=== PATIENT | female | born 1955 | race Caucasian/White ===

== ENCOUNTER 2019-07-14 15:01 | Outpatient (CLI) | payer BC, SELFPAY ==
--- NOTE | ~2019-07-14 | DEXA_ITS ---
Bone Density Report Name: Bhavana Escamilla Age: 63 Sex: Female Ethnicity: White Date of : 1955 Indication: postmenopausal; Referring Provider: KRYSTA TUBBS Study: Bone densitometry was performed. Exam Date: July 14, 2019 Accession number: [id number] Bone Density: Region BMD T-score Z-score Classification AP Spine (L1-L4) 1.034 -0.1 1.5 Normal Femoral Neck (Left) 0.729 -1.1 0.3 Osteopenia Total Hip (Left) 0.815 -1.0 0.1 Normal Total Hip Bilateral Avg 0.815 -1.1 0.1 Osteopenia Femoral Neck (Right) 0.746 -0.9 0.5 Normal Total Hip (Right) 0.813 -1.1 0.0 Osteopenia World Health Organization criteria for BMD impression classify patients as: Normal (T-score at or above -1.0), Osteopenia (T-score between -1.0 and -2.5), or Osteoporosis (T-score at or below -2.5). Clinical Information Provided by Patient: Has 3 or more alcoholic drinks per day Patient maximum height was 67 Menopause Age: 51 Drinks caffeinated beverages Onset of menses at age 14 Number of children 2 Impression: The patient has low bone mass, based on the Right Total Hip T-score. The patient has risk factors, including: excessive alcohol use. Discussion: BONE DENSITY IS LOW AT ONE OR MORE SKELETAL SITES. This patient's lowest T-score is low at one or more skeletal sites. It meets the World Health Organization's (WHO) criteria for ?low bone mass? (T-score between -1.0 and -2.5). The patient's 10-year risk of fracture as calculated by FRAX is less than the threshold where pharmacological therapy is recommended by the National Osteoporosis Foundation (NOF). However, all treatment decisions require clinical judgment and consideration of individual patient factors, including patient preferences, comorbidities, previous drug use, risk factors not captured in the FRAX model (e.g., frailty, falls, vitamin D deficiency, increased bone turnover, interval significant decline in bone density) and possible under or overestimation of fracture risk by FRAX. The patient should follow a healthful lifestyle (good nutrition with adequate calcium and vitamin D, and appropriate weight-bearing exercise). Follow-Up: Consider repeating this study in 2 to 3 years to reassess this patient's status, or sooner if there is some new clinical indication. Reported by: KATHY on 07/14/2019 3:43:00 PM. Reviewed, dictated and finalized at location A. [facility]
--- NOTE | ~2019-07-14 | MM_ITS ---
EXAMINATION: MM screening ron BI w marlyn HISTORY: Screening mammogram TECHNIQUE: Craniocaudal and mediolateral oblique 3-D tomosynthesis images were obtained and synthetic 2-D images were generated. CAD analysis was submitted and interpreted. COMPARISON: No prior mammogram is available for comparison at this institution. BREAST PARENCHYMAL COMPOSITION: There are scattered areas of fibroglandular density. FINDINGS: There is no evidence of suspicious mass, calcification, or architectural distortion to sugg est malignancy in either breast. There has been no suspicious interval change. IMPRESSION: 1. No mammographic evidence of malignancy. 2. Recommend routine screening mammography in one year. BI-RADS Category 1: Negative Reviewed, dictated and finalized at location A.
== END 2019-07-14 15:02 | disposition home or self-care (01) ==
LOC: ANHIMG 15:04
PROVIDERS: PCP Family Medicine; Visit Provider Obstetrics & Gynecology
DX: Z78.0 Asymptomatic menopausal state (principal); Z12.31 Encounter for screening mammogram for malignant neoplasm of breast; M85.89 Other specified disorders of bone density and structure, multiple sites
CPT/HCPCS: 77063; 77067; 77080

== ENCOUNTER → 2019-12-10 14:44 | Outpatient (CLI) | payer BC, SELFPAY ==
--- NOTE | ~2019-12-10 | XR_ITS ---
XR chest 2V DATE: 12/10/2019 15:04 INDICATION: Dyspnea. Shortness of breath on exertion. TECHNIQUE: PA and lateral views COMPARISON: None FINDINGS: There is bilateral hyperinflation consistent with COPD. Borderline heart size. Aortic and g reat vessel calcification. No hilar or mediastinal enlargement. No pulmonary infiltrate or consolidation, pleural effusion or pulmonary vascular congestion or pneumo thorax. Osteopenia. IMPRESSION: Bilateral hyperinflation, consistent with COPD Borderline heart size Aortic atherosclerosis Reviewed, dictated and finalized at location A.
== END ==
PROVIDERS: PCP Family Medicine; Visit Provider Family Medicine
DX: R06.00 Dyspnea, unspecified (principal); Z87.891 Personal history of nicotine dependence; R91.8 Other nonspecific abnormal finding of lung field; I70.0 Atherosclerosis of aorta
CPT/HCPCS: 71046

== ENCOUNTER 2020-03-07 13:35 | Outpatient (CLI) | payer BC, SELFPAY ==
--- NOTE | ~2020-03-07 | CT_ITS ---
EXAMINATION:CT lung screening DATE: 03/07/2020 14:24 INDICATION: Personal history of tobacco dependence. Smoker who quit 2 years ago with 30 pack year his tory. TECHNIQUE: Computed tomography (CT) of the chest was performed without intravenous contrast. Automate d exposure control and iterative reconstruction technique were employed. The dose-length product (DLP ) was 115.97 mGy-cm. COMPARISON: Chest 2 views 12/10/2019 FINDINGS: There is moderate emphysema. A calcified right lung nodule is consistent with old granuloma tous disease. There is mild atelectasis in right middle lobe. No pleural effusion. The heart size is normal. There are coronary artery calcifications. No pericardial effusion. There are three 2 mm stone s in left kidney. There is mild thoracic spondylosis. IMPRESSION: 1. Lung-RADS category 1: Negative. Continue annual screening with noncontrast low-dose chest CT in 12 months. Reviewed, dictated and finalized at location A. 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 Lung-RADS category 1: Negative. Continue annual screening with noncontrast l ow-dose chest CT in 12 months.
== END 2020-03-07 13:36 | disposition home or self-care (01) ==
LOC: ANHIMG 13:40
PROVIDERS: PCP Family Medicine; Visit Provider Internal Medicine Pulmonary Disease
DX: Z12.2 Encounter for screening for malignant neoplasm of respiratory organs (principal); Z87.891 Personal history of nicotine dependence
CPT/HCPCS: 71271

== ENCOUNTER 2020-03-14 12:31 | Outpatient (CLI) | payer BC, SELFPAY ==
--- NOTE | 2020-03-15 13:23 | WPDSIXMINUTE ---
Six Minute Walk This is a 6 minutes walk for exertional dyspnea. Findings: The patient's resting room air oxygen saturation measured by pulse oximetry was 93% and her heart rate was 68 bpm. Patient ambulated for 366 meters and oxygen saturation remained 87 to 93%. Heart rate at the end of the study was 95 bpm. There are no prior studies for comparison.
--- NOTE | 2020-03-15 13:24 | WPDPFTINT ---
PFT Interpretation This is a pulmonary function test with pre and post-bronchodilator spirometry, plethysmography and diffusing capacity. The test was performed and results interpreted in accordance with the 2019 and 2005 ATS/ERS Task Force guidelines respectively using the Yayo/Polyelena reference equations. Findings: Spirometry: There is decreased maximal expiratory airflow at all lung volumes with a concave expiratory flow tracing. The contour the inspiratory flow tracing is normal. The pre bronchodilator FVC is 2.66 L, 80% predicted. The pre bronchodilator FEV1 is 1.28 L, 52% predicted. The FEV1: FVC ratio was 48%. The post bronchodilator FVC is 2.99 L, representing a 12% increase. The post bronchodilator FEV1 is 1.46 L, representing a 14% increase. Plethysmography: The total lung capacity is 7.60 L, 139% predicted. The functional residual capacity is 4.01 L, 134% predicted. The residual volume is 3.75 L, 177% predicted. Diffusion capacity: The absolute diffusion capacity is 13.2, 59% predicted. The diffusing capacity corrected for alveolar volume is 2.88, 76% predicted. Impression: Impression: There is a moderate obstructive abnormality with significant improvement after inhaling a single dose of albuterol. The increase in residual volume is consistent with air trapping from an obstructive abnormality. Hyperinflation is present is demonstrated by the increase in functional residual capacity and total lung capacity and is consistent with an obstructive abnormality. The absolute diffusing capacity is moderately decreased and remains mildly decreased when corrected for alveolar volume. There are no prior studies for comparison
== END 2020-03-14 12:32 | disposition home or self-care (01) ==
LOC: ANHPFT 12:32
PROVIDERS: PCP Family Medicine; Visit Provider Internal Medicine Pulmonary Disease
DX: J44.9 Chronic obstructive pulmonary disease, unspecified (principal); R94.2 Abnormal results of pulmonary function studies
CPT/HCPCS: 94060; 94726; 94729

== ENCOUNTER 2020-04-11 12:14 | Outpatient (CLI) | payer BC, SELFPAY ==
[2020-04-11] VITALS (7 sets, daily range): PULSE 79–104; O2SAT 93–97
--- NOTE | 2020-04-11 13:30 | PCRTNOTE ---
Home Oxygen Evaluation RC: Home Oxygen (O2) Evaluation Start: 04/11/20 13:25 Freq: Status: Active Protocol: RPE Activity Type Activity Date Activity User E-Sign Co-Sign Detail Recorded Client Recorded Date Recorded By Document 04/11/20 13:00 [facility] [email or web address] 04/11/20 13:29 [facility] Document 04/11/20 13:02 [facility] [email or web address] 04/11/20 13:29 [facility] Document 04/11/20 13:04 [facility] [email or web address] 04/11/20 13:29 [facility] Document 04/11/20 13:06 [facility] [email or web address] 04/11/20 13:29 [facility] Document 04/11/20 13:08 [facility] [email or web address] 04/11/20 13:29 [facility] Document 04/11/20 13:10 [facility] [email or web address] 04/11/20 13:29 [facility] Document 04/11/20 13:12 [facility] [email or web address] 04/11/20 13:29 [facility] 04/11/20 04/11/20 04/11/20 13:00 13:02 13:04 Home O2 Evaluation Test Phase Resting Exercise Exercise Oxygen Delivery Room Air Room Air Room Air Pulse Oximetry (90-100 %) 97 94 95 Pulse Rate (60-100 beats/min) 79 90 95 Activity Tolerance Excellent Excellent Excellent Ambulation Distance (feet) 0 10 50 Treatment Charges O2 Evaluation - Outpatient 04/11/20 04/11/20 04/11/20 13:06 13:08 13:10 Home O2 Evaluation Test Phase Exercise Exercise Exercise Oxygen Delivery Room Air Room Air Room Air Pulse Oximetry (90-100 %) 93 94 94 Pulse Rate (60-100 beats/min) 104 H 103 H 98 Activity Tolerance Excellent Excellent Excellent Ambulation Distance (feet) 100 150 200 Treatment Charges 04/11/20 13:12 Home O2 Evaluation Test Phase Resting Oxygen Delivery Room Air Pulse Oximetry (90-100 %) 93 Pulse Rate (60-100 beats/min) 94 Activity Tolerance Excellent Ambulation Distance (feet) Treatment Charges
== END 2020-04-11 12:15 | disposition home or self-care (01) ==
LOC: ANHPFT 12:15
PROVIDERS: PCP Family Medicine; Visit Provider Internal Medicine Pulmonary Disease
DX: R06.02 Shortness of breath (principal)
CPT/HCPCS: 94618

== ENCOUNTER 2021-01-12 13:46 | Outpatient (CLI) | payer BC, SELFPAY ==
[2021-01-12 20:28] LABS: Hemoglobin A1C 5.5 % (<5.7)
== END 2021-01-12 13:47 | disposition home or self-care (01) ==
LOC: ANHBWCLAB 13:48
PROVIDERS: PCP Family Medicine; Visit Provider Family Medicine
DX: R73.03 Prediabetes (principal)
CPT/HCPCS: 36415; 83036

== ENCOUNTER 2021-07-20 08:32 | Outpatient (CLI) | payer MEDICARE, SELFPAY ==
[2021-07-20 18:36] LABS: Basophils Absolute Auto 0.1 K/mm3 (0.0-0.1); Eosinophils Absolute Auto 0.1 K/mm3 (0-0.3); Eosinophils Percent Auto 2.4 % (0-4.4); Hematocrit 42.4 % (37.0-47.0); Immature Granulocyte Absolute 0.01 K/mm3 (0.00-0.031); Immature Granulocyte Percent A 0.2 % (0-0.5); Lymphocytes Absolute Auto 2.32 K/mm3 (0.9-3.2); Lymphocytes Percent Auto 40.3 % (18.3-44.2); Mean Corpuscular HGB Conc 30.7 g/dl (32-36); Mean Corpuscular Hemoglobin 30.8 pg (26-34); Mean Corpuscular Volume 100.5 fl (80-100); Mean Platelet Volume 9.9 fl (7.4-10.4); Monocytes Absolute Auto 0.6 K/mm3 (0.1-0.6); Monocytes Percent Auto 10.1 % (2.6-8.5); Neutrophils Absolute Auto 2.7 K/mm3 (1.3-6.7); Platelet Count Result 285 k/mm3 (150-375); Red Blood Count 4.22 M/mm3 (4.2-5.4); Red Cell Distribution Width 14.3 % (11.5-14.5); White Blood Count 5.8 K/mm3 (4.5-10.0)
[2021-07-20 18:44] LABS: Alanine Aminotransferase 22 U/L (6-35); Albumin Level 4.3 g/dL (3.5-5.1); Alkaline Phosphatase 82 U/L (38-126); Anion Gap 4 mmol/L (8-16); Aspartate Amino Transferase 21 U/L (14-36); Bilirubin,Total 0.1 mg/dL (0.2-1.3); Blood Urea Nitrogen 16 mg/dL (7-17); Calcium 9.7 mg/dL (8.4-10.2); Carbon Dioxide 28 mmol/L (22-30); Chloride 107 mmol/L (98-107); Cholesterol 188 mg/dL (0-200); Estimated Glomerular Filt Rate 56; Glucose 102 mg/dL (65-110); HDL Direct 96 mg/dL; Potassium 4.5 mmol/L (3.4-5.0); Sodium 139 mmol/L (137-145); Triglycerides 97 mg/dL (<150)
[2021-07-20 18:53] LABS: Hemoglobin A1C 5.8 % (<5.7)
[2021-07-20 18:54] LABS: LDL Cholesterol Direct 67 mg/dL
[2021-07-20 19:01] LABS: Vitamin D 25 Hydroxy 48.3 ng/mL
== END 2021-07-20 08:33 | disposition home or self-care (01) ==
PROVIDERS: PCP Family Medicine; Visit Provider Family Medicine
DX: E53.8 Deficiency of other specified B group vitamins (principal); I70.90 Unspecified atherosclerosis; R79.89 Other specified abnormal findings of blood chemistry; I25.10 Atherosclerotic heart disease of native coronary artery without angina pectoris; R73.03 Prediabetes; E55.9 Vitamin D deficiency, unspecified; I10 Essential (primary) hypertension
CPT/HCPCS: 36415; 80053; 80061; 82306; 82607; 83036; 85025

== ENCOUNTER 2021-08-16 14:01 | Outpatient (CLI) | payer MEDICARE, SELFPAY ==
--- NOTE | ~2021-08-16 | MM_ITS ---
EXAMINATION: MM screening ron BI w marlyn HISTORY: Screening TECHNIQUE: Craniocaudal and mediolateral oblique 3-D tomosynthesis images were obtained and synthetic 2-D images were generated. CAD analysis was submitted and interpreted. COMPARISON: 07/14/2019 BREAST PARENCHYMAL COMPOSITION: There are scattered areas of fibroglandular density. FINDINGS: There is no evidence of suspicious mass, calcification, or architectural distortion to sugg est malignancy in either breast. There has been no suspicious interval change. IMPRESSION: 1. No mammographic evidence of malignancy. 2. Recommend routine screening mammography in one year. BI-RADS Category 1: Negative Reviewed, dictated and finalized at location A.
== END 2021-08-16 14:02 | disposition home or self-care (01) ==
LOC: ANHIMG 14:03
PROVIDERS: PCP Family Medicine; Visit Provider Obstetrics & Gynecology
DX: Z12.31 Encounter for screening mammogram for malignant neoplasm of breast (principal)
CPT/HCPCS: 77063; 77067

== ENCOUNTER 2021-08-24 09:23 | Outpatient (CLI) | payer MEDICARE, SELFPAY ==
--- NOTE | ~2021-08-24 | XR_ITS ---
EXAMINATION: XR foot LT min 3V, XR ankle LT min 3V DATE: 08/24/2021 09:47 INDICATION: Left heel and ankle pain TECHNIQUE: 1. Anteroposterior, mortise, additional oblique and lateral view of the left ankle were obtained. 2. Dorsoplantar, two oblique and lateral views of the left foot were obtained. COMPARISON: None. FINDINGS: Alignment of the left foot and ankle is normal. No fracture. Flattening of the articular surface at t he head of the second metatarsal which could represent sequela of chronic osteonecrosis (Freiberg's i nfraction). 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 Moderate-si zed Achilles and plantar calcaneal spurs. Soft tissues are unremarkable. No left ankle joint effusion . IMPRESSION: 1. Degenerative skeletal changes including mild polyarticular osteoarthritis in the mid and forefoot as well as Achilles and plantar calcaneal spurs. No acute osseous abnormality. 2. Flattening of the articular surface at the head of the second metatarsal suggestive of sequela of chronic osteonecrosis (Freiberg's infraction). Reviewed, dictated and finalized at location B. IMPRESSION: 1. Degenerative skeletal changes including mild polyarticular osteoarthritis in the mid and forefoot as well as Achilles and plantar calcaneal spurs. No acute osseous abnormality. 2. Flattening of the articular surface at the head of the second metatarsal sug gestive of sequela of chronic osteonecrosis (Freiberg's infraction).
== END 2021-08-24 09:24 | disposition home or self-care (01) ==
PROVIDERS: PCP Family Medicine; Visit Provider Family Medicine
DX: M25.572 Pain in left ankle and joints of left foot (principal); M19.072 Primary osteoarthritis, left ankle and foot; M77.32 Calcaneal spur, left foot
CPT/HCPCS: 73610; 73630

== ENCOUNTER 2022-01-22 11:35 | Outpatient (CLI) | payer MEDICARE, SELFPAY ==
[2022-01-22 19:05] LABS: Alanine Aminotransferase 22 U/L (6-35); Albumin Level 4.2 g/dL (3.5-5.1); Alkaline Phosphatase 90 U/L (38-126); Anion Gap 7 mmol/L (8-16); Aspartate Amino Transferase 45 U/L (14-36); Bilirubin,Total 0.3 mg/dL (0.2-1.3); Blood Urea Nitrogen 13 mg/dL (7-17); Calcium 9.3 mg/dL (8.4-10.2); Carbon Dioxide 29 mmol/L (22-30); Chloride 104 mmol/L (98-107); Estimated Glomerular Filt Rate > 60; Glucose 97 mg/dL (65-110); Sodium 140 mmol/L (137-145)
[2022-01-23 16:16] LABS: Basophils Absolute Auto 0.1 K/mm3 (0.0-0.1); Basophils Percent Auto 0.6 % (0.2-1.2); Eosinophils Absolute Auto 0.1 K/mm3 (0-0.3); Eosinophils Percent Auto 0.9 % (0-4.4); Hematocrit 41.9 % (37.0-47.0); Hemoglobin 13.2 g/dL (12.0-15.0); Immature Granulocyte Absolute 0.01 K/mm3 (0.00-0.031); Immature Granulocyte Percent A 0.1 % (0-0.5); Lymphocytes Absolute Auto 2.39 K/mm3 (0.9-3.2); Lymphocytes Percent Auto 30.7 % (18.3-44.2); Mean Corpuscular HGB Conc 31.5 g/dl (32-36); Mean Corpuscular Hemoglobin 31.9 pg (26-34); Mean Corpuscular Volume 101.2 fl (80-100); Mean Platelet Volume 10.3 fl (7.4-10.4); Monocytes Absolute Auto 0.8 K/mm3 (0.1-0.6); Monocytes Percent Auto 10.2 % (2.6-8.5); Neutrophils Absolute Auto 4.5 K/mm3 (1.3-6.7); Neutrophils Percent Auto 57.5 % (45.5-73.1); Platelet Count Result 268 k/mm3 (150-375); Red Blood Count 4.14 M/mm3 (4.2-5.4); Red Cell Distribution Width 13.5 % (11.5-14.5); White Blood Count 7.8 K/mm3 (4.5-10.0)
[2022-01-23 17:18] LABS: Hemoglobin A1C 5.9 % (<5.7)
== END 2022-01-22 11:36 | disposition home or self-care (01) ==
PROVIDERS: PCP Family Medicine; Visit Provider Family Medicine
DX: E53.8 Deficiency of other specified B group vitamins (principal); E87.6 Hypokalemia; D64.9 Anemia, unspecified; Z79.899 Other long term (current) drug therapy; I25.10 Atherosclerotic heart disease of native coronary artery without angina pectoris
CPT/HCPCS: 36415; 80053; 82607; 83036; 85025

== ENCOUNTER 2022-03-21 11:08 | Outpatient (CLI) | payer MEDICARE, SELFPAY ==
[2022-03-21 20:47] LABS: Alanine Aminotransferase 28 U/L (6-35); Albumin Level 4.4 g/dL (3.5-5.1); Alkaline Phosphatase 72 U/L (38-126); Aspartate Amino Transferase 43 U/L (14-36); Bilirubin,Total 0.4 mg/dL (0.2-1.3)
[2022-03-21 21:00] LABS: Hepatitis B Surface Antigen Negative (Negative)
[2022-03-21 21:06] LABS: HAV RESULT Negative (Negative); Hepatitis B Core IgM Result Negative (Negative)
[2022-03-21 21:18] LABS: Hepatitis C Virus Antibody Negative (Negative)
== END 2022-03-21 11:09 | disposition home or self-care (01) ==
PROVIDERS: PCP Family Medicine; Visit Provider Family Medicine
DX: R74.01 Elevation of levels of liver transaminase levels (principal)
CPT/HCPCS: 36415; 80074; 80076

== ENCOUNTER → 2022-04-20 12:39 | Outpatient (CLI) | payer MEDICARE, SELFPAY ==
--- NOTE | ~2022-04-20 | CT_ITS ---
EXAMINATION: CT lung screening DATE: 04/20/2022 12:59 INDICATION: smoking TECHNIQUE: Computed tomography (CT) of the chest was performed without intravenous contrast. Addition al 3D reconstructions utilizing coronal maximum intensity projection (MIP) were performed. Automated exposure control and iterative reconstruction technique were employed. The dose-length product was 89 .44 mGy-cm. COMPARISON: 03/07/2020 FINDINGS: Moderate emphysema. Calcified right lung nodule consistent with old granulomatous disease. No interva l change in 4 mm and 5 mm noncalcified nodules the superior segment of the right lower lobe. Mild dis coid atelectasis/scarring at the basilar left lower lobe. New 3 mm groundglass nodule in the superior segment of the left lower lobe. No pneumonia, pulmonary edema or pleural effusion. Heart size normal . Atherosclerotic coronary artery calcific lesion. Mitral annular and aortic valve calcifications. Th oracic aorta is normal in caliber. No pathologically enlarged thoracic lymphadenopathy. 1 cm cyst in segment IVb of the liver. Mild thoracic spondylosis. IMPRESSION: 1. Lung-RADS category 2: Benign appearance or behavior. Continue annual screening with noncontrast lo w-dose chest CT in 12 months. Reviewed, dictated and finalized at location A. 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 Lung-RADS category 2: Benign appearance or behavior. Continue annual screeni ng with noncontrast low-dose chest CT in 12 months.
== END ==
PROVIDERS: PCP Family Medicine; Visit Provider Family Medicine
DX: Z12.2 Encounter for screening for malignant neoplasm of respiratory organs (principal); Z87.891 Personal history of nicotine dependence
CPT/HCPCS: 71271

== ENCOUNTER 2022-08-08 14:09 | Outpatient (CLI) | payer MEDICARE, SELFPAY ==
[2022-08-08 19:27] LABS: Alanine Aminotransferase 25 U/L (6-35); Albumin Level 4.7 g/dL (3.5-5.1); Alkaline Phosphatase 85 U/L (38-126); Anion Gap 6 mmol/L (8-16); Aspartate Amino Transferase 49 U/L (14-36); Bilirubin,Total 0.6 mg/dL (0.2-1.3); Blood Urea Nitrogen 16 mg/dL (7-17); Calcium 10.1 mg/dL (8.4-10.2); Carbon Dioxide 32 mmol/L (22-30); Chloride 102 mmol/L (98-107); Cholesterol 199 mg/dL (0-200); Estimated Glomerular Filt Rate > 60; Glucose 94 mg/dL (65-110); HDL Direct 84 mg/dL; Potassium 4.7 mmol/L (3.4-5.0); Sodium 140 mmol/L (137-145); Triglycerides 85 mg/dL (<150)
[2022-08-08 19:38] LABS: LDL Cholesterol Direct 89 mg/dL
== END 2022-08-08 14:10 | disposition home or self-care (01) ==
LOC: ANHBWCLAB 14:10
PROVIDERS: PCP Nurse Practitioner Adult Health; Visit Provider Nurse Practitioner Adult Health
DX: I10 Essential (primary) hypertension (principal); R74.01 Elevation of levels of liver transaminase levels
CPT/HCPCS: 36415; 80048; 80061; 80076

== ENCOUNTER 2022-10-09 08:14 | Emergency (ER) | payer MEDICARE, SELFPAY ==
[2022-10-09 08:22] VITALS: BP 159/99; PULSE 117; RESP 20; TEMP 35.5; O2SAT 92
--- NOTE | 2022-10-09 08:39 | ED.URI ---
HPI - URI/Sore Throat General Chief Complaint: Upper Respiratory Infection Stated Complaint: respiratory issues History of Present Illness HPI Narrative: Pt is a 67 y/o female, PMHx of COPD, presents to with 4 day hx of increased coughing, wheezing and sneezing, onset after being outdoors more than usual, as well as, exposure to cigar smoke that seemed to exacerbate her wheezing. She is using her rescue inhaler without much relief. She contacted her PCP's office and states she was instructed to go to urgent care for a nebulizer machine . pt denies associated fevers or chills. She coughs but denies sputum production and she has not attempted OTC antihistamines or any other modifying factors. She denies CP, orthopnea, calf pain or swelling, palpitations or syncope. She has no known sick contacts or COV exposures. Related Data Home Medications Medication Instructions Recorded Confirmed ascorbic acid (vitamin C) 1,000 mg 1 gm PO DAILY 12/24/18 08/08/22 tablet aspirin 81 mg tablet,delayed 81 mg PO DAILY 12/24/18 08/08/22 release (Adult Low Dose Aspirin) cholecalciferol (vitamin D3) 125 5,000 unit PO DAILY 12/24/18 08/08/22 mcg (5,000 unit) tablet metoprolol tartrate 50 mg tablet 50 mg PO BID 12/24/18 08/08/22 rosuvastatin 40 mg tablet 40 mg PO DAILY 02/24/19 08/08/22 fluticasone propionate 50 1 spray intranasal DAILY 04/11/20 08/08/22 mcg/actuation nasal spray,suspension levocetirizine 5 mg tablet (24HR 5 mg PO DAILY 04/11/20 08/08/22 Allergy Relief) budesonide 160 mcg-glycopyr 9 2 inh inhalation BID 01/12/21 08/08/22 mcg-formot 4.8 mcg/actuation HFA inhaler (Breztri Aerosphere) lisinopril 40 mg tablet 20 mg PO BID 08/08/22 08/08/22 Allergies Allergy/AdvReac Type Severity Reaction Status Date / Time hydromorphone [From Dilaudid] Allergy Unknown Verified 08/08/22 13:41 Review of Systems Constitutional: Comments: no fevers or chills Cardiovascular: Comments: no CP or orthopnea Respiratory: Comments: refer to [facility] Past Medical History Medical History History of vaginal delivery x 2 Hypertension Other [facility]current[facility] drug therapy Surgical History Surgical History History of total hysterectomy History of tubal ligation Family History Family History Mother Family history of hypercholesterolemia Hypertension Family history of congestive heart failure Father Acute myocardial infarction Social History Social History Smoking packs per day: 1 Smoking cigarettes per day: 20.0 Years smoked: 45 Smoking pack-years: 45.00 Smoking status: Former smoker Second hand tobacco smoke exposure: Yes Alcohol intake: current Drinks per week: 10 Substance use: never Lack of Transportation: No Lack of Food: Never True Current Housing: I Have Housing Concerned About Future Housing: No Difficulty Paying Gas/Electric Bills: No Difficulty Paying for Meds: No Currently Unemployed: No Education: High School Diploma/GED Difficulty w/ Childcare or Family Care: No Exam Narrative: Pt is pleasant, non toxic appearing, in NAD Const: General: healthy appearing, no acute distress and alert Nutritional Appearance: well nourished Orientation/consciousness: patient oriented x3 Limitations: no limitations HENMT: Head: normal to inspection Ears: external ears normal Face/Nose/Sinus: Normal external nose present Face and sinus: normal facial exam Mouth: Yes Normal oral and palatal mucosa present Eyes: Conjunctivae: conjunctival abnormality (right eye conjunctival injection without discharge) EOM: EOMs intact bilaterally Other: no lid erythema or edema Neck: Neck: normal visual inspection, no lymphadenopa
== END 2022-10-09 08:54 | disposition home or self-care (01) ==
PROVIDERS: Emergency Provider Nurse Practitioner Family; PCP Family Medicine
DX: J44.1 Chronic obstructive pulmonary disease with (acute) exacerbation (principal); Z87.891 Personal history of nicotine dependence; I10 Essential (primary) hypertension
CPT/HCPCS: 99213; G0463

== ENCOUNTER 2022-11-01 15:19 | Outpatient (CLI) | payer MEDICARE, SELFPAY ==
--- NOTE | ~2022-11-01 | MM_ITS ---
EXAMINATION: MM screening ron BI w marlyn HISTORY: Screening TECHNIQUE: Craniocaudal and mediolateral oblique 3-D tomosynthesis images were obtained and synthetic 2-D images were generated. CAD analysis was submitted and interpreted. COMPARISON: Comparison to multiple prior studies sequentially, with oldest reviewed study dated 03/2019. BREAST PARENCHYMAL COMPOSITION: Breast composed of scattered areas of fibroglandular density FINDINGS: There is no evidence of suspicious mass, calcification, or architectural distortion to sugg est malignancy in either breast. There has been no suspicious interval change. IMPRESSION: 1. No mammographic evidence of malignancy. 2. Recommend routine screening mammography in one year. BI-RADS Category 1: Negative Reviewed, dictated and finalized at location A.
== END 2022-11-01 15:20 | disposition home or self-care (01) ==
PROVIDERS: PCP Family Medicine; Visit Provider Family Medicine
DX: Z12.31 Encounter for screening mammogram for malignant neoplasm of breast (principal)
CPT/HCPCS: 77063; 77067

== ENCOUNTER 2023-03-05 15:02 | Outpatient (CLI) | payer MEDICARE, SELFPAY ==
[2023-03-05 19:26] LABS: Hematocrit 37.7 % (37.0-47.0); Mean Corpuscular HGB Conc 29.2 g/dl (32-36); Mean Corpuscular Hemoglobin 25.3 pg (26-34); Mean Corpuscular Volume 86.7 fl (80-100); Mean Platelet Volume 10.1 fl (7.4-10.4); Platelet Count Result 421 k/mm3 (150-375); Red Blood Count 4.35 M/mm3 (4.2-5.4); Red Cell Distribution Width 19.4 % (11.5-14.5); White Blood Count 7.6 K/mm3 (4.5-10.0)
[2023-03-05 20:15] LABS: Anion Gap 9 mmol/L (8-16); Blood Urea Nitrogen 23 mg/dL (7-17); Calcium 9.6 mg/dL (8.4-10.2); Carbon Dioxide 29 mmol/L (22-30); Chloride 99 mmol/L (98-107); Estimated Glomerular Filt Rate 55; Glucose 100 mg/dL (65-110); Magnesium 2.3 mg/dL (1.6-2.3); Potassium 4.1 mmol/L (3.4-5.0); Sodium 137 mmol/L (137-145)
== END 2023-03-05 15:03 | disposition home or self-care (01) ==
LOC: ANHBWCLAB 15:04
PROVIDERS: PCP Nurse Practitioner Adult Health; Visit Provider Nurse Practitioner Adult Health
DX: D64.9 Anemia, unspecified (principal); G25.81 Restless legs syndrome
CPT/HCPCS: 36415; 80048; 83735; 85027

== ENCOUNTER 2023-05-13 12:21 | Outpatient (CLI) | payer MEDICARE, SELFPAY ==
[2023-05-13 18:30] LABS: Anion Gap 7 mmol/L (4-12); Blood Urea Nitrogen 17 mg/dL (7-17); Calcium 9.5 mg/dL (8.4-10.2); Carbon Dioxide 24 mmol/L (22-30); Chloride 103 mmol/L (98-107); Estimated Glomerular Filt Rate > 60; Glucose 87 mg/dL (65-110); Magnesium 2.3 mg/dL (1.6-2.3); Potassium 4.1 mmol/L (3.4-5.0); Sodium 134 mmol/L (137-145)
[2023-05-13 18:36] LABS: Hematocrit 38.5 % (37.0-47.0); Hemoglobin 11.4 g/dL (12.0-15.0); Mean Corpuscular HGB Conc 29.6 g/dl (32-36); Mean Corpuscular Hemoglobin 26.3 pg (26-34); Mean Corpuscular Volume 88.9 fl (80-100); Mean Platelet Volume 9.8 fl (7.4-10.4); Platelet Count Result 296 k/mm3 (150-375); Red Blood Count 4.33 M/mm3 (4.2-5.4); Red Cell Distribution Width 21.8 % (11.5-14.5); White Blood Count 7.8 K/mm3 (4.5-10.0)
== END 2023-05-13 12:22 | disposition home or self-care (01) ==
PROVIDERS: PCP Nurse Practitioner Adult Health; Visit Provider Nurse Practitioner Adult Health
DX: R25.1 Tremor, unspecified (principal)
CPT/HCPCS: 36415; 80048; 82607; 82746; 83735; 84443; 85027

== ENCOUNTER 2023-05-16 15:00 | Outpatient (RCR) | payer MEDICARE, SELFPAY | END 2023-05-22 15:42 | disposition home or self-care (01) | LOC: ANHCPREHAB 15:00 | PROVIDERS: PCP Nurse Practitioner Adult Health; Visit Provider Thoracic Surgery (Cardiothoracic Vascular Surgery) | DX: Z95.1 Presence of aortocoronary bypass graft (principal) | CPT/HCPCS: 93798 ==

== ENCOUNTER 2023-08-07 08:48 | Outpatient (RCR) | payer MEDICARE, SELFPAY ==
[2023-08-07 09:00] VITALS: BMI 25.5
== END 2023-10-16 15:15 | disposition home or self-care (01) ==
LOC: ANHWOC 08:48
PROVIDERS: PCP Nurse Practitioner Adult Health; Visit Provider Nurse Practitioner Adult Health
DX: S81.802D Unspecified open wound, left lower leg, subsequent encounter (principal)
CPT/HCPCS: 99214; G0463

== ENCOUNTER 2023-10-29 13:13 | Outpatient (CLI) | payer MEDICARE, SELFPAY ==
[2023-10-29 18:47] LABS: Basophils Absolute Auto 0.1 K/mm3 (0.0-0.1); Basophils Percent Auto 0.6 % (0.2-1.2); Eosinophils Absolute Auto 0.1 K/mm3 (0-0.3); Eosinophils Percent Auto 1.4 % (0-4.4); Hematocrit 44.3 % (37.0-47.0); Hemoglobin 13.7 g/dL (12.0-15.0); Immature Granulocyte Absolute 0.02 K/mm3 (0.00-0.031); Immature Granulocyte Percent A 0.3 % (0-0.5); Lymphocytes Absolute Auto 1.85 K/mm3 (0.9-3.2); Lymphocytes Percent Auto 23.4 % (18.3-44.2); Mean Corpuscular HGB Conc 30.9 g/dl (32-36); Mean Corpuscular Hemoglobin 28.5 pg (26-34); Mean Corpuscular Volume 92.3 fl (80-100); Mean Platelet Volume 10.7 fl (7.4-10.4); Monocytes Absolute Auto 0.7 K/mm3 (0.1-0.6); Monocytes Percent Auto 9.2 % (2.6-8.5); Neutrophils Absolute Auto 5.2 K/mm3 (1.3-6.7); Neutrophils Percent Auto 65.1 % (45.5-73.1); Platelet Count Result 235 k/mm3 (150-375); Red Cell Distribution Width 16.5 % (11.5-14.5); White Blood Count 7.9 K/mm3 (4.5-10.0)
[2023-10-29 18:49] LABS: Alanine Aminotransferase 32 U/L (6-35); Albumin Level 4.6 g/dL (3.5-5.1); Alkaline Phosphatase 84 U/L (38-126); Anion Gap 11 mmol/L (4-12); Aspartate Amino Transferase 53 U/L (14-36); Bilirubin,Total 0.5 mg/dL (0.2-1.3); Blood Urea Nitrogen 21 mg/dL (7-17); Calcium 9.6 mg/dL (8.4-10.2); Carbon Dioxide 25 mmol/L (22-30); Chloride 99 mmol/L (98-107); Cholesterol 165 mg/dL (0-200); Estimated Glomerular Filt Rate > 60; Glucose 95 mg/dL (65-110); HDL Direct 90 mg/dL; Potassium 4.4 mmol/L (3.4-5.0); Sodium 135 mmol/L (137-145); Triglycerides 84 mg/dL (<150)
[2023-10-29 19:00] LABS: LDL Cholesterol Direct 62 mg/dL
[2023-10-29 19:15] LABS: Vitamin D 25 Hydroxy 44.9 ng/mL
[2023-10-29 19:28] LABS: Hemoglobin A1C 6.1 % (<5.7)
[2023-10-29 19:41] LABS: Vitamin B12 > 1000.0 pg/mL (239-931)
== END 2023-10-29 13:14 | disposition home or self-care (01) ==
PROVIDERS: PCP Nurse Practitioner Adult Health; Visit Provider Nurse Practitioner Adult Health
DX: R79.89 Other specified abnormal findings of blood chemistry (principal); E53.8 Deficiency of other specified B group vitamins; E78.5 Hyperlipidemia, unspecified; Z79.899 Other long term (current) drug therapy
CPT/HCPCS: 36415; 80053; 80061; 82306; 82607; 83036; 84443; 85025

== ENCOUNTER 2023-12-19 10:12 | Outpatient (CLI) | payer MEDICARE, SELFPAY ==
[2023-12-19 19:05] LABS: Alanine Aminotransferase 18 U/L (6-35); Albumin Level 3.6 g/dL (3.5-5.1); Alkaline Phosphatase 99 U/L (38-126); Anion Gap 11 mmol/L (4-12); Aspartate Amino Transferase 43 U/L (14-36); Bilirubin,Total 0.2 mg/dL (0.2-1.3); Blood Urea Nitrogen 21 mg/dL (7-17); Calcium 9.3 mg/dL (8.4-10.2); Carbon Dioxide 23 mmol/L (22-30); Chloride 107 mmol/L (98-107); Estimated Glomerular Filt Rate 45; Glucose 104 mg/dL (65-110); Potassium 2.9 mmol/L (3.4-5.0); Sodium 141 mmol/L (137-145)
== END 2023-12-19 10:13 | disposition home or self-care (01) ==
PROVIDERS: PCP Nurse Practitioner Adult Health; Visit Provider Nurse Practitioner Adult Health
DX: N28.9 Disorder of kidney and ureter, unspecified (principal); R74.8 Abnormal levels of other serum enzymes
CPT/HCPCS: 36415; 80053

== ENCOUNTER 2023-12-23 10:51 | Outpatient (CLI) | payer MEDICARE, SELFPAY ==
[2023-12-23 19:18] LABS: Potassium 3.9 mmol/L (3.4-5.0)
== END 2023-12-23 10:52 | disposition home or self-care (01) ==
PROVIDERS: PCP Nurse Practitioner Adult Health; Visit Provider Nurse Practitioner Adult Health
DX: E87.6 Hypokalemia (principal)
CPT/HCPCS: 36415; 84132

== ENCOUNTER 2024-01-06 13:07 | Outpatient (CLI) | payer MEDICARE, SELFPAY ==
[2024-01-06 18:55] LABS: Potassium 4.5 mmol/L (3.4-5.0)
== END 2024-01-06 13:08 | disposition home or self-care (01) ==
PROVIDERS: PCP Nurse Practitioner Adult Health; Visit Provider Nurse Practitioner Adult Health
DX: E87.6 Hypokalemia (principal)
CPT/HCPCS: 36415; 84132

== ENCOUNTER 2024-03-26 15:15 | Outpatient (CLI) | payer MEDICARE, SELFPAY ==
--- NOTE | ~2024-03-26 | MM_ITS ---
EXAMINATION: MM screening ron BI w marlyn HISTORY: Screening TECHNIQUE: Craniocaudal and mediolateral oblique 3-D tomosynthesis images were obtained and synthetic 2-D images were generated. CAD analysis was submitted and interpreted. COMPARISON: Comparison to multiple prior studies sequentially, with oldest reviewed study dated 03/2019. BREAST PARENCHYMAL COMPOSITION: Not dense: There are scattered areas of fibroglandular density. FINDINGS: There is no evidence of suspicious mass, calcification, or architectural distortion to sugg est malignancy in either breast. There has been no suspicious interval change. IMPRESSION: 1. No mammographic evidence of malignancy. 2. Recommend routine screening mammography in one year. BI-RADS Category 1: Negative Reviewed, dictated and finalized at location B. RITY TESTER
--- OUTSIDE RECORDS SUMMARY | 2024-03-26 15:17 | XMS_ITS | Clinical Summary ---
Author Organization [facility] Building [address] Address [address] [place] [address] Care Team Providers Care Policy And Planning Manager Name Role Phone Ed Robles MD Primary Care Provider [phone] Corona Crabtree MD Unavailable [phone] Demond Estevez MD Unavailable [phone] Allergies Active Allergy Reactions Criticality Noted Date Comments Hydromorphone Mental status changes,Delusions Medium 07/02/2018 makes me crazy Tolerated oxycodone 12/30/22 Medications ascorbic acid (VITAMIN C) 100 mg tablet Take 1 tablet (100 mg total) by mouth daily Active aspirin 81 mg tablet Take 1 tablet (81 mg total) by mouth daily Active citalopram (CeleXA) 10 mg tablet Take 2 tablets (20 mg total) by mouth daily Take 1 tablet daily Active Breztri Aerosphere 160-9-4.8 mcg/actuation HFA aerosol inhaler 2 Active montelukast (SINGULAIR) 10 mg tablet Take 1 tablet (10 mg total) by mouth daily 2 Active albuterol HFA (PROVENTIL HFA,VENTOLIN HFA,PROAIR HFA) 90 mcg/actuation inhaler Inhale 2 puffs every 4 (four) hours as needed for wheezing Active fluticasone propionate (FLONASE) 50 mcg/actuation nasal spray Administer 2 sprays into affected nostril(s) daily Active magnesium gluconate (MAGONATE) 27.5 mg magne- sium (500 mg) tablet Take 1 tablet (500 mg total) by mouth daily Active zinc gluconate 50 mg tablet Take 1 tablet (50 mg total) by mouth daily Active ezetimibe (ZETIA) 10 mg tablet Take 1 tablet (10 mg total) by mouth daily Active cholecalciferol (VITAMIN D-3) 2000 unit tablet Take 1 tablet (2,000 Units total) by mouth daily Active rOPINIRole (REQUIP) 5 mg tablet Take 1 mg by mouth nightly Active metoprolol tartrate (LOPRESSOR) 25 mg immediate release tablet Take 2 tablets (50 mg total) by mouth 2 (two) times a day 120 tablet 11 4 12/06/19 Active rosuvastatin (CRESTOR) 10 mg tablet Take 1 tablet (10 mg total) by mouth daily 30 tablet 11 4 12/06/19 25 Active cetirizine (ZyrTEC) 10 mg tablet Take 0.5 tablets (5 mg total) by mouth daily 4 Active apixaban (ELIQUIS) 5 mg tablet Take 0.5 tablets (2.5 mg total) by mouth 2 (two) times a day 60 tablet 11 4 Active Active Problems Problem Noted Date Diagnosed Date Pneumonia of both lower lobe s due to Streptococcus pneumoniae ([facility]) 11/29/2023 Acute kidney injury 11/29/2023 Pneumonia of both lungs due to infectious organism, unspecified part of lung 11/28/2023 Coronary artery disease of n ative heart with stable angina pectoris 12/27/2022 Allergic rhinitis 12/25/2022 Anxiety 12/25/2022 Asthma-COPD overlap syndrome 12/25/2022 Atherosclerotic DENISA (renal artery stenosis), rony ateral 12/25/2022 KP on CPAP 12/25/2022 PSVT (paroxysmal supraventricular tachycardia) 1 02/24/2022 Shortness of breath 12/23/2022 NSTEMI (non-ST elevated myocardial infarction) ( [facility]) 12/22/2022 Mixed hyperlipidemia 03/30/2018 Overview (12/25/2022): 08/30 Cholesterol 163 HDL 71 LDL 68 triglyceride 154, AST 17 ALT 16 glucose 90 07/30 Cholesterol 133 HDL 50 LDL 64 triglyceride 100, AST 19 ALT 16 glucose 109 06/29 Cholesterol 142 HDL 32 LDL 81 triglyceride 144, AST 28 (on rosuvastatin 40 mg daily) 04/01 Cholesterol 214 HDL 52 LDL 134 triglyceride 149, normal CMP except glucose 129 (on pravastatin 40 mg daily) 08/30 Cholesterol 163 HDL 71 LDL 68 triglyceride 154, AST 17 ALT 16 glucose 90 07/30 Cholesterol 133 HDL 50 LDL 64 triglyceride 100, AST 19 ALT 16 glucose 109 06/29 Cholesterol 142 HDL 32 LDL 81 triglyceride 144, AST 28 (on rosuvastatin 40 mg daily) 04/01 Cholesterol 214 HDL 52 LDL 134 triglyceride 149, normal CMP except glucose 129 (on pravastatin 40 mg daily) Resolved Problems Problem Noted Date Diagnosed Date Resolved Date S/P carotid endarterectomy 08/23/2020 1 02/24/2022 Assessment & Plan (08/23/2020 11:52 AM CDT): No recurrent right ICA stenosis and minimal asymptomatic left ICA stenosis. Repeat carotid Doppler in one year. PAD (peripheral artery disease) 04/17/2018 12/25/2022 Assessment & Plan (08/23/2020 11:50 AM CDT): Normal lower extremity arterial perfusion with stable left SFA stenosis. Repeat lower extremity arterial Doppler in one year. Stenosis of right carotid artery 04/17/2018 08/23/2020 Encounters Date Type Department Care Team Description 03/22/2024 6:58 PM MULTIGRAPH OPERATOR - 03/22/2024 9:21 PM [facility] Emergency [facility] Emergency Department [address] [place] [address] Beto Valdez MD Pain, dental (Primary Dx); Dehydration Discharge Disposition: Discharge to home or self care 02/06/2024 1:51 PM MULTIGRAPH OPERATOR - 02/06/2024 5:04 PM [facility] Emergency Department [address] [place] [address] Pleuritic chest pain (Primary Dx) Discharge Disposition: Discharge to home or self care from Last 3 Months Immunizations Name Administration Dates Next Due Influenza, Quadrivalent, Hig h Dose, Preservative Free, Intrr 11/08/2022,12/10/2021 Influenza, Quadrivalent, Rec ombinant, Egg Free, Preservative Free, Intramuscular 11/18/2019 Influenza, Quadrivalent, Spl it, Preservative Free, Intramuscular 11/09/2020,10/21/2018,11/27/2017 Influenza, Trivalent, High D ose, Split, Preservative Free, Intramuscular 12/06/2023 Pfizer SARS-CoV-2 Monovalent Vaccination (12+ Yrs) PURPLE 05/05/2020,04/14/2020 Pneumococcal Conjugate Pcv20 08/24/2021,05/29/19 22 Pneumococcal Polysaccharide PPV23 07/18/2020 RSV Vaccine, Pref, Recombina nt, Subunit, Adjuvanted, PF, IM (Arexvy) 11/15/2022 Tdap 03/07/2012 ZOSTER Recombinant 03/27/2019,10/21/2018 Surgical History Surgery Date Site/Laterality Comments HYSTERECTOMY FEMORAL BYPASS CAROTID ARTERY ANGIOPLASTY Right Medical History Medical History Date Comments COPD (chronic obstructive pulmonary disease) (HC C) Hyperlipidemia Hypertension Vitamin D deficiency PAD (peripheral artery disease) (HCC) Carotid stenosis, bilateral Aortoiliac stenosis (HCC) Sleep apnea Social History Tobacco Use Types Packs/Day Years Used Date Smoking Tobacco: Former Cigarettes 1 35 Q uit: 04/2018 Smokeless Tobacco: Never Tobacco Cessation:Counseling Given: No Alcohol Use Standard Drinks/Week Comments Yes 0 (1 standard drink = 0.6 oz pur e alcohol) [facility] [employer] Answer Date Recorded In the past 12 months has [employer], gas, oil, or water [employer] threatened to shut off services in your home? No 11/29/2023 Social Connection and Isolat ion Panel [NHANES] Answer Date Recorded In a typical week, how many times do you talk on the phone with family, friends, or neighbors? More than three times a week 11/29/2023 How often do you get togethe r with friends or relatives? Once a week 11/29/2023 How often do you attend chur ch or mosque services? Never 11/29/2023 Do you belong to any clubs o r organizations such as spiritism groups, unions, fraternal or athletic groups, or school groups? No 11/29/2023 How often do you attend meet ings of the clubs or organizations you belong to? Never 11/29/2023 Are you , , di vorced, , never , or living with a partner? 11/29/2023 AUDIT-C Answer Date Recorded Q1: How often do you have a drink containing alc ohol? 2-3 times a week 11/28/2023 Q2: How many drinks containi ng alcohol do you have on a typical day when you are drinking? 1 or 2 11/28/2023 Q3: How often do you have si x or more drinks on one occasion? Never 11/28/2023 Overall Financial Resource Strain (CARDIA) Answe r Date Recorded How hard is it for you to pa y for the very basics like food, housing, medical care, and heating? Not very hard 11/29/2023 PHQ-2 Answer Date Recorded PHQ-2 Total Score (If total score is 3 or more points, staff should administer the PHQ-9) 0 12/24/2022 Hunger Vital Sign Answer Date Recorded Within the past 12 months, y ou worried that your food would run out before you got the money to buy more. Never true 11/29/19 24 Within the past 12 months, t he food you bought just didn't last and you didn't have money to get more. Never true 11/29/2023 PRAPARE - Transportation Answer Date Re corded In the past 12 months, has l ack of transportation kept you from medical appointments or from getting medications? No 11/11 In the past 12 months, has l ack of transportation kept you from meetings, work, or from getting things needed for daily living? No 11/29/2023 Housing Stability Vital Sign Answer Fran e Recorded In the last 12 months, was t here a time when you were not able to pay the mortgage or rent on time? No 12/25/2022 In the last 12 months, how many places have you lived? 1 12/25/2022 In the last 12 months, was t here a time when you did not have a steady place to sleep or slept in a prison (including now)? No 12/25/2022 Housing Stability Vital Sign Answer Fran e Recorded In the last 12 months, was t here a time when you were not able to pay the mortgage or rent on time? No 11/29/2023 In the past 12 months, how m any times have you moved where you were living? 0 11/29/2023 At any time in the past 12 [address] [place], were you homeless or living in a prison (including now)? No 11/29/2023 Personal Safety Answer Date Recorded Have you ever been in or are you currently in a harmful physical or emotional relationship or is someone making you feel afraid or unsafe? Denies 03/22/2024 Comments No Sex and Gender Information Value Date Recorded Sex Assigned at Not on file Legal Sex Female 2:14 PM CDT Gender Identity Not on file Sexual Orientation Not on file Obstetrics History Last Filed Vital Signs Vital Sign Reading Time Taken Comments Blood Pressure 116/65 03/22/2024 4:16 PM MULTIGRAPH OPERATOR Pulse 100 03/22/2024 4:16 PM MULTIGRAPH OPERATOR Temperature 35.9 C (96.6 F) 03/22/2024 4:15 PM MULTIGRAPH OPERATOR Respiratory Rate 18 03/22/2024 4:16 PM MULTIGRAPH OPERATOR Oxygen Saturation 98% 03/22/2024 4:16 PM MULTIGRAPH OPERATOR Inhaled Oxygen Concentration - - Weight 71.2 kg (157 lb) 03/22/2024 4:17 PM MULTIGRAPH OPERATOR Height 170.2 cm (5' 7 ) 02/06/2024 10:10 AM MULTIGRAPH OPERATOR Body Mass Index 24.59 02/06/2024 10:10 AM MULTIGRAPH OPERATOR Plan of Treatment Health Maintenance Due Date Last Done Comments Breast Cancer Screening-Mammogram 1956 Colon Cancer Screening-Colonoscopy 1955 Hepatitis C Screening 1955 Osteoporosis Screening-Bone Density Scan 1956 Hepatitis B Screening 1974 Well Visit 65+ 2021 DTaP/Tdap/Td Vaccine (2 - Td or Tdap) 03/07/2022 03/07/2012 Covid-19 Vaccine (5 - 2023-2 5 season) 2023 08/24/2021, 11/18/2020, 05/05/2020, Additional history exists Depression Screening 12/23/2023 12/22/2022, 12/23/19 23 Lung Cancer Screening 11/22/2024 11/22/2023 Fall Risk Assessment 12/05/2024 12/06/2023 Zoster Vaccine Completed 03/27/2019, 10/21/2018 Pneumococcal vaccine 65+ Completed 022, 05/28/2021, 07/18/2020 Influenza Vaccine Completed 12/06/2023, , 12/10/2021, Additional history exists Medical Devices Implanted Type Area Crester Device Identifier Shelf Expiration Date Model / Serial / Lot [employer] Valve Mitral Tissue Stented Epic Plus 31mm [id number] - [id number] - [id number] Implanted:Qty : 1 on 12/28/2022 by Corona Crabtree MD at [facility] Prosthetic Valve N/A: Heart [employer] 06/14/2026 [id number] / [id number] / Procedures Procedure Name Priority Date/Time Associated Diagnosis Comments STREPTOCOCCUS GROUP A PCR STAT 03/22/2024 7:22 PM MULTIGRAPH OPERATOR EGFR STAT 03/22/2024 5:28 PM MULTIGRAPH OPERATOR DIFFERENTIAL AUTO STAT 03/22/2024 5:2 8 PM MULTIGRAPH OPERATOR COMPREHENSIVE METABOLIC PANEL STAT 03/22/2024 5:28 PM MULTIGRAPH OPERATOR CBC WITH AUTO DIFFERENTIAL STAT 03/22/2024 5:[address] CHEST PE W CONTRAST ED 02/06/2024 3:52 PM MULTIGRAPH OPERATOR PRO B-TYPE NATRIURETIC PEPTIDE Add-On 02/06/2024 2:30 PM MULTIGRAPH OPERATOR TROPONIN T HIGH-SENSITIVITY 4-HR Timed 02/06/2024 2:30 PM MULTIGRAPH OPERATOR EGFR STAT 02/06/2024 10:42 AM MULTIGRAPH OPERATOR DIFFERENTIAL AUTO STAT 02/06/2024 10: 42 AM MULTIGRAPH OPERATOR TROPONIN T HIGH-SENSITIVITY SERIES (BASELINE, 2HR, 4HR, 6HR) STAT 02/06/2024 10:42 AM MULTIGRAPH OPERATOR COMPREHENSIVE METABOLIC PANEL STAT 02/06/2024 10:42 AM MULTIGRAPH OPERATOR CBC WITH AUTO DIFFERENTIAL STAT 02/06/2024 10:42 AM MULTIGRAPH OPERATOR XR CHEST 1 VIEW ED 02/06/2024 10:26 AM MULTIGRAPH OPERATOR ECG 12-LEAD STAT 02/06/2024 10:[address] LUNG CANCER SCREENING Schedule Routine, Read Routine (OP Routine) 11/22/2023 11:58 AM CDT Personal history of nicotine dependence from Last 3 Months or Most Recently Relevant to Health Maintenance Results * Streptococcus Group A PCR Throat (03/22/2024 7:22 PM MULTIGRAPH OPERATOR) Strep A DNA Not Detected Not Detected Comment: This test is performed using the [employer] Xpert Group A Streptococcal Assay. This is a qualitative, real-time PCR assay that detects Group A Strep using throat specimens from patients suspected of having streptococcal pharyngitis. This assay does not detect other beta-hemolytic streptococci including Group C or Group G. Group C and G have been associated with pharyngitis and, occasionally, acute nephritis but do not cause rheumatic fever. If suspected, order Throat Culture, Routine. This assay has been cleared by the US Food and Drug Administration, and its performance characteristics have been verified by the performing laboratory. Throat 03/22/2024 7:22 PM MULTIGRAPH OPERATOR 03/22/2024 7:29 PM MULTIGRAPH OPERATOR Beto Valdez MD LAB MICROBIOLOGY - GENERAL ORD ERABLES Final Result [facility] [place] [facility] [place] [address] * (ABNORMAL) eGFR (03/22/2024 5:28 PM MULTIGRAPH OPERATOR) eGFR 52(L) >=60 mL/min/1. 73 m2 Comment: Interpretive Data Reference Interval Normal >/= 90 mL/min/1.73m2 Mildly decreased* 60 - 89 mL/min/1.73m2 Mildly to moderately decreased 45 - 59 mL/min/1.73m2 Moderately to severely decreased 30 - 44 mL/min/1.73m2 Severely decreased 15 - 29 mL/min/1.73m2 Kidney Failure < 15 mL/min/1.73m2 *Relative to young adult level Estimated glomerular filtration rate is determined by the 2020 CKD-EPI equation recommended by the National Kidney Foundation (A Unifying Approach to GFR Estimation: Recommendations of the NKF-ASK Task Force on Reassessing the Inclusion of Race in Diagnosing Kidney Disease, JASN 202). The CKD-EPI equation should not be used for patients with unstable renal function and has not been validated in children and those over 70. Current interpretive data was last reviewed 2020. Blood 03/22/2024 5:28 PM MULTIGRAPH OPERATOR 03/22/2024 5:31 PM MULTIGRAPH OPERATOR us Beto Valdez MD LAB BLOOD ORDERABLES Final Res ult [facility] ([place]) 1 [facility] [place] [address] * (ABNORMAL) Differential, auto (03/22/2024 5:28 PM MULTIGRAPH OPERATOR) Neutrophil abs 5.7 1.5 - 6.5 K/cumm Imm gran abs 0.0 0.0 - 0.1 K/cumm [facility] ([place]) Lymphocyte abs 2.2 0.8 - 3.3 K/cumm [facility] ([place]) Monocyte abs 1.3(H) 0.2 - 0.8 K/cumm [facility] ([place]) Eosinophil abs 0.2 0.0 - 0.5 K/cumm [facility] ([place]) Basophil abs 0.1 0.0 - 0.1 K/cumm [facility] ([place]) Neutrophil pct 60.2 % [facility] ([place]) Comment: Interpretive Data Percent cell count reference ranges are not reported, since discordance with absolute values may lead to misinterpretation of CBC data. Current Interpretive Data was last revised on 2017. Imm gran pct 0.3 % [facility] ([place]) Comment: Interpretive Data Percent cell count reference ranges are not reported, since discordance with absolute values may lead to misinterpretation of CBC data. Current Interpretive Data was last revised on 2017. Lymphocyte pct 23.8 % [facility] ([place]) Comment: Interpretive Data Percent cell count reference ranges are not reported, since discordance with absolute values may lead to misinterpretation of CBC data. Current Interpretive Data was last revised on 2017. Monocyte pct 13.3 % [facility] ([place]) Comment: Interpretive Data Percent cell count reference ranges are not reported, since discordance with absolute values may lead to misinterpretation of CBC data. Current Interpretive Data was last revised on 2017. Eosinophil pct 1.9 % [facility] ([place]) Comment: Interpretive Data Percent cell count reference ranges are not reported, since discordance with absolute values may lead to misinterpretation of CBC data. Current Interpretive Data was last revised on 2017. Basophil pct 0.5 % [facility] ([place]) Comment: Interpretive Data Percent cell count reference ranges are not reported, since discordance with absolute values may lead to misinterpretation of CBC data. Current Interpretive Data was last revised on 2017. Blood 03/22/2024 5:28 PM MULTIGRAPH OPERATOR 03/22/2024 5:31 PM MULTIGRAPH OPERATOR us Beto Valdez MD LAB BLOOD ORDERABLES Final Res ult [facility] ([place]) 1 [facility] [place] [address] * (ABNORMAL) CBC with auto differential (03/22/2024 5:28 PM MULTIGRAPH OPERATOR) WBC 9.4 3.8 - 9.9 K/cumm Hgb 12.9 11.9 - 15.5 g/dL [facility] ([place]) Hct 40.2 35.6 - 45.5 % [facility] ([place]) Plt 362 150 - 400 K/cumm [facility] ([place]) MPV 8.9(L) 9.1 - 12.3 fL [facility] ([place]) RBC 4.41 3.90 - 5.20 M/cumm [facility] ([place] MCV 91.2 81.3 - 96.[address] [facility] MCH 29.3 27.1 - 33.3 pg [facility] ([place]) MCHC 32.1(L) 32.3 - 35.7 g/dL [facility] RDW CV 14.3 11.1 - 14.9 % [facility] ([place]) RDW SD 48.2(H) 35.7 - 48.1 fL [facility] ([place]) NRBC abs 0.00 0.00 - 0.01 K/cumm [facility] ([place]) Blood 03/22/2024 5:28 PM MULTIGRAPH OPERATOR 03/22/2024 5:31 PM MULTIGRAPH OPERATOR us Beto Valdez MD LAB BLOOD ORDERABLES Final Res ult [facility] ([place] 1 [facility] [place] [address] * (ABNORMAL) Comprehensive metabolic panel (03/22/2024 5:28 PM MULTIGRAPH OPERATOR) Sodium 134(L) 135 - 145 mmol/L Potassium, pl 5.5(H) 3.3 - 4.9 mmol/L [facility] Chloride 99 97 - 110 mmol/L [facility] ([place]) CO2 21(L) 22 - 32 mmol/L [facility] Anion gap 13 2 - 15 mmol/L [facility] BUN 36(H) 6 - 25 mg/dL [facility] Creatinine 1.16(H) 0.60 - 1.10 mg/dL [facility] ([place]) Glucose 99 70 - 199 mg/dL [facility] ([place]) Comment: Interpretive Data Fasting glucose >/= 126 mg/dl is diagnostic for diabetes. Fasting is defined as no caloric intake for at least 8 hours. Fasting glucose between 100 mg/dl to 125 mg/dl is diagnostic of prediabetes. In a patient with classic symptoms of hyperglycemia or hyperglycemic crisis, a random glucose >/= 200 mg/dl is diagnostic for diabetes. In the absence of unequivocal hyperglycemia, results should be confirmed by repeat testing. The classification and Diagnosis of Diabetes Diabetes Care 2021; 46: S19-S40. Current interpretive data was last revised 2022. Calcium 10.4(H) 8.5 - 10.3 mg/dL [facility] ([place]) Bilirubin, total <0.2 0.1 - 1.2 mg/dL [facility] ([place]) Protein, pl 7.9 6.5 - 8.5 g/dL [facility] ([place]) Albumin 4.3 3.5 - 5.0 g/dL [facility] ([place]) Alk phos 109 40 - 130 Units/L [facility] ([place]) ALT 40 7 - 45 Units/L [facility] ([place]) AST 39 10 - 45 Units/L [facility] ([place]) Blood 03/22/2024 5:28 PM MULTIGRAPH OPERATOR 03/22/2024 5:31 PM MULTIGRAPH OPERATOR Beto Valdez MD LAB BLOOD ORDERABLES Final Res ult [facility] ([place]) 1 [facility] [place] [address] * CT Chest PE (CTA) W Contrast (02/06/2024 3:52 PM MULTIGRAPH OPERATOR) Anatomical Region Laterality Modality Body N/A Computed Tomogra phy 02/06/2024 4:11 PM MULTIGRAPH OPERATOR Narrative 02/06/2024 4:23 PM MULTIGRAPH OPERATOR EXAM DESCRIPTION: CT CHEST PE (CTA) W CONTRAST REASON FOR STUDY: PE suspected, low pretest prob Back pain, for the last month when she takes a deep breath it hurts between her shoulder blades and on her sides that radiates to her lower chest. TECHNIQUE: CT angiogram of the chest performed with intravenous contrast using helical scanning technique with dynamic intravenous contrast injection. Reconstructed coronal and sagittal MPR images reviewed. All images stored on PACS. 3D MIP images rendered on scanning unit and reviewed at time of interpretation. Automated exposure control was used as a dose optimization technique for this examination. CONTRAST TYPE/DOSE: 100mL of IOVERSOL 350 MG IODINE/ML INTRAVENOUS SYRINGE injected COMPARISON: 11/28/2023 , 11/22/2023 FINDINGS: VASCULATURE: No CT evidence of pulmonary embolism. The main pulmonary trunk measures 30 mm in diameter at the upper limits of normal. No aortic aneurysm or aortic dissection. Postsurgical changes of coronary artery bypass grafting. Coronary artery atherosclerotic calcifications are present. LUNGS: There has been interval resolution of prior airspace consolidations in both lungs with scattered regions of pulmonary parenchymal scarring in both lungs most pronounced in the left upper lobe. There is underlying moderate bilateral pulmonary emphysema. Mild bilateral bronchial wall thickening which could reflect chronic bronchitis in the setting of COPD. There is an unchanged noncalcified right lower lobe pulmonary nodule measuring 4 mm at slice position 51. interval development of noncalcified solid posterior left lower lobe pulmonary nodule measuring 6 mm at slice position 47. PLEURA: Trace bilateral pleural effusions. No pneumothorax. MEDIASTINUM/KEVIN: No identified masses or lymphadenopathy. Prominent mediastinal lymph nodes are present which are not enlarged by size criteria. No supraclavicular lymphadenopathy. The esophagus is within normal limits. HEART: Heart size is normal with no pericardial effusion. AXILLA: No adenopathy. CHEST WALL: No masses. No subcutaneous air. HARDWARE/LINES/TUBES: None. UPPER ABDOMEN: Small hiatal hernia. Nonobstructive clustered left renal calculi measure up to 6 mm. MUSCULOSKELETAL: No acute fractures or aggressive osseous lesions. Median sternotomy wires are aligned and the cranial half of the sternotomy is nonunited, unchanged. There is an unchanged mild compression fracture of inferior endplate T12 vertebral body. IMPRESSION: 1. No CT evidence of pulmonary embolism. 2. Interval resolution of prior airspace consolidations in both lungs with scattered regions of pulmonary parenchymal scarring in both lungs most pronounced in the left upper lobe. 3. Interval development of noncalcified solid left lower lobe pulmonary nodule measuring 6 mm. Unchanged 4 mm noncalcified solid right lower lobe pulmonary nodule. Attention on subsequent follow-up imaging is recommended. THIS IS AN ELECTRONICALLY VERIFIED FINAL REPORT 02/06/2024 4:23 PM - Electronically signed by Jerry Morrell M.D. AT: AT Report ID: [id number] Reading Location: [id number] Procedure Note Jerry Morrell MD - 02/06/2024 EXAM DESCRIPTION: CT CHEST PE (CTA) W CONTRAST REASON FOR STUDY: PE suspected, low pretest prob Back pain, for the last month when she takes a deep breath it hurtsbetween her shoulder blades and on her sides that radiates to her lower chest. TECHNIQUE: CT angiogram of the chest performed with intravenous contrastusing helical scanning technique with dynamic intravenous contrast injection. Reconstructed coronal and sagittal MPR images reviewed. All images storedon PACS. 3D MIP images rendered on scanning unit and reviewed at time of interpretation. Automated exposure control was used as a doseoptimization technique for this examination. CONTRAST TYPE/DOSE: 100mL of IOVERSOL 350 MG IODINE/ML INTRAVENOUSSYRINGE injected COMPARISON: 11/28/2023 , 11/22/2023 FINDINGS: VASCULATURE: No CT evidence of pulmonary embolism. The main pulmonarytrunk measures 30 mm in diameter at the upper limits of normal. No aorticaneurysm or aortic dissection. Postsurgical changes of coronary artery bypass grafting. Coronary artery atherosclerotic calcifications are present. LUNGS: There has been interval resolution of prior airspaceconsolidations in both lungs with scattered regions of pulmonary parenchymal scarring inboth lungs most pronounced in the left upper lobe. There is underlyingmoderate bilateral pulmonary emphysema. Mild bilateral bronchial wall thickeningwhich could reflect chronic bronchitis in the setting of COPD. There is an unchanged noncalcified right lower lobe pulmonary nodule measuring 4 mm at slice position 51. interval development of noncalcified solid posteriorleft lower lobe pulmonary nodule measuring 6 mm at slice position 47. PLEURA: Trace bilateral pleural effusions. No pneumothorax. MEDIASTINUM/KEVIN: No identified masses or lymphadenopathy. Prominent mediastinal lymph nodes are present which are not enlarged by sizecriteria. No supraclavicular lymphadenopathy. The esophagus is within normallimits. HEART: Heart size is normal with no pericardial effusion. AXILLA: No adenopathy. CHEST WALL: No masses. No subcutaneous air. HARDWARE/LINES/TUBES: None. UPPER ABDOMEN: Small hiatal hernia. Nonobstructive clustered left renal calculi measure up to 6 mm. MUSCULOSKELETAL: No acute fractures or aggressive osseous lesions.Median sternotomy wires are aligned and the cranial half of the sternotomy is nonunited, unchanged. There is an unchanged mild compression fracture of inferior endplate T12 vertebral body. IMPRESSION: 1. No CT evidence of pulmonary embolism. 2. Interval resolution of prior airspace consolidations in both lungs with scattered regions of pulmonary parenchymal scarring in both lungs most pronounced in the left upper lobe. 3. Interval development of noncalcified solid left lower lobe pulmonary nodule measuring 6 mm. Unchanged 4 mm noncalcified solid right lower lobe pulmonary nodule. Attention on subsequent follow-up imaging isrecommended. THIS IS AN ELECTRONICALLY VERIFIED FINAL REPORT 02/06/2024 4:23 PM - Electronically signed by Jerry Morrell M.D. AT: AT Report ID: [id number] Reading Location: [id number] us Laura SAPP IMG CT PROCEDURES Final R esult * (ABNORMAL) Troponin T high-sensitivity 4-hour (02/06/2024 2:30 PM MULTIGRAPH OPERATOR) Trop T hs 19(H) <=14 ng/L Comment: Interpretive Data For further hscTnT resources including the diagnostic algorithm and an aid in interpretation, copy and paste this link: https://nrl.testcatalog.org/show/hsTrop Current Interpretive Data last revised 2019. Trop T hs delta 1 ng/L [facility] ([place]) Trop T hs interp Insignificant [facility] ([place]) Blood 02/06/2024 2:30 PM MULTIGRAPH OPERATOR 02/06/2024 2:31 PM MULTIGRAPH OPERATOR us Prabhu Davis MD LAB BLOOD ORDERABLES Final R esult ANTONI KATERINA ([place]) 1 [facility] [place] [address] * (ABNORMAL) Pro B-type natriuretic peptide (02/06/2024 2:30 PM MULTIGRAPH OPERATOR) NT-proBNP 466(H) <=300 pg/mL Comment: Interpretive Comments: A. Dyspnea in Acute Care Setting All Ages: < 300 pg/ml, acute heart failure unlikely. < 50 yrs: 300 - 450 pg/ml, further investigation warranted. > 450 pg/ml, acute heart failure likely. 50 - 74 yrs: 300 - 900 pg/ml, further investigation warranted. > 900 pg/ml, acute heart failure likely . > or = 75 yrs: 450 - 1800 pg/ml, further investigation warranted. > 1800 pg/ml, acute heart failure likely. B. Non-acute Setting < 75 yrs < 125 pg/ml, rules out heart failure. > or = 125 pg/ml, further investigation warranted. > or = 75 yrs < 450 pg/ml, rules out heart failure. > or = 450 pg/ml, further investigation warranted. - Knowledge of each individual patient's NT-proBNP range may be more useful than using similar cut-points for every patient. Please note that marked elevations in NT-proBNP levels may be observed in state other than Left Ventricular Congestive Failure, including: acute coronary syndromes, right heart strain/failure (including pulmonary embolism and cor pulmonale), critical illness, renal failure, as well as advanced age. - References: 1. Mayank ZULETA et.al. Eur Heart J. 2006:27:330-337. 2. Vasiliy RW, José Manuel AM. J. AM Che Cardiol: Cardiovasc Imag. 2009;2: 216- 225. Interpretive Data Last Revised Date: 2017. Blood 02/06/2024 2:30 PM MULTIGRAPH OPERATOR 02/06/2024 2:31 PM MULTIGRAPH OPERATOR us Laura SAPP LAB BLOOD ORDERABLES Silvia l Result EMILYYDX HPZ ([place]) 0 [facility] [place] [address] * (ABNORMAL) Troponin T high-sensitivity series (baseline, 2hr, 4hr, 6hr) (02/06/2024 10:42 AM MULTIGRAPH OPERATOR) Trop T hs 18(H) <=14 ng/L Comment: Interpretive Data For further hscTnT resources including the diagnostic algorithm and an aid in interpretation, copy and paste this link: https://nrl.testcatalog.org/show/hsTrop Current Interpretive Data last revised 2019. Blood 02/06/2024 10:4 2 AM MULTIGRAPH OPERATOR 02/06/2024 10:45 AM MULTIGRAPH OPERATOR Prabhu Davis MD LAB BLOOD ORDERABLES Final R esult ANTONI BORGES ([place]) [address] [place] [address] [place] [address] * eGFR (02/06/2024 10:42 AM MULTIGRAPH OPERATOR) [facility] eGFR 81 >=60 mL/min/1. 73 m2 Comment: Interpretive Data Reference Interval Normal >/= 90 mL/min/1.73m2 Mildly decreased* 60 - 89 mL/min/1.73m2 Mildly to moderately decreased 45 - 59 mL/min/1.73m2 Moderately to severely decreased 30 - 44 mL/min/1.73m2 Severely decreased 15 - 29 mL/min/1.73m2 Kidney Failure < 15 mL/min/1.73m2 *Relative to young adult level Estimated glomerular filtration rate is determined by the 2020 CKD-EPI equation recommended by the National Kidney Foundation (A Unifying Approach to GFR Estimation: Recommendations of the NKF-ASK Task Force on Reassessing the Inclusion of Race in Diagnosing Kidney Disease, JASN 202). The CKD-EPI equation should not be used for patients with unstable renal function and has not been validated in children and those over 70. Current interpretive data was last reviewed 2020. Blood 02/06/2024 10:4 2 AM MULTIGRAPH OPERATOR 02/06/2024 10:45 AM MULTIGRAPH OPERATOR Prabhu Davis MD LAB BLOOD ORDERABLES Final R esult ANTONI BORGES [place]) 1 [facility] [place] [address] * Differential, auto (02/06/2024 10:42 AM MULTIGRAPH OPERATOR) Neutrophil abs 4.0 1.5 - 6.5 K/cumm Imm gran abs 0.0 0.0 - 0.1 K/cumm [facility] ([place]) Lymphocyte abs 1.8 0.8 - 3.3 K/cumm [facility] ([place]) Monocyte abs 0.6 0.2 - 0.8 K/cumm [facility] ([place]) Eosinophil abs 0.1 0.0 - 0.5 K/cumm [facility] ([place]) Basophil abs 0.1 0.0 - 0.1 K/cumm [facility] ([place]) Neutrophil pct 60.9 % [facility] ([place]) Comment: Interpretive Data Percent cell count reference ranges are not reported, since discordance with absolute values may lead to misinterpretation of CBC data. Current Interpretive Data was last revised on 2017. Imm gran pct 0.3 % [facility] ([place]) Comment: Interpretive Data Percent cell count reference ranges are not reported, since discordance with absolute values may lead to misinterpretation of CBC data. Current Interpretive Data was last revised on 2017. Lymphocyte pct 26.8 % [facility] ([place]) Comment: Interpretive Data Percent cell count reference ranges are not reported, since discordance with absolute values may lead to misinterpretation of CBC data. Current Interpretive Data was last revised on 2017. Monocyte pct 9.5 % [facility] ([place]) Comment: Interpretive Data Percent cell count reference ranges are not reported, since discordance with absolute values may lead to misinterpretation of CBC data. Current Interpretive Data was last revised on 2017. Eosinophil pct 1.7 % [facility] ([place]) Comment: Interpretive Data Percent cell count reference ranges are not reported, since discordance with absolute values may lead to misinterpretation of CBC data. Current Interpretive Data was last revised on 2017. Basophil pct 0.8 % [facility] ([place]) Comment: Interpretive Data Percent cell count reference ranges are not reported, since discordance with absolute values may lead to misinterpretation of CBC data. Current Interpretive Data was last revised on 2017. Blood 02/06/2024 10:4 2 AM MULTIGRAPH OPERATOR 02/06/2024 10:45 AM MULTIGRAPH OPERATOR Prabhu Davis MD LAB BLOOD ORDERABLES Final R esult ANTONI BORGES ([place]) 1 [facility] [employer] [place] [address] * (ABNORMAL) CBC with auto differential (02/06/2024 10:42 AM MULTIGRAPH OPERATOR) WBC 6.6 3.8 - 9.9 K/cumm Hgb 11.7(L) 11.9 - 15.5 g/dL [facility] ([place]) Hct 37.2 35.6 - 45.5 % [facility] ([place]) Plt 227 150 - 400 K/cumm [facility] ([place]) MPV 9.7 9.1 - 12.3 fL [facility] ([place]) RBC 3.93 3.90 - 5.20 M/cumm [facility] ([place]) MCV 94.7 81.3 - 96.4 fL [facility] ([place]) MCH 29.8 27.1 - 33.3 pg [facility] ([place]) MCHC 31.5(L) 32.3 - 35.7 g/dL [facility] ([place]) RDW CV 14.6 11.1 - 14.9 % [facility] ([place]) RDW SD 51.2(H) 35.7 - 48.1 fL [facility] ([place]) NRBC abs 0.00 0.00 - 0.01 K/cumm [facility] ([place]) Blood (Blood, Venous) 02/06/2024 10:42 AM MULTIGRAPH OPERATOR 02/06/2024 10:45 AM MULTIGRAPH OPERATOR Prabhu Davis MD LAB BLOOD ORDERABLES Final R esult ANTONI BORGES ([place]) 1 [facility] [employer] [place] [address] * Comprehensive metabolic panel (02/06/2024 10:42 AM MULTIGRAPH OPERATOR) Pathologist [facility] Sodium 141 135 - 145 mmol/L Potassium, pl 4.1 3.3 - 4.9 mmol/L [facility] ([place]) Chloride 108 97 - 110 mmol/L [facility] ([place]) CO2 22 22 - 32 mmol/L [facility] ([place]) Anion gap 11 2 - 15 mmol/L [facility] ([place]) BUN 25 6 - 25 mg/dL [facility] ([place]) Creatinine 0.80 0.60 - 1.10 mg/dL [facility] ([place]) Glucose 84 70 - 199 mg/dL [facility] ([place]) Comment: Interpretive Data Fasting glucose >/= 126 mg/dl is diagnostic for diabetes. Fasting is defined as no caloric intake for at least 8 hours. Fasting glucose between 100 mg/dl to 125 mg/dl is diagnostic of prediabetes. In a patient with classic symptoms of hyperglycemia or hyperglycemic crisis, a random glucose >/= 200 mg/dl is diagnostic for diabetes. In the absence of unequivocal hyperglycemia, results should be confirmed by repeat testing. The classification and Diagnosis of Diabetes Diabetes Care 2021; 46: S19-S40. Current interpretive data was last revised 2022. Calcium 9.2 8.5 - 10.3 mg/dL [facility] ([place]) Bilirubin, total 0.2 0.1 - 1.2 mg/dL [facility] ([place]) Protein, pl 6.9 6.5 - 8.5 g/dL [facility] ([place]) Albumin 4.1 3.5 - 5.0 g/dL [facility] ([place]) Alk phos 101 40 - 130 Units/L [facility] ([place]) ALT 13 7 - 45 Units/L [facility] ([place]) AST 18 10 - 45 Units/L [facility] ([place]) Blood 02/06/2024 10:4 2 AM MULTIGRAPH OPERATOR 02/06/2024 10:45 AM MULTIGRAPH OPERATOR us Prabhu Davis MD LAB BLOOD ORDERABLES Final R esult [facility] 1 [facility] [place] [address] * XR Chest 1 Vw Portable (if patient condition/safety warrant portable) (02/06/2024 10:26 AM MULTIGRAPH OPERATOR) Anatomical Region Laterality Modality Body, Chest N/A Computed Radiogr aphy 02/06/2024 10:3 7 AM MULTIGRAPH OPERATOR Narrative 02/06/2024 10:40 AM MULTIGRAPH OPERATOR EXAM DESCRIPTION: XR CHEST 1 VIEW REASON FOR STUDY: chest pain HTN since Saturday. Pt reports that for the last month when she takes a deep breath it hurts between her shoulder blades and on her sides that radiates to her lower chest. 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 COMPARISON: 11/28/2023. FINDINGS: LUNGS: Mild scattered atelectasis or scarring. No definite pneumonic consolidation. No pulmonary edema identified. No pleural effusion or pneumothorax is seen. HEART/MEDIASTINUM: Unchanged heart size and cardiomediastinal contours. Median sternotomy wires are unchanged in alignment with multiple mediastinal clips. There is aortic athero sclerotic calcification. LINES/TUBES: None. BONES: No acute displaced fracture or aggressive bone lesion is seen. Left acromioclavicular osteoarthritis is present. IMPRESSION: No acute cardiopulmonary findings. THIS IS AN ELECTRONICALLY VERIFIED FINAL REPORT 02/06/2024 10:40 AM - Electronically signed by Erasto Arambula M.D. MZ: ANNAMARIA Report ID: [id number] Reading Location: [id number] Procedure Note Erasto Arambula MD - 02/06/2024 EXAM DESCRIPTION: XR CHEST 1 VIEW REASON FOR STUDY: chest pain HTN since Saturday. Pt reports that for the last month when she takes a deep breath it hurts between her shoulder blades and on her sides that radiatesto her lower chest. 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 COMPARISON: 11/28/2023. FINDINGS: LUNGS: Mild scattered atelectasis or scarring. No definite pneumonic consolidation. No pulmonary edema identified. No pleural effusion or pneumothorax is seen. HEART/MEDIASTINUM: Unchanged heart size and cardiomediastinal contours. Median sternotomy wires are unchanged in alignment with multiplemediastinal clips. There is aortic athero sclerotic calcification. LINES/TUBES: None. BONES: No acute displaced fracture or aggressive bone lesion is seen.Left acromioclavicular osteoarthritis is present. IMPRESSION: No acute cardiopulmonary findings. THIS IS AN ELECTRONICALLY VERIFIED FINAL REPORT 02/06/2024 10:40 AM - Electronically signed by Erasto Arambula M.D. MZ: ANNAMARIA Report ID: [id number] Reading Location: [place] [id number] us Prabhu Davis MD IMG XR PROCEDURES Final Resu lt * ECG 12 lead (02/06/2024 10:09 AM MULTIGRAPH OPERATOR) 02/06/2024 10:0 9 AM MULTIGRAPH OPERATOR Narrative [facility] - 02/06/2024 11:12 AM MULTIGRAPH OPERATOR Vent Rate: 87 bpm RR Interval: 684 msec WV Interval: 144 msec QRS Duration: 105 msec QT Interval: 359 msec QTC Interval: 404 msec P-R-T [place]: 20 - 93 - 16 degrees IMPRESSION: SINUS RHYTHM BORDERLINE RIGHT AXIS DEVIATION [QRS AXIS > 90] NONSPECIFIC T-WAVE ABNORMALITY Compared to prior EKG, heart rate is now slower and PVCs no longer seen now Electronically Signed By: Dr Norberto Gastelum us Prabhu Davis MD ECG ORDERABLES Final Result [facility] * CT Lung Cancer Screening (11/22/2023 11:58 AM CDT) Anatomical Region Laterality Modality Chest N/A Computed Tomogra phy 11/22/2023 12:1 6 PM CDT Impressions 11/22/2023 12:16 PM CDT 1. LungRADS Category 1 (negative) . Recommend Low dose Screening CT of chest in 12 months. 2. There are moderate emphysematous changes in the lungs. 3. Status post median sternotomy. 3. Coronary artery disease and aortic atherosclerosis. 4. Pulmonary edema and bilateral pleural effusions seen previously have resolved. LungRADS Categories: 1 - Negative (no nodules, or only benign calcified or fat-containing nodules) 2 - Benign Appearance or Behavior (nodules with very low likelihood of becoming a clinically active cancer due to size or lack of growth) 3 - Probably Benign (probably benign findings-short term follow up suggested; includes nodules with a low likelihood of becoming a clinically active cancer) 4A,4B,4X - Suspicious (category 3 or 4 nodules with findings for which additional diagnostic testing and/or tissue sampling is recommended) S - Other (clinically significant or potentially clinically significant findings (non-lung cancer) C - Prior Lung Cancer (modifier for patients with a prior diagnosis of lung cancer who return to screening) Electronically signed by: Jones Platt M.D. Narrative 11/22/2023 12:16 PM CDT EXAMINATION: Lung cancer screening CT of the Chest without intravenous contrast HISTORY: Lung Cancer Screening TECHNIQUE: Low radiation dose chest protocol. No intravenous contrast. Reconstructed slice width 1.[address] Dose Index 1.81 mGy. Dose-length product 55 mGy-cm. COMPARISON: 12/22/2022 FINDINGS: Lung nodules or findings of lung cancer: None Smoking related lung disease: emphysema Other findings: There are postsurgical changes from a median sternotomy. There is coronary artery calcification. There are atherosclerotic changes in the thoracic aorta. Procedure Note Jones Platt MD - 11/22/2023 EXAMINATION: Lung cancer screening CT of the Chest without intravenous contrast HISTORY: Lung Cancer Screening TECHNIQUE: Low radiation dose chest protocol. No intravenous contrast. Reconstructed slice width 1.[address] Dose Index 1.81 mGy. Dose-length product 55 mGy-cm. COMPARISON: 12/22/2022 FINDINGS: Lung nodules or findings of lung cancer: None Smoking related lung disease: emphysema Other findings: There are postsurgical changes from a median sternotomy. There is coronary artery calcification. There are atherosclerotic changes in the thoracic aorta. IMPRESSION: 1. LungRADS Category 1 (negative) . Recommend Low dose Screening CT of chest in 12 months. 2. There are moderate emphysematous changes in the lungs. 3. Status post median sternotomy. 3. Coronary artery disease and aortic atherosclerosis. 4. Pulmonary edema and bilateral pleural effusions seen previously have resolved. LungRADS Categories: 1 - Negative (no nodules, or only benign calcified or fat-containing nodules) 2 - Benign Appearance or Behavior (nodules with very low likelihood of becoming a clinically active cancer due to size or lack of growth) 3 - Probably Benign (probably benign findings-short term follow up suggested; includes nodules with a low likelihood of becoming a clinically active cancer) 4A,4B,4X - Suspicious (category 3 or 4 nodules with findings for which additional diagnostic testing and/or tissue sampling is recommended) S - Other (clinically significant or potentially clinically significant findings (non-lung cancer) C - Prior Lung Cancer (modifier for patients with a prior diagnosis of lung cancer who return to screening) Electronically signed by: Jones Platt M.D. Galilea Kessler MD IMG CT PROCEDURES Final Result from Last 3 Months or Most Recently Relevant to Health Maintenance Insurance [facility] Address: [facility] [address] [place] [address] [facility]ICARE [facility] Address: [facility] [address] [place] [address] Advance Directives For more information, please contact: [phone] * Full Code (Latest Code Status on File) Date Activated Date Inactivated Comments 11/28/2023 1:01 PM 12/06/2023 8:45 PM * Full Code Date Activated Date Inactivated Comments 12/25/2022 1:37 PM 01/08/2023 9:41 PM * Full Code Date Activated Date Inactivated Comments 12/23/2022 2:56 AM 12/25/2022 7:36 AM Healthcare Agents on File Name Relationship Healthcare Agent Relationshi p Communication Stefani Ordonez Daughter Health Care Agent Care Teams Policy And Planning Manager Relationship Specialty Start Date End Date Ed Robles MD PCP - General Family Practice 08/22/21 [place] [address] [facility] [address] [address] Surgeon Cardiothoracic Surgery 01/08/23 Demond Estevez MD [address] [place] [address] [address] Consulting Physician Cardiology 01/08/23
--- OUTSIDE RECORDS SUMMARY | 2024-03-26 15:17 | XMS_ITS | Clinical Summary ---
Author Organization [facility] [place] Address [address] [place] [address] Phone Care Team Providers Care Deputy Sheriff/Investigator Name Role Phone Ed Robles MD Primary Care Provider [phone] Allergies Active Allergy Reactions Criticality Noted Date Comments Hydromorphone Other (see Comments) 01/09/2023 Medications acetaminophen (TYLENOL) 500 MG Tablet Take 1,000 mg by mouth every 6 hours as needed for Fever, Mild or more severe pain, Moderate or more severe pain or Severe pain. Active albuterol (PROVENTIL/VENT VAMSI) 1.25 MG/3ML Nebulizer Soln take 1.25 mg by inhalation every 4 hours as needed for Cough, Shortness of Breath or Wheezing. Active albuterol 108 (90 Base) MCG/ACT Aerosol Solution take 2 Puffs by inhalation every 4 hours as needed for Cough or Wheezing. Active apixaban (Eliquis) 5 MG Tablet Take 5 mg by mouth 2 times daily. Active Ascorbic Acid 100 MG Tablet Take 1 Tablet by mouth daily. Active Aspirin 81 MG Capsule Take 1 Tablet by mouth daily. Active Budeson-Glycopy rrol-Formoterol 160-9-4.8 MCG/ACT Aerosol take 1 Puff by inhalation daily. Active cetirizine (ZyrTEC) 10 MG Tablet Take 10 mg by mouth daily. Active Vitamin D, Cholecalciferol , 50 MCG (2000 UT) Capsule Take 1 Tablet by mouth daily. Active citalopram (CeleXA) 10 MG Tablet Take 20 mg by mouth daily. Active ezetimibe (ZETIA) 10 MG Tablet Take 10 mg by mouth daily. Active fluticasone (FLONASE) 50 MCG/ACT Suspension 2 Sprays by Nasal route daily. Active furosemide (LASIX) 40 MG Tablet Take 40 mg by mouth daily as needed for Other (Swelling, Shortness of breath). Active magnesium gluconate (MAGONATE) 500 (27 Mg) MG Tablet Take 500 mg by mouth daily. Active methocarbamol (ROBAXIN) 250 mg Tablet Take 500 mg by mouth 3 times daily. Active midodrine (PROAMATINE) 10 MG Tablet Take 5 mg by mouth 3 times daily. Active montelukast (SINGULAIR) 2.5 MG Chewable Tablet Take 10 mg by mouth daily. Active polyethylene glycol (MiraLax) 17 g Pack Take 17 g by mouth daily as needed for Constipation - 1st line. Active rosuvastatin (CRESTOR) 40 MG Tablet Take 40 mg by mouth daily. Active spironolactone (ALDACTONE) 25 MG Tablet Take 0.5 Tablets by mouth daily. Active traMADol (ULTRAM) 50 MG Tablet Take 0.5 Tablets by mouth every 6 hours as needed for Mild or more severe pain or Moderate or more severe pain. Active zinc gluconate 50 MG Tablet Take 50 mg by mouth daily. Active amiodarone (CORDARONE) 200 MG Tablet Take 2 Tablets by mouth daily. Active Social History Tobacco Use Types Packs/Day Years Used Date Smoking Tobacco: Never Assessed Comments Unknown Sex and Gender Information Value Date Recorded Sex Assigned at Not on file Legal Sex Female 12:33 PM CRM ARCHITECT Gender Identity Not on file Sexual Orientation Not on file Last Filed Vital Signs Vital Sign Reading Time Taken Comments Blood Pressure 124/76 02/01/2023 11:00 AM CRM ARCHITECT Pulse 90 02/01/2023 11:00 AM CRM ARCHITECT Temperature 36.6 C (97.9 F) 02/01/2023 11:00 AM CRM ARCHITECT Respiratory Rate 18 02/01/2023 11:00 AM CRM ARCHITECT Oxygen Saturation 98% 02/01/2023 11:00 AM CRM ARCHITECT Inhaled Oxygen Concentration - - Weight 70.3 kg (155 lb) 01/29/2023 11:37 AM CRM ARCHITECT Height 170.2 cm (5' 7 ) 01/10/2023 12:45 PM CRM ARCHITECT Body Mass Index 24.28 01/10/2023 12:45 PM CRM ARCHITECT Plan of Treatment Health Maintenance Due Date Last Done Comments DEXA Bone Density 1955 Hepatitis C Virus (HCV) Screening 1955 Colonoscopy 2001 Colorectal Cancer Screening 2001 Cologuard 2006 Immunochemical Fecal Occult Blood 2006 Mammogram 2006 Influenza Immunization (#1) 10/13/202310/13, 12/10/2021, 11/09/2020, Additional history exists SARS-COV-2 Immunization ( season) 2023 08/24/2021, 11/18/2020, 05/05/2020, Additional history exists DTaP/Tdap/Td Immunization Discontinued 03/07/2012 TdaP Immunization Completed 03/07/2012 Zoster Immunization Completed 03/27/2019, 9 Pneumococcal Immunization (50+ years) Completed 08/24/2021, 05/28/2021, 07/18/2020 Respiratory Syncytial Virus (RSV) Immunization (Adult) Completed 11/15/2022 Hepatitis B Immunization Aged Out No longer eligible based on patient's age to complete this topic Meningococcal Immunization (ACWY) Aged Out No longer eligible based on patient's age to complete this topic Rotavirus Immunization Aged Out No lo nger eligible based on patient's age to complete this topic Insurance MEDICARE C [facility] Advance Directives * Full Code (Latest Code Status on File) Date Activated Date Inactivated Comments 01/24/2023 6:35 AM Care Teams Deputy Sheriff/Investigator Relationship Specialty Start Date End Date Ed Robles MD [address] [place] [address] PCP - General Family Medicine 01/04/23
--- OUTSIDE RECORDS SUMMARY | 2024-03-26 15:17 | XMS_ITS | Patient Health Summary ---
Author Organization [facility] Address [address] [place] [address] Care Team Providers Care Asian Art Curator Name Role Phone Ed Robles MD Primary Care Provider [phone] Note from [facility],non-owned Affiliates and Associated Physician Practices is amultiple site organization consisting of ambulatory clinics and hospital sitesin [place], [place], [place] and [place]. This disclosure is being madepursuant to the Care Everywhere program and may not contain all information available regarding this patient. Last updated 17.[facility] Allergies * Hydromorphone(Psychiatric) -Medium Criticality Medications * Be aware that medications may not be up to date on this document. Alwaysverify current medications with the patient. * cetirizine (ZYRTEC ALLERGY) 10 MG gel capsule Take 1 (one) capsule by mouth once daily * aspirin (ASPIRIN) 81 MG tablet Take 1 (one) tablet by mouth once daily * vitamin C (ASCORBIC ACID) 1000 MG tablet Take 1 (one) tablet by mouth once daily * citalopram (CELEXA) 20 MG tablet Take 1 (one) tablet by mouth once daily * rosuvastatin (CRESTOR) 40 MG tablet(Started 07/21/2019) Take 1 tablet by mouth once daily 4 refills by 07/20/2020 * lisinopril (PRINIVIL; ZESTRIL) 10 MG tablet(Started 07/21/2019) Take 1 tablet by mouth once daily 4 refills by 07/20/2020 * Cholecalciferol (Vitamin D) 50 MCG (2000 UT) capsule Take 1 (one) capsule by mouth once daily * metoprolol tartrate (LOPRESSOR) 50 MG tablet(Started 12/07/2019) Take 1 tablet by mouth twice daily 11 refills by 12/06/2020 * albuterol (Accuneb) 1.25 MG/3ML nebulizer solution(Started 10/19/2022) USE 1 VIAL IN NEBULIZER EVERY 4 TO 6 HOURS NEEDED * albuterol HFA (Proventil; Ventolin; Proair) 108 (90 Base) MCG/ACT inhaler (Started 11/01/2022) INHALE 2 PUFFS BY MOUTH EVERY 4 HOURS NEEDED FOR SHORTNESS OF BREATH OR WHEEZING * Breztri Aerosphere 160-9-4.8 MCG/ACT AERO(Started 11/01/2022) INHALE 2 PUFFS TWICE DAILY RINSE MOUTH AND THROAT AFTER USE * ezetimibe (Zetia) 10 MG tablet(Started 10/30/2022) Take 1 (one) tablet by mouth every morning * montelukast (Singulair) 10 MG tablet(Started 08/27/2022) Take 1 (one) tablet by mouth at bedtime * fluticasone propionate (Flonase Allergy Relief) 50 MCG/ACT nasal spray [place] 2 (two) sprays into each nostril once daily * Milk Thistle 1000 MG CAPS Take 1,000 mg by mouth once daily * Zinc 50 MG tablet Take 1 (one) tablet by mouth once daily * vitamin E (Tocopheryl) 400 UNIT capsule Take 1 (one) capsule by mouth once daily * Awouoo-Dhgjiosddu-Wkgwgcmp 20-4-40 MG CHEW * Selenium 200 MCG Take 200 mcg by mouth once daily * Verona-3 300 MG CAPS Take 1 tablet by mouth once daily * magnesium 500 MG tablet Take 1 (one) tablet by mouth once daily Active Problems Problem Noted Date Diagnosed Date PVD (peripheral vascular disease) 01/14/2024 Stenosis of carotid artery 01/14/2024 DENISA (renal artery stenosis), bilateral 9 PAD (peripheral artery disease) 03/31/2018 Bilateral carotid artery stenosis 03/31/2018 Abnormal EKG 03/31/2018 Mixed hyperlipidemia 03/30/2018 Essential hypertension 03/28/2018 Social History Tobacco Use Types Packs/Day Years Used Date Smoking Tobacco: Former Cigarettes 1 40 0 04/11/1978 - 04/11/2018 Smokeless Tobacco: Never Tobacco Cessation:Counseling Given: No Alcohol Use Standard Drinks/Week Comments Yes 0 (1 standard drink = 0.6 oz pur e alcohol) 21 glasses of wine Sex and Gender Information Value Date Recorded Sex Assigned at Not on file Gender Identity Not on file Sexual Orientation Not on file Last Filed Vital Signs Vital Sign Reading Time Taken Comments Blood Pressure 124/78 10/26/2019 10:30 AM CDT Pulse 63 10/26/2019 10:00 AM CDT Temperature 36.6 C (97.9 F) 10/12/2017 3:55 PM CDT Respiratory Rate 16 10/26/2019 10:30 AM CDT Oxygen Saturation 96% 10/26/2019 10:00 AM CDT Inhaled Oxygen Concentration - - Weight 76.2 kg (168 lb) 01/14/2024 10:37 AM COIL REPAIR TECHNICIAN Height 170.2 cm (5' 7.01 ) 01/14/2024 10:[address] Body Mass Index 26.31 01/14/2024 10:37 AM COIL REPAIR TECHNICIAN Procedures * VAS LEFT ARTERIAL DUPLEX LE(Performed 01/14/2024) Performed for PAD (peripheral artery disease) ([facility]) * VAS ARTERIAL ANKLE ARM INDEX(Performed 01/14/2024) Performed for PAD (peripheral artery disease) ([facility]) * VAS LEFT ARTERIAL DUPLEX LE(Performed 05/21/2023) Performed for PVD (peripheral vascular disease) ([facility]) * VAS ARTERIAL ANKLE ARM INDEX(Performed 05/21/2023) Performed for PVD (peripheral vascular disease) ([facility]) * VAS ARTERIAL ANKLE ARM INDEX(Performed 11/13/2022) Performed for PVD (peripheral vascular disease) ([facility]) * LAB MISC TEST(Performed 09/01/2019) * EKG 12-LEAD(Performed 10/01/2018) Performed for Abnormal EKG * LAB MISC TEST(Performed 2018) * EKG 12-LEAD(Performed 05/16/2018) Performed for Abnormal EKG * MRI ANGIO CHEST WWO CONTRAST(Performed 05/13/2018) * NM MYOCARD PERF REST STRESS(Performed 04/04/2018) Performed for PAD (peripheral artery disease) ([facility]), Bilateral carotid artery stenosis, Essential hypertension, Mixed hyperlipidemia * LIPID PROFILE REFLEX LDL DIRECT(Performed 04/03/2018) Performed for PAD (peripheral artery disease) (HCC), Bilateral carotid artery stenosis, Mixed hyperlipidemia * CBC W AUTO DIFFERENTIAL(Performed 04/02/2018) Performed for PAD (peripheral artery disease) (HCC) * COMPREHENSIVE METABOLIC PANEL(Performed 04/02/2018) Performed for PAD (peripheral artery disease) (HCC), Bilateral carotid artery stenosis, Essential hypertension, Mixed hyperlipidemia * EKG 12-LEAD(Performed 03/31/2018) Performed for PAD (peripheral artery disease) (HCC), Bilateral carotid artery stenosis, Essential hypertension, Mixed hyperlipidemia * US ART DOPPL LOWER EXT BILAT(Performed 03/18/2018) * VAS CAROTID DUPLEX BILATERAL(Performed 03/18/2018) * STREP A SCREEN - POINT OF CARE (AMB) STL(Performed 10/12/2017) Performed for Strep pharyngitis Results * VAS ARTERIAL ANKLE ARM INDEX (01/14/2024 10:36 AM COIL REPAIR TECHNICIAN) Only the most recent of3 resultswithin the time period is included. Anatomical Region Laterality Modality Ankle / Foot, Upper Extremity Ul trasound 01/14/2024 10:0 6 AM COIL REPAIR TECHNICIAN Narrative Procedure Note Wesly Thomas MD - 01/14/2024 [facility] [address], [address] [place] [address] Lower Extremity Arterial Doppler Report Pat.Name: BHAVANA ESCAMILLA Pat.ID: [id number] .Date: 01/14/2024 Exam Time: 10:06:00 AM Study Type:GIOVANNI/PVR Age: 6 1955,68Y Sex: FEMALE Sonogrphr: Clara Merida RVT Pat. Stat.:Outpatient CPT - 4: 60945 Reason for Study: PVD History / Clinical: Hypertension, COPD, Hyperlipidemia Procedures: Ankle Arm Index Race: [facility] Visit ID: [id number] ++++++++++++++++++++++++++++++++++++ SUMMARY: ++++++++++++++++++++++++++++++++++++ GIOVANNI within normal limits bilaterally with well preserved waveforms at the ankles. ++++++++++++++++++++++++++++++++++++ FINDINGS: ++++++++++++++++++++++++++++++++++++ Procedure: The arterial vasculature of the lower extremities was evaluated by analysis of Doppler pressures and waveforms obtained in the legs at rest. Study Quality: This study is of adequate technical quality. GIOVANNI: Rt ankle brachial index is 1.1. Left ankle brachial index is 1.0 (normal greater than 0.90). Arterial doppler waveforms of the right SURVEY CREW CHIEF are biphasic. Arterial doppler waveforms of the right DPA are triphasic. Arterial doppler waveforms of the left SURVEY CREW CHIEF are triphasic. Arterial doppler waveforms of the left DPA are biphasic. Right digital brachial index is 0.87. Left digital brachial brachial index 0.88 (normal greater than 0.60). ++++++++++++++++++++++++++++++++++++ MEASUREMENTS: ++++++++++++++++++++++++++++++++++++ PRESSURES Right 1st Digit GreatToe P 156 mmHg Right GIOVANNI (DP) GIOVANNI (DP) 1 Right GIOVANNI (PT) GIOVANNI (PT) 1.1 Right Ankle DP AnkleDP P 185 mmHg Right Ankle PT AnklePT P 203 mmHg Right Brachial Brach P 180 mmHg Right DBI DBI 0.87 Left 1st Digit GreatToe P 159 mmHg Left GIOVANNI (DP) GIOVANNI (DP) 0.99 Left GIOVANNI (PT) GIOVANNI (PT) 1 Left Ankle DP AnkleDP P 179 mmHg Left Ankle PT AnklePT P 184 mmHg Left DBI DBI 0.88 Signed 01/14/2024 10:59 AM Wesly Thomas MD Wesly Thomas MD VASCULAR LAB ORDERAB LES * VAS LEFT ARTERIAL DUPLEX LE (01/14/2024 10:36 AM COIL REPAIR TECHNICIAN) Only the most recent of2 resultswithin the time period is included. Anatomical Region Laterality Modality Lower Extremity Ultrasound 01/14/2024 12:0 7 PM COIL REPAIR TECHNICIAN Narrative Procedure Note Wesly Thomas MD - 01/14/2024 [facility] [address], [address] [place] [address] Lower Extremity Arterial Ultrasound Report Pat.Name: BHAVANA ESCAMILLA Pat.ID: [id number] St.Date: 01/14/2024 Refer.MD: VAL GRIFFITHS Exam Time: 12:07:00 PM Study Type:LE Arterial Age: 6 1955,68Y Sex: FEMALE Sonogrphr: Clara Merida RVT Pat. Stat.:Outpatient CPT - 4: 18857 Reason for Study: PVD History / Clinical: Hypertension, COPD, Hyperlipidemia Procedures: Lower Extremity Arterial Duplex - Left Race: [facility] Visit ID: [id number] ++++++++++++++++++++++++++++++++++++ SUMMARY: ++++++++++++++++++++++++++++++++++++ Patent flow down left leg with mild elevation of velocity of the distal SFA. GIOVANNI are within normal limits bilaterally. ++++++++++++++++++++++++++++++++++++ FINDINGS: ++++++++++++++++++++++++++++++++++++ Procedure: B-mode imaging, color flow Doppler and spectral analysis were used to examine the arteries of the left lower extremity. Study Quality: This study is of adequate technical quality. Lt Leg: Arterial doppler waveforms of the left Iliac Artery, SPACE OPERATIONS OFFICER, and Proximal ICA are triphasic. Arterial doppler waveforms of the left Mid and Distal SFA are biphasic. Arterial doppler waveforms of the left Popliteal Art are biphasic. Calcified plaque visualized in the distal SFA and Highest Velocity was 224 cm/s. Left ankle brachial index is 1.0 (normal greater than 0.90). ++++++++++++++++++++++++++++++++++++ MEASUREMENTS: ++++++++++++++++++++++++++++++++++++ DOPPLER Left SPACE OPERATIONS OFFICER Prox SPACE OPERATIONS OFFICER Prox PSV 102 cm/s SPACE OPERATIONS OFFICER Left SPACE OPERATIONS OFFICER RI 0.85 Ext Iliac Left Ext Iliac 0.83 Left Ext Iliac 20 cm/s Left SPACE OPERATIONS OFFICER SPACE OPERATIONS OFFICER EDV 16 cm/s Left Iliac Dist Iliac Dist PSV 115 cm/s Left Pop Dist Pop Dist PSV 65 cm/s Left Popliteal Pop Prox PSV 130 cm/s Left Profunda Profunda PSV 76 cm/s Left SFA Dist SFA Dist PSV 224 cm/s Left SFA Dist 2 SFA Dist 2 PSV 224 cm/s Left SFA Mid SFA Mid PSV 72 cm/s Left SFA Prox SFA Prox PSV 74 cm/s SFA Prox EDV 11 cm/s SFA Dist SFA Dist PSV 104 cm/s Signed 01/14/2024 10:58 AM Wesly Thomas MD Wesly Thomas MD VASCULAR LAB ORDERAB LES * LAB MISC TEST (09/01/2019) Only the most recent of2 resultswithin the time period is included. Blood BLOOD SPECIMEN / Unknown Historical Provider LAB SEND OUT * EKG 12-LEAD (10/01/2018 10:43 AM CDT) Only the most recent of3 resultswithin the time period is included. Narrative JaxonAngle - 10/01/2018 10:43 AM CDT Pretty Robles 10/01/2018 10:44 AM See scan Procedure Note Pretty Robles - 10/01/2018 10:43 AM CDT See scan Jose Luis Narvaez MD ECG ORDERABLES * MRI ANGIO CHEST WWO CONTRAST (05/13/2018) Anatomical Region Laterality Modality Chest Magnetic Resonan ce Wesly Thomas MD MR ORDERABLES * NM MYOCARD PERF REST STRESS (04/04/2018 1:20 PM COIL REPAIR TECHNICIAN) Anatomical Region Laterality Modality Chest Other Narrative 04/04/2018 1:20 PM COIL REPAIR TECHNICIAN Jenn Medina, SPACE OPERATIONS OFFICER 04/04/2018 1:20 PM See scan Jose Luis Narvaez MD NM ORDERABLES * LIPID PROFILE REFLEX LDL DIRECT (04/03/2018) Blood BLOOD SPECIMEN / Unknown Jose Luis Narvaez MD LAB - CHEMISTRY BRUNA BARNEY Performing Organization Address [facility] Co de Phone Number [facility] INSURANCE BILL [address] [place] [address] * CBC WITH DIFFERENTIAL (04/02/2018) Blood BLOOD SPECIMEN / Unknown Jose Luis Narvaez MD LAB - HEMATOLOGY ORD ERABLES Performing Organization Address [facility] Co de Phone Number [facility] INSURANCE BILL [address] [place] [address] * COMPREHENSIVE METABOLIC PANEL (04/02/2018) Blood BLOOD SPECIMEN / Unknown Jose Luis Narvaez MD LAB - CHEMISTRY BRUNA BARNEY Performing Organization Address [facility] Co de Phone Number [facility] INSURANCE BILL [address] [place] [address] * VAS CAROTID DUPLEX BILATERAL (03/18/2018) Anatomical Region Laterality Modality Neck Other Phuc Garcia DO VASCULAR LAB ORDERAB LES * US ART DOPPL LOWER EXT BILAT (03/18/2018) Anatomical Region Laterality Modality Ankle / Foot, Lower Extremity Ot her Phuc Garcia DO VASCULAR LAB ORDERAB LES * (ABNORMAL) STREP A SCREEN (10/12/2017 4:11 PM CDT) Strep A Rapid POCT Positive(A) Negative Strep A Internal Control Present Lot # [id number] Expiration Date 04/03/2019 Throat ENTIRE THROAT (SURFACE REGION OF NECK) / Unknown 10/12/2017 4:11 PM CDT Ana Ramirez LOOM MECHANIC-FLIGHT ENGINEER PERFORMANCE QUALIFIED LAB - POIN T OF CARE ORDERABLES Care Teams Asian Art Curator Relationship Specialty Start Date End Date Ed Robles MD [address] [place] [address] PCP - General Family Medicine 11/13/22
--- OUTSIDE RECORDS SUMMARY | 2024-03-26 15:17 | XMS_ITS | Referral Summary ---
Author Organization [facility] Address [address] [place] [address] Care Team Providers Care Mathematician Research Name Role Phone Ed Robles MD Primary Care Provider [phone] Source Comments [facility],non-[facility] Affiliates and Associated Physician Practices is amultiple site organization consisting of ambulatory clinics and hospital sitesin [place], [place], [place] and [place]. This disclosure is being madepursuant to the Care Everywhere program and may not contain all information available regarding this patient. Last updated 17.[facility] Encounters Date Type Department Care Team Description 01/14/2024 Travel 01/14/2024 10:30 AM NURSE FIRST ASSIST Office Visit [facility] Medical [facility] - Surgery [address] [place] [address], [address] [place] [phone] Wsely Thomas MD PVD (peripheral vascular disease) (HCC) (Primary Dx); Stenosis of carotid artery, unspecified laterality 01/14/2024 10:00 AM NURSE FIRST ASSIST - 01/14/2024 11:59 PM NURSE FIRST ASSIST Hospital Encounter [facility] Vascular Services [address], [address] [place], [place] [id number] Ned Betancourt MD Discharge Disposition: Home or Self Care from Last 3 Months Allergies Active Allergy Reactions Criticality Noted Date Comments Hydromorphone Psychiatric Medium 07/02/2018 Medications * Be aware that medications may not be up to date on this document. Alwaysverify current medications with the patient. Medication Sig Dispensed Refills Start Date End Date Status cetirizine (ZYRTEC ALLERGY) 10 MG gel capsule Take 1 (one) capsule by mouth once daily Active aspirin (ASPIRIN) 81 MG tablet Take 1 (one) tablet by mouth once daily Active vitamin C (ASCORBIC ACID) 1000 MG tablet Take 1 (one) tablet by mouth once daily Active citalopram (CELEXA) 20 MG tablet Take 1 (one) tablet by mouth once daily Active rosuvastatin (CRESTOR) 40 MG tablet Take 1 tablet by mouth once daily 90 tablet 4 07/21/2019 Active lisinopril (PRINIVIL; ZESTRIL) 10 MG tablet Take 1 tablet by mouth once daily 90 tablet 4 07/21/2019 Active Additional Information Patient taking differently: 20 mgOral2 TIMES DAILY, Reported on 11/13/2022 Cholecalciferol (Vitamin D) 50 MCG (1999 UT) capsule Take 1 (one) capsule by mouth once daily Active metoprolol tartrate (LOPRESSOR) 50 MG tablet Take 1 tablet by mouth twice daily 60 tablet 11 12/07/2019 Active albuterol (Accuneb) 1.25 MG/3ML nebulizer solution USE 1 VIAL IN NEBULIZER EVERY 4 TO 6 HOURS NEEDED 10/19/2022 Active albuterol HFA (Proventil; Ventolin; Proair) 108 (90 Base) MCG/ACT inhaler INHALE 2 PUFFS BY MOUTH EVERY 4 HOURS NEEDED FOR SHORTNESS OF BREATH OR WHEEZING 11/01/2022 Active Breztri Aerosphere 160-9-4.8 MCG/ACT AERO INHALE 2 PUFFS TWICE DAILY RINSE MOUTH AND THROAT AFTER USE 11/01/2022 Active ezetimibe (Zetia) 10 MG tablet Take 1 (one) tablet by mouth every morning 10/30/2022 Active montelukast (Singulair) 10 MG tablet Take 1 (one) tablet by mouth at bedtime 08/27/2022 Active fluticasone propionate (Flonase Allergy Relief) 50 MCG/ACT nasal spray [place] 2 (two) sprays into each nostril once daily Active Milk Thistle 1000 MG CAPS Take 1,000 mg by mouth once daily Active Zinc 50 MG tablet Take 1 (one) tablet by mouth once daily Active vitamin E (Tocopheryl) 400 UNIT capsule Take 1 (one) capsule by mouth once daily Active Fnqpgg-Fkzsnaomot-B ilberry 20-4-40 MG CHEW Active Selenium 200 MCG Take 200 mcg by mouth once daily Active [place]-3 300 MG CAPS Take 1 tablet by mouth once daily Active magnesium 500 MG tablet Take 1 (one) tablet by mouth once daily Active Active Problems Problem Noted Date Diagnosed Date PVD (peripheral vascular disease) 01/14/2024 Stenosis of carotid artery 01/14/2024 DENISA (renal artery stenosis), bilateral 9 PAD (peripheral artery disease) 03/31/2018 Overview (04/21/2019): 04/01 GIOVANNI: right 0.35, left 0.45 05/30 abd CTA: severe abdominal aortic atherosclerosis, patent SMA, severe ZEINAB disease, severe bilateral renal artery stenosis, subtotal bilateral common iliac stenosis, moderate bilateral internal & external iliac stenosis, moderate- severe left common femoral stenosis, moderate bilateral superficial femoral stenosis, moderate bilateral popliteal stenosis, 3 vessel runoff 05/30 open aortic endarterectomy and aortobifemoral bypass & endarterectomy of bilateral profunda femori & superficial femoral arteries by Dr. Thomas ~03/02 GIOVANNI: good result per patient's memory Bilateral carotid artery stenosis 03/31/2018 Overview (10/26/2019): 04/01 carotid duplex: >70% right ICA, <50% left ICA 04/29 neck CTA: 70% proximal right RCA, 40% left ICA, poor opacification left vertebral, moderate bilateral subclavian stenosis 12/[address] Thomas ~03/02 caroitd duplex: ~50% left ICA, patent right ICA per patient's memory ~08/30 carotid duplex: stable per patient Abnormal EKG 03/31/2018 Overview (10/01/2018): 04/01 EKG: SR at 78, first-degree AV block, rightward axis, intervals [id number] 04/01 Lexiscan nuclear: No ischemia, EF 75% 05/30 periop type 2 ischemic event after aortic surgery 09/29 EKG: SR at 73, borderline RAD, intervals [id number]; little change c/w 05/30 Mixed hyperlipidemia 03/30/2018 Overview (10/26/2019): 08/30 Cholesterol 163 HDL 71 LDL 68 [...] glucose 129 (on pravastatin 40 mg daily) Essential hypertension 03/28/2018 Overview (06/02/2018): 05/30 Echo: EF 70%, normal diastolic function, mild LVH, no significant valve disease Social History Tobacco Use Types Packs/Day Years [...] 76.2 kg (168 lb) 01/14/2024 10:37 AM NURSE FIRST ASSIST Height 170.2 cm (5' 7.01 ) 01/14/2024 10:[address] Body Mass Index 26.31 01/14/2024 10:37 AM NURSE FIRST ASSIST Plan of Treatment Upcoming Encounters Date Type Department Care Team (Late st Contact Info) Description 08/18/2024 9:30 AM CDT Appointment [facility] Vascular Services [address] [place] [address], [address] [place] [address] 08/18/2024 10:00 AM CDT Appointment [facility] Vascular Services [address] [place] [address], [address] [place] [address] 08/18/2024 10:30 AM CDT Office Visit [facility] Group - Surgery [address] [place] [address], [address] [place] [address] [place] [id number] [place] [address] [address] [place] [address] Procedures Procedure Name Priority Date/Time Associated Diagnosis Comments VAS LEFT ARTERIAL DUPLEX LE Routine 01/14/2024 10:36 AM NURSE FIRST ASSIST PAD (peripheral artery disease) (HCC) VAS ARTERIAL ANKLE ARM INDEX Routine 01/14/2024 10:36 AM NURSE FIRST ASSIST PAD (peripheral artery disease) (HCC) COMPREHENSIVE METABOLIC PANEL Routine 04/02/2018 PAD (peripheral artery disease) (HCC) Bilateral carotid artery stenosis Essential hypertension Mixed hyperlipidemia from Last 3 Months or Most Recently Relevant to Health Maintenance Results * VAS ARTERIAL ANKLE ARM INDEX (01/14/2024 10:36 AM NURSE FIRST ASSIST) Anatomical Region Laterality Modality Ankle / Foot, Upper Extremity Ul trasound 01/14/2024 10:0 6 AM NURSE FIRST ASSIST Narrative Procedure Note Wesly Thomas MD - 01/14/2024 [facility] Vascular [address], [address] [facility] [phone] [place] [address] Lower Extremity Arterial Doppler Report Pat.Name: LISA ESCAMILLA Pat.ID: [id number] .Date: 01/14/2024 Exam Time: 10:06:00 AM Study Type:GIOVANNI/PVR Age: 6 1955,68Y Sex: FEMALE Sonogrphr: Clara Merida RVT Pat. Stat.:Outpatient CPT - 4: [id number] Reason for Study: PVD History / Clinical: Hypertension, COPD, Hyperlipidemia Procedures: Ankle Arm Index Race: [facility] Visit ID: [id number] ++++++++++++++++++++++++++++++++++++ SUMMARY: ++++++++++++++++++++++++++++++++++++ GIOVANNI within normal limits [...] 0.90). Arterial doppler waveforms of the right COMPUTER COMPOSITOR are biphasic. Arterial doppler waveforms of the right DPA are triphasic. Arterial doppler waveforms of the left COMPUTER COMPOSITOR are triphasic. Arterial doppler waveforms of the [...] LEFT ARTERIAL DUPLEX LE (01/14/2024 10:36 AM NURSE FIRST ASSIST) Anatomical Region Laterality Modality Lower Extremity Ultrasound 01/14/2024 12:0 7 PM NURSE FIRST ASSIST Narrative Procedure Note Wesly Thomas MD - 01/14/2024 [facility] Vascular [place] [address], [address] [place] [address] Lower Extremity Arterial Ultrasound Report Pat.Name: LISA ESCAMILLA Pat.ID: [id number] .Date: 01/14/2024 Refer.MD: VAL GRIFFITHS Exam Time: 12:07:00 PM Study Type:LE Arterial Age: 6 1955,68Y Sex: FEMALE Sonogrphr: Clara Merida RVT Pat. Stat.:Outpatient CPT - 4: [id number] Reason for Study: PVD History / Clinical: Hypertension, COPD, Hyperlipidemia Procedures: Lower Extremity Arterial Duplex - Left Race: [facility] Visit ID: [id number] ++++++++++++++++++++++++++++++++++++ SUMMARY: ++++++++++++++++++++++++++++++++++++ Patent flow down left [...] doppler waveforms of the left Iliac Artery, LEASE ATTENDANT, and Proximal ICA are triphasic. Arterial doppler waveforms of the left Mid and Distal SFA are biphasic. Arterial doppler waveforms of the left Popliteal Art are biphasic. Calcified plaque visualized in the distal SFA and Highest Velocity was 224 cm/s. Left ankle brachial index is 1.0 (normal greater than 0.90). ++++++++++++++++++++++++++++++++++++ MEASUREMENTS: ++++++++++++++++++++++++++++++++++++ DOPPLER Left LEASE ATTENDANT Prox LEASE ATTENDANT Prox PSV 102 cm/s LEASE ATTENDANT Left LEASE ATTENDANT RI 0.85 Ext Iliac Left Ext Iliac 0.83 Left Ext Iliac 20 cm/s Left LEASE ATTENDANT LEASE ATTENDANT EDV 16 cm/s Left Iliac Dist Iliac [...] Thomas MD VASCULAR LAB ORDERAB LES * COMPREHENSIVE METABOLIC PANEL (04/02/2018) Blood BLOOD SPECIMEN / Unknown Jose Luis Narvaez MD LAB - CHEMISTRY BRUNA BARNEY [facility] INSURANCE BILL [address] [place] [address] from Last 3 Months or Most Recently Relevant to Health Maintenance Care Teams Mathematician Research Relationship Specialty Start Date End Date Ed Robles MD [address] [place] [address] PCP - General Family Medicine 11/13/22
--- OUTSIDE RECORDS SUMMARY | 2024-03-26 15:17 | XMS_ITS | Clinical Summary ---
Author Organization [facility] [employer] Address [address] [place] [address] Care Team Providers Care Fruit Vendor Name Role Phone Ed Robles MD Primary Care Provider [phone] Source Comments [facility] [employer],non-[facility] Affiliates and Associated Physician Practices is amultiple site organization consisting of ambulatory clinics and hospital sitesin [place], [place], [place] and [place]. This disclosure is being madepursuant to the Care Everywhere program and may not contain all information available regarding this patient. Last updated 17.[facility] [employer] Allergies Active Allergy Reactions Criticality Noted Date [...] (Flonase Allergy Relief) 50 MCG/ACT nasal spray [place] 2 (two) sprays into each nostril once daily Active Milk Thistle 1000 MG CAPS Take 1,000 mg by mouth once daily Active Zinc 50 MG tablet Take 1 (one) tablet by mouth once daily Active vitamin E (Tocopheryl) 400 UNIT capsule Take 1 (one) capsule by mouth once daily Active Tsudli-Pvdjgdvozc-Y ilberry 20-4-40 MG CHEW Active Selenium 200 MCG Take 200 mcg by mouth once daily Active [place]-3 300 MG CAPS Take 1 tablet by [...] function, mild LVH, no significant valve disease Encounters Date Type Department Care Team Description 01/14/2024 10:30 AM LEATHER SPONGER Office Visit [facility] - Surgery [address], [address] [place] [phone] Wesly Thomas MD PVD (peripheral vascular disease) (HCC) (Primary Dx); Stenosis of carotid artery, unspecified laterality 01/14/2024 10:00 AM LEATHER SPONGER - 01/14/2024 11:59 PM LEATHER SPONGER Hospital Encounter [facility] Services [address], [address] [place] [address] Ned Betancourt MD Discharge Disposition: Home or Self Care 01/14/2024 Travel from Last 3 Months Family History Medical History Relation Name Comments Other - Cardiac Father Other - Cardiac Mother Asthma Neg Hx Autoimmune Disease Neg Hx Bipolar Disorder Neg Hx Cancer - Breast Neg Hx Cancer - Colon Neg Hx Cancer - Other Neg Hx Cancer - Ovarian Neg Hx Cancer - Pancreatic Neg Hx Cancer - Prostate Neg Hx Depression Neg Hx Eczema Neg Hx Hypertension Neg Hx Migraine Neg Hx Osteoporosis Neg Hx Seizures Neg Hx Sudd. <30 Neg Hx Thyroid Disease Neg Hx Ulcerative Colitis Neg Hx Relation Name Status Comments Brother 1 (Age 60) no heart d isease; lung cancer Brother 2 Alive no heart diseas e Daughter Alive no heart dz Father (Age 65) UT at age 65 Mother (Age 86) UT & CABG at 74; CHF Sister 1 (Age 70's) no heart disease Sister 2 Alive no heart diseas e Son Alive no heart dz Social History Tobacco Use Types Packs/Day Years [...] 76.2 kg (168 lb) 01/14/2024 10:37 AM LEATHER SPONGER Height 170.2 cm (5' 7.01 ) 01/14/2024 10:37 AM Jonna MOISE Body Mass Index 26.31 01/14/2024 10:37 AM LEATHER SPONGER Plan of Treatment Upcoming Encounters Date Type Department Care Team (Late st Contact Info) Description 08/18/2024 9:30 AM CDT Appointment [facility] Health Vascular Services [address] [place] [address], [address] [place] [address] 08/18/2024 10:00 AM CDT Appointment [facility] Health Vascular Services [address] [place] [address], [address] [place] [address] 08/18/2024 10:30 AM CDT Office Visit [facility] Health Medical Group - Surgery [address] [place] [address], [address] [place] [phone] [place] [address] [place] [address] Health Maintenance Due Date Last Done Comments BONE DENSITY TESTING 1955 COLOGUARD (AGES 45-75) - COLON CA SCREENING 1955 COLON MONITORING 1955 COLONOSCOPY - COLON CA SCREENING 1955 CT COLONOGRAPHY - COLON CA SCREENING 1955 Colorectal Cancer Screening 1955 FIT - COLON CA SCREENING 1955 FLEX SIG - COLON CA SCREENING 1955 MAMMOGRAM 1955 HEPATITIS C SCREENING 07/28/1974 DTAP/TDAP/TD VACCINES (1 - Tdap) 08/02/1975 PNEUMOCOCCAL VACCINE 50+ (1 of 1 - PCV) 2006 ZOSTER VACCINE (1 of 2) 2006 SCREENING FOR DIABETES 11/13/2022 04/02/2018 COVID-19 VACCINE (3 - 2023- season) 2023 05/05/2020, 04/14/2020 DEPRESSION SCREENING 02/12/2024 MEDICARE AWV CALENDAR YEAR 2024 LUNG CANCER SCREENING 11/21/2024 11/22/2023 Respiratory Syncytial Virus (RSV) Vaccine Pt: or over 60 yrs (1 - 1-dose 75+ series) 08/02/2031 INFLUENZA VACCINE Completed 12/06/2023, , 11/18/2019, Additional history exists HEPATITIS B VACCINE Aged Out No longe r eligible based on patient's age to complete this topic HIB VACCINE Aged Out No longer eligi ble based on patient's age to complete this topic HPV VACCINE Aged Out No longer eligi ble based on patient's age to complete this topic MENINGOCOCCAL (Group B) VACCINE Aged Out No longer eligible based on patient's age to complete this topic MENINGOCOCCAL VACCINE Aged Out No will aleena eligible based on patient's age to complete this topic Procedures Procedure Name Priority Date/Time Associated Diagnosis Comments VAS LEFT ARTERIAL DUPLEX LE Routine 01/14/2024 10:36 AM LEATHER SPONGER PAD (peripheral artery disease) (HCC) VAS ARTERIAL ANKLE ARM INDEX Routine 01/14/2024 10:36 AM LEATHER SPONGER PAD (peripheral artery disease) (HCC) COMPREHENSIVE METABOLIC PANEL Routine 04/02/2018 PAD (peripheral artery disease) (HCC) Bilateral carotid artery stenosis Essential hypertension Mixed hyperlipidemia from Last 3 Months or Most Recently Relevant to Health Maintenance Results * VAS ARTERIAL ANKLE ARM INDEX (01/14/2024 10:36 AM LEATHER SPONGER) Anatomical Region Laterality Modality Ankle / Foot, Upper Extremity Ul trasound 01/14/2024 10:0 6 AM LEATHER SPONGER Narrative Procedure Note Wesly Thomas MD - 01/14/[address] [facility] [place] [address], [address] [place] [address] Lower Extremity Arterial Doppler Report Pat.Name: ESCAMILLA BHAVANA Kai Pat.ID: [id number] St.Date: 01/14/2024 Exam Time: 10:06:00 AM Study Type:GIOVANNI/PVR Age: 6 1955,68Y Sex: FEMALE Sonogrphr: Clara Merida RVT Pat. Stat.:Outpatient CPT - 4: [id number] Reason for Study: PVD History / Clinical: Hypertension, COPD, Hyperlipidemia Procedures: Ankle Arm Index Race: [facility] Visit ID: [id number] ++++++++++++++++++++++++++++++++++++ SUMMARY: ++++++++++++++++++++++++++++++++++++ GIOVANNI within normal limits [...] 0.90). Arterial doppler waveforms of the right LEGAL PROJECT MANAGER are biphasic. Arterial doppler waveforms of the right DPA are triphasic. Arterial doppler waveforms of the left LEGAL PROJECT MANAGER are triphasic. Arterial doppler waveforms of the [...] LEFT ARTERIAL DUPLEX LE (01/14/2024 10:36 AM LEATHER SPONGER) Anatomical Region Laterality Modality Lower Extremity Ultrasound 01/14/2024 12:0 7 PM LEATHER SPONGER Narrative Procedure Note Wesly Thomas MD - 01/14/[address] [facility] [place] [facility] [address], [address] [place] [address] Lower Extremity Arterial Ultrasound Report Pat.Name: BHAVANA ESCAMILLA Pat.ID: [id number] .Date: 01/14/2024 Refer.MD: VAL GRIFFITHS Exam Time: 12:07:00 PM Study Type:LE Arterial Age: 6 1955,68Y Sex: FEMALE Sonogrphr: Claar Merida RVT Pat. Stat.:Outpatient CPT - 4: [id number] Reason for Study: PVD History / Clinical: Hypertension, COPD, Hyperlipidemia Procedures: Lower Extremity Arterial Duplex - Left Race: [facility] Visit ID: [id number] ++++++++++++++++++++++++++++++++++++ SUMMARY: ++++++++++++++++++++++++++++++++++++ Patent flow down left [...] doppler waveforms of the left Iliac Artery, CHEMICAL WEIGHER, and Proximal ICA are triphasic. Arterial doppler waveforms of the left Mid and Distal SFA are biphasic. Arterial doppler waveforms of the left Popliteal Art are biphasic. Calcified plaque visualized in the distal SFA and Highest Velocity was 224 cm/s. Left ankle brachial index is 1.0 (normal greater than 0.90). ++++++++++++++++++++++++++++++++++++ MEASUREMENTS: ++++++++++++++++++++++++++++++++++++ DOPPLER Left CHEMICAL WEIGHER Prox CHEMICAL WEIGHER Prox PSV 102 cm/s CHEMICAL WEIGHER Left CHEMICAL WEIGHER RI 0.85 Ext Iliac Left Ext Iliac 0.83 Left Ext Iliac 20 cm/s Left CHEMICAL WEIGHER CHEMICAL WEIGHER EDV 16 cm/s Left Iliac Dist Iliac [...] Jose Luis Narvaez MD LAB - CHEMISTRY TAISHAE ECTOR [facility] INSURANCE BILL [address] [place] [address] from Last 3 Months or Most Recently Relevant to Health Maintenance Care Teams Fruit Vendor Relationship Specialty Start Date End Date Ed Robles MD [address] [place] [phone] PCP - General Family Medicine 11/13/22
--- OUTSIDE RECORDS SUMMARY | 2024-03-26 15:17 | XMS_ITS | Referral Summary ---
Author Organization [facility] [address] Address [address] [place] [address] Care Team Providers Care Transmission System Operator Name Role Phone Ed oRbles MD Primary Care Provider [phone] Corona Crabtree MD Unavailable [phone] Demond Estevez MD Unavailable [phone] Encounters Date Type Department Care Team Description 03/22/2024 6:58 PM [facility] - 03/22/2024 9:21 PM [facility] Emergency [facility] Emergency Department [address] [place] [address] Beto Valdez MD Pain, dental (Primary Dx); Dehydration Discharge Disposition: Discharge to home or self care 02/06/2024 1:51 PM [facility] - 02/06/2024 5:04 PM [facility] Emergency [facility] Emergency Department [address] [place] [address] Pleuritic chest pain (Primary Dx) Discharge Disposition: Discharge to home or self care from Last 3 Months Allergies Active Allergy [...] a day 120 tablet 11 4 12/06/19 25 Active rosuvastatin (CRESTOR) 10 mg tablet Take [...] lower lobe s due to Streptococcus pneumoniae (CMS/HCC) 11/29/2023 Acute kidney injury 11/29/2023 Pneumonia of [...] 12/23/2022 NSTEMI (non-ST elevated myocardial infarction) ( [facility]/HCC) 12/22/2022 Mixed hyperlipidemia 03/30/2018 Overview (12/25/2022): 08/30 [...] Stenosis of right carotid artery 04/17/2018 08/23/2020 Immunizations Name Administration Dates Next Due Influenza, [...] (Arexvy) 11/15/2022 Tdap 03/07/2012 ZOSTER Recombinant 03/27/2019,10/21/2018 Social History Tobacco Use Types Packs/Day Years Used Date Smoking Tobacco: Former Cigarettes 1 35 Q uit: 04/2018 Smokeless Tobacco: Never Tobacco Cessation:Counseling Given: No Alcohol Use Standard Drinks/Week Comments Yes 0 (1 standard drink = 0.6 oz pur e alcohol) [facility] [employer] Answer Date Recorded In the past 12 months has [employer], gas, oil, or water [employer] threatened to shut off services in your [...] week 11/29/2023 How often do you attend [facility] or jewish services? Never 11/29/2023 Do you belong to any clubs o r organizations such as roman catholic groups, unions, fraternal or athletic groups, or [...] any time in the past 12 m [facility], were you homeless or living in a [...] Comments Blood Pressure 116/65 03/22/2024 4:16 PM [facility] Pulse 100 03/22/2024 4:16 PM [facility] Temperature 35.9 C (96.6 F) 03/22/2024 4:15 PM [facility] Respiratory Rate 18 03/22/2024 4:16 PM [facility] Oxygen Saturation 98% 03/22/2024 4:16 PM [facility] Inhaled Oxygen Concentration - - Weight 71.2 kg (157 lb) 03/22/2024 4:17 PM [facility] Height 170.2 cm (5' 7 ) 02/06/2024 10:10 AM [facility] Body Mass Index 24.59 02/06/2024 10:10 AM [facility] Plan of Treatment Not on file Medical Devices Implanted Type Area Custom Protection Officer Device Identifier Shelf Expiration Date Model / Serial / Lot [employer] Valve Mitral Tissue Stented Epic Plus 31mm [id number] - [id number] - [id number] Implanted:Qty : 1 on 12/28/2022 by Corona Crabtree MD at [facility] Prosthetic Valve N/A: Heart [employer] 06/14/2026 [id number] / [id number] / Procedures Procedure Name Priority Date/Time Associated Diagnosis Comments STREPTOCOCCUS GROUP A PCR STAT 03/22/2024 7:22 PM [facility] EGFR STAT 03/22/2024 5:28 PM [facility] DIFFERENTIAL AUTO STAT 03/22/2024 5:2 8 PM [facility] COMPREHENSIVE METABOLIC PANEL STAT 03/22/2024 5:28 PM [facility] CBC WITH AUTO DIFFERENTIAL STAT 03/22/2024 5:[address] CHEST PE W CONTRAST ED 02/06/2024 3:52 PM [facility] PRO B-TYPE NATRIURETIC PEPTIDE Add-On 02/06/2024 2:30 PM [facility] TROPONIN T HIGH-SENSITIVITY 4-HR Timed 02/06/2024 2:30 PM [facility] EGFR STAT 02/06/2024 10:42 AM [facility] DIFFERENTIAL AUTO STAT 02/06/2024 10: 42 AM [facility] TROPONIN T HIGH-SENSITIVITY SERIES (BASELINE, 2HR, 4HR, 6HR) STAT 02/06/2024 10:42 AM [facility] COMPREHENSIVE METABOLIC PANEL STAT 02/06/2024 10:42 AM [facility] CBC WITH AUTO DIFFERENTIAL STAT 02/06/2024 10:42 AM [facility] XR CHEST 1 VIEW ED 02/06/2024 10:26 AM [facility] ECG 12-LEAD STAT 02/06/2024 10:[address] LUNG CANCER SCREENING Schedule Routine, Read Routine (OP Routine) 11/22/2023 11:58 AM CDT Personal history of nicotine dependence from Last 3 Months or Most Recently Relevant to Health Maintenance Results * Streptococcus Group A PCR Throat (03/22/2024 7:22 PM [facility]) Strep A DNA Not Detected Not Detected Comment: This test is performed using the [employer] Xpert Group A Streptococcal Assay. This is [...] the performing laboratory. Throat 03/22/2024 7:22 PM [facility] 03/22/2024 7:29 PM [facility] Beto Valdez MD LAB MICROBIOLOGY - GENERAL ORD ERABLES Final Result [facility] ([place]) 1 [facility] Department [place] [address] * (ABNORMAL) eGFR (03/22/2024 5:28 PM [facility]) eGFR 52(L) >=60 mL/min/1. 73 m2 Comment: [...] of Race in Diagnosing Kidney Disease, JASN 2020). The CKD-EPI equation should not be used for patients with unstable renal function and has not been validated in children and those over 70. Current interpretive data was last reviewed 2020. Blood 03/22/2024 5:28 PM [facility] 03/22/2024 5:31 PM [facility] Beto Valdez MD LAB BLOOD ORDERABLES Final Res ult [facility] ([place]) 1 [facility] Department [place] [address] * (ABNORMAL) Differential, auto (03/22/2024 5:28 PM [facility]) Neutrophil abs 5.7 1.5 - 6.5 K/cumm [...] revised on 2017. Monocyte pct 13.3 % [facility] ([place]) Comment: Interpretive Data [...] revised on 2017. Basophil pct 0.5 % [facility] ([place]) Comment: Interpretive Data Percent cell count reference ranges are not reported, since discordance with absolute values may lead to misinterpretation of CBC data. Current Interpretive Data was last revised on 2017. Blood 03/22/2024 5:28 PM [facility] 03/22/2024 5:31 PM [facility] Beto Valdez MD LAB BLOOD ORDERABLES Final Res ult [facility] ([place]) 1 [facility] [place] [address] * (ABNORMAL) CBC with auto differential (03/22/2024 5:28 PM [facility]) WBC 9.4 3.8 - 9.9 K/cumm Hgb 12.9 11.9 - 15.5 g/dL [facility] ([place]) Hct 40.2 35.6 - 45.5 % [facility] ([place]) Plt 362 150 - 400 K/cumm [facility] ([place]) MPV 8.9(L) 9.1 - 12.3 fL [facility] ([place]) RBC 4.41 3.90 - 5.20 M/cumm [facility] ([place]) MCV 91.2 81.3 - 96.4 fL [facility] ([place]) MCH 29.3 27.1 - 33.3 pg [facility] ([place]) MCHC 32.1(L) 32.3 - 35.7 g/dL [facility] ([place]) RDW CV 14.3 11.1 - 14.9 % [facility] ([place]) RDW SD 48.2(H) 35.7 - 48.1 fL [facility] ([place]) NRBC abs 0.00 0.00 - 0.01 K/cumm [facility] ([place]) Blood 03/22/2024 5:28 PM [facility] 03/22/2024 5:31 PM [facility] Beto Valdez MD LAB BLOOD ORDERABLES Final Res ult [facility] ([place]) 1 [facility] [place] [address] * (ABNORMAL) Comprehensive metabolic panel (03/22/2024 5:28 PM [facility]) Pathologist [facility] Sodium 134(L) 135 - 145 mmol/L Potassium, pl 5.5(H) 3.3 - 4.9 mmol/L [facility] ([place]) Chloride 99 97 - 110 mmol/L [facility] ([place]) CO2 21(L) 22 - 32 mmol/L [facility] ([place]) Anion gap 13 2 - 15 mmol/L [facility] ([place]) BUN 36(H) 6 - 25 mg/dL [facility] ([place]) Creatinine 1.16(H) 0.60 - 1.10 [...] [facility] ([place]) Blood 03/22/2024 5:28 PM [facility] 03/22/2024 5:31 PM [facility] us Beto Valdez MD LAB BLOOD ORDERABLES Final Res ult [facility] ([place]) 1 [facility] Department [place] [address] * CT Chest PE (CTA) W Contrast (02/06/2024 3:52 PM [facility]) Anatomical Region Laterality Modality Body N/A Computed Tomogra phy 02/06/2024 4:11 PM [facility] Narrative 02/06/2024 4:23 PM [facility] EXAM DESCRIPTION: CT CHEST PE (CTA) W [...] Jerry Morrell M.D. AT: AT Report ID: [id number] Reading Location: [id number] Procedure Note Jerry Morrell MD - 02/06/2024 [...] Jerry Morrell M.D. AT: AT Report ID: [id number] Reading Location: [id number] us Laura SAPP IMG CT PROCEDURES Final R esult * (ABNORMAL) Troponin T high-sensitivity 4-hour (02/06/2024 2:30 PM [facility]) Trop T hs 19(H) <=14 ng/L Comment: Interpretive Data For further hscTnT resources including the diagnostic algorithm and an aid in interpretation, copy and paste this link: https://nrl.testcatalog.org/show/hsTrop Current Interpretive Data last revised 2019. Trop T hs delta 1 ng/L [facility] ([place]) Trop T hs interp Insignificant [facility] ([place]) Blood 02/06/2024 2:30 PM [facility] 02/06/2024 2:31 PM [facility] us Prabhu Davis MD LAB BLOOD ORDERABLES Final R esult [facility] ([place]) 1 [facility] Department [place] [address] * (ABNORMAL) Pro B-type natriuretic peptide (02/06/2024 2:30 PM [facility]) NT-proBNP 466(H) <=300 pg/mL Comment: Interpretive Comments: [...] Revised Date: 2017. Blood 02/06/2024 2:30 PM [facility] 02/06/2024 2:31 PM [facility] us Laura SAPP LAB BLOOD ORDERABLES Silvia l Result Performing Organization Address City/[facility]/ZIP Co de Phone Number [facility]TONI BORGES [place]) 1 [facility] [place] [address] * (ABNORMAL) Troponin T high-sensitivity series (baseline, 2hr, 4hr, 6hr) (02/06/2024 10:42 AM [facility]) Trop T hs 18(H) <=14 ng/L Comment: Interpretive Data For further hscTnT resources including the diagnostic algorithm and an aid in interpretation, copy and paste this link: https://nrl.testcatalog.org/show/hsTrop Current Interpretive Data last revised 2019. Blood 02/06/2024 10:4 2 AM [facility] 02/06/2024 10:45 AM [facility] us Prabhu Davis MD LAB BLOOD ORDERABLES Final R esult Performing Organization Address City/[facility]/ZIP Co de Phone Number [facility] ([place]) 1 [facility] [place] [address] * eGFR (02/06/2024 10:42 AM [facility]) eGFR 81 >=60 mL/min/1. 73 m2 Comment: [...] of Race in Diagnosing Kidney Disease, JASN 2020). The CKD-EPI equation should not be used for patients with unstable renal function and has not been validated in children and those over 70. Current interpretive data was last reviewed 2020. Blood 02/06/2024 10:4 2 AM [facility] 02/06/2024 10:45 AM [facility] Prabhu Davis MD LAB BLOOD ORDERABLES Final R esult [facility] ([place]) 1 [facility] Department [place] [address] * Differential, auto (02/06/2024 10:42 AM [facility]) Neutrophil abs 4.0 1.5 - 6.5 K/cumm [...] on 2017. Blood 02/06/2024 10:4 2 AM [facility] 02/06/2024 10:45 AM [facility] us Prabhu Davis MD LAB BLOOD ORDERABLES Final R esult [facility] ([place]) 1 [facility] Department [place] [address] * (ABNORMAL) CBC with auto differential (02/06/2024 10:42 AM [facility]) WBC 6.6 3.8 - 9.9 K/cumm Hgb [...] ([place]) Blood (Blood, Venous) 02/06/2024 10:42 AM [facility] 02/06/2024 10:45 AM [facility] us Prabhu Davis MD LAB BLOOD ORDERABLES Final R esult [facility] ([place]) 1 [facility] Department [place] [address] * Comprehensive metabolic panel (02/06/2024 10:42 AM [facility]) Sodium 141 135 - 145 mmol/L Potassium, pl 4.1 3.3 - 4.9 mmol/L [facility]) Chloride 108 97 - 110 mmol/L [facility] ([place]) CO2 22 22 - 32 mmol/L [facility]) Anion gap 11 2 - 15 mmol/L [facility] ([place]) BUN 25 6 - 25 mg/dL [facility]) Creatinine 0.80 0.60 - 1.10 [...] [facility] ([place]) Blood 02/06/2024 10:4 2 AM [facility] 02/06/2024 10:45 AM [facility] us Prabhu Davis MD LAB BLOOD ORDERABLES Final R esult [facility] ([place]) 1 [facility] Department [place] [address] * XR Chest 1 Vw Portable (if patient condition/safety warrant portable) (02/06/2024 10:26 AM [facility]) Anatomical Region Laterality Modality Body, Chest N/A Computed Radiogr aphy 02/06/2024 10:3 7 AM [facility] Narrative 02/06/2024 10:40 AM [facility] EXAM DESCRIPTION: XR CHEST 1 VIEW REASON [...] Erasto Arambula M.D. MZ: ANNAMARIA Report ID: [id number] Reading Location: [id number] Procedure Note Erasto Arambula MD - 02/06/2024 [...] Electronically signed by Erasto Arambula M.D. MZ: MZ Report ID: [id number] Reading Location: [id number] Prabhu Davis MD IMG XR PROCEDURES Final Resu lt * ECG 12 lead (02/06/2024 10:09 AM [facility]) 02/06/2024 10:0 9 AM [facility] Narrative [facility] - 02/06/2024 11:12 AM [facility] Vent Rate: 87 bpm RR Interval: 684 msec WA Interval: 144 msec QRS Duration: 105 msec QT Interval: 359 msec QTC Interval: 404 msec P-R-T [place]: 20 - 93 - 16 degrees IMPRESSION: SINUS RHYTHM BORDERLINE RIGHT AXIS DEVIATION [QRS AXIS > 90] NONSPECIFIC T-WAVE ABNORMALITY Compared to prior EKG, heart rate is now slower and PVCs no longer seen now Electronically Signed By: Dr Norberto Gastelum us Prabhu Davis MD ECG ORDERABLES Final Result [facility] * CT Lung Cancer Screening (11/22/2023 11:58 [...] Relevant to Health Maintenance Insurance MEDICARE SOLUTIONS MEDICARE SOLUTIONS Advance Directives For more information, please contact: [phone] * Full Code (Latest Code Status on [...] Ordonez Daughter Health Care Agent Care Teams Transmission System Operator Relationship Specialty Start Date End Date Ed Robles MD PCP - General Family Practice 08/22/21 [place] [address] [facility] [address] [address] Surgeon Cardiothoracic Surgery 01/08/23 Demond Estevez MD 2 [facility] [address] [place] [address] Consulting Physician Cardiology 01/08/23
--- OUTSIDE RECORDS SUMMARY | 2024-03-26 15:18 | XMS_ITS | Encounter Summary ---
Author Organization [facility] Address [address] [place] [address] Phone Care Team Providers Care Funeral Counselor Name Role Phone Ed Robles MD Primary Care Provider Encounter Details Date Type Department Care Team (Latest Contact Info) Description 01/17/2023 Lab Requisition [facility] Laboratory Services [address] [place] [phone] [place] [address] [facility] [address] SURG [address] ADULT-CARDIO, [place] [address] Atherosclerotic heart disease of [place] coronary artery without angina pectoris Social History Tobacco Use Types Packs/Day Years Used Date Smoking Tobacco: Never Assessed Comments Unknown Sex and Gender Information Value Date Recorded Sex Assigned at Not on file Legal Sex Female 12:33 PM SENIOR TELECOMMUNICATIONS CONSULTANT Gender Identity Not on file Sexual Orientation Not on file documented as of this encounter Plan of Treatment Not on file documented as of this encounter Procedures Procedure Name Priority Date/Time Associated Diagnosis Comments CBC WITH AUTO DIFFERENTIAL Routine 01/17/2023 10:00 AM SENIOR TELECOMMUNICATIONS CONSULTANT Atherosclerotic heart disease of [place] coronary artery without angina pectoris CMP (COMPREHENSIVE METABOLIC PANEL) Routine 01/17/2023 10:00 AM SENIOR TELECOMMUNICATIONS CONSULTANT Atherosclerotic heart disease of [place] coronary artery without angina pectoris COMPLETE BLOOD COUNT (CBC) WITH DIFF Routine 01/17/2023 10:00 AM SENIOR TELECOMMUNICATIONS CONSULTANT Atherosclerotic heart disease of [place] coronary artery without angina pectoris documented in this encounter Results * (ABNORMAL) CBC WITH AUTO DIFFERENTIAL (01/17/2023 10:00 AM [facility]) WBC 9.92 4.00 - 12.00 10(3)/mcL 01/17/2023 11:04 AM [facility] RBC 3.10(L) 3.80 - 5.30 10(6)/mcL 01/17/2023 11:04 AM [facility] HEMOGLOBIN (HGB) 9.2(L) 12.0 - 15.8 g/dL 01/17/2023 11:04 AM [facility] HEMATOCRIT (HCT) 28.7(L) 36.0 - 47.0 % 01/17/2023 11:04 AM [facility] MCV 92.6 82.0 - 96.0 fL 01/17/2023 11:04 AM [facility] MCH 29.7 26.0 - 34.0 pg 01/17/2023 11:04 AM [facility] MCHC 32.1 31.0 - 36.0 g/dL 01/17/2023 11:04 AM [facility] PLATELET COUNT 498(H) 140 - 440 10(3)/mcL 01/17/2023 11:04 AM [facility] RDW 15.9(H) 11.8 - 15.5 % 01/17/2023 11:04 AM [facility] MPV 8.5(L) 9.7 - 12.4 fL 01/17/2023 11:04 AM [facility] NEUTROPHILS 68.2 47.0 - 73.0 % 01/17/2023 11:04 AM [facility] LYMPHOCYTES 11.1(L) 18.0 - 42.0 % 01/17/2023 11:04 AM [facility] MONOCYTES 8.1 4.0 - 12.0 % 01/17/2023 11:04 AM [facility] EOSINOPHILS 12.1(H) 0.0 - 5.0 % 01/17/2023 11:04 AM [facility] BASOPHILS 0.5 0.0 - 1.0 % 01/17/2023 11:04 AM [facility] ABSOLUTE NEUTROPHILS 6.77 1.60 - 7.70 10(3)/[facility] 01/17/2023 11:04 AM [facility] ABSOLUTE LYMPHOCYTES 1.10(L) 1.30 - 3.20 10(3)/[facility] 01/17/2023 11:04 AM [facility] ABSOLUTE MONOCYTES 0.80 0.20 - 1.00 10(3)/[facility] 01/17/2023 11:04 AM [facility] ABSOLUTE EOSINOPHIL 1.20(H) 0.00 - 0.40 10(3)/[facility] 01/17/2023 11:04 AM [facility] ABSOLUTE BASOPHILS 0.05 0.00 - 0.10 10(3)/[facility] 01/17/2023 11:04 AM [facility] NRBC PER 100 WBC 0 01/18/20 11:04 AM [facility] Blood No Phlebotomy Charged / Unknown 01/17/2023 10:00 AM SENIOR TELECOMMUNICATIONS CONSULTANT 01/17/2023 10:59 AM [facility] us Corona Crabtree MD HEMATOLOGY ORDERABLES Final Result [facility] [place] [address] * (ABNORMAL) CMP (COMPREHENSIVE METABOLIC PANEL) (01/17/2023 10:00 AM SENIOR TELECOMMUNICATIONS CONSULTANT) SODIUM 139 136 - 145 mmol/L 01/17/2023 11:20 AM SENIOR TELECOMMUNICATIONS CONSULTANT [facility] POTASSIUM 4.3 3.5 - 5.1 mmol/L 01/17/2023 11:20 AM [facility] CHLORIDE 107 98 - 107 mmol/L 01/17/2023 11:20 AM [facility] CO2, VENOUS 22 22 - 30 mmol/L 01/17/2023 11:20 AM [facility] ANION GAP 14.3 <18.0 mmol/L 01/17/2023 11:20 AM [facility] GLUCOSE 117(H) 70 - 99 mg/dL 01/17/2023 11:20 AM [facility] BUN 10 10 - 20 mg/dL 01/17/2023 11:20 AM [facility] CREATININE, BLOOD 0.68 0.60 - 1.00 mg/dL 01/17/2023 11:20 AM [facility] BUN/CREATININE RATIO 15 12 - 20 ratio 01/17/2023 11:20 AM [facility] TOTAL PROTEIN 6.9 6.3 - 8.2 g/dL 01/17/2023 11:20 AM [facility] ALBUMIN 3.5 3.5 - 5.0 g/dL 01/17/2023 11:20 AM [facility] A/G RATIO 1.0 1.0 - 2.2 01/17/2023 11:20 AM [facility] CALCIUM 9.5 8.7 - 10.5 mg/dL 01/17/2023 11:20 AM [facility] T BILI 0.2 0.2 - 1.2 mg/dL 01/17/2023 11:20 AM [facility] SGOT (AST) 30 5 - 34 U/L 01/17/2023 11:20 AM [facility] SGPT (ALT) 32 0 - 55 U/L 01/17/2023 11:20 AM [facility] ALKALINE PHOSPHATASE 99 40 - 150 U/L 01/17/2023 11:20 AM [facility] GFR, ESTIMATED >60 >=60 01/17/2023 11:20 AM [facility] Comment: Creatinine Clearance is the preferred criteria for selecting drug dose adjustments in renally impaired patients. The GFR is provided as additional pertinent clinical information. GFR is reported in mL/min/1.73 sq m. Calculation based on the Chronic Kidney Disease Epidemiology Collaboration (CKD- EPI) equation refit without adjustment for race. GFR, EST. >60 >=60 023 11:20 AM SENIOR TELECOMMUNICATIONS CONSULTANT [facility] GFR, EST. NONAFRICAN >60 >=60 01/17/2023 11:20 AM SENIOR TELECOMMUNICATIONS CONSULTANT [facility] Blood No Phlebotomy Charged / Unknown 01/17/2023 10:00 AM SENIOR TELECOMMUNICATIONS CONSULTANT 01/17/2023 10:59 AM SENIOR TELECOMMUNICATIONS CONSULTANT us Corona Crabtree MD CHEMISTRY ORDERABLES Final R esult [facility] [place] [address] documented in this encounter Visit Diagnoses Diagnosis Atherosclerotic heart disease of [place] coronary artery without angina pectoris Coronary atherosclerosis of [place] coronary artery documented in this encounter Care Teams Funeral Counselor Relationship Specialty Start Date End Date Ed Robles MD [address] [place] [id number] PCP - General Family Medicine 01/04/23 documented as of this encounter
--- OUTSIDE RECORDS SUMMARY | 2024-03-26 15:18 | XMS_ITS | Patient Health Record ---
Author Organization [email or web address] Address [address] [facility] [address] [place] [address] Care Team Providers Care Fur Joiner Name Role Phone Phuc Garcia Primary Care Provider Unavaila ble Reason For Referral No Information Medications Medication SIG (Take, Route, Fr equency, Duration) Notes Start Date End Date Status Cholestyramine 4 GM 1 packet mixed with water or non-carbonated drink Orally Once a day for 30 day(s) 02/18/2020 Active Colestid 1 GM TAKE 2 TABLETS BY [facility] TWICE DAILY for 30 Active Colestid 1 GM 2 tablets Orally bid for 30 day(s) 11/05/2019 Active Problems Problem Type SNOMED Code ICD Code Onset Dates Problem Status W/U Status Risk Notes Problem [id number] Personal history of colonic polyps (Z86.010) Active confirmed Plan Of Treatment No Information Insurance Providers Payer Name Payer Address Payer Phone Subscriber Number Group Number Insured Name Patient Relationship to Insured Coverage Start Date Coverage End Date [employer] Access PPO E2 [address] [place] [address] [id number] Bhavana Escamilla Self - patient is the insured
--- OUTSIDE RECORDS SUMMARY | 2024-03-26 15:18 | XMS_ITS | Encounter Summary ---
Author Organization [facility] Address [address] [place] [address] Phone Care Team Providers Care Social Director Name Role Phone Ed Robles MD Primary Care Provider [phone] Encounter Details Date Type Department Care Team (Latest Contact Info) Description 01/17/2023 Lab Requisition [facility] Laboratory Services [address] [place] [address] [place] [address] [facility] [address] SURG CT ADULT-CARDIO, [place] [address] Atherosclerotic heart disease of [place] coronary artery without angina pectoris Social History Tobacco Use Types Packs/Day Years Used Date Smoking Tobacco: Never Assessed Comments Unknown Sex and Gender Information Value Date Recorded Sex Assigned at Not on file Legal Sex Female 12:33 PM OSTEOPATHY DOCTOR Gender Identity Not on file Sexual Orientation Not on file documented as of this encounter Plan of Treatment Scheduled Orders Name Type Priority Associated Diagnoses Orde r Schedule CMP (COMPREHENSIVE METABOLIC PANEL) Lab Routine Atherosclerotic heart disease of [place] coronary artery without angina pectoris Ordered: 01/17/2023 COMPLETE BLOOD COUNT (CBC) WITH DIFF Lab Routine Atherosclerotic heart disease of [place] coronary artery without angina pectoris Ordered: 01/17/2023 documented as of this encounter Visit Diagnoses Diagnosis Atherosclerotic heart disease of [place] coronary artery without angina pectoris Coronary atherosclerosis of [place] coronary artery documented in this encounter Care Teams Social Director Relationship Specialty Start Date End Date Ed Robles MD [address] [place] [address] PCP - General Family Medicine 01/04/23 documented as of this encounter
== END 2024-03-26 15:16 | disposition home or self-care (01) ==
LOC: ANHIMG 15:16
PROVIDERS: PCP Nurse Practitioner Adult Health; Visit Provider Nurse Practitioner Adult Health
DX: Z12.31 Encounter for screening mammogram for malignant neoplasm of breast (principal)
CPT/HCPCS: 77063; 77067

== ENCOUNTER 2024-04-09 13:48 | Outpatient (CLI) | payer MEDICARE, SELFPAY ==
[2024-04-09 20:34] LABS: Potassium 4.9 mmol/L (3.4-5.0)
[2024-04-09 20:45] LABS: LDL Cholesterol Direct 45 mg/dL
[2024-04-09 21:37] LABS: Alanine Aminotransferase 27 U/L (6-35); Albumin Level 4.1 g/dL (3.5-5.1); Alkaline Phosphatase 87 U/L (38-126); Anion Gap 8 mmol/L (4-12); Aspartate Amino Transferase 50 U/L (14-36); Bilirubin,Total 0.3 mg/dL (0.2-1.3); Blood Urea Nitrogen 21 mg/dL (7-17); Calcium 9.9 mg/dL (8.4-10.2); Carbon Dioxide 28 mmol/L (22-30); Chloride 102 mmol/L (98-107); Cholesterol 122 mg/dL (0-200); Estimated Glomerular Filt Rate > 60; Glucose 82 mg/dL (65-110); HDL Direct 47 mg/dL; Magnesium 2.2 mg/dL (1.6-2.3); Sodium 138 mmol/L (137-145); Triglycerides 109 mg/dL (<150); Vitamin B12 > 1000.0 pg/mL (239-931)
[2024-04-09 21:38] LABS: Vitamin D 25 Hydroxy 55.1 ng/mL
== END 2024-04-09 13:49 | disposition home or self-care (01) ==
PROVIDERS: PCP Nurse Practitioner Adult Health; Visit Provider Nurse Practitioner Adult Health
DX: E78.5 Hyperlipidemia, unspecified (principal); I10 Essential (primary) hypertension; E53.8 Deficiency of other specified B group vitamins; R79.89 Other specified abnormal findings of blood chemistry; Z79.899 Other long term (current) drug therapy
CPT/HCPCS: 36415; 80053; 80061; 82306; 82607; 83735

== ENCOUNTER 2024-05-19 14:08 | Outpatient (CLI) | payer MEDICARE, SELFPAY ==
--- NOTE | ~2024-05-19 | DEXA_ITS ---
Bone Density Report Name: LISA COLEMAN Age: 68 Sex: Female Ethnicity: White Date of : 1955 Indication: osteopenia; height loss; hysterectomy; Referring Provider: ROMINA TA Study: Bone densitometry was performed. Exam Date: May 19, 2024 Accession number: [id number] Bone Density: Region BMD T-score Z-score Classification AP Spine(L1-L4) 1.095 0.4 2.4 Normal Femoral Neck (Left) 0.658 -1.7 -0.1 Osteopenia Total Hip (Left) 0.810 -1.1 0.3 Osteopenia Femoral Neck (Right) 0.712 -1.2 0.4 Osteopenia Total Hip (Right) 0.783 -1.3 0.1 Osteopenia Total Hip Mean 0.797 -1.2 0.2 Osteopenia World Health Organization criteria for BMD impression classify patients as: Normal (T-score at or above -1.0), Osteopenia (T-score between -1.0 and -2.5), or Osteoporosis (T-score at or below -2.5). 10-year Fracture Risk(1): Major Osteoporotic Fracture 10% Hip Fracture 1.4% Reported Risk Factors: [place] (), Neck BMD=0.658, BMI=27.8 (1) FRAX(R) Version 3.08. Fracture probability calculated for an untreated patient. Fracture probability may be lower if the patient has received treatment. Previous Exams: Region Exam Age BMD T-score BMD Change BMD Change Date g/cm2 vs Baseline vs Previous AP Spine (L1-L4) 05/19/2024 68 1.095 0.4 0.060 (5.8%)* 0.060 (5.8%)* 07/14/2019 63 1.034 -0.1 Total Hip(Left) 05/19/2024 68 0.810 -1.1 -0.005 (-0.6%) -0.005 (-0.6%) 07/14/2019 63 0.815 -1.0 Total Hip(Right) 05/19/2024 68 0.783 -1.3 -0.030 (-3.6%) -0.030 (-3.6%) 07/14/2019 63 0.813 -1.1 *Denotes significance at 95% confidence level, LSC for AP Spine = 0.022 g/cm2, LSC for Total Hip = 0.027 g/cm2 Clinical Information Provided by Patient: Has used the following medications: Vitamin D Has the following medical conditions: Hysterectomy Patient maximum height was 67 Menopause Age: 51 No regular weight bearing exercise Drinks caffeinated beverages Onset of menses at age 14 Number of children 2 Impression: The patient has low bone mass, based on the Left Femoral Neck T-score. The patient has an estimated ten-year risk of hip fracture of 1.4% and an estimated ten-year risk of major fracture of 10%, based on the WHO FRAX algorithm. The BMD for the Total Hip(Right) decreased, changing by -3.6% since the last DXA exam. Discussion: BONE DENSITY IS LOW AT ONE OR MORE SKELETAL SITES. This patient's lowest T-score is low at one or more skeletal sites. It meets the World Health Organization's (WHO) criteria for ?low bone mass? (T-score between -1.0 and -2.5). The patient's 10-year risk of fracture as calculated by FRAX is less than the threshold where pharmacological therapy is recommended by the National Osteoporosis Foundation (NOF). However, all treatment decisions require clinical judgment and consideration of individual patient factors, including patient preferences, comorbidities, previous drug use, risk factors not captured in the FRAX model (e.g., frailty, falls, vitamin D deficiency, increased bone turnover, interval significant decline in bone density) and possible under or overestimation of fracture risk by FRAX. The patient should follow a healthful lifestyle (good nutrition with adequate calcium and vitamin D, and appropriate weight-bearing exercise). Follow-Up: Consider repeating this study in 2 years to reassess this patient's status, or sooner if there is some new clinical indication. Reported by: JOYCE on 05/19/2024 2:44:00 PM. Reviewed, dictated and finalized at location ARosemarie RAMEY
--- OUTSIDE RECORDS SUMMARY | 2024-05-19 15:47 | XMS_ITS | Clinical Summary ---
Author Organization [facility] Address [address] [facility] [place] [address] Care Team Providers Care Field Underwriter Name Role Phone Ed Robles MD Primary Care Provider [phone] Source Comments [facility],non-[facility] Affiliates and Associated Physician Practices is amultiple site organization consisting of ambulatory clinics and hospital sitesin [place], [place], [place] and [place]. This disclosure is being madepursuant to the Care Everywhere program and may not contain all information available regarding this patient. Last updated 17.[facility] Allergies Active Allergy Reactions Criticality Noted Date [...] (Flonase Allergy Relief) 50 MCG/ACT nasal spray [place] 2 (two) sprays into each nostril once daily Active Milk Thistle 1000 MG CAPS Take 1,000 mg by mouth once daily Active Zinc 50 MG tablet Take 1 (one) tablet by mouth once daily Active vitamin E (Tocopheryl) 400 UNIT capsule Take 1 (one) capsule by mouth once daily Active Kqwxkj-Meqqhxzsqg-R ilberry 20-4-40 MG CHEW Active Selenium 200 MCG Take 200 mcg by mouth once daily Active Moapa-3 300 MG CAPS Take 1 tablet by [...] function, mild LVH, no significant valve disease Family History Medical History Relation Name Comments [...] Alive no heart dz Father (Age 65) SD at age 65 Mother (Age 86) SD & CABG at 74; CHF Sister 1 [...] 76.2 kg (168 lb) 01/14/2024 10:37 AM GLOBAL MANAGER Height 170.2 cm (5' 7.01 ) 01/14/2024 10:[address] Body Mass Index 26.31 01/14/2024 10:37 AM GLOBAL MANAGER Plan of Treatment Upcoming Encounters Date Type Department Care Team (Late st Contact Info) Description 08/18/2024 9:30 AM CDT Appointment [facility] [address] [place] [address], [address] [place] [address] 08/18/2024 10:00 AM CDT Appointment [facility] V[facility] Services [address] [place] [address], [address] [place] [address] 08/18/2024 10:30 AM CDT Office Visit [facility] - Surgery [address] [facility], [address] [place] [address] [place] [address] [facility] [address] [place] [address] Health Maintenance Due Date Last [...] SCREENING FOR DIABETES 11/13/2022 04/02/2018 COVID-19 VACCINE ( season) 2023 05/05/2020, 04/14/2020 DEPRESSION SCREENING 02/12/2024 [...] complete this topic MENINGOCOCCAL (Group B) VACCINE SHARED DECISION-MAKING Aged Out No longer eligible based on patient's age to complete this topic MENINGOCOCCAL GROUPS A/C/Y/W VACCINE Aged Out No longer eligible based on patient's age to complete this topic Procedures Procedure Name Priority Date/Time Associated Diagnosis Comments COMPREHENSIVE METABOLIC PANEL Routine 04/02/2018 PAD (peripheral artery disease) Bilateral carotid artery stenosis Essential hypertension Mixed hyperlipidemia from Last 3 Months or Most Recently Relevant to Health Maintenance Results * COMPREHENSIVE METABOLIC PANEL (04/02/2018) Blood BLOOD SPECIMEN / Unknown Jose Luis Narvaez MD LAB - CHEMISTRY [facility] INSURANCE BILL [address] [place] [address] from Last 3 Months or Most Recently Relevant to Health Maintenance Care Teams Field Underwriter Relationship Specialty Start Date End Date Ed Robles MD [address] [place] [phone] PCP - General Family Medicine 11/13/22
--- OUTSIDE RECORDS SUMMARY | 2024-05-19 15:47 | XMS_ITS | Encounter Summary ---
Author Organization [facility] Address [address] [place] [address] Phone Care Team Providers Care Restaurant Hospitality Manager Name Role Phone Ed Robles MD Primary Care Provider [phone] Encounter Details Date Type Department Care Team (Latest Contact Info) Description 01/17/2023 Lab Requisition [facility] Laboratory Services [address] [place] [address] [place] [address] [facility] [address] ADULT-CARDIO, [place] [address] Atherosclerotic heart disease of ione coronary artery without angina pectoris Social History Tobacco Use Types Packs/Day Years Used Date Smoking Tobacco: Never Assessed Comments Unknown Sex and Gender Information Value Date Recorded Sex Assigned at Not on file Legal Sex Female 12:33 PM FAMILY SERVICE ASSISTANT Gender Identity Not on file Sexual Orientation Not on file documented as of this encounter Plan of Treatment Scheduled Orders Name Type Priority Associated Diagnoses Orde r Schedule CMP (COMPREHENSIVE METABOLIC PANEL) Lab Routine Atherosclerotic heart disease of ione coronary artery without angina pectoris Ordered: 01/17/2023 COMPLETE BLOOD COUNT (CBC) WITH DIFF Lab Routine Atherosclerotic heart disease of ione coronary artery without angina pectoris Ordered: 01/17/2023 documented as of this encounter Visit Diagnoses Diagnosis Atherosclerotic heart disease of ione coronary artery without angina pectoris Coronary atherosclerosis of ione coronary artery documented in this encounter Care Teams Restaurant Hospitality Manager Relationship Specialty Start Date End Date Ed Robles MD [address] [place] [address] PCP - General Family Medicine 01/04/23 documented as of this encounter
--- OUTSIDE RECORDS SUMMARY | 2024-05-19 15:47 | XMS_ITS | Encounter Summary ---
Author Organization [facility] Address [address] [place] [address] Phone Care Team Providers Care Squad Sergeant Name Role Phone Ed Robles MD Primary Care Provider Encounter Details Date Type Department Care Team (Latest Contact Info) Description 01/17/2023 Lab Requisition [facility] Laboratory Services [address] [place] [phone] [place] [address] [facility] [address] SUR[address] ADULT-CARDIO, [place] [address] Atherosclerotic heart disease of [place] coronary artery without angina pectoris Social History Tobacco Use Types Packs/Day Years Used Date Smoking Tobacco: Never Assessed Comments Unknown Sex and Gender Information Value Date Recorded Sex Assigned at Not on file Legal Sex Female 12:33 PM ARCHAEOLOGY PROFESSOR Gender Identity Not on file Sexual Orientation Not on file documented as of this encounter Plan of Treatment Not on file documented as of this encounter Procedures Procedure Name Priority Date/Time Associated Diagnosis Comments CBC WITH AUTO DIFFERENTIAL Routine 01/17/2023 10:00 AM ARCHAEOLOGY PROFESSOR Atherosclerotic heart disease of [place] coronary artery without angina pectoris CMP (COMPREHENSIVE METABOLIC PANEL) Routine 01/17/2023 10:00 AM ARCHAEOLOGY PROFESSOR Atherosclerotic heart disease of [place] coronary artery without angina pectoris COMPLETE BLOOD COUNT (CBC) WITH DIFF Routine 01/17/2023 10:00 AM ARCHAEOLOGY PROFESSOR Atherosclerotic heart disease of [place] coronary artery without angina pectoris documented in this encounter Results * (ABNORMAL) CBC WITH AUTO DIFFERENTIAL (01/17/2023 10:00 AM [facility]) WBC 9.92 4.00 - 12.00 10(3)/mcL 01/17/2023 11:04 AM [facility] RBC 3.10(L) 3.80 - 5.30 10(6)/mcL 01/17/2023 11:04 AM [facility] HEMOGLOBIN (HGB) 9.2(L) 12.0 - 15.8 g/dL 01/17/2023 11:04 AM [facility] HEMATOCRIT (HCT) 28.7(L) 36.0 - 47.0 % 01/17/2023 11:04 AM [facility] MCV 92.6 82.0 - 96.0 fL 01/17/2023 11:04 AM [facility] MCH 29.7 26.0 - 34.0 pg 01/17/2023 11:04 AM [facility] MCHC 32.1 31.0 - 36.0 g/dL 01/17/2023 11:04 AM [facility] PLATELET COUNT 498(H) 140 - 440 10(3)/mcL 01/17/2023 11:04 AM [facility] RDW 15.9(H) 11.8 - 15.5 % 01/17/2023 11:04 AM [facility] MPV 8.5(L) 9.7 - 12.4 fL 01/17/2023 11:04 AM [facility] NEUTROPHILS 68.2 47.0 - 73.0 % 01/17/2023 11:04 AM [facility] LYMPHOCYTES 11.1(L) 18.0 - 42.0 % 01/17/2023 11:04 AM [facility] MONOCYTES 8.1 4.0 - 12.0 % 01/17/2023 11:04 AM [facility] EOSINOPHILS 12.1(H) 0.0 - 5.0 % 01/17/2023 11:04 AM [facility] BASOPHILS 0.5 0.0 - 1.0 % 01/17/2023 11:04 AM [facility] ABSOLUTE NEUTROPHILS 6.77 1.60 - 7.70 10(3)/[facility] 01/17/2023 11:04 AM [facility] ABSOLUTE LYMPHOCYTES 1.10(L) 1.30 - 3.20 10(3)/[facility] 01/17/2023 11:04 AM [facility] ABSOLUTE MONOCYTES 0.80 0.20 - 1.00 10(3)/[facility] 01/17/2023 11:04 AM [facility] ABSOLUTE EOSINOPHIL 1.20(H) 0.00 - 0.40 10(3)/[facility] 01/17/2023 11:04 AM [facility] ABSOLUTE BASOPHILS 0.05 0.00 - 0.10 10(3)/[facility] 01/17/2023 11:04 AM [facility] NRBC PER 100 WBC 0 01/18/20 11:04 AM [facility] Blood No Phlebotomy Charged / Unknown 01/17/2023 10:00 AM ARCHAEOLOGY PROFESSOR 01/17/2023 10:59 AM [facility] us Corona Crabtree MD HEMATOLOGY ORDERABLES Final Result [facility] [address] [place] [address] * (ABNORMAL) CMP (COMPREHENSIVE METABOLIC PANEL) (01/17/2023 10:00 AM ARCHAEOLOGY PROFESSOR) SODIUM 139 136 - 145 mmol/L 01/17/2023 11:20 AM ARCHAEOLOGY PROFESSOR [facility] POTASSIUM 4.3 3.5 - 5.1 mmol/L 01/17/2023 11:20 AM [facility] CHLORIDE 107 98 - 107 mmol/L 01/17/2023 11:20 AM [facility] CO2, VENOUS 22 22 - 30 mmol/L 01/17/2023 11:20 AM [facility] ANION GAP 14.3 <18.0 mmol/L 01/17/2023 11:20 AM [facility] GLUCOSE 117(H) 70 - 99 mg/dL 01/17/2023 11:20 AM [facility] BUN 10 10 - 20 mg/dL 01/17/2023 11:20 AM [facility] CREATININE, BLOOD 0.68 0.60 - 1.00 mg/dL 01/17/2023 11:20 AM [facility] BUN/CREATININE RATIO 15 12 - 20 ratio 01/17/2023 11:20 AM [facility] TOTAL PROTEIN 6.9 6.3 - 8.2 g/dL 01/17/2023 11:20 AM [facility] ALBUMIN 3.5 3.5 - 5.0 g/dL 01/17/2023 11:20 AM [facility] A/G RATIO 1.0 1.0 - 2.2 01/17/2023 11:20 AM [facility] CALCIUM 9.5 8.7 - 10.5 mg/dL 01/17/2023 11:20 AM [facility] T BILI 0.2 0.2 - 1.2 mg/dL 01/17/2023 11:20 AM [facility] SGOT (AST) 30 5 - 34 U/L 01/17/2023 11:20 AM [facility] SGPT (ALT) 32 0 - 55 U/L 01/17/2023 11:20 AM [facility] ALKALINE PHOSPHATASE 99 40 - 150 U/L 01/17/2023 11:20 AM [facility] GFR, ESTIMATED >60 >=60 01/17/2023 11:20 AM [facility] Comment: Creatinine Clearance is the preferred criteria for selecting drug dose adjustments in renally impaired patients. The GFR is provided as additional pertinent clinical information. GFR is reported in mL/min/1.73 sq m. Calculation based on the Chronic Kidney Disease Epidemiology Collaboration (CKD- EPI) equation refit without adjustment for race. GFR, EST. >60 >=60 023 11:20 AM ARCHAEOLOGY PROFESSOR [facility] GFR, EST. NONAFRICAN >60 >=60 01/17/2023 11:20 AM ARCHAEOLOGY PROFESSOR [facility] Blood No Phlebotomy Charged / Unknown 01/17/2023 10:00 AM ARCHAEOLOGY PROFESSOR 01/17/2023 10:59 AM ARCHAEOLOGY PROFESSOR us Corona Crabtree MD CHEMISTRY ORDERABLES Final R esult [facility] [address] [place] [address] documented in this encounter Visit Diagnoses Diagnosis Atherosclerotic heart disease of [place] coronary artery without angina pectoris Coronary atherosclerosis of [place] coronary artery documented in this encounter Care Teams Squad Sergeant Relationship Specialty Start Date End Date Ed Robles MD [address] [place] [address] PCP - General Family Medicine 01/04/23 documented as of this encounter
--- OUTSIDE RECORDS SUMMARY | 2024-05-19 15:47 | XMS_ITS | Patient Health Record ---
Author Organization [employer] Address [address] [place] [address] Care Team Providers Care 3D Artist Name Role Phone Phuc Garcia Primary Care Provider Unavaila ble Reason For Referral No Information Medications Medication SIG (Take, Route, Fr equency, Duration) Notes Start Date End Date Status Cholestyramine 4 GM 1 packet mixed with water or non-carbonated drink Orally Once a day for 30 day(s) 02/18/2020 Active Colestid 1 GM TAKE 2 TABLETS BY [facility] TWICE DAILY for 30 Active Colestid 1 GM 2 tablets Orally bid for 30 day(s) 11/05/2019 Active Problems Problem Type SNOMED Code ICD Code Onset Dates Problem Status W/U Status Risk Notes Problem [id number] Personal history of colonic polyps (Z86.010) Active confirmed Plan Of Treatment No Information Insurance Providers Payer Name Payer Address Payer Phone Subscriber Number Group Number Insured Name Patient Relationship to Insured Coverage Start Date Coverage End Date Blue Access PPO E2 [address] [place] [address] [id number] Bhavana Escamilla Self - patient is the insured
--- OUTSIDE RECORDS SUMMARY | 2024-05-19 15:47 | XMS_ITS | Clinical Summary ---
Author Organization [facility] Address [address] [place] [address] Phone Care Team Providers Care Applied Mathematician Name Role Phone Ed Robles MD Primary Care Provider [phone] Allergies Active Allergy Reactions Criticality Noted Date [...] on file Legal Sex Female 12:33 PM NURSING DEPARTMENT CHAIRPERSON Gender Identity Not on file Sexual Orientation Not on file Last Filed Vital Signs Vital Sign Reading Time Taken Comments Blood Pressure 124/76 02/01/2023 11:00 AM NURSING DEPARTMENT CHAIRPERSON Pulse 90 02/01/2023 11:00 AM NURSING DEPARTMENT CHAIRPERSON Temperature 36.6 C (97.9 F) 02/01/2023 11:00 AM NURSING DEPARTMENT CHAIRPERSON Respiratory Rate 18 02/01/2023 11:00 AM NURSING DEPARTMENT CHAIRPERSON Oxygen Saturation 98% 02/01/2023 11:00 AM NURSING DEPARTMENT CHAIRPERSON Inhaled Oxygen Concentration - - Weight 70.3 kg (155 lb) 01/29/2023 11:37 AM NURSING DEPARTMENT CHAIRPERSON Height 170.2 cm (5' 7 ) 01/10/2023 12:45 PM NURSING DEPARTMENT CHAIRPERSON Body Mass Index 24.28 01/10/2023 12:45 PM NURSING DEPARTMENT CHAIRPERSON Plan of Treatment Health Maintenance Due Date Last Done Comments DEXA Bone Density 1955 Hepatitis C Virus (HCV) Screening 1955 Mammogram 1955 Colonoscopy 2001 Colorectal Cancer Screening 2001 Cologuard 2006 Immunochemical Fecal Occult Blood 2006 Influenza Immunization (#1) 10/13/202310/13, 12/10/2021, 11/09/2020, [...] to complete this topic Insurance [facility] Directives * Full Code (Latest Code Status on File) Date Activated Date Inactivated Comments 01/24/2023 6:35 AM Care Teams Applied Mathematician Relationship Specialty Start Date End Date Ed Robles MD [address] [place] [address] PCP - General Family Medicine 01/04/23
== END 2024-05-19 14:09 | disposition home or self-care (01) ==
LOC: ANHIMG 14:09
PROVIDERS: PCP Nurse Practitioner Adult Health; Visit Provider Nurse Practitioner Adult Health
DX: M85.89 Other specified disorders of bone density and structure, multiple sites (principal); Z78.0 Asymptomatic menopausal state
CPT/HCPCS: 77080

== ENCOUNTER 2024-06-23 14:11 | Outpatient (CLI) | payer MEDICARE, SELFPAY ==
--- OUTSIDE RECORDS SUMMARY | 2024-06-23 14:28 | XMS_ITS | Encounter Summary ---
Author Organization [facility] Address [address] [place] [address] Phone Care Team Providers Care Filter Changing Technician Name Role Phone Ed Robles MD Primary Care Provider Encounter Details Date Type Department Care Team (Latest Contact Info) Description 01/17/[address] 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 Gender Identity Not on file Sexual Orientation Not on file documented as of this encounter Plan of Treatment Not on file documented as of this encounter Procedures Procedure Name Priority Date/Time Associated Diagnosis Comments CBC WITH AUTO DIFFERENTIAL Routine 01/17/2023 10:00 AM SOFTWARE QUALITY ASSURANCE ENGINEER Atherosclerotic heart disease of [place] coronary artery without angina pectoris CMP (COMPREHENSIVE METABOLIC PANEL) Routine 01/17/2023 10:00 AM SOFTWARE QUALITY ASSURANCE ENGINEER Atherosclerotic heart disease of [place] coronary artery without angina pectoris COMPLETE BLOOD COUNT (CBC) WITH DIFF Routine 01/17/2023 10:00 AM SOFTWARE QUALITY ASSURANCE ENGINEER Atherosclerotic heart disease of [place] coronary artery without angina pectoris documented in this encounter Results * (ABNORMAL) CBC WITH AUTO DIFFERENTIAL (01/17/2023 10:00 AM [facility]) WBC 9.92 4.00 - 12.00 10(3)/mcL 01/17/2023 11:04 AM [facility] RBC 3.10(L) 3.80 - 5.30 10(6)/mcL 01/17/2023 11:04 AM [facility] HEMOGLOBIN (HGB) 9.2(L) 12.0 - 15.8 g/dL 01/17/2023 11:04 AM [facility] HEMATOCRIT (HCT) 28.7(L) 36.0 - 47.0 % 01/17/2023 11:04 AM [facility] MCV 92.6 82.0 - 96.0 fL 01/17/2023 11:04 AM [facility] MCH 29.7 26.0 - 34.0 pg 01/17/2023 11:04 AM [facility] MCHC 32.1 31.0 - 36.0 g/dL 01/17/2023 11:04 AM [facility] PLATELET COUNT 498(H) 140 - 440 10(3)/mcL 01/17/2023 11:04 AM [facility] RDW 15.9(H) 11.8 - 15.5 % 01/17/2023 11:04 AM [facility] MPV 8.5(L) 9.7 - 12.4 fL 01/17/2023 11:04 AM [facility] NEUTROPHILS 68.2 47.0 - 73.0 % 01/17/2023 11:04 AM [facility] LYMPHOCYTES 11.1(L) 18.0 - 42.0 % 01/17/2023 11:04 AM [facility] MONOCYTES 8.1 4.0 - 12.0 % 01/17/2023 11:04 AM [facility] EOSINOPHILS 12.1(H) 0.0 - 5.0 % 01/17/2023 11:04 AM [facility] BASOPHILS 0.5 0.0 - 1.0 % 01/17/2023 11:04 AM [facility] ABSOLUTE NEUTROPHILS 6.77 1.60 - 7.70 10(3)/[facility] 01/17/2023 11:04 AM [facility] ABSOLUTE LYMPHOCYTES 1.10(L) 1.30 - 3.20 10(3)/[facility] 01/17/2023 11:04 AM [facility] ABSOLUTE MONOCYTES 0.80 0.20 - 1.00 10(3)/[facility] 01/17/2023 11:04 AM [facility] ABSOLUTE EOSINOPHIL 1.20(H) 0.00 - 0.40 10(3)/[facility] 01/17/2023 11:04 AM [facility] ABSOLUTE BASOPHILS 0.05 0.00 - 0.10 10(3)/[facility] 01/17/2023 11:04 AM [facility] NRBC PER 100 WBC 0 01/18/20 11:04 AM [facility] Blood No Phlebotomy Charged / Unknown 01/17/2023 10:00 AM SOFTWARE QUALITY ASSURANCE ENGINEER 01/17/2023 10:59 AM [facility] us Corona Crabtree MD HEMATOLOGY ORDERABLES Final Result [facility] [address] [place] [address] * (ABNORMAL) CMP (COMPREHENSIVE METABOLIC PANEL) (01/17/2023 10:00 AM SOFTWARE QUALITY ASSURANCE ENGINEER) SODIUM 139 136 - 145 mmol/L 01/17/2023 11:20 AM SOFTWARE QUALITY ASSURANCE ENGINEER [facility] POTASSIUM 4.3 3.5 - 5.1 mmol/L 01/17/2023 11:20 AM [facility] CHLORIDE 107 98 - 107 mmol/L 01/17/2023 11:20 AM [facility] CO2, VENOUS 22 22 - 30 mmol/L 01/17/2023 11:20 AM [facility] ANION GAP 14.3 <18.0 mmol/L 01/17/2023 11:20 AM [facility] GLUCOSE 117(H) 70 - 99 mg/dL 01/17/2023 11:20 AM [facility] BUN 10 10 - 20 mg/dL 01/17/2023 11:20 AM [facility] CREATININE, BLOOD 0.68 0.60 - 1.00 mg/dL 01/17/2023 11:20 AM [facility] BUN/CREATININE RATIO 15 12 - 20 ratio 01/17/2023 11:20 AM [facility] TOTAL PROTEIN 6.9 6.3 - 8.2 g/dL 01/17/2023 11:20 AM [facility] ALBUMIN 3.5 3.5 - 5.0 g/dL 01/17/2023 11:20 AM [facility] A/G RATIO 1.0 1.0 - 2.2 01/17/2023 11:20 AM [facility] CALCIUM 9.5 8.7 - 10.5 mg/dL 01/17/2023 11:20 AM [facility] T BILI 0.2 0.2 - 1.2 mg/dL 01/17/2023 11:20 AM [facility] SGOT (AST) 30 5 - 34 U/L 01/17/2023 11:20 AM [facility] SGPT (ALT) 32 0 - 55 U/L 01/17/2023 11:20 AM [facility] ALKALINE PHOSPHATASE 99 40 - 150 U/L 01/17/2023 11:20 AM [facility] GFR, ESTIMATED >60 >=60 01/17/2023 11:20 AM [facility] Comment: Creatinine Clearance is the preferred criteria for selecting drug dose adjustments in renally impaired patients. The GFR is provided as additional pertinent clinical information. GFR is reported in mL/min/1.73 sq m. Calculation based on the Chronic Kidney Disease Epidemiology Collaboration (CKD- EPI) equation refit without adjustment for race. GFR, EST. >60 >=60 023 11:20 AM SOFTWARE QUALITY ASSURANCE ENGINEER [facility] GFR, EST. NONAFRICAN >60 >=60 01/17/2023 11:20 AM SOFTWARE QUALITY ASSURANCE ENGINEER [facility] Blood No Phlebotomy Charged / Unknown 01/17/2023 10:00 AM SOFTWARE QUALITY ASSURANCE ENGINEER 01/17/2023 10:59 AM SOFTWARE QUALITY ASSURANCE ENGINEER us Corona Crabtree MD CHEMISTRY ORDERABLES Final R esult [facility] [address] [place] [address] documented in this encounter Visit Diagnoses Diagnosis Atherosclerotic heart disease of [place] coronary artery without angina pectoris Coronary atherosclerosis of [place] coronary artery documented in this encounter Care Teams Filter Changing Technician Relationship Specialty Start Date End Date Ed Robles MD [address] [place] [id number] PCP - General Family Medicine 01/04/23 documented as of this encounter
--- OUTSIDE RECORDS SUMMARY | 2024-06-23 14:28 | XMS_ITS | Referral Summary ---
Author Organization [facility] Medical Office Building B Address [address] [place] [address] Care Team Providers Care Commercial Loan Underwriter Name Role Phone Ed Robles MD Primary Care Provider [phone] Corona Crabtree MD Unavailable [phone] Demond Estevez MD Unavailable [phone] Shobha Menon MD Unavailable [phone] Encounters Date Type Department Care Team Description 06/09/2024 9:58 PM CDT - 06/16/2024 12:49 PM CDT Hospital Encounter [facility] IMU [address] [place] [address] Prabhu Davis MD Huynh, Kiet T., MD Nations, DO Cher Monroe Narine, MD Gastroenteritis (Primary Dx); Longstanding persistent atrial fibrillation (HCC) Discharge Disposition: Discharge to home or self care 06/04/2024 1:43 PM CDT - 06/04/2024 11:59 PM CDT Hospital Encounter [facility] Cardiology [address] [place] [address] Nonrheumatic mitral valve regurgitation Discharge Disposition: Discharge to home or self care 04/30/2024 Orders Only [facility] Surgery [address] [place] [phone] Corona Crabtree MD NSTEMI (non-ST elevated myocardial infarction) (HCC) (Primary Dx); Nonrheumatic mitral valve regurgitation 04/07/2024 2:15 PM TIN CAN FEEDER Office Visit [place] Public Address System Operator at [address] [place] [phone] Demond Estevez MD Primary hypertension (Primary Dx); Bilateral carotid bruits from Last 3 Months Allergies Active Allergy [...] Breztri Aerosphere 160-9-4.8 mcg/actuation HFA aerosol inhaler Inhale 2 puffs 2 (two) times a day 2 Active montelukast (SINGULAIR) 10 mg tablet Take 1 tablet (10 mg total) by mouth daily 2 Active albuterol HFA (PROVENTIL HFA,VENTOLIN HFA,PROAIR HFA) 90 mcg/actuation inhaler Inhale 2 puffs every 4 (four) hours as needed for wheezing Active fluticasone propionate (FLONASE) 50 mcg/actuation nasal spray Administer 2 sprays into affected nostril(s) daily Active ezetimibe (ZETIA) 10 mg tablet Take 1 tablet (10 mg total) by mouth daily Active cholecalcifero l (VITAMIN D-3) 2000 unit tablet Take 1 tablet (2,000 Units total) by mouth daily Active metoprolol tartrate (LOPRESSOR) 25 mg immediate release tablet Take 2 tablets (50 mg total) by mouth 2 (two) times a day 120 tablet 11 4 12/06/19 25 Active cetirizine (ZyrTEC) 10 mg tablet Take 0.5 tablets (5 mg total) by mouth daily 4 Active apixaban (ELIQUIS) 5 mg tablet Take 0.5 tablets (2.5 mg total) by mouth 2 (two) times a day 60 tablet 11 4 Active lisinopriL (PRINIVIL,ZEST RIL) 5 mg tablet Take 1 tablet (5 mg total) by mouth daily 90 tablet 3 5 04/07/19 26 Active rosuvastatin (CRESTOR) 40 mg tablet Take 1 tablet by mouth once daily 90 tablet 5 Active calcium carb-magnesium carb,ox 200 mg calcium- 100 mg tablet,chewabl e Take 1 tablet by mouth daily Active digoxin (LANOXIN) 125 mcg (0.125 mg) tablet Take 1 tablet (125 mcg total) by mouth daily 30 tablet 11 5 06/17/19 26 Active potassium chloride ER (KLOR-CON) 20 mEq CR tablet Take 1 tablet (20 mEq total) by mouth 2 (two) times a day 60 tablet 11 5 06/17/19 26 Active amoxicillin (AMOXIL) 500 mg tablet/capsule Take 2 tablet/capsule (1,000 mg total) by mouth 2 (two) times a day for 10 days 40 tablet/capsu le 5 06/27/19 25 Active magnesium gluconate (MAGONATE) 27.5 mg magne- sium (500 mg) tablet Take 1 tablet (500 mg total) by mouth daily 06/11/19 25 Discontinu ed(Alterna te therapy) zinc gluconate 50 mg tablet Take 1 tablet (50 mg total) by mouth daily 06/11/19 25 Discontinu ed(Therapy completed) rOPINIRole (REQUIP) 5 mg tablet Take 1 mg by mouth nightly 06/11/19 25 Discontinu ed(Therapy completed) rosuvastatin (CRESTOR) 10 mg tablet Take 1 tablet (10 mg total) by mouth daily 30 tablet 11 4 06/11/19 25 Discontinu ed(Therapy completed) Active Problems Problem Noted Date Diagnosed Date Bacteremia 06/12/2024 Gastroenteritis 06/10/2024 SIRS (systemic inflammatory response syndrome) 0 06/10/2024 Alcohol use 06/10/2024 Hypotensive episode 06/10/2024 Pneumonia of both lower lobe s due to Streptococcus pneumoniae 11/29/2023 Acute kidney injury 11/29/2023 Pneumonia of [...] breath 12/23/2022 NSTEMI (non-ST elevated myocardial infarction) 1 02/21/2022 Mixed hyperlipidemia 03/30/2018 Overview (12/25/2022): 08/30 Cholesterol [...] of right carotid artery 04/17/2018 08/23/2020 Immunizations Immunization Administration Dates Next Due Influenza, Quadrivalent, Hig [...] drink = 0.6 oz pur e alcohol) [employer] Answer Date Recorded In the past 12 months has [employer], gas, oil, or water [employer] threatened to shut off services in your home? No 06/11/2024 Social Connection and Isolat ion Panel [NHANES] Answer Date Recorded In a typical week, how many times do you talk on the phone with family, friends, or neighbors? More than three times a week 06/11/2024 How often do you get togethe r with friends or relatives? More than three times a week 06/11/2024 How often do you attend chur ch or synagogue services? Never 06/11/2024 Do you belong to any clubs o r organizations such as mosque groups, unions, fraternal or athletic groups, or school groups? No 06/11/2024 How often do you attend meet ings of the clubs or organizations you belong to? Never 06/11/2024 Are you , , di vorced, , never , or living with a partner? 06/11/2024 AUDIT-C Answer Date Recorded Q1: How often do you have a drink containing alc ohol? 2-3 times a week 06/10/2024 Q2: How many drinks containi ng alcohol do you have on a typical day when you are drinking? 3 or 4 06/10/2024 Q3: How often do you have si x or more drinks on one occasion? Never 06/10/2024 Overall Financial Resource Strain (CARDIA) Answe r Date Recorded How hard is it for you to pa y for the very basics like food, housing, medical care, and heating? Not very hard 06/11/2024 PHQ-2 Answer Date Recorded PHQ-2 Total Score (If total score is 3 or more points, staff should administer the PHQ-9) 0 12/24/2022 Hunger Vital Sign Answer Date Recorded Within the past 12 months, y ou worried that your food would run out before you got the money to buy more. Never true 06/12/19 25 Within the past 12 months, t he food you bought just didn't last and you didn't have money to get more. Never true 06/11/2024 PRAPARE - Transportation Answer Date Re corded In the past 12 months, has l ack of transportation kept you from medical appointments or from getting medications? No 02/2024 In the past 12 months, has l ack of transportation kept you from meetings, work, or from getting things needed for daily living? No 06/11/2024 Housing Stability Vital Sign Answer Fran e [...] place to sleep or slept in a skilled nursing (including now)? No 12/25/2022 Housing Stability Vital Sign Answer Fran e Recorded In the last 12 months, was t here a time when you were not able to pay the mortgage or rent on time? No 06/11/2024 In the past 12 months, how m any times have you moved where you were living? 0 06/11/2024 At any time in the past 12 m [facility], were you homeless or living in a skilled nursing (including now)? No 06/11/2024 Personal Safety Answer Date Recorded Have you ever been in or are you currently in a harmful physical or emotional relationship or is someone making you feel afraid or unsafe? Denies 06/10/2024 Comments No Sex and Gender Information Value Date Recorded Sex Assigned at Not on file Legal Sex Female 2:14 PM CDT Gender Identity Not on file Sexual Orientation Not on file Last Filed Vital Signs Vital Sign Reading Time Taken Comments Blood Pressure 139/57 06/16/2024 11:33 AM CDT Pulse 66 06/16/2024 11:33 AM CDT Temperature 36 C (96.8 F) 06/16/2024 11:33 AM CDT Respiratory Rate 16 06/16/2024 11:33 AM CDT Oxygen Saturation 99% 06/16/2024 11:33 AM CDT Inhaled Oxygen Concentration - - Weight 78.6 kg (173 lb 4.5 oz) 06/10/2024 1:46 A M CDT Height 170.2 cm (5' 7 ) 06/10/2024 1:46 AM CDT Body Mass Index 27.14 06/10/2024 1:46 AM CDT Plan of Treatment Not on file Medical Devices Implanted Type Area Continuous Washer Operator Device Identifier Shelf Expiration Date Model / Serial / Lot [employer] Valve Mitral Tissue Stented Epic Plus 31mm [id number] - [id number] - [id number] Implanted:Qty : 1 on 12/28/2022 by Corona Crabtree MD at [facility] Prosthetic Valve N/A: Heart [employer] 06/14/2026 [id number] / [id number] / Procedures Procedure Name Priority Date/Time Associated Diagnosis Comments DIFFERENTIAL AUTO Timed 06/16/2024 9:0 1 AM CDT CBC WITH AUTO DIFFERENTIAL Timed 06/16/2024 9:01 AM CDT EGFR Timed 06/16/2024 5:42 AM CDT COMPREHENSIVE METABOLIC PANEL Timed 06/16/2024 5:42 AM CDT DIGOXIN LEVEL Timed 06/14/2024 4:56 PM CDT DIFFERENTIAL AUTO Timed 06/14/2024 8:5 0 AM CDT CBC WITH AUTO DIFFERENTIAL Timed 06/14/2024 8:50 AM CDT EGFR Routine 06/14/2024 2:37 AM CDT DIFFERENTIAL AUTO Routine 06/14/2024 2:3 7 AM CDT MAGNESIUM Routine 06/14/2024 2:37 AM CDT COMPREHENSIVE METABOLIC PANEL Routine 06/14/2024 2:37 AM CDT CBC WITH AUTO DIFFERENTIAL Routine 06/14/2024 2:37 AM CDT EGFR Routine 06/13/2024 2:17 AM CDT DIFFERENTIAL AUTO Routine 06/13/2024 2:1 7 AM CDT MAGNESIUM Routine 06/13/2024 2:17 AM CDT COMPREHENSIVE METABOLIC PANEL Routine 06/13/2024 2:17 AM CDT CBC WITH AUTO DIFFERENTIAL Routine 06/13/2024 2:17 AM CDT TRANSESOPHAGEAL ECHO (THAD) W DOPPLER/CF WO CONTRAST Routine 06/12/2024 1:16 PM CDT BLOOD CULTURE Routine 06/12/2024 10:01 AM CDT BLOOD CULTURE Routine 06/12/2024 9:52 AM CDT EGFR Routine 06/12/2024 2:49 AM CDT DIFFERENTIAL AUTO Routine 06/12/2024 2:4 9 AM CDT MAGNESIUM Routine 06/12/2024 2:49 AM CDT COMPREHENSIVE METABOLIC PANEL Routine 06/12/2024 2:49 AM CDT CBC WITH AUTO DIFFERENTIAL Routine 06/12/2024 2:49 AM CDT EGFR Routine 06/11/2024 2:29 AM CDT DIFFERENTIAL AUTO Routine 06/11/2024 2:2 9 AM CDT MAGNESIUM Routine 06/11/2024 2:29 AM CDT COMPREHENSIVE METABOLIC PANEL Routine 06/11/2024 2:29 AM CDT CBC WITH AUTO DIFFERENTIAL Routine 06/11/2024 2:29 AM CDT BLOOD CULTURE STAT 06/10/2024 3:04 PM CDT BLOOD CULTURE STAT 06/10/2024 2:[address] CHEST WO CONTRAST ED Urgent/IP Urgent 06/10/2024 1:45 PM CDT EGFR Routine 06/10/2024 6:53 AM CDT DIFFERENTIAL AUTO Routine 06/10/2024 6:5 3 AM CDT MAGNESIUM Routine 06/10/2024 6:53 AM CDT COMPREHENSIVE METABOLIC PANEL Routine 06/10/2024 6:53 AM CDT CBC WITH AUTO DIFFERENTIAL Routine 06/10/2024 6:53 AM CDT PROCALCITONIN Routine 06/10/2024 6:53 AM CDT ETHANOL Routine 06/10/2024 6:53 AM CDT LACTATE Routine 06/10/2024 6:53 AM CDT LIPID PANEL Routine 06/10/2024 6:48 AM CDT INFLUENZA A/B, RSV, AND COVID-19 PCR Routine 06/10/2024 5:58 AM CDT DRUGS OF ABUSE SCREEN, URINE WITH REFLEX CONFIRMATION Routine 06/10/2024 3:38 AM CDT MRSA ONLY (STAPHYLOCOCCUS AUREUS) PCR Routine 06/10/2024 3:38 AM CDT TROPONIN T HIGH-SENSITIVITY 2-HOUR Timed 06/10/2024 12:[address] ABDOMEN PELVIS WO CONTRAST ED 06/09/2024 11:27 PM CDT URINALYSIS, MICROSCOPIC ONLY STAT 06/09/2024 10:53 PM CDT URINALYSIS AND REFLEX TO MICROSCOPIC AND CULTURE STAT 06/09/2024 10:53 PM CDT BLOOD CULTURE STAT 06/09/2024 10:35 PM CDT BLOOD CULTURE STAT 06/09/2024 10:35 PM CDT XR CHEST 1 VIEW ED 06/09/2024 9:51 PM CDT EGFR STAT 06/09/2024 9:48 PM CDT PRO B-TYPE NATRIURETIC PEPTIDE STAT 06/09/2024 9:48 PM CDT MAGNESIUM Routine 06/09/2024 9:48 PM CDT DIFFERENTIAL AUTO STAT 06/09/2024 9:4 8 PM CDT TROPONIN T HIGH-SENSITIVITY SERIES (BASELINE, 2HR, 4HR, 6HR) STAT 06/09/2024 9:48 PM CDT COMPREHENSIVE METABOLIC PANEL STAT 06/09/2024 9:48 PM CDT CBC WITH AUTO DIFFERENTIAL STAT 06/09/2024 9:48 PM CDT ECG 12-LEAD Routine 06/09/2024 9:45 PM CDT TRANSTHORACIC ECHO (TTE) COMPLETE W DOPPLER/CF WO CONTRAST Routine 06/04/2024 2:34 PM CDT Nonrheumatic mitral valve regurgitation CT LUNG CANCER SCREENING Schedule Routine, Read Routine (OP Routine) 11/22/2023 11:58 AM CDT Personal history of nicotine dependence from Last 3 Months or Most Recently Relevant to Health Maintenance Results * Differential, auto (06/16/2024 9:01 AM CDT) Neutrophil abs 3.55 1.50 - 6.50 K/cumm Imm gran abs 0.03 0.00 - 0.10 K/cumm [facility] ([place]) Lymphocyte abs 1.90 0.80 - 3.30 K/cumm [facility] ([place]) Monocyte abs 0.57 0.20 - 0.80 K/cumm [facility] ([place]) Eosinophil abs 0.26 0.00 - 0.50 K/cumm [facility] ([place]) Basophil abs 0.04 0.00 - 0.10 K/cumm [facility] ([place]) Neutrophil pct 55.9 % [facility] ([place]) Comment: Interpretive Data Percent cell count reference ranges are not reported, since discordance with absolute values may lead to misinterpretation of CBC data. Current Interpretive Data was last revised on 2017. Imm gran pct 0.5 % [facility] ([place]) Comment: Interpretive Data Percent cell count reference ranges are not reported, since discordance with absolute values may lead to misinterpretation of CBC data. Current Interpretive Data was last revised on 2017. Lymphocyte pct 29.9 % [facility] ([place]) Comment: Interpretive Data Percent cell count reference ranges are not reported, since discordance with absolute values may lead to misinterpretation of CBC data. Current Interpretive Data was last revised on 2017. Monocyte pct 9.0 % [facility] ([place]) Comment: Interpretive Data Percent cell count reference ranges are not reported, since discordance with absolute values may lead to misinterpretation of CBC data. Current Interpretive Data was last revised on 2017. Eosinophil pct 4.1 % [facility] ([place]) Comment: Interpretive Data Percent cell count reference ranges are not reported, since discordance with absolute values may lead to misinterpretation of CBC data. Current Interpretive Data was last revised on 2017. Basophil pct 0.6 % [facility] ([place]) Comment: Interpretive Data Percent cell count reference ranges are not reported, since discordance with absolute values may lead to misinterpretation of CBC data. Current Interpretive Data was last revised on 2017. Blood 06/16/2024 9:01 AM CDT 06/16/2024 9:19 AM CDT Timmy Gardiner DO LAB BLOOD ORDERABLES F inal Result [facility] ([place]) 1 [facility] [place] [address] * (ABNORMAL) CBC with auto differential (06/16/2024 9:01 AM CDT) WBC 6.35 3.80 - 9.90 K/cumm Hgb 11.1(L) 11.9 - 15.5 g/dL [facility] ([place]) Hct 35.5(L) 35.6 - 45.5 % [facility] ([place]) Plt 324 150 - 400 K/cumm [facility] ([place]) MPV 9.8 9.1 - 12.3 fL [facility] ([place]) RBC 3.88(L) 3.90 - 5.20 M/cumm [facility] ([place]) MCV 91.5 81.3 - 96.4 fL [facility] ([place]) MCH 28.6 27.1 - 33.3 pg [facility] ([place]) MCHC 31.3(L) 32.3 - 35.7 g/dL [facility] ([place]) RDW CV 15.1(H) 11.1 - 14.9 % [facility] ([place]) RDW SD 50.7(H) 35.7 - 48.1 fL [facility] ([place]) NRBC abs 0.00 0.00 - 0.01 K/cumm [facility] ([place]) Blood 06/16/2024 9:01 AM CDT 06/16/2024 9:19 AM CDT Timmy Gardiner DO LAB BLOOD ORDERABLES F inal Result [facility] ([place]) 1 [facility] [place] [address] * eGFR (06/16/2024 5:42 AM CDT) eGFR >90 >=60 mL/min/1. 73 m2 Comment: Interpretive Data [...] interpretive data was last reviewed 2020. Blood 06/16/2024 5:42 AM CDT 06/16/2024 6:02 AM CDT Timmy Gardiner DO LAB BLOOD ORDERABLES F inal Result [facility] ([place]) 1 [facility] [place] [address] * (ABNORMAL) Comprehensive metabolic panel (06/16/2024 5:42 AM CDT) Sodium 141 135 - 145 mmol/L Potassium, pl 3.4 3.3 - 4.9 mmol/L [facility] ([place]) Chloride 106 97 - 110 mmol/L [facility] ([place]) CO2 21(L) 22 - 32 mmol/L [facility] ([place]) Anion gap 14 2 - 15 mmol/L [facility] ([place]) BUN 6 6 - 25 mg/dL [facility] ([place]) Creatinine 0.63 0.60 - 1.10 mg/dL [facility] ([place]) Glucose 101 70 - 199 mg/dL [facility] ([place]) [...] classification and Diagnosis of Diabetes Diabetes Care 202; 46: S19-S40. Current interpretive data was last revised 2022. Calcium 8.7 8.5 - 10.3 mg/dL [facility] ([place]) Bilirubin, total <0.2 0.1 - 1.2 mg/dL [facility] ([place]) Protein, pl 6.1(L) 6.5 - 8.5 g/dL [facility] ([place]) Albumin 3.0(L) 3.5 - 5.0 g/dL [facility] ([place]) Alk phos 83 40 - 130 Units/L [facility] ([place]) ALT 18 7 - 45 Units/L [facility] ([place]) AST 19 10 - 45 Units/L [facility] ([place]) Blood 06/16/2024 5:42 AM CDT 06/16/2024 6:02 AM CDT Timmy Gardiner DO LAB BLOOD ORDERABLES F inal Result Performing Organization Address [facility] Co de Phone Number [facility] ([place]) [address] [place] [address] * Digoxin level (06/14/2024 4:56 PM CDT) Pathologist [facility] Digoxin 0.6 0.5 - 1.2 ng/mL Comment: Interpretive data The therapeutic range for digoxin varies by indication: Heart failure: 0.5 to 0.8 ng/mL Atrial fibrillation: less than 1.2 ng/mL Toxicity: >2.4. Normal or low digoxin does not rule out toxicity. Current interpretive data was last revised on 2023. Blood 06/14/2024 4:56 PM CDT 06/14/2024 4:58 PM CDT Timmy Gardiner DO LAB BLOOD ORDERABLES F inal Result Performing Organization Address [facility] de Phone Number [facility] ([place]) 1 [facility] [place] [address] * Differential, auto (06/14/2024 8:50 AM CDT) [facility] Neutrophil abs 3.42 1.50 - 6.50 K/cumm Imm gran abs 0.04 0.00 - 0.10 K/cumm [facility] ([place]) Lymphocyte abs 1.55 0.80 - 3.30 K/cumm [facility] ([place]) Monocyte abs 0.63 0.20 - 0.80 K/cumm [facility] ([place]) Eosinophil abs 0.26 0.00 - 0.50 K/cumm [facility] ([place]) Basophil abs 0.04 0.00 - 0.10 K/cumm [facility] ([place]) Neutrophil pct 57.5 % [facility] ([place]) Comment: Interpretive Data Percent cell count reference ranges are not reported, since discordance with absolute values may lead to misinterpretation of CBC data. Current Interpretive Data was last revised on 2017. Imm gran pct 0.7 % [facility] ([place]) Comment: Interpretive Data Percent cell count reference ranges are not reported, since discordance with absolute values may lead to misinterpretation of CBC data. Current Interpretive Data was last revised on 2017. Lymphocyte pct 26.1 % [facility] ([place]) Comment: Interpretive Data Percent cell count reference ranges are not reported, since discordance with absolute values may lead to misinterpretation of CBC data. Current Interpretive Data was last revised on 2017. Monocyte pct 10.6 % [facility] ([place]) Comment: Interpretive Data Percent cell count reference ranges are not reported, since discordance with absolute values may lead to misinterpretati [id number]|2024-06-23 14:28:00|2024-06-23 14:27:00|XMS_ITS|MIGUEL ANGEL MONTOYA|External Medical Summaries|[id number]|" Clinical Summary Created on: June 23, 2024 Bhavana Escamilla : 1955 Sex: Female Author Organization [facility] Medical Office Building B Address [address] [place] [id number] Care Team Providers Care Commercial Loan Underwriter Name Role Phone Ed Robles MD Primary Care Provider [phone] Corona Crabtree MD Unavailable [phone] Demond Estevez MD Unavailable [phone] Shobha Menon MD Unavailable Allergies Active Allergy Reactions Criticality Noted Date [...] Breztri Aerosphere 160-9-4.8 mcg/actuation HFA aerosol inhaler Inhale 2 puffs 2 (two) times a day 2 Active montelukast (SINGULAIR) 10 mg tablet Take 1 tablet (10 mg total) by mouth daily 2 Active albuterol HFA (PROVENTIL HFA,VENTOLIN HFA,PROAIR HFA) 90 mcg/actuation inhaler Inhale 2 puffs every 4 (four) hours as needed for wheezing Active fluticasone propionate (FLONASE) 50 mcg/actuation nasal spray Administer 2 sprays into affected nostril(s) daily Active ezetimibe (ZETIA) 10 mg tablet Take 1 tablet (10 mg total) by mouth daily Active cholecalcifero l (VITAMIN D-3) 2000 unit tablet Take 1 tablet (2,000 Units total) by mouth daily Active metoprolol tartrate (LOPRESSOR) 25 mg immediate release tablet Take 2 tablets (50 mg total) by mouth 2 (two) times a day 120 tablet 11 4 12/06/19 25 Active cetirizine (ZyrTEC) 10 mg tablet Take 0.5 tablets (5 mg total) by mouth daily 4 Active apixaban (ELIQUIS) 5 mg tablet Take 0.5 tablets (2.5 mg total) by mouth 2 (two) times a day 60 tablet 11 4 Active lisinopriL (PRINIVIL,ZEST RIL) 5 mg tablet Take 1 tablet (5 mg total) by mouth daily 90 tablet 3 5 04/07/19 26 Active rosuvastatin (CRESTOR) 40 mg tablet Take 1 tablet by mouth once daily 90 tablet 5 Active calcium carb-magnesium carb,ox 200 mg calcium- 100 mg tablet,chewabl e Take 1 tablet by mouth daily Active digoxin (LANOXIN) 125 mcg (0.125 mg) tablet Take 1 tablet (125 mcg total) by mouth daily 30 tablet 11 5 06/17/19 26 Active potassium chloride ER (KLOR-CON) 20 mEq CR tablet Take 1 tablet (20 mEq total) by mouth 2 (two) times a day 60 tablet 11 5 06/17/19 26 Active amoxicillin (AMOXIL) 500 mg tablet/capsule Take 2 tablet/capsule (1,000 mg total) by mouth 2 (two) times a day for 10 days 40 tablet/capsu le 5 06/27/19 25 Active magnesium gluconate (MAGONATE) 27.5 mg magne- sium (500 mg) tablet Take 1 tablet (500 mg total) by mouth daily 06/11/19 25 Discontinu ed(Alterna te therapy) zinc gluconate 50 mg tablet Take 1 tablet (50 mg total) by mouth daily 06/11/19 25 Discontinu ed(Therapy completed) rOPINIRole (REQUIP) 5 mg tablet Take 1 mg by mouth nightly 06/11/19 25 Discontinu ed(Therapy completed) rosuvastatin (CRESTOR) 10 mg tablet Take 1 tablet (10 mg total) by mouth daily 30 tablet 11 4 06/11/19 25 Discontinu ed(Therapy completed) Active Problems Problem Noted Date Diagnosed Date Bacteremia 06/12/2024 Gastroenteritis 06/10/2024 SIRS (systemic inflammatory response syndrome) 0 06/10/2024 Alcohol use 06/10/2024 Hypotensive episode 06/10/2024 Pneumonia of both lower lobe s due to Streptococcus pneumoniae 11/29/2023 Acute kidney injury 11/29/2023 Pneumonia of [...] breath 12/23/2022 NSTEMI (non-ST elevated myocardial infarction) 1 02/21/2022 Mixed hyperlipidemia 03/30/2018 Overview (12/25/2022): 08/30 Cholesterol [...] Encounters Date Type Department Care Team Description 06/09/2024 9:58 PM CDT - 06/16/2024 12:49 PM CDT Hospital Encounter [address] [address] Davis, Prabhu S., MD Farias, Juan Antonio MD Zuleyka Cohen Matthew Austin, DO Sargsyan, Narine, MD Gastroenteritis (Primary Dx); Longstanding persistent atrial fibrillation (HCC) Discharge Disposition: Discharge to home or self care 06/04/2024 1:43 PM CDT - 06/04/2024 11:59 PM CDT Hospital Encounter [facility] Cardiology [address] [place] [address] Nonrheumatic mitral valve regurgitation Discharge Disposition: Discharge to home or self care 04/30/2024 Orders Only [facility] Surgery [address] [facility] [address] [place] [phone] Corona Crabtree MD NSTEMI (non-ST elevated myocardial infarction) (HCC) (Primary Dx); Nonrheumatic mitral valve regurgitation 04/07/2024 2:15 PM TIN CAN FEEDER Office Visit [place] Public Address System Operator at [facility] 2 [facility] [address] [place] [phone] Demond Estevez MD Primary hypertension (Primary Dx); Bilateral carotid bruits from Last 3 Months Immunizations Immunization Administration Dates Next Due Influenza, Quadrivalent, Hig h Dose, Preservative Free, Intrr 11/08/2022,12/10/2021 Influenza, Quadrivalent, Rec ombinant, Egg Free, Preservative Free, Intramuscular 11/18/2019 Influenza, Quadrivalent, Spl it, Preservative Free, Intramuscular 11/09/2020,10/21/2018,11/27/2017 Influenza, Trivalent, High D ose, Split, Preservative Free, Intramuscular 12/06/2023 [place] SARS-CoV-2 Monovalent Vaccination (12+ Yrs) PURPLE 05/05/2020,04/14/2020 [...] Vitamin D deficiency PAD (peripheral artery disease) Carotid stenosis, bilateral Aortoiliac stenosis Sleep apnea Social History Tobacco Use Types Packs/Day Years Used Date Smoking Tobacco: Former Cigarettes 1 35 Q uit: 04/2018 Smokeless Tobacco: Never Tobacco Cessation:Counseling Given: No Alcohol Use Standard Drinks/Week Comments Yes 0 (1 standard drink = 0.6 oz pur e alcohol) [facility] Utilities Answer Date Recorded In the past 12 months has e electric, gas, oil, or water company threatened to shut off services in your home? No 06/11/2024 Social Connection and Isolat ion Panel [NHANES] Answer Date Recorded In a typical week, how many times do you talk on the phone with family, friends, or neighbors? More than three times a week 06/11/2024 How often do you get togethe r with friends or relatives? More than three times a week 06/11/2024 How often do you attend chur ch or synagogue services? Never 06/11/2024 Do you belong to any clubs o r organizations such as mosque groups, unions, fraternal or athletic groups, or school groups? No 06/11/2024 How often do you attend meet ings of the clubs or organizations you belong to? Never 06/11/2024 Are you , , di vorced, , never , or living with a partner? 06/11/2024 AUDIT-C Answer Date Recorded Q1: How often do you have a drink containing alc ohol? 2-3 times a week 06/10/2024 Q2: How many drinks containi ng alcohol do you have on a typical day when you are drinking? 3 or 4 06/10/2024 Q3: How often do you have si x or more drinks on one occasion? Never 06/10/2024 Overall Financial Resource Strain (CARDIA) Answe r Date Recorded How hard is it for you to pa y for the very basics like food, housing, medical care, and heating? Not very hard 06/11/2024 PHQ-2 Answer Date Recorded PHQ-2 Total Score (If total score is 3 or more points, staff should administer the PHQ-9) 0 12/24/2022 Hunger Vital Sign Answer Date Recorded Within the past 12 months, y ou worried that your food would run out before you got the money to buy more. Never true 06/12/19 25 Within the past 12 months, t he food you bought just didn't last and you didn't have money to get more. Never true 06/11/2024 PRAPARE - Transportation Answer Date Re corded In the past 12 months, has l ack of transportation kept you from medical appointments or from getting medications? No 0502/2024 In the past 12 months, has l ack of transportation kept you from meetings, work, or from getting things needed for daily living? No 06/11/2024 Housing Stability Vital Sign Answer Fran e [...] place to sleep or slept in a skilled nursing (including now)? No 12/25/2022 Housing Stability Vital Sign Answer Fran e Recorded In the last 12 months, was t here a time when you were not able to pay the mortgage or rent on time? No 06/11/2024 In the past 12 months, how m any times have you moved where you were living? 0 06/11/2024 At any time in the past 12 m [facility], were you homeless or living in a skilled nursing (including now)? No 06/11/2024 Personal Safety Answer Date Recorded Have you ever been in or are you currently in a harmful physical or emotional relationship or is someone making you feel afraid or unsafe? Denies 06/10/2024 Comments No Sex and Gender Information Value Date Recorded Sex Assigned at Not on file Legal Sex Female 2:14 PM CDT Gender Identity Not on file Sexual Orientation Not on file Obstetrics History Last Filed Vital Signs Vital Sign Reading Time Taken Comments Blood Pressure 139/57 06/16/2024 11:33 AM CDT Pulse 66 06/16/2024 11:33 AM CDT Temperature 36 C (96.8 F) 06/16/2024 11:33 AM CDT Respiratory Rate 16 06/16/2024 11:33 AM CDT Oxygen Saturation 99% 06/16/2024 11:33 AM CDT Inhaled Oxygen Concentration - - Weight 78.6 kg (173 lb 4.5 oz) 06/10/2024 1:46 A M CDT Height 170.2 cm (5' 7 ) 06/10/2024 1:46 AM CDT Body Mass Index 27.14 06/10/2024 1:46 AM CDT Plan of Treatment Health Maintenance Due Date Last Done Comments Breast Cancer Screening-Mammogram 1956 Colon Cancer Screening-Colonoscopy 1955 Hepatitis C Screening 1955 Osteoporosis Screening-Bone Density Scan 1956 Hepatitis B Screening 1974 Well Visit 65+ 2021 DTaP/Tdap/Td Vaccine (2 - Td or Tdap) 03/07/2022 03/07/2012 Covid-19 Vaccine (2023-2 5 season) 2023 08/24/2021, 11/18/2020, 05/05/2020, Additional history exists Depression Screening 12/23/2023 12/22/2022, 12/23/19 23 Lung Cancer Screening 11/22/2024 11/22/2023 Fall Risk Assessment 06/16/2025 06/16/2024 Zoster Vaccine Completed 03/27/2019, 10/21/2018 Pneumococcal vaccine 65+ Completed 022, 05/28/2021, 07/18/2020 Influenza Vaccine Completed 12/06/2023, , 12/10/2021, Additional history exists Medical Devices Implanted Type Area Continuous Washer Operator Device Identifier Shelf Expiration Date Model / Serial / Lot [employer] Valve Mitral Tissue Stented Epic Plus 31mm [id number] - [id number] - [id number] Implanted:Qty : 1 on 12/28/2022 by Corona Crabtree MD at [facility] Prosthetic Valve N/A: Heart [employer] 06/14/2026 [id number] / [id number] / Procedures Procedure Name Priority Date/Time Associated Diagnosis Comments DIFFERENTIAL AUTO Timed 06/16/2024 9:0 1 AM CDT CBC WITH AUTO DIFFERENTIAL Timed 06/16/2024 9:01 AM CDT EGFR Timed 06/16/2024 5:42 AM CDT COMPREHENSIVE METABOLIC PANEL Timed 06/16/2024 5:42 AM CDT DIGOXIN LEVEL Timed 06/14/2024 4:56 PM CDT DIFFERENTIAL AUTO Timed 06/14/2024 8:5 0 AM CDT CBC WITH AUTO DIFFERENTIAL Timed 06/14/2024 8:50 AM CDT EGFR Routine 06/14/2024 2:37 AM CDT DIFFERENTIAL AUTO Routine 06/14/2024 2:3 7 AM CDT MAGNESIUM Routine 06/14/2024 2:37 AM CDT COMPREHENSIVE METABOLIC PANEL Routine 06/14/2024 2:37 AM CDT CBC WITH AUTO DIFFERENTIAL Routine 06/14/2024 2:37 AM CDT EGFR Routine 06/13/2024 2:17 AM CDT DIFFERENTIAL AUTO Routine 06/13/2024 2:1 7 AM CDT MAGNESIUM Routine 06/13/2024 2:17 AM CDT COMPREHENSIVE METABOLIC PANEL Routine 06/13/2024 2:17 AM CDT CBC WITH AUTO DIFFERENTIAL Routine 06/13/2024 2:17 AM CDT TRANSESOPHAGEAL ECHO (THAD) W DOPPLER/CF WO CONTRAST Routine 06/12/2024 1:16 PM CDT BLOOD CULTURE Routine 06/12/2024 10:01 AM CDT BLOOD CULTURE Routine 06/12/2024 9:52 AM CDT EGFR Routine 06/12/2024 2:49 AM CDT DIFFERENTIAL AUTO Routine 06/12/2024 2:4 9 AM CDT MAGNESIUM Routine 06/12/2024 2:49 AM CDT COMPREHENSIVE METABOLIC PANEL Routine 06/12/2024 2:49 AM CDT CBC WITH AUTO DIFFERENTIAL Routine 06/12/2024 2:49 AM CDT EGFR Routine 06/11/2024 2:29 AM CDT DIFFERENTIAL AUTO Routine 06/11/2024 2:2 9 AM CDT MAGNESIUM Routine 06/11/2024 2:29 AM CDT COMPREHENSIVE METABOLIC PANEL Routine 06/11/2024 2:29 AM CDT CBC WITH AUTO DIFFERENTIAL Routine 06/11/2024 2:29 AM CDT BLOOD CULTURE STAT 06/10/2024 3:04 PM CDT BLOOD CULTURE STAT 06/10/2024 2:[address] CHEST WO CONTRAST ED Urgent/IP Urgent 06/10/2024 1:45 PM CDT EGFR Routine 06/10/2024 6:53 AM CDT DIFFERENTIAL AUTO Routine 06/10/2024 6:5 3 AM CDT MAGNESIUM Routine 06/10/2024 6:53 AM CDT COMPREHENSIVE METABOLIC PANEL Routine 06/10/2024 6:53 AM CDT CBC WITH AUTO DIFFERENTIAL Routine 06/10/2024 6:53 AM CDT PROCALCITONIN Routine 06/10/2024 6:53 AM CDT ETHANOL Routine 06/10/2024 6:53 AM CDT LACTATE Routine 06/10/2024 6:53 AM CDT LIPID PANEL Routine 06/10/2024 6:48 AM CDT INFLUENZA A/B, RSV, AND COVID-19 PCR Routine 06/10/2024 5:58 AM CDT DRUGS OF ABUSE SCREEN, URINE WITH REFLEX CONFIRMATION Routine 06/10/2024 3:38 AM CDT MRSA ONLY (STAPHYLOCOCCUS AUREUS) PCR Routine 06/10/2024 3:38 AM CDT TROPONIN T HIGH-SENSITIVITY 2-HOUR Timed 06/10/2024 12:[address] ABDOMEN PELVIS WO CONTRAST ED 06/09/2024 11:27 PM CDT URINALYSIS, MICROSCOPIC ONLY STAT 06/09/2024 10:53 PM CDT URINALYSIS AND REFLEX TO MICROSCOPIC AND CULTURE STAT 06/09/2024 10:53 PM CDT BLOOD CULTURE STAT 06/09/2024 10:35 PM CDT BLOOD CULTURE STAT 06/09/2024 10:35 PM CDT XR CHEST 1 VIEW ED 06/09/2024 9:51 PM CDT EGFR STAT 06/09/2024 9:48 PM CDT PRO B-TYPE NATRIURETIC PEPTIDE STAT 06/09/2024 9:48 PM CDT MAGNESIUM Routine 06/09/2024 9:48 PM CDT DIFFERENTIAL AUTO STAT 06/09/2024 9:4 8 PM CDT TROPONIN T HIGH-SENSITIVITY SERIES (BASELINE, 2HR, 4HR, 6HR) STAT 06/09/2024 9:48 PM CDT COMPREHENSIVE METABOLIC PANEL STAT 06/09/2024 9:48 PM CDT CBC WITH AUTO DIFFERENTIAL STAT 06/09/2024 9:48 PM CDT ECG 12-LEAD Routine 06/09/2024 9:45 PM CDT TRANSTHORACIC ECHO (TTE) COMPLETE W DOPPLER/CF WO CONTRAST Routine 06/04/2024 2:34 PM CDT Nonrheumatic mitral valve regurgitation CT LUNG CANCER SCREENING Schedule Routine, Read Routine (OP Routine) 11/22/2023 11:58 AM CDT Personal history of nicotine dependence from Last 3 Months or Most Recently Relevant to Health Maintenance Results * Differential, auto (06/16/2024 9:01 AM CDT) Neutrophil abs 3.55 1.50 - 6.50 K/cumm Imm gran abs 0.03 0.00 - 0.10 K/cumm [facility] ([place]) Lymphocyte abs 1.90 0.80 - 3.30 K/cumm [facility] ([place]) Monocyte abs 0.57 0.20 - 0.80 K/cumm [facility] ([place]) Eosinophil abs 0.26 0.00 - 0.50 K/cumm [facility] ([place]) Basophil abs 0.04 0.00 - 0.10 K/cumm [facility] ([place]) Neutrophil pct 55.9 % [facility] ([place]) Comment: Interpretive Data Percent cell count reference ranges are not reported, since discordance with absolute values may lead to misinterpretation of CBC data. Current Interpretive Data was last revised on 2017. Imm gran pct 0.5 % [facility] ([place]) Comment: Interpretive Data Percent cell count reference ranges are not reported, since discordance with absolute values may lead to misinterpretation of CBC data. Current Interpretive Data was last revised on 2017. Lymphocyte pct 29.9 % [facility] ([place]) Comment: Interpretive Data Percent cell count reference ranges are not reported, since discordance with absolute values may lead to misinterpretation of CBC data. Current Interpretive Data was last revised on 2017. Monocyte pct 9.0 % [facility] ([place]) Comment: Interpretive Data Percent cell count reference ranges are not reported, since discordance with absolute values may lead to misinterpretation of CBC data. Current Interpretive Data was last revised on 2017. Eosinophil pct 4.1 % [facility] ([place]) Comment: Interpretive Data Percent cell count reference ranges are not reported, since discordance with absolute values may lead to misinterpretation of CBC data. Current Interpretive Data was last revised on 2017. Basophil pct 0.6 % [facility] ([place]) Comment: Interpretive Data Percent cell count reference ranges are not reported, since discordance with absolute values may lead to misinterpretation of CBC data. Current Interpretive Data was last revised on 2017. Blood 06/16/2024 9:01 AM CDT 06/16/2024 9:19 AM CDT Timmy Gardiner DO LAB BLOOD ORDERABLES F inal Result [facility] ([place]) 1 [facility] [place] [address] * (ABNORMAL) CBC with auto differential (06/16/2024 9:01 AM CDT) WBC 6.35 3.80 - 9.90 K/cumm Hgb 11.1(L) 11.9 - 15.5 g/dL [facility] ([place]) Hct 35.5(L) 35.6 - 45.5 % [facility] ([place]) Plt 324 150 - 400 K/cumm [facility] ([place]) MPV 9.8 9.1 - 12.3 fL [facility] ([place]) RBC 3.88(L) 3.90 - 5.20 M/cumm [facility] ([place]) MCV 91.5 81.3 - 96.4 fL [facility] ([place]) MCH 28.6 27.1 - 33.3 pg [facility] ([place]) MCHC 31.3(L) 32.3 - 35.7 g/dL [facility] ([place]) RDW CV 15.1(H) 11.1 - 14.9 % [facility] ([place]) RDW SD 50.7(H) 35.7 - 48.1 fL [facility] ([place]) NRBC abs 0.00 0.00 - 0.01 K/cumm [facility] ([place]) Blood 06/16/2024 9:01 AM CDT 06/16/2024 9:19 AM CDT Timmy Gardiner DO LAB BLOOD ORDERABLES F inal Result [facility] ([place]) 1 [facility] [place] [address] * eGFR (06/16/2024 5:42 AM CDT) eGFR >90 >=60 mL/min/1. 73 m2 Comment: Interpretive Data [...] interpretive data was last reviewed 2020. Blood 06/16/2024 5:42 AM CDT 06/16/2024 6:02 AM CDT Timmy Gardiner DO LAB BLOOD ORDERABLES F inal Result [facility] ([place]) 1 [facility] [place] [address] * (ABNORMAL) Comprehensive metabolic panel (06/16/2024 5:42 AM CDT) Sodium 141 135 - 145 mmol/L Potassium, pl 3.4 3.3 - 4.9 mmol/L [facility] ([place]) Chloride 106 97 - 110 mmol/L [facility] ([place]) CO2 21(L) 22 - 32 mmol/L [facility] ([place]) Anion gap 14 2 - 15 mmol/L [facility] ([place]) BUN 6 6 - 25 mg/dL [facility] ([place]) Creatinine 0.63 0.60 - 1.10 mg/dL [facility] ([place]) Glucose 101 70 - 199 mg/dL [facility] ([place]) [...] interpretive data was last revised 2022. Calcium 8.7 8.5 - 10.3 mg/dL [facility] ([place]) Bilirubin, total <0.2 0.1 - 1.2 mg/dL [facility] ([place]) Protein, pl 6.1(L) 6.5 - 8.5 g/dL [facility] ([place]) Albumin 3.0(L) 3.5 - 5.0 g/dL [facility] ([place]) Alk phos 83 40 - 130 Units/L [facility] ([place]) ALT 18 7 - 45 Units/L [facility] ([place]) AST 19 10 - 45 Units/L [facility] ([place]) Blood 06/16/2024 5:42 AM CDT 06/16/2024 6:02 AM CDT Timmy Gardiner DO LAB BLOOD ORDERABLES F inal Result Performing Organization Address City/[facility] Co de Phone Number [facility] ([place]) 1 [facility] [place] [address] * Digoxin level (06/14/2024 4:56 PM CDT) Digoxin 0.6 0.5 - 1.2 ng/mL Comment: Interpretive data The therapeutic range for digoxin varies by indication: Heart failure: 0.5 to 0.8 ng/mL Atrial fibrillation: less than 1.2 ng/mL Toxicity: >2.4. Normal or low digoxin does not rule out toxicity. Current interpretive data was last revised on 2023. Blood 06/14/2024 4:56 PM CDT 06/14/2024 4:58 PM CDT Timmy Gardiner DO LAB BLOOD ORDERABLES F inal Result Performing Organization Address City/[facility]/ZIP Co de Phone Number [facility] ([place]) 1 [facility] [address] * Differential, auto (06/14/2024 8:50 AM CDT) Perf
--- OUTSIDE RECORDS SUMMARY | 2024-06-23 14:28 | XMS_ITS | Clinical Summary ---
Author Organization [facility] Address [address] [place] [address] Phone Care Team Providers Care Monorail Car Operator Name Role Phone Ed Robles MD Primary Care Provider [phone] Allergies Active Allergy Reactions Criticality Noted Date [...] on file Legal Sex Female 12:33 PM PROGRAM SCHEDULE CLERK Gender Identity Not on file Sexual Orientation Not on file Last Filed Vital Signs Vital Sign Reading Time Taken Comments Blood Pressure 124/76 02/01/2023 11:00 AM PROGRAM SCHEDULE CLERK Pulse 90 02/01/2023 11:00 AM PROGRAM SCHEDULE CLERK Temperature 36.6 C (97.9 F) 02/01/2023 11:00 AM PROGRAM SCHEDULE CLERK Respiratory Rate 18 02/01/2023 11:00 AM PROGRAM SCHEDULE CLERK Oxygen Saturation 98% 02/01/2023 11:00 AM PROGRAM SCHEDULE CLERK Inhaled Oxygen Concentration - - Weight 70.3 kg (155 lb) 01/29/2023 11:37 AM PROGRAM SCHEDULE CLERK Height 170.2 cm (5' 7 ) 01/10/2023 12:45 PM PROGRAM SCHEDULE CLERK Body Mass Index 24.28 01/10/2023 12:45 PM PROGRAM SCHEDULE CLERK Plan of Treatment Health Maintenance Due Date [...] to complete this topic Insurance [facility]IC[facility] Advance Directives * Full Code (Latest Code Status on File) Date Activated Date Inactivated Comments 01/24/2023 6:35 AM Care Teams Monorail Car Operator Relationship Specialty Start Date End Date Ed Robles MD [address] [place] [address] PCP - General Family Medicine 01/04/23
--- OUTSIDE RECORDS SUMMARY | 2024-06-23 14:28 | XMS_ITS | Clinical Summary ---
Author Organization [email or web address] Address [address] [place] [place] [address] Care Team Providers Care Hand Molder Meat Name Role Phone Ed Robles MD Primary Care Provider [phone] Source Comments [facility],non-[facility] Affiliates and Associated Physician Practices is amultiple site organization consisting of ambulatory clinics and hospital sitesin [place], [place], [place] and [place]. This disclosure is being madepursuant to the Care Everywhere program and may not contain all information available regarding this patient. Last updated 17.[email or web address] Allergies Active Allergy Reactions Criticality Noted Date Comments Hydromorphone Psychiatric Medium 07/02/2018 Medications * Be aware that medications may not be up to date on this document. Alwaysverify current medications with the patient. cetirizine (ZYRTEC ALLERGY) 10 MG gel capsule [...] by mouth once daily 90 tablet 4 0 Active lisinopril (PRINIVIL; ZESTRIL) 10 MG tablet Take 1 tablet by mouth once daily 90 tablet 4 0 Active Additional Information Patient taking differently: 20 mgOral2 TIMES DAILY, Reported on 11/13/2022 Cholecalciferol (Vitamin D) 50 MCG (2000 UT) capsule Take 1 (one) capsule by mouth once daily Active metoprolol tartrate (LOPRESSOR) 50 MG tablet Take 1 tablet by mouth twice daily 60 tablet 11 0 Active albuterol (Accuneb) 1.25 MG/3ML nebulizer solution USE 1 VIAL IN NEBULIZER EVERY 4 TO 6 HOURS NEEDED 3 Active albuterol HFA (Proventil; Ventolin; Proair) 108 (90 Base) MCG/ACT inhaler INHALE 2 PUFFS BY MOUTH EVERY 4 HOURS NEEDED FOR SHORTNESS OF BREATH OR WHEEZING 3 Active Breztri Aerosphere 160-9-4.8 MCG/ACT AERO INHALE 2 PUFFS TWICE DAILY RINSE MOUTH AND THROAT AFTER USE 3 Active ezetimibe (Zetia) 10 MG tablet Take 1 (one) tablet by mouth every morning 3 Active montelukast (Singulair) 10 MG tablet Take 1 (one) tablet by mouth at bedtime 3 Active fluticasone propionate (Flonase Allergy Relief) 50 MCG/ACT nasal spray [place] 2 (two) sprays into each nostril once daily Active Milk Thistle 1000 MG CAPS Take 1,000 mg by mouth once daily Active Zinc 50 MG tablet Take 1 (one) tablet by mouth once daily Active vitamin E (Tocopheryl) 400 UNIT capsule Take 1 (one) capsule by mouth once daily Active Lutein-Zeaxanth in-Bilberry 20-4-40 MG CHEW Acti ve Selenium 200 MCG Take 200 mcg by mouth once daily Active [place]-3 300 MG CAPS Take 1 tablet by [...] Alive no heart dz Father (Age 65) [place] at age 65 Mother (Age 86) [place] & CABG at 74; CHF Sister 1 [...] pur e alcohol) 21 glasses of wine Comments No Sex and Gender Information Value Date Recorded Sex Assigned at Not on file Legal Sex Female 12:20 PM FIRING PIN GAUGER Gender Identity Not on file Sexual Orientation Not on file 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 Not on file Not on file Last Filed Vital Signs Vital Sign Reading Time Taken Comments Blood Pressure 124/78 10/26/2019 10:30 AM CDT Pulse 63 10/26/2019 10:00 AM CDT Temperature 36.6 C (97.9 F) 10/12/2017 3:55 PM CDT Respiratory Rate 16 10/26/2019 10:30 AM CDT Oxygen Saturation 96% 10/26/2019 10:00 AM CDT Inhaled Oxygen Concentration - - Weight 76.2 kg (168 lb) 01/14/2024 10:37 AM FIRING PIN GAUGER Height 170.2 cm (5' 7.01 ) 01/14/2024 10:[address] Body Mass Index 26.31 01/14/2024 10:37 AM FIRING PIN GAUGER Plan of Treatment Upcoming Encounters Date Type Department Care Team (Late st Contact Info) Description 08/18/2024 9:30 AM CDT Appointment [facility] [address] [facility], [address] [place] [id number] 08/18/2024 10:00 AM CDT Appointment [facility] Health Vascular Services [address] [facility], [address] [place] [address] 08/18/2024 10:30 AM CDT Office Visit [facility] - Surgery [address] [facility], [address] [place] [phone] [place] [address] [facility] [address] [place] [address] Health Maintenance Due Date Last [...] FOR DIABETES 11/13/2022 04/02/2018 COVID-19 VACCINE ( - season) 2023 05/05/2020, 04/14/2020 DEPRESSION SCREENING 02/12/2024 [...] PANEL (04/02/2018) Blood BLOOD SPECIMEN / Unknown us Jose Luis Narvaez MD LAB - CHEMISTRY ORDERABLES F inal Result [facility] INSURANCE BILL [address] [place] [address] from Last 3 Months or Most Recently Relevant to Health Maintenance Insurance [facility] MANAGED MEDICARE ADV Care Teams Hand Molder Meat Relationship Specialty Start Date End Date Ed Robles MD [address] [place] [address] PCP - General Family Medicine 11/13/22
--- OUTSIDE RECORDS SUMMARY | 2024-06-23 14:28 | XMS_ITS | Encounter Summary ---
Author Organization [facility] Address [address] [place] [address] Phone Care Team Providers Care Tail Board Man Name Role Phone Ed Robles MD Primary Care Provider Encounter Details Date Type Department Care Team (Latest Contact Info) Description 01/17/2023 Lab Requisition [facility] [address] [place] [address] [place] [address] [facility] [address] ADULT-CARDIO, [place] [address] Atherosclerotic heart disease of cheesh-na coronary artery without angina pectoris Social History Tobacco Use Types Packs/Day Years Used Date Smoking Tobacco: Never Assessed Comments Unknown Sex and Gender Information Value Date Recorded Sex Assigned at Not on file Legal Sex Female 12:33 PM TENNIS PLAYER Gender Identity Not on file Sexual Orientation Not on file documented as of this encounter Plan of Treatment Scheduled Orders Name Type Priority Associated Diagnoses Orde r Schedule CMP (COMPREHENSIVE METABOLIC PANEL) Lab Routine Atherosclerotic heart disease of cheesh-na coronary artery without angina pectoris Ordered: 01/17/2023 COMPLETE BLOOD COUNT (CBC) WITH DIFF Lab Routine Atherosclerotic heart disease of cheesh-na coronary artery without angina pectoris Ordered: 01/17/2023 documented as of this encounter Visit Diagnoses Diagnosis Atherosclerotic heart disease of cheesh-na coronary artery without angina pectoris Coronary atherosclerosis of cheesh-na coronary artery documented in this encounter Care Teams Tail Board Man Relationship Specialty Start Date End Date Ed Robles MD [address] [place] [address] PCP - General Family Medicine 01/04/23 documented as of this encounter
[2024-06-23 20:24] LABS: Anion Gap 10 mmol/L (4-12); Blood Urea Nitrogen 16 mg/dL (7-17); Calcium 9.9 mg/dL (8.4-10.2); Carbon Dioxide 27 mmol/L (22-30); Chloride 102 mmol/L (98-107); Estimated Glomerular Filt Rate > 60; Glucose 94 mg/dL (65-110); Potassium 4.8 mmol/L (3.4-5.0); Sodium 139 mmol/L (137-145)
== END 2024-06-23 14:12 | disposition home or self-care (01) ==
PROVIDERS: PCP Nurse Practitioner Adult Health; Visit Provider Nurse Practitioner Adult Health
DX: E87.6 Hypokalemia (principal)
CPT/HCPCS: 36415; 80048

== ENCOUNTER 2024-07-16 10:20 | Outpatient (CLI) | payer MEDICARE, SELFPAY ==
--- OUTSIDE RECORDS SUMMARY | 2024-07-16 11:24 | XMS_ITS | Clinical Summary ---
Author Organization [facility] [employer] Address [address] [place] [address] Care Team Providers Care Sausage Meat Trimmer Name Role Phone Ed Robles MD Primary Care Provider [phone] Source Comments [facility] [employer],non[facility] Affiliates and Associated Physician Practices is amultiple site organization consisting of ambulatory clinics and hospital sitesin [place], [place], [place] and [place]. This disclosure is being madepursuant to the Care Everywhere program and may not contain all information available regarding this patient. 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 Not on file Not [...] 76.2 kg (168 lb) 01/14/2024 10:37 AM CODING ANALYST Height 170.2 cm (5' 7.01) 01/14/2024 10:[address] Body Mass Index 26.31 01/14/2024 10:37 AM CODING ANALYST Plan of Treatment Upcoming Encounters Date Type Department Care Team (Late st Contact Info) Description 08/18/2024 9:30 AM CDT Appointment [facility] [address], [address] [place] [id number] 08/18/2024 10:00 AM CDT Appointment [facility] [address], [address] [place] [address] 08/18/2024 10:30 AM CDT Office Visit [facility] - Surgery [address], [address] [place] [id number] [place] [address] [address] [place] [address] Health Maintenance Due Date Last [...] 2006 ZOSTER VACCINE (1 of 2) 2006 Respiratory Syncytial Virus (RSV) Vaccine Pt: or over 60 yrs (1 - Risk 60-74 years 1-dose series) 2016 SCREENING FOR DIABETES 11/13/2022 04/02/2018 COVID-19 VACCINE ( season) 2023 05/05/2020, 04/14/2020 DEPRESSION SCREENING 02/12/2024 MEDICARE AWV CALENDAR YEAR 2024 LUNG CANCER SCREENING 11/21/2024 11/22/2023, 024 INFLUENZA VACCINE Completed 12/06/2023, , 11/18/2019, Additional [...] Result [facility] INSURANCE BILL [id number] [place] [address] from Last 3 Months or Most Recently Relevant to Health Maintenance Insurance [facility] MANAGED MEDICARE ADV Care Teams Sausage Meat Trimmer Relationship Specialty Start Date End Date Ed Robles MD [address] [place] [id number] PCP - General Family Medicine 11/13/22
--- OUTSIDE RECORDS SUMMARY | 2024-07-16 11:24 | XMS_ITS | Referral Summary ---
Author Organization [facility] B Address [address] [place] [address] Care Team Providers Care Snout Puller Name Role Phone Ed Robles MD Primary Care Provider [phone] Corona Crabtree MD Unavailable [phone] Demond Estevez MD Unavailable [phone] Shobha Menon MD Unavailable [phone] Encounters Date Type Department Care Team Description 07/14/2024 1:00 PM CDT Office Visit [place] [facility] at [facility] [address] [facility] [address] [place] [address] Demond Estevez MD Coronary artery disease involving coronary bypass graft of [place] heart without angina pectoris (Primary Dx); Carotid bruit, unspecified laterality 07/07/2024 Telephone [facility] Gastroenterology at [address] [place] [address] Kati Martines 07/07/2024 1:45 PM CDT Office Visit [facility] Surgery [address] [facility] [address] [place] [address] Corona Crabtree MD Coronary artery disease involving [place] coronary artery of [place] heart without angina pectoris 06/24/2024 [facility] Post Discharge Follow up phone call [facility] IMU [address] [place] [address] Edna Guadalupe RN 06/09/2024 9:58 PM CDT - 06/16/2024 12:49 PM CDT Hospital Encounter [facility] IMU [address] [place] [address] Prabhu Davis MD Huynh, Kiet T., MD Nations, Matthew Austin, DO Sargsyan, Narine, MD Gastroenteritis (Primary Dx); Longstanding persistent atrial fibrillation (HCC) Discharge Disposition: Discharge to home or self care 06/04/2024 1:43 PM CDT - 06/04/2024 11:59 PM CDT Hospital Encounter [facility] Cardiology [address] [place] [address] Nonrheumatic mitral valve regurgitation Discharge Disposition: Discharge to home or self care 04/30/2024 Orders Only [facility] Surgery [id number] [place] [address] Corona Crabtree MD NSTEMI (non-ST elevated myocardial infarction) (HCC) (Primary Dx); Nonrheumatic mitral valve regurgitation from Last 3 Months Allergies Active Allergy [...] day 60 tablet 11 4 Active lisinopriL (PRINIVIL,ZESTR IL) 5 mg tablet Take 1 tablet (5 mg total) by mouth daily 90 tablet 3 5 04/07/19 26 Active rosuvastatin (CRESTOR) 40 mg tablet Take 1 tablet by mouth once daily 90 tablet 5 Active calcium carb-magnesium carb,ox 200 mg calcium- 100 mg tablet,chewable Take 1 tablet by mouth daily Active [...] 40 tablet/capsu le 5 06/27/19 25 Active Problems Problem Noted Date Diagnosed Date History of colonic polyps 07/07/2024 Bacteremia 06/12/2024 Gastroenteritis 06/10/2024 SIRS (systemic inflammatory [...] 0.6 oz pur e alcohol) [facility] Utilities Answer Date Recorded In the past 12 months has [employer], gas, oil, or water [employer] threatened to shut off services in your [...] often do you attend chur ch or jew services? Never 06/11/2024 Do you belong to any clubs o r organizations such as sabianism groups, unions, fraternal or athletic groups, or [...] place to sleep or slept in a mcc (including now)? No 12/25/2022 Housing Stability Vital Sign Answer Fran e Recorded In the last 12 months, was t here a time when you were not able to pay the mortgage or rent on time? No 06/11/2024 In the past 12 months, how m any times have you moved where you were living? 0 06/11/2024 At any time in the past 12 m [facility], were you homeless or living in a mcc (including now)? No 06/11/2024 Personal Safety Answer [...] Sign Reading Time Taken Comments Blood Pressure 148/76 07/14/2024 1:17 PM CDT Pulse 86 07/14/2024 1:17 PM CDT Temperature 36 C (96.8 F) 06/16/2024 11:33 AM CDT Respiratory Rate 16 07/07/2024 1:42 PM CDT Oxygen Saturation 96% 07/07/2024 1:42 PM CDT Inhaled Oxygen Concentration - - Weight 76.2 kg (168 lb) 07/14/2024 1:17 PM CDT Height 170.2 cm (5' 7) 07/14/2024 1:17 PM CDT Body Mass Index 26.31 07/14/2024 1:17 PM CDT Plan of Treatment Upcoming Encounters Date Type Department Care Team (Late st Contact Info) Description 08/25/2024 1:50 PM CDT Hospital Encounter [address] [address] Shobha Menon MD [address] [place] [address] [place] [address] 08/25/2024 1:50 PM CDT - 08/25/2024 2:20 PM CDT Surgery [address] [address] Shobha Menon MD [address] [place] [address] [place] [address] COLONOSCOPY Scheduled Procedures Name Priority Associated Diagnoses Date/Ti me COLONOSCOPY Gastroenteritis History of colonic polyps 08/25/2024 1:50 PM CDT Medical Devices Implanted Type Area Material Requisitioner Device Identifier Shelf Expiration Date Model / Serial / Lot [employer] Valve Mitral Tissue Stented Epic Plus 31mm [id number] - [id number] - [id number] Implanted:Qty : 1 on 12/28/2022 by Corona Crabtree MD at [facility] Prosthetic Valve N/A: Heart [employer] 06/14/2026 [id number] / [id number] / Procedures Procedure Name Priority Date/Time Associated [...] 9:01 AM CDT 06/16/2024 9:19 AM CDT Tanner Washington DO LAB BLOOD ORDERABLES F inal Result [facility] ([place]) 1 [facility] [place] [address] * (ABNORMAL) CBC with auto differential (06/16/2024 9:01 AM CDT) [facility] WBC 6.35 3.80 - 9.90 K/cumm Hgb [...] (SARY) MCH 28.6 27.1 - 33.3 pg [facility] ([place]) MCHC 31.3(L) 32.3 - 35.7 g/dL [facility] ([place]) RDW CV 15.1(H) 11.1 - 14.9 % [facility] ([place]) RDW SD 50.7(H) 35.7 - 48.1 fL [facility] ([place]) NRBC abs 0.00 0.00 - 0.01 K/cumm [facility] ([place]) Blood 06/16/2024 9:01 AM CDT 06/16/2024 9:19 AM CDT Tanner Washington DO LAB BLOOD ORDERABLES F inal Result ANTONI BORGES ([place]) 1 [facility] [place] [address] * eGFR (06/16/2024 5:42 AM CDT) [facility] eGFR >90 >=60 mL/min/1. 73 m2 Comment: [...] 5:42 AM CDT 06/16/2024 6:02 AM CDT Tanner Ayala [facility] DO LAB BLOOD ORDERABLES F inal Result [facility] ([place] 1 [facility] [place] [address] * (ABNORMAL) Comprehensive metabolic panel (06/16/2024 5:42 AM CDT) Sodium 141 135 - 145 mmol/L Potassium, pl 3.4 3.3 - 4.9 mmol/L [facility] Chloride 106 97 - 110 mmol/L [facility] ([place] CO2 21(L) 22 - 32 mmol/L [facility] ([place]) Anion gap 14 2 - 15 mmol/L [facility] ([place] BUN 6 6 - 25 mg/dL [facility] ([place] Creatinine 0.63 0.60 - 1.10 mg/dL [facility] ([place]) Glucose 101 70 - 199 mg/dL [facility] ([place]) Comment: Interpretive Data Fasting glucose [...] 5:42 AM CDT 06/16/2024 6:[address] [facility] DO LAB BLOOD ORDERABLES F inal Result Performing Organization Address [facility] de Phone Number AN[facility]I BORGES ([place]) 1 [facility] [place] [address] * Digoxin level (06/14/2024 4:56 PM CDT) [...] 4:56 PM CDT 06/14/2024 4:58 PM CDT Tannerbreann Ayala [facility] mascotsecret LAB BLOOD ORDERABLES F inal Result Performing Organization Address City/[facility] Co de Phone Number [facility] ([place]) 1 [facility] [place] [address] * Differential, auto (06/14/2024 8:50 AM CDT) Neutrophil abs 3.42 1.50 - 6.50 K/cumm Imm gran abs 0.04 0.00 - 0.10 K/cumm [facility] ([place]) Lymphocyte abs 1.55 0.80 - 3.30 K/cumm [facility] ([place]) Monocyte abs 0.63 0.20 - 0.80 K/cumm [facility] ([place]) Eosinophil abs 0.26 0.00 - 0.50 K/cumm [facility] ([place]) Basophil abs 0.04 0.00 - 0.10 K/cumm [facility] ([place]) Neutrophil pct 57.5 % [facility] ([place]) Comment: Interpretive Data Percent cell count reference ranges are not reported, since discordance with absolute values may lead to misinterpretation of CBC data. Current Interpretive Data was last revised on 2017. Imm gran pct 0.7 % [facility] ([place]) Comment: Interpretive Data Percent cell count reference ranges are not reported, since discordance with absolute values may lead to misinterpretation of CBC data. Current Interpretive Data was last revised on 2017. Lymphocyte pct 26.1 % [facility] ([place]) Comment: Interpretive Data Percent cell count reference ranges are not reported, since discordance with absolute values may lead to misinterpretation of CBC data. Current Interpretive Data was last revised on 2017. Monocyte pct 10.6 % [facility] ([place]) Comment: Interpretive Data Percent cell count reference ranges are not reported, since discordance with absolute values may lead to misinterpretation of CBC data. Current Interpretive Data was last revised on 2017. Eosinophil pct 4.4 % [facility] ([place]) Comment: Interpretive Data Percent cell count reference ranges are not reported, since discordance with absolute values may lead to misinterpretation of CBC data. Current Interpretive Data was last revised on 2017. Basophil pct 0.7 % [facility] ([place]) Comment: Interpretive Data Percent cell count reference ranges are not reported, since discordance with absolute values may lead to misinterpretation of CBC data. Current Interpretive Data was last revised on 2017. Blood 06/14/2024 8:50 AM CDT 06/14/2024 8:53 AM CDT Tanner Washington DO LAB BLOOD ORDERABLES F inal Result Performing Organization Address City/[facility]/ZIP Co de Phone Number [facility] ([place]) 1 [facility] [place] [address] * (ABNORMAL) CBC with auto differential (06/14/2024 8:50 AM CDT) WBC 5.94 3.80 - 9.90 K/cumm Hgb 11.0(L) 11.9 - 15.5 g/dL [facility] ([place]) Hct 34.7(L) 35.6 - 45.5 % [facility] ([place]) Plt 209 150 - 400 K/cumm [facility] ([place]) MPV 10.3 9.1 - 12.3 fL [facility] ([place]) RBC 3.85(L) 3.90 - 5.20 M/cumm [facility] ([place]) MCV 90.1 81.3 - 96.4 fL [facility] ([place]) MCH 28.6 27.1 - 33.3 pg [facility] ([place]) MCHC 31.7(L) 32.3 - 35.7 g/dL [facility] ([place]) RDW CV 15.2(H) 11.1 - 14.9 % [facility] ([place]) RDW SD 50.0(H) 35.7 - 48.1 fL [facility] ([place]) NRBC abs 0.00 0.00 - 0.01 K/cumm [facility] ([place]) Blood 06/14/2024 8:50 AM CDT 06/14/2024 8:53 AM CDT Tanner Washington DO LAB BLOOD ORDERABLES F inal Result Performing Organization Address City/[facility] Co de Phone Number [facility] ([place]) 1 [facility] [place] [address] * eGFR (06/14/2024 2:37 AM CDT) eGFR >90 >=60 mL/min/1. 73 [...] interpretive data was last reviewed 2020. Blood 06/14/2024 2:37 AM CDT 06/14/2024 3:04 AM CDT us Juan Antonio Farias MD LAB BLOOD ORDERABLES Final Resu lt [facility] 1 [facility] [place] [address] * Differential, auto (06/14/2024 2:37 AM CDT) Neutrophil abs 3.67 1.50 - 6.50 K/cumm Imm gran abs 0.04 0.00 - 0.10 K/cumm [facility] ([place]) Lymphocyte abs 1.89 0.80 - 3.30 K/cumm [facility] ([place]) Monocyte abs 0.77 0.20 - 0.80 K/cumm [facility] ([place]) Eosinophil abs 0.33 0.00 - 0.50 K/cumm [facility] ([place]) Basophil abs 0.02 0.00 - 0.10 K/cumm [facility] ([place]) Neutrophil pct 54.6 % [facility] ([place]) Comment: Interpretive Data Percent cell count reference ranges are not reported, since discordance with absolute values may lead to misinterpretation of CBC data. Current Interpretive Data was last revised on 2017. Imm gran pct 0.6 % [facility] ([place]) Comment: Interpretive Data Percent cell count reference ranges are not reported, since discordance with absolute values may lead to misinterpretation of CBC data. Current Interpretive Data was last revised on 2017. Lymphocyte pct 28.1 % [facility] ([place]) Comment: Interpretive Data Percent cell count reference ranges are not reported, since discordance with absolute values may lead to misinterpretation of CBC data. Current Interpretive Data was last revised on 2017. Monocyte pct 11.5 % [facility] ([place]) Comment: Interpretive Data Percent cell count reference ranges are not reported, since discordance with absolute values may lead to misinterpretation of CBC data. Current Interpretive Data was last revised on 2017. Eosinophil pct 4.9 % [facility] ([place]) Comment: Interpretive Data Percent cell count reference ranges are not reported, since discordance with absolute values may lead to misinterpretation of CBC data. Current Interpretive Data was last revised on 2017. Basophil pct 0.3 % [facility] ([place]) Comment: Interpretive Data Percent cell count reference ranges are not reported, since discordance with absolute values may lead to misinterpretation of CBC data. Current Interpretive Data was last revised on 2017. Blood 06/14/2024 2:37 AM CDT 06/14/2024 3:04 AM CDT us Juan Antonio Farias MD LAB BLOOD ORDERABLES Final Resu lt [facility] BORG[facility] ([place]) 1 [facility] [place] [address] * (ABNORMAL) CBC with auto differential (06/14/2024 2:37 AM CDT) WBC 6.72 3.80 - 9.90 K/cumm Hgb 10.1(L) 11.9 - 15.5 g/dL [facility] ([place]) Hct 31.3(L) 35.6 - 45.5 % [facility] ([place]) Plt 192 150 - 400 K/cumm [facility] ([place]) MPV 10.1 9.1 - 12.3 fL [facility] ([place]) RBC 3.49(L) 3.90 - 5.20 M/cumm [facility] ([place]) MCV 89.7 81.3 - 96.4 fL [facility] ([place]) MCH 28.9 27.1 - 33.3 pg [facility] ([place]) MCHC 32.3 32.3 - 35.7 g/dL [facility] ([place]) RDW CV 14.9 11.1 - 14.9 % [facility] ([place]) RDW SD 49.4(H) 35.7 - 48.1 fL [facility] ([place]) NRBC abs 0.00 0.00 - 0.01 K/cumm [facility] ([place]) Blood 06/14/2024 2:37 AM CDT 06/14/2024 3:04 AM CDT us Juan Antonio Farias MD LAB BLOOD ORDERABLES Final Resu lt Performing Organization Address City/[facility]/ZIP Co de Phone Number [facility] ([place]) 1 [facility] [place] [address] * Magnesium (06/14/2024 2:37 AM CDT) Magnesium 1.9 1.4 - 2.5 mg/dL Blood 06/14/2024 2:37 AM CDT 06/14/2024 3:04 AM CDT Juan Antonio Farias MD LAB BLOOD ORDERABLES Final Resu lt [facility] ([place]) 1 [facility] [place] [address] * (ABNORMAL) Comprehensive metabolic panel (06/14/2024 2:37 AM CDT) Sodium 137 135 - 145 mmol/L Potassium, pl 3.3 3.3 - 4.9 mmol/L [facility] ([place]) Chloride 104 97 - 110 mmol/L [facility] ([place]) CO2 22 22 - 32 mmol/L [facility] ([place]) Anion gap 11 2 - 15 mmol/L [facility] ([place]) BUN 7 6 - 25 mg/dL [facility] ([place]) Creatinine 0.61 0.60 - 1.10 mg/dL [facility] ([place]) Glucose 109 70 - 199 mg/dL [facility] ([place]) [...] 1.2 mg/dL [facility] ([place]) Protein, pl 5.9(L) 6.5 - 8.5 g/dL [facility] ([place]) Albumin 2.9(L) 3.5 - 5.0 g/dL [facility] ([place]) Alk phos 88 40 - 130 Units/L [facility] ([place]) ALT 22 7 - 45 Units/L [facility] ([place]) AST 21 10 - 45 Units/L [facility] ([place]) Blood 06/14/2024 2:37 AM CDT 06/14/2024 3:04 AM CDT Juan Antonio Farias MD LAB BLOOD ORDERABLES Final Resu lt [facility] ([place]) 1 [facility] [place] [address] * eGFR (06/13/2024 2:17 AM CDT) eGFR >90 >=60 mL/min/1. 73 [...] interpretive data was last reviewed 2020. Blood 06/13/2024 2:17 AM CDT 06/13/2024 3:50 AM CDT us Juan Antonio Farias MD LAB BLOOD ORDERABLES Final Resu lt [facility] ([place]) 1 [facility] [place] [address] * Differential, auto (06/13/2024 2:17 AM CDT) Neutrophil abs 3.68 1.50 - 6.50 K/cumm Imm gran abs 0.05 0.00 - 0.10 K/cumm [facility] ([place]) Lymphocyte abs 1.45 0.80 - 3.30 K/cumm [facility] ([place]) Monocyte abs 0.80 0.20 - 0.80 K/cumm [facility] ([place]) Eosinophil abs 0.32 0.00 - 0.50 K/cumm [facility] ([place]) Basophil abs 0.04 0.00 - 0.10 K/cumm [facility] ([place]) Neutrophil pct 58.1 % [facility] ([place]) Comment: Interpretive Data Percent cell count reference ranges are not reported, since discordance with absolute values may lead to misinterpretation of CBC data. Current Interpretive Data was last revised on 2017. Imm gran pct 0.8 % [facility] ([place]) Comment: Interpretive Data Percent cell count reference ranges are not reported, since discordance with absolute values may lead to misinterpretation of CBC data. Current Interpretive Data was last revised on 2017. Lymphocyte pct 22.9 % [facility] ([place]) Comment: Interpretive Data Percent cell count reference ranges are not reported, since discordance with absolute values may lead to misinterpretation of CBC data. Current Interpretive Data was last revised on 2017. Monocyte pct 12.6 % [facility] ([place]) Comment: Interpretive Data Percent cell count reference ranges are not reported, since discordance with absolute values may lead to misinterpretation of CBC data. Current Interpretive Data was last revised on 2017. Eosinophil pct 5.0 % [facility] ([place]) Comment: Interpretive Data Percent cell count reference ranges are not reported, since discordance with absolute values may lead to misinterpretation of CBC data. Current Interpretive Data was last revised on 2017. Basophil pct 0.6 % [facility] ([place]) Comment: Interpretive Data Percent cell count reference ranges are not reported, since discordance with absolute values may lead to misinterpretation of CBC data. Current Interpretive Data was last revised on 2017. Blood 06/13/2024 2:17 AM CDT 06/13/2024 3:50 AM CDT us Juan Antonio Farias MD LAB BLOOD ORDERABLES Final Resu lt [facility]I [facility] ([place]) 1 [facility] [place] [address] * (ABNORMAL) CBC with auto differential (06/13/2024 2:17 AM CDT) WBC 6.34 3.80 - 9.90 K/cumm Hgb 9.8(L) 11.9 - 15.5 g/dL [facility] ([place]) Hct 30.9(L) 35.6 - 45.5 % [facility] ([place]) Plt 167 150 - 400 K/cumm [facility] ([place]) MPV 10.6 9.1 - 12.3 fL [facility] ([place]) RBC 3.41(L) 3.90 - 5.20 M/cumm [facility] ([place]) MCV 90.6 81.3 - 96.4 fL [facility] ([place]) MCH 28.7 27.1 - 33.3 pg [facility] ([place]) MCHC 31.7(L) 32.3 - 35.7 g/dL [facility] ([place]) RDW CV 15.4(H) 11.1 - 14.9 % [facility] ([place]) RDW SD 51.2(H) 35.7 - 48.1 fL [facility] ([place]) NRBC abs 0.00 0.00 - 0.01 K/cumm [facility] ([place]) Blood 06/13/2024 2:17 AM CDT 06/13/2024 3:50 AM CDT us Juan Antonio Farias MD LAB BLOOD ORDERABLES Final Resu lt [facility] ([place]) 1 [facility] [place] [address] * Magnesium (06/13/2024 2:17 AM CDT) Magnesium 2.0 1.4 - 2.5 mg/dL Blood 06/13/2024 2:17 AM CDT 06/13/2024 3:50 AM CDT Juan Antonio Farias MD LAB BLOOD ORDERABLES Final Resu lt [facility] ([place] 1 [facility] Department [place] [address] * (ABNORMAL) Comprehensive metabolic panel (06/13/2024 2:17 AM CDT) Sodium 140 135 - 145 mmol/L Potassium, pl 3.5 3.3 - 4.9 mmol/L [facility] ([place]) Chloride 107 97 - 110 mmol/L [facility] ([place]) CO2 20(L) 22 - 32 mmol/L [facility] ([place]) Anion gap 13 2 - 15 mmol/L [facility] ([place]) BUN 7 6 - 25 mg/dL [facility] ([place]) Creatinine 0.59(L) 0.60 - 1.10 mg/dL [facility] ([place]) Glucose 98 70 - 199 mg/dL [facility] ([place]) [...] interpretive data was last revised 2022. Calcium 8.6 8.5 - 10.3 mg/dL [facility] ([place]) Bilirubin, total <0.2 0.1 - 1.2 mg/dL [facility] ([place]) Protein, pl 6.0(L) 6.5 - 8.5 g/dL [facility] ([place]) Albumin 3.0(L) 3.5 - 5.0 g/dL [facility] ([place]) Alk phos 82 40 - 130 Units/L [facility] ([place]) ALT 26 7 - 45 Units/L [facility] ([place]) AST 30 10 - 45 Units/L [facility] ([place]) Blood 06/13/2024 2:17 AM CDT 06/13/2024 3:50 AM CDT us Juan Antonio Farias MD LAB BLOOD ORDERABLES Final Resu lt [facility] ([place]) [address] [place] [address] [place] [address] * TRANSESOPHAGEAL ECHO (THAD) W DOPPLER/CF WO CONTRAST (06/12/2024 1:16 PM CDT) Anatomical Region Laterality Modality Ultrasound 06/12/2024 12:4 8 PM CDT Narrative 06/12/2024 1:26 PM CDT [address] [address] TRANSESOPHAGEAL ECHOCARDIOGRAM Patient Name: BHAVANA ESCAMILLA : 1955 Study Date: 06/12/2024 12:48:14 PM Gender: F Tech: AA Location: [id number] Ref Provider: TANNER WASHINGTON Height(Cm): BSA: Weight(Kg): Order Provider: TANNER WASHINGTON PROCEDURES: Transesophageal Echo Report: Transesophageal echocardiogram was performed in the echocardiography laboratory. The procedure was monitored with automatic blood pressure monitoring, ECG tracings, and pulse oximetry. Gag reflex was abolished with topical Cetacain. Moderate conscious sedation was achieved with fentanyl and versed. The transesophageal probe was placed in the esophagus posterior to the heart without any complications. The patient tolerated the procedure well. INDICATIONS: Endocarditis. FINDINGS: Left Ventricle: Normal global and regional left ventricular systolic function. LVEF of 60-65%. Right Ventricle: Normal right ventricular size. Normal right ventricular systolic function. Left Atrium: There is moderate enlargement of the left atrium. LA Appendage: No TAVON thrombus seen. Left atrial appendage velocity of 0.4 m/sec. Right Atrium: The right atrium is normal in size. Atrial Septum: No shunt by agitated saline injection. Mitral Valve: Normally functioning bioprothetic mitral valve prosthesis. The prosthesis is well seated. Physiologic MR noted. No valvular vegetation. Aortic Valve: Grossly normal appearing aortic valve. Trileaflet aortic valve. Tricuspid Valve: Grossly normal appearing tricuspid valve. There is mild to moderate tricuspid regurgitation. Pulmonic Valve: Normal pulmonic valve appearance and function with trace (physiologic) regurgitation. No evidence of pulmonic regurgitation. Pericardium: Normal pericardium with no significant pericardial effusion. Aorta: Normal aortic root size. Pulmonary Artery: Normal pulmonary artery size. Exam Interpreted: Read by Dr. Gastelum. CONCLUSIONS: 1. Normal global and regional left ventricular systolic function. LVEF of 60-65%. 2. Normal right ventricular size. Normal right ventricular systolic function. 3. There is moderate enlargement of the left atrium. 4. The right atrium is normal in size. 5. No shunt by agitated saline injection. 6. Normally functioning bioprothetic mitral valve prosthesis. The prosthesis is well seated. Physiologic MR noted. No valvular vegetation. 7. Grossly normal appearing aortic valve. Trileaflet aortic valve. 8. Grossly normal appearing tricuspid valve. There is mild to moderate tricuspid regurgitation. 9. Normal pulmonic valve appearance and function with trace (physiologic) regurgitation. No evidence of pulmonic regurgitation. 10. Normal pericardium with no significant pericardial effusion. 11. Normal aortic root size. 12. No TAVON thrombus seen. Left atrial appendage velocity of 0.4 m/sec. Electronically Signed By: Dr Norberto Gastelum 06/12/2024 1:25:35 PM CDT Procedure Note Norberto Gastelum MD - 06/12/[address] [place] [address] TRANSESOPHAGEAL ECHOCARDIOGRAM Patient Name: BHAVANA ESCAMILLA : 1955 Study Date: 06/12/2024 12:48:14 PM Gender: F Tech: AA Location: [id number] Ref Provider: TANNER WASHINGTON Height(Cm): BSA: Weight(Kg): Order Provider: TANNER WASHINGTON PROCEDURES: Transesophageal Echo Report: Transesophageal echocardiogram was performed in the echocardiographylaboratory. The procedure was monitored with automatic blood pressure monitoring, ECGtracings, and pulse oximetry. Gag reflex was abolished with topical Cetacain. Moderateconscious sedation was achieved with fentanyl and versed. The transesophageal probe was placed inthe esophagus posterior to the heart without any complications. The patient toleratedthe procedure well. INDICATIONS: Endocarditis. FINDINGS: Left Ventricle: Normal global and regional left ventricular systolic function. LVEF of 60-65%. Right Ventricle: Normal right ventricular size. Normal right ventricular systolicfunction. Left Atrium: There is moderate enlargement of the left atrium. LA Appendage: No TAVON thrombus seen. Left atrial appendage velocity of 0.4 m/sec. Right Atrium: The right atrium is normal in size. Atrial Septum: No shunt by agitated saline injection. Mitral Valve: Normally functioning bioprothetic mitral valve prosthesis. The prosthesisis well seated. Physiologic MR noted. No valvular vegetation. Aortic Valve: Grossly normal appearing aortic valve. Trileaflet aortic valve. Tricuspid Valve: Grossly normal appearing tricuspid valve. There is mild to moderatetricuspid regurgitation. Pulmonic Valve: Normal pulmonic valve appearance and function with trace (physiologic)regurgitation. No evidence of pulmonic regurgitation. Pericardium: Normal pericardium with no significant pericardial effusion. Aorta: Normal aortic root size. Pulmonary Artery: Normal pulmonary artery size. Exam Interpreted: Read by Dr. Gastelum. CONCLUSIONS: 1. Normal global and regional left ventricular systolic function. LVEF of 60-65%. 2. Normal right ventricular size. Normal right ventricular systolicfunction. 3. There is moderate enlargement of the left atrium. 4. The right atrium is normal in size. 5. No shunt by agitated saline injection. 6. Normally functioning bioprothetic mitral valve prosthesis. Theprosthesis is well seated. Physiologic MR noted. No valvular vegetation. 7. Grossly normal appearing aortic valve. Trileaflet aortic valve. 8. Grossly normal appearing tricuspid valve. There is mild to moderatetricuspid regurgitation. 9. Normal pulmonic valve appearance and function with trace (physiologic)regurgitation. No evidence of pulmonic regurgitation. 10. Normal pericardium with no significant pericardial effusion. 11. Normal aortic root size. 12. No TAVON thrombus seen. Left atrial appendage velocity of 0.4 m/sec. Electronically Signed By: Dr Norberto Gastelum 06/12/2024 1:25:35 PM CDT Tanner Washington DO CV ECHO PROCEDURES Fin al Result * Blood culture Blood (06/12/2024 10:01 AM CDT) Report Final Report: No growth Comment:Testing performed by : [facility], [address] [facility], [place]., [address] Blood 06/12/2024 10:0 1 AM CDT 06/12/2024 12:03 PM CDT Narrative [facility] ([facility]) - 06/16/2024 4:00 PM CDT From a different site than #1. Collection->Peripheral 1. Blood cultures are incubated for 4 days on a continuously monitored blood culture system. The first report of a negative culture is issued within 24 hours of receipt of the specimen in the laboratory. 2. Positive culture results are reported as soon as they are detected. 3. The most important factor for detection of microbes in the setting of bloodstream infection is the volume of blood submitted for culture. Failure to collect an optimal blood volume can result in false negative blood cultures. 4. For pediatric patients, the recommended blood volume to collect follows a weight based strategy. See the electronic test catalog for collection instructions. 5. For positive blood cultures, a rapid molecular test may be performed for organism identification using the shelly ePlex blood culture identification panel for gram positive (BCID-GP) and gram negative (BCID-GN) organisms. This nucleic acid amplification test detects microbial DNA in positive blood culture broth. This assay has been cleared by the [place] Food and Drug Administration and its performance characteristics have been verified by the [facility]. For questions about this culture, contact the Microbiology Laboratory at [phone]. Interpretive data was last revised on 23. Tanner Washington DO LAB MICROBIOLOGY - GEN ERAL ORDERABLES Final Result ANTONI KEBEDE) 1 [facility] [place] [address] * Blood culture Blood (06/12/2024 9:52 AM CDT) Report Final Report: No growth Comment:Testing performed by : [facility], 1 [place] [address] Blood 06/12/2024 9:52 AM CDT 06/12/2024 12:03 PM CDT Narrative [facility] ([place]) - 06/16/2024 4:00 PM CDT Collection->Peripheral 1. Blood cultures are incubated for 4 days on a continuously monitored blood culture system. The first report of a negative culture is issued within 24 hours of receipt of the specimen in the laboratory. 2. Positive culture results are reported as soon as they are detected. 3. The most important factor for detection of microbes in the setting of bloodstream infection is the volume of blood submitted for culture. Failure to collect an optimal blood volume can result in false negative blood cultures. 4. For pediatric patients, the recommended blood volume to collect follows a weight based strategy. See the electronic test catalog for collection instructions. 5. For positive blood cultures, a rapid molecular test may be performed for organism identification using the shelly ePlex blood culture identification panel for gram positive (BCID-GP) and gram negative (BCID-GN) organisms. This nucleic acid amplification test detects microbial DNA in positive blood culture broth. This assay has been cleared by the [place] Food and Drug Administration and its performance characteristics have been verified by the [facility]. For questions about this culture, contact the Microbiology Laboratory at [phone]. Interpretive data was last revised on 23. Tanner Washington DO LAB MICROBIOLOGY - GEN ERAL ORDERABLES Final Result [facility] ([place]) 1 [facility] Department [place] [address] * eGFR (06/12/2024 2:49 AM CDT) eGFR >90 >=60 mL/min/1. 73 [...] interpretive data was last reviewed 2020. Blood 06/12/2024 2:49 AM CDT 06/12/2024 3:20 AM CDT us Juan Antonio Farias MD LAB BLOOD ORDERABLES Final Resu lt [facility] ([place]) 1 [facility] Department [place] [address] * (ABNORMAL) Differential, auto (06/12/2024 2:49 AM CDT) Neutrophil abs 2.43 1.50 - 6.50 K/cumm Imm gran abs 0.01 0.00 - 0.10 K/cumm [facility] ([place]) Lymphocyte abs 1.19 0.80 - 3.30 K/cumm [facility] ([place]) Monocyte abs 0.83(H) 0.20 - 0.80 K/cumm [facility] ([place]) Eosinophil abs 0.12 0.00 - 0.50 K/cumm [facility] ([place]) Basophil abs 0.03 0.00 - 0.10 K/cumm [facility] ([place]) Neutrophil pct 52.7 % [facility] ([place]) Comment: Interpretive Data Percent cell count reference ranges are not reported, since discordance with absolute values may lead to misinterpretation of CBC data. Current Interpretive Data was last revised on 2017. Imm gran pct 0.2 % [facility] ([place]) Comment: Interpretive Data Percent cell count reference ranges are not reported, since discordance with absolute values may lead to misinterpretation of CBC data. Current Interpretive Data was last revised on 2017. Lymphocyte pct 25.8 % [facility] ([place]) Comment: Interpretive Data Percent cell count reference ranges are not reported, since discordance with absolute values may lead to misinterpretation of CBC data. Current Interpretive Data was last revised on 2017. Monocyte pct 18.0 % [facility] ([place]) Comment: Interpretive Data Percent cell count reference ranges are not reported, since discordance with absolute values may lead to misinterpretation of CBC data. Current Interpretive Data was last revised on 2017. Eosinophil pct 2.6 % [facility] ([place]) Comment: Interpretive Data Percent cell count reference ranges are not reported, since discordance with absolute values may lead to misinterpretation of CBC data. Current Interpretive Data was last revised on 2017. Basophil pct 0.7 % [facility] ([place]) Comment: Interpretive Data Percent cell count reference ranges are not reported, since discordance with absolute values may lead to misinterpretation of CBC data. Current Interpretive Data was last revised on 2017. Blood 06/12/2024 2:49 AM CDT 06/12/2024 3:20 AM CDT us Juan Antonio Farias MD LAB BLOOD ORDERABLES Final Resu lt [facility] ([place]) 1 [facility] Department [place] [address] * (ABNORMAL) CBC with auto differential (06/12/2024 2:49 AM CDT) WBC 4.61 3.80 - 9.90 K/cumm Hgb 10.3(L) 11.9 - 15.5 g/dL [facility] ([place]) Hct 32.8(L) 35.6 - 45.5 % [facility] ([place]) Plt 115(L) 150 - 400 K/cumm [facility] ([place]) MPV 12.2 9.1 - 12.3 fL [facility] ([place]) RBC 3.51(L) 3.90 - 5.20 M/cumm [facility] ([place]) MCV 93.4 81.3 - 96.4 fL [facility] ([place]) MCH 29.3 27.1 - 33.3 pg [facility] ([place]) MCHC 31.4(L) 32.3 - 35.7 g/dL [facility] ([place]) RDW CV 15.7(H) 11.1 - 14.9 % [facility] ([place]) RDW SD 53.8(H) 35.7 - 48.1 fL [facility] ([place]) NRBC abs 0.00 0.00 - 0.01 K/cumm [facility] ([place]) Blood 06/12/2024 2:49 AM CDT 06/12/2024 3:20 AM CDT us Juan Antonio Farias MD LAB BLOOD ORDERABLES Final Resu lt [facility] ([place]) 1 [facility] Department [place] [address] * Magnesium (06/12/2024 2:49 AM CDT) Magnesium 2.0 1.4 - 2.5 mg/dL Blood 06/12/2024 2:49 AM CDT 06/12/2024 3:20 AM CDT Juan Antonio Farias MD LAB BLOOD ORDERABLES Final Resu lt [facility] ([place]) 1 [facility] Department [place] [address] * (ABNORMAL) Comprehensive metabolic panel (06/12/2024 2:49 AM CDT) Sodium 137 135 - 145 mmol/L Potassium, pl 3.1(L) 3.3 - 4.9 mmol/L [facility] ([place]) Chloride 106 97 - 110 mmol/L [facility] ([place]) CO2 19(L) 22 - 32 mmol/L [facility] ([place]) Anion gap 12 2 - 15 mmol/L [facility] ([place]) BUN 10 6 - 25 mg/dL [facility] ([place]) Creatinine 0.68 0.60 - 1.10 mg/dL [facility] ([place]) Glucose 109 70 - 199 mg/dL [facility] ([place]) [...] interpretive data was last revised 2022. Calcium 8.3(L) 8.5 - 10.3 mg/dL [facility] ([place]) Bilirubin, total 0.3 0.1 - 1.2 mg/dL [facility] ([place]) Protein, pl 5.5(L) 6.5 - 8.5 g/dL [facility] ([place]) Albumin 2.6(L) 3.5 - 5.0 g/dL [facility] ([place]) Alk phos 75 40 - 130 Units/L [facility] ([place]) ALT 32 7 - 45 Units/L [facility] ([place]) AST 42 10 - 45 Units/L [facility] ([place]) Comment:Slightly Hemolyzed S pecimen Blood 06/12/2024 2:49 AM CDT 06/12/2024 3:20 AM CDT Juan Antonio Farias MD LAB BLOOD ORDERABLES Final Resu lt [facility] ([place]) 1 [facility] [place] [address] * eGFR (06/11/2024 2:29 AM CDT) eGFR >90 >=60 mL/min/1. 73 [...] interpretive data was last reviewed 2020. Blood 06/11/2024 2:29 AM CDT 06/11/2024 3:32 AM CDT us Juan Antonio Farias MD LAB BLOOD ORDERABLES Final Resu lt [facility] ([place]) 1 [facility] [place] [address] * Differential, auto (06/11/2024 2:29 AM CDT) Neutrophil abs 3.18 1.50 - 6.50 K/cumm Imm gran abs 0.01 0.00 - 0.10 K/cumm [facility] ([place]) Lymphocyte abs 0.80 0.80 - 3.30 K/cumm [facility] ([place]) Monocyte abs 0.41 0.20 - 0.80 K/cumm [facility] ([place]) Eosinophil abs 0.01 0.00 - 0.50 K/cumm [facility] ([place]) Basophil abs 0.01 0.00 - 0.10 K/cumm [facility] ([place]) Neutrophil pct 72.0 % [facility] ([place]) Comment: Interpretive Data Percent cell count reference ranges are not reported, since discordance with absolute values may lead to misinterpretation of CBC data. Current Interpretive Data was last revised on 2017. Imm gran pct 0.2 % [facility] ([place]) Comment: Interpretive Data Percent cell count reference ranges are not reported, since discordance with absolute values may lead to misinterpretation of CBC data. Current Interpretive Data was last revised on 2017. Lymphocyte pct 18.1 % [facility] ([place]) Comment: Interpretive Data Percent cell count reference ranges are not reported, since discordance with absolute values may lead to misinterpretation of CBC data. Current Interpretive Data was last revised on 2017. Monocyte pct 9.3 % [facility] ([place]) Comment: Interpretive Data Percent cell count reference ranges are not reported, since discordance with absolute values may lead to misinterpretation of CBC data. Current Interpretive Data was last revised on 2017. Eosinophil pct 0.2 % [facility] ([facility]) Comment: Interpretive Data Percent cell count reference ranges are not reported, since discordance with absolute values may lead to misinterpretation of CBC data. Current Interpretive Data was last revised on 2017. Basophil pct 0.2 % [facility] ([place]) Comment: Interpretive Data Percent cell count reference ranges are not reported, since discordance with absolute values may lead to misinterpretation of CBC data. Current Interpretive Data was last revised on 2017. Blood 06/11/2024 2:29 AM CDT 06/11/2024 3:31 AM CDT Juan Antonio Farias MD LAB BLOOD ORDERABLES Final Resu lt [facility] ([place]) 1 [facility] [place] [address] * (ABNORMAL) CBC with auto differential (06/11/2024 2:29 AM CDT) WBC 4.42 3.80 - 9.90 K/cumm Hgb 10.1(L) 11.9 - 15.5 g/dL [facility] ([place]) Hct 31.8(L) 35.6 - 45.5 % [facility] ([place]) Plt 125(L) 150 - 400 K/cumm [facility] ([place]) MPV 11.1 9.1 - 12.3 fL [facility] ([place]) RBC 3.50(L) 3.90 - 5.20 M/cumm [facility] ([place]) MCV 90.9 81.3 - 96.4 fL [facility] ([place]) MCH 28.9 27.1 - 33.3 pg [facility] ([place]) MCHC 31.8(L) 32.3 - 35.7 g/dL [facility] ([place]) RDW CV 15.7(H) 11.1 - 14.9 % [facility] ([place]) RDW SD 51.8(H) 35.7 - 48.1 fL [facility] ([place]) NRBC abs 0.00 0.00 - 0.01 K/cumm [facility] ([place]) Blood 06/11/2024 2:29 AM CDT 06/11/2024 3:31 AM CDT us Juan Antonio Farias MD LAB BLOOD ORDERABLES Final Resu lt [facility]I BORGES ([place]) 1 [facility] [place] [address] * Magnesium (06/11/2024 2:29 AM CDT) Magnesium 2.0 1.4 - 2.5 mg/dL Blood 06/11/2024 2:29 AM CDT 06/11/2024 3:32 AM CDT us Juan Antonio Farias MD LAB BLOOD ORDERABLES Final Resu lt [facility] ([place]) 1 [facility] Department [place] [address] * (ABNORMAL) Comprehensive metabolic panel (06/11/2024 2:29 AM CDT) Sodium 136 135 - 145 mmol/L Potassium, pl 3.4 3.3 - 4.9 mmol/L [facility] ([place]) Chloride 105 97 - 110 mmol/L [facility] ([place]) CO2 20(L) 22 - 32 mmol/L [facility] ([place]) Anion gap 12 2 - 15 mmol/L [facility] ([place]) BUN 7 6 - 25 mg/dL [facility] ([place]) Creatinine 0.69 0.60 - 1.10 mg/dL [facility] ([place]) Glucose 96 70 - 199 mg/dL [facility] ([place]) [...] interpretive data was last revised 2022. Calcium 8.6 8.5 - 10.3 mg/dL [facility] ([place]) Bilirubin, total 0.3 0.1 - 1.2 mg/dL [facility] ([place]) Protein, pl 5.8(L) 6.5 - 8.5 g/dL [facility] ([place]) Albumin 2.9(L) 3.5 - 5.0 g/dL [facility] ([place]) Alk phos 78 40 - 130 Units/L [facility] ([place]) ALT 34 7 - 45 Units/L [facility] ([place]) AST 57(H) 10 - 45 Units/L [facility] ([place]) Comment:Slightly Hemolyzed S pecimen Blood 06/11/2024 2:29 AM CDT 06/11/2024 3:32 AM CDT us Juan Antonio Farias MD LAB BLOOD ORDERABLES Final Resu lt [facility] ([place]) 1 [facility] [place] [address] * (ABNORMAL) Blood culture Blood (06/10/2024 3:04 PM CDT) Direct Specimen Exam Stain: Gram Positive Cocci in pairs and chains Time to culture positivity (anaerobic media): 13.4 hours Comment:Testing performed by : [facility], [address] [place]., [address] Report Final Report: Enterococcus faecalis For susceptibility results, refer to accession number [id number] on the blood culture from 06/09/2024 (.) [facility] ([place]) Comment:Testing performed by : [facility], [address] [place]., [address] Organism ENTEROCOCCUS FAECALIS [facility] ([place]) Blood 06/10/2024 3:04 PM CDT 06/10/2024 6:43 PM CDT Narrative [facility] ([place]) - 06/15/2024 12:21 PM CDT From a different site than #1. Collection->Peripheral 1. Blood cultures are incubated for 4 days on a continuously monitored blood culture system. The first report of a negative culture is issued within 24 hours of receipt of the specimen in the laboratory. 2. Positive culture results are reported as soon as they are detected. 3. The most important factor for detection of microbes in the setting of bloodstream infection is the volume of blood submitted for culture. Failure to collect an optimal blood volume can result in false negative blood cultures. 4. For pediatric patients, the recommended blood volume to collect follows a weight based strategy. See the electronic test catalog for collection instructions. 5. For positive blood cultures, a rapid molecular test may be performed for organism identification using the shelly ePlex blood culture identification panel for gram positive (BCID-GP) and gram negative (BCID-GN) organisms. This nucleic acid amplification test detects microbial DNA in positive blood culture broth. This assay has been cleared by the [place] Food and Drug Administration and its performance characteristics have been verified by the [facility]. For questions about this culture, contact the Microbiology Laboratory at [phone]. Interpretive data was last revised on 23. Yun Tierney NP LAB MICROBIOLOGY - GENERAL ORDERABLES Final Result [facility] B[facility] ([place]) 1 [facility] Department [place] [address] * Blood culture Blood (06/10/2024 2:57 PM CDT) Report Final Report: No growth Comment:Testing performed by : [facility], 1 [facility] [place]., [address] Blood 06/10/2024 2:57 PM CDT 06/10/2024 6:43 PM CDT Narrative [facility] B[facility] ([place]) - 06/15/2024 7:00 AM CDT Collection->Peripheral 1. Blood cultures are incubated for 4 days on a continuously monitored blood culture system. The first report of a negative culture is issued within 24 hours of receipt of the specimen in the laboratory. 2. Positive culture results are reported as soon as they are detected. 3. The most important factor for detection of microbes in the setting of bloodstream infection is the volume of blood submitted for culture. Failure to collect an optimal blood volume can result in false negative blood cultures. 4. For pediatric patients, the recommended blood volume to collect follows a weight based strategy. See the electronic test catalog for collection instructions. 5. For positive blood cultures, a rapid molecular test may be performed for organism identification using the shelly ePlex blood culture identification panel for gram positive (BCID-GP) and gram negative (BCID-GN) organisms. This nucleic acid amplification test detects microbial DNA in positive blood culture broth. This assay has been cleared by the [place] Food and Drug Administration and its performance characteristics have been verified by the [facility]. For questions about this culture, contact the Microbiology Laboratory at [phone]. Interpretive data was last revised on 23. Yun Tierney NP LAB MICROBIOLOGY - GENERAL ORDERABLES Final Result [facility] B[facility] ([place]) 1 [facility] [place] [address] * CT Chest WO Contrast (06/10/2024 1:45 PM CDT) Anatomical Region Laterality Modality Body N/A Computed Tomogra phy 06/10/2024 2:42 PM CDT Narrative 06/10/2024 2:51 PM CDT EXAM DESCRIPTION: CT CHEST WO CONTRAST REASON FOR STUDY: leukocytosis, fever, positive procalcitonin, eval for pneumonia - XR nondiagnostic Dry cough and sob that started several days ago that is now resolved TECHNIQUE: CT scan of the chest performed without intravenous contrast using helical scanning technique. Reconstructed coronal and sagittal MPR images reviewed. All images stored on PACS. Automated exposure control was used as a dose optimization technique for this examination. COMPARISON: 02/06/2024 FINDINGS: The sensitivity for detection of solid visceral lesions is diminished without the use of intravenous contrast. LUNGS: Moderate emphysema. Areas of scarring bilaterally. Atelectasis in the lung bases. 4 mm nodule right lower lobe appears stable axial image 58 of 104. A left lower lobe pulmonary nodule is diminished in size now measuring 3 mm previously 6 mm. This may be inflammatory in nature. PLEURA: No effusion. No pneumothorax. MEDIASTINUM/KEVIN: No identified masses or abnormal nodes. HEART: Heart size is normal with no pericardial effusion. CORONARY ARTERY CALCIFICATION: Moderate to severe VASCULATURE: No thoracic aortic aneurysm. Severe atheromatous vascular calcifications. AXILLA: No adenopathy. CHEST WALL: No masses. No subcutaneous air. HARDWARE/LINES/TUBES: None. UPPER ABDOMEN: No significant abnormality. MUSCULOSKELETAL: Stable [id number] compression deformity of T12. OTHER: No other significant abnormality. IMPRESSION: Moderate emphysema. No acute appearing infiltrate. Stable 4 mm nodule right lower lobe. Per Fleischner Society Guidelines, no follow-up needed if patient is low-risk (and has no known or suspected primary neoplasm). Non-contrast chest CT can be considered in 12 months if patient is high-risk. Left lower lobe pulmonary nodule is diminished in size now measuring 3 mm previously 6 mm. This may be inflammatory in nature. THIS IS AN ELECTRONICALLY VERIFIED FINAL REPORT 06/10/2024 2:51 PM - Electronically signed by Raf De Anda M.D. RW: [email or web address] Report ID: [id number] Reading Location: [id number] Procedure Note Raf De Anda MD - 06/10/2024 EXAM DESCRIPTION: CT CHEST WO CONTRAST REASON FOR STUDY: leukocytosis, fever, positive procalcitonin, eval for pneumonia - XR nondiagnostic Dry cough and sob that started several days ago that is now resolved TECHNIQUE: CT scan of the chest performed without intravenous contrastusing helical scanning technique. Reconstructed coronal and sagittal MPR images reviewed. All images stored on PACS. Automated exposure control was usedas a dose optimization technique for this examination. COMPARISON: 02/06/2024 FINDINGS: The sensitivity for detection of solid visceral lesions is diminishedwithout the use of intravenous contrast. LUNGS: Moderate emphysema. Areas of scarring bilaterally. Atelectasisin the lung bases. 4 mm nodule right lower lobe appears stable axial image58 of 104. A left lower lobe pulmonary nodule is diminished in size nowmeasuring 3 mm previously 6 mm. This may be inflammatory in nature. PLEURA: No effusion. No pneumothorax. MEDIASTINUM/KEVIN: No identified masses or abnormal nodes. HEART: Heart size is normal with no pericardial effusion. CORONARY ARTERY CALCIFICATION: Moderate to severe VASCULATURE: No thoracic aortic aneurysm. Severe atheromatous vascular calcifications. AXILLA: No adenopathy. CHEST WALL: No masses. No subcutaneous air. HARDWARE/LINES/TUBES: None. UPPER ABDOMEN: No significant abnormality. MUSCULOSKELETAL: Stable ruhy-[id number] compression deformity of T12. OTHER: No other significant abnormality. IMPRESSION: Moderate emphysema. No acute appearing infiltrate. Stable 4 mm nodule right lower lobe. Per Fleischner Society Guidelines,no follow-up needed if patient is low-risk (and has no known or suspectedprimary neoplasm). Non-contrast chest CT can be considered in 12 months if patientis high-risk. Left lower lobe pulmonary nodule is diminished in size now measuring 3 mm previously 6 mm. This may be inflammatory in nature. THIS IS AN ELECTRONICALLY VERIFIED FINAL REPORT 06/10/2024 2:51 PM - Electronically signed by Raf De Anda M.D. RW: [email or web address] Report ID: [id number] Reading Location: [id number] us Yun Tierney NP IMG CT PROCEDURES F inal Result * Lactate (06/10/2024 6:53 AM CDT) Lactate 0.7 0.7 - 2.0 mmol/L Blood 06/10/2024 6:53 AM CDT 06/10/2024 6:56 AM CDT us Juan Antonio Farias MD LAB BLOOD ORDERABLES Final Resu lt [facility] BORGES ([place]) 1 [facility] [place] [address] * eGFR (06/10/2024 6:53 AM CDT) eGFR 78 >=60 mL/min/1. 73 m2 Comment: Interpretive Data [...] Inclusion of Race in Diagnosing Kidney Disease, SN 2020). The CKD-EPI equation should not be used for patients with unstable renal function and has not been validated in children and those over 70. Current interpretive data was last reviewed 2020. Blood 06/10/2024 6:53 AM CDT 06/10/2024 6:56 AM CDT us Juan Antonio Farias MD LAB BLOOD ORDERABLES Final Resu lt [facility] ([place]) 1 [facility] [place] [address] * (ABNORMAL) Differential, auto (06/10/2024 6:53 AM CDT) Neutrophil abs 9.52(H) 1.50 - 6.50 K/cumm Imm gran abs 0.06 0.00 - 0.10 K/cumm [facility] ([place]) Lymphocyte abs 0.78(L) 0.80 - 3.30 K/cumm [facility] ([place]) Monocyte abs 0.63 0.20 - 0.80 K/cumm [facility] ([place]) Eosinophil abs 0.00 0.00 - 0.50 K/cumm [facility] ([place]) Basophil abs 0.02 0.00 - 0.10 K/cumm [facility] ([place]) Neutrophil pct 86.5 % [facility] ([place]) Comment: Interpretive [...] was last revised on 2017. Lymphocyte pct 7.1 % [facility] ([place]) Comment: Interpretive Data Percent cell count reference ranges are not reported, since discordance with absolute values may lead to misinterpretation of CBC data. Current Interpretive Data was last revised on 2017. Monocyte pct 5.7 % [facility] ([place]) Comment: Interpretive Data Percent cell count reference ranges are not reported, since discordance with absolute values may lead to misinterpretation of CBC data. Current Interpretive Data was last revised on 2017. Eosinophil pct 0.0 % [facility] ([place]) Comment: Interpretive Data Percent cell count reference ranges are not reported, since discordance with absolute values may lead to misinterpretation of CBC data. Current Interpretive Data was last revised on 2017. Basophil pct 0.2 % [facility] ([place]) Comment: Interpretive Data Percent cell count reference ranges are not reported, since discordance with absolute values may lead to misinterpretation of CBC data. Current Interpretive Data was last revised on 2017. Blood 06/10/2024 6:53 AM CDT 06/10/2024 6:56 AM CDT Juan Antonio Farias MD LAB BLOOD ORDERABLES Final Resu lt Performing Organization Address City/[facility]/ZIP Co de Phone Number ANTONI BORGES ([place]) 1 [facility] [place] [address] * (ABNORMAL) Procalcitonin (06/10/2024 6:53 AM CDT) Pathologist [facility] Procalcitonin 0.42(H) <=0.25 ng/mL Comment:Testing performed by : [facility], [facility] [facility], [place]., [address] Blood 06/10/2024 6:53 AM CDT 06/10/2024 11:36 AM CDT us Juan Antonio Farias MD LAB BLOOD ORDERABLES Final Resu lt [facility] BORG[facility] ([place]) 1 [facility] [place] [address] * (ABNORMAL) CBC with auto differential (06/10/2024 6:53 AM CDT) WBC 11.01(H) 3.80 - 9.90 K/cumm Hgb 10.5(L) 11.9 - 15.5 g/dL [facility] ([place]) Hct 32.9(L) 35.6 - 45.5 % [facility] ([place]) Plt 122(L) 150 - 400 K/cumm [facility] ([place]) MPV 9.8 9.1 - 12.3 fL [facility] ([place]) RBC 3.62(L) 3.90 - 5.20 M/cumm [facility] ([place]) MCV 90.9 81.3 - 96.4 fL [facility] ([place]) MCH 29.0 27.1 - 33.3 pg [facility] ([place]) MCHC 31.9(L) 32.3 - 35.7 g/dL [facility] ([place]) RDW CV 15.3(H) 11.1 - 14.9 % [facility] ([place]) RDW SD 51.0(H) 35.7 - 48.1 fL [facility] ([place]) NRBC abs 0.00 0.00 - 0.01 K/cumm [facility] ([place]) Blood 06/10/2024 6:53 AM CDT 06/10/2024 6:56 AM CDT us Juan Antonio Farias MD LAB BLOOD ORDERABLES Final Resu lt Performing Organization Address City/[facility]/ZIP Co de Phone Number ANTONI BORGES ([place]) 1 [facility] [place] [address] * Magnesium (06/10/2024 6:53 AM CDT) Magnesium 1.7 1.4 - 2.5 mg/dL Blood 06/10/2024 6:53 AM CDT 06/10/2024 6:56 AM CDT Juan Antonio Farias MD LAB BLOOD ORDERABLES Final Resu lt ANTONI BORGES ([place]) [address] [place] [address] * Ethanol (06/10/2024 6:53 AM CDT) Ethanol <10 <=10 mg/dL Comment: Interpretive Data Legal limit of intoxication > or = 80 mg/dL Levels > or = 400 mg/dL are potentially TOXIC. Current interpretive data was last revised on 2018. Blood 06/10/2024 6:53 AM CDT 06/10/2024 6:56 AM CDT us Juan Antonio Farias MD LAB BLOOD ORDERABLES Final Resu lt [facility] ([place]) 1 [facility] [place] [address] * (ABNORMAL) Comprehensive metabolic panel (06/10/2024 6:53 AM CDT) Pathologist [facility] Sodium 137 135 - 145 mmol/L Potassium, pl 3.4 3.3 - 4.9 mmol/L [facility] ([place]) Chloride 106 97 - 110 mmol/L [facility] ([place]) CO2 19(L) 22 - 32 mmol/L [facility] ([place]) Anion gap 12 2 - 15 mmol/L [facility] ([place]) BUN 9 6 - 25 mg/dL [facility] ([place]) Creatinine 0.82 0.60 - 1.10 mg/dL [facility] ([place]) Glucose 113 70 - 199 mg/dL [facility] ([place]) Comment: Interpretive Data Fasting glucose >/= [...] interpretive data was last revised 2022. Calcium 8.3(L) 8.5 - 10.3 mg/dL [facility] ([place]) Bilirubin, total 0.3 0.1 - 1.2 mg/dL [facility] ([place]) Protein, pl 5.8(L) 6.5 - 8.5 g/dL [facility] ([place]) Albumin 3.1(L) 3.5 - 5.0 g/dL [facility] ([place]) Alk phos 75 40 - 130 Units/L [facility] ([place]) ALT 21 7 - 45 Units/L [facility] ([place]) AST 32 10 - 45 Units/L [facility] ([place]) Blood 06/10/2024 6:53 AM CDT 06/10/2024 6:56 AM CDT us Juan Antonio Farias MD LAB BLOOD ORDERABLES Final Resu lt [facility] 1 [facility] [place] [address] * Lipid panel (06/10/2024 6:48 AM CDT) Cholesterol 109 30 - 199 mg/dL Comment: Interpretive Data Ages < or = 19 years Acceptable: <170 mg/dL Borderline high: 170-199 mg/dL High: >or= 200 mg/dL Ages > or = 20 years Desirable: <200 mg/dL Borderline high: 200-239 mg/dL High: >or= 240 mg/dL Literature References: 1. Expert Panel on Integrated Guidelines for Cardiovascular Health and Risk Reduction in Children and Adolescents. Pediatrics 2011;128:S213 2. NCEP Expert Panel. Circulation 2004;110:227 Current Interpretive Data was last revised on 2017. Triglycerides 114 <=149 mg/dL [facility] ([place]) Comment: Interpretive Data Ages < or = 9 years Acceptable: <75 mg/dL Borderline high: 75-99 mg/dL High: >or= 100 mg/dL Ages 10 to 20 years Acceptable: <90 mg/dL Borderline high: 90-129 mg/dL High: >or= 130 mg/dL Ages > or = 20 years Desirable: <150 mg/dL Borderline high: 150-199 mg/dL High: 200-499 mg/dL Very high: >or= 499 mg/dL Literature References: 1. Expert Panel on Integrated Guidelines for Cardiovascular Health and Risk Reduction in Children and Adolescents. Pediatrics 2011;128:S213 2. NCEP Expert Panel. Circulation 2004;110:227 Current Interpretive Data was last revised on 2017. HDL 43 >=40 mg/dL ANTONI Kulkarni ([place]) Comment: Interpretive Data Ages < or = 19 years Acceptable: >45 mg/dL Borderline low: 40-45 mg/dL Low: <40 mg/dL Ages > or = 20 years Desirable: >or= 60 mg/dL Low: <40 mg/dL Literature References: 1. Expert Panel on Integrated Guidelines for Cardiovascular Health and Risk Reduction in Children and Adolescents. Pediatrics 2011;128:S213 2. NCEP Expert Panel. Circulation 2004;110:227 Current Interpretive Data was last revised on 2017. LDL, calculated 45 <=129 mg/dL [facility] BORGES ([place]) Comment: Interpretive Data Ages < or = 19 years Acceptable: <110 mg/dL Borderline high: 110-129 mg/dL High: >or= 130 mg/dL Ages > or = 20 years Optimal: <100 mg/dL Near optimal: 100-129 mg/dL Borderline high: 130-159 mg/dL High: >160 mg/dL Calculated using the Yoandy LDL-C estimating equation. This equation was implemented on 2023. Prior to this date LDL-C was estimated using the Friedewald equation. Literature References: 1. Expert Panel on Integrated Guidelines for Cardiovascular Health and Risk Reduction in Children and Adolescents. Pediatrics 2011;128:S213 2. NCEP Expert Panel. Circulation 2004;110:227 3. Yoandy Jin al. DEJA Cardiol. 2020 June 11;5(5):540-548. doi: 10.1001/jamacardio.2020.0013 Current Interpretive Data was last revised on 2023. Non-HDL Cholesterol 66 mg/dL [facility]I BORGES ([place]) Comment: Interpretive Data Ages < or = 19 years Acceptable: <120 mg/dL Borderline high: 120-144 mg/dL High: >145 mg/dL Ages > or = 20 years When triglycerides are >200 mg/dL, Non-HDL cholesterol is a secondary target of therapy with treatment goals that are 30 mg/dL greater than the LDL cholesterol target. Literature References: 1. Expert Panel on Integrated Guidelines for Cardiovascular Health and Risk Reduction in Children and Adolescents. Pediatrics 2011;128:S213 2. NCEP Expert Panel. Circulation 2004;110:227 Current Interpretive Data was last revised on 2017. Chol/HDL ratio 3 [facility] ([place]) Blood 06/10/2024 6:48 AM CDT 06/10/2024 9:59 AM CDT Narrative [facility] ([place]) - 06/10/2024 10:17 AM CDT May run on this a.m. blood if possible. If not possible, draw the blood at 6:00 a.m. tomorrow morning. us Norberto Gastelum MD LAB BLOOD ORDERABLES Final Re sult [facility] ([place]) 1 [facility] [place] [address] * Influenza A/B, RSV, and COVID-19 PCR Nasopharyngeal (06/10/2024 5:58 AM CDT) COVID-19 RNA Negative Negative Influenza A RNA Negative Negative [facility] ([place]) Influenza B RNA Negative Negative [facility] ([place]) RSV RNA Negative Negative [facility] ([place]) Comment: Interpretive data: Testing performed by [facility]. This test is performed using the [employer] Xpert Xpress CoV-2/Flu/RSV plus assay. This is a multiplex, real- time reverse transcriptase PCR assay intended for the qualitative detection of nucleic acid from SARS-CoV-2, influenza A, influenza B, and respiratory syncytial virus. This assay has been cleared by the [place] Food and Drug administration. The performance characteristics have been verified by the [facility]. Results must be considered in the clinical context, and a negative result does not rule out infection. Interpretive Data last revised 2023 Nasopharyngeal 06/10/2024 5: 58 AM CDT 06/10/2024 6:05 AM CDT Narrative ANTONI KATERINA ([place]) - 06/10/2024 6:54 AM CDT Is the Patient experiencing symptoms consistent with COVID?->Yes Juan Antonio Farias MD LAB MICROBIOLOGY - [facility]UNA BARNEY Final Result ANTONI BORGES ([place]) 1 [facility] [place] [address] * Drugs of Abuse Screen, Urine with Reflex Confirmation (06/10/2024 3:38 AM CDT) Pathologist [facility] Amphetamine, ur Not Detected CutOff 500ng/mL Comment: Interpretive Data - Amphetamines: Samples containing greater than 500 ng/mL d-methamphetamine or other cross-reacting amphetamine compounds are reported as positive. Amphetamine immunoassays are subject to significant false positive rates due to cross-reactivity of non-amphetamine drugs. Confirmatory testing required for definitive results. Current Interpretive Data was last reviewed 2022. Barbiturates, ur Not Detected CutOff 200ng/mL [facility] BORG[facility] ([place]) Comment: Interpretive Data - Barbiturates: Samples containing greater than 200 ng/mL secobarbital or other cross-reacting barbiturate compounds are reported as positive. False positive and false negative results are possible. Confirmatory testing required for definitive results. Current Interpretive Data was last reviewed 2022. Benzodiazepines, ur Not Detected CutOff 100ng/mL [facility] BORG[facility] ([place]) Comment: Interpretive Data - Benzodiazepines: Samples containing greater than 100 ng/mL nordiazepam or other cross-reacting compounds are reported as positive. False positive and false negative results are possible. Confirmatory testing required for definitive results. Current Interpretive Data was last reviewed 2022. Cannabinoids, ur Not Detected CutOff 50 ng/mL [facility]OR[facility] ([place]) Comment: Interpretive Data - Cannabinoids: Samples containing greater than 50 ng/mL delta-9 THC -COOH or other cross- reacting compounds are reported as positive. False positive and false negative results are possible. Confirmatory testing required for definitive results. Current Interpretive Data was last reviewed 2022. Cocaine, ur Not Detected CutOff 150ng/mL [facility]OR[facility] ([place]) Comment: Interpretive Data - Cocaine: Samples containing greater than 150 ng/mL benzoylecgonine or other cross- reacting compounds are reported as positive. False positive and false negative results are possible. Confirmatory testing required for definitive results. Current Interpretive Data was last reviewed 2022. Fentanyl, Ur Not Detected CutOff 5 ng/mL [facility] ([place]) Comment: Interpretive Data - Fentanyl: Samples containing greater than 5 ng/mL norfentanyl, fentanyl, or other cross-reacting fentanyl compounds are reported as positive. False positive and false negative results are possible. Confirmatory testing required for definitive results. Current Interpretive Data was last reviewed 2023. Methadone, ur Not Detected CutOff 300ng/mL [facility] ([place]) Comment: Interpretive Data - Methadone: Samples containing greater than 300 ng/mL d,l-methadone or other cross-reacting compounds are reported as positive. False positive and false negative results are possible. Confirmatory testing required for definitive results. Current Interpretive Data was last reviewed 2022. Opiates, ur Not Detected CutOff 300ng/mL [facility] ([place]) Comment: Interpretive Data - Opiates: Samples containing greater than 300 ng/mL morphine or other cross-reacting compounds are reported as positive. False positive and false negative results are possible. Confirmatory testing required for definitive results. Current Interpretive Data was last reviewed 2022. Oxycodone, ur Not Detected CutOff 100ng/mL [facility] ([place]) Comment: Interpretive Data - Oxycodone: Samples containing greater than 100 ng/mL oxycodone or other cross-reacting compounds are reported as positive. False positive and false negative results are possible. Confirmatory testing required for definitive results. Current Interpretive Data was last reviewed 2022. Phencyclidine, ur Not Detected CutOff 25 ng/mL [facility] ([place]) Comment: Interpretive Data - Phencyclidine: Samples containing greater than 25 ng/mL phencyclidine or other cross-reacting compounds are reported as positive. False positive and false negative results are possible. Confirmatory testing required for definitive results. Current Interpretive Data was last reviewed 2022. Urine Creatinine 137 mg/dL [facility] ([place]) Comment: Interpretive Data Urine Creatinine: < 10 mg/dL is extremely dilute = or > 10 but < 20 mg/dL is dilute = or > 20 mg/dL is normal Current Interpretive Data was last revised on 2017. Urine 06/10/2024 3:38 AM CDT 06/10/2024 3:44 AM CDT Narrative ANTONI KATERINA ([place]) - 06/10/2024 4:27 AM CDT Drug of Abuse screening is performed by immunoassay for medical purposes only. This is not to be used for Pain Management purposes. If Detected, confirmation testing will be performed for Amphetamines, Cocaine, Fentanyl, Methadone, Opiates, Oxycodone or Phencyclidine. Juan Antonio Farias MD LAB URINE ORDERABLES Final Resu lt Performing Organization Address City/[facility]/ZIP Co de Phone Number ANTONI BORGES ([place]) [address] [place] [address] [employer] [place] [address] * MRSA Only (Staphylococcus aureus) PCR Nasal (06/10/2024 3:38 AM CDT) PCR Scrn, Methicillin resistant Staphylococcus aureus (MRSA) Not Detected Not Detected Comment: Interpretive Data Testing performed using Nucleic Acid Amplification with the [employer] Xpert MRSA NxG Assay. This assay detects target DNA from mecA, mecC and the SCCmec insertion site of Staphylococcus aureus using Real-Time PCR and has been cleared by the FDA. Performance characteristics have been verified by the [facility]. Current Interpretive Data was last revised on 2022 Nasal 06/10/2024 3:38 AM CDT 06/10/2024 3:44 AM CDT Juan Antonio Farias MD LAB MICROBIOLOGY - GENERAL ORDE RABLES Final Result AN[facility]I BORGES ([place]) [address] [place] [address] [place] [address] * (ABNORMAL) Troponin T high-sensitivity 2-hour (06/10/2024 12:02 AM CDT) Trop T hs 23(H) <=14 ng/L Comment: Interpretive Data For further hscTnT resources including the diagnostic algorithm and an aid in interpretation, copy and paste this link: https://nrl.testcatalog.org/show/hsTrop Current Interpretive Data last revised 2019. Trop T hs delta -3 ng/L [facility] ([place]) Trop T hs interp Insignificant [facility] ([place]) Blood 06/10/2024 12:0 2 AM CDT 06/10/2024 12:08 AM CDT us Prabhu Davis MD LAB BLOOD ORDERABLES Final R esult [facility] ([place]) 1 [facility] [place] [address] * CT Abdomen Pelvis WO Contrast (06/09/2024 11:27 PM CDT) Anatomical Region Laterality Modality Body N/A Computed Tomogra phy 06/09/2024 11:5 2 PM CDT Narrative 06/09/2024 11:59 PM CDT EXAM DESCRIPTION: CT ABDOMEN PELVIS WO CONTRAST REASON FOR STUDY: Abdominal pain, acute, nonlocalized Patient complains of abdominal pain and diarrhea today. TECHNIQUE: CT scan of the abdomen and pelvis performed without intravenous and without oral contrast using helical scanning technique. Reconstructed coronal and sagittal MPR images reviewed. All images stored on PACS. Automated exposure control was used as a dose optimization technique for this examination. COMPARISON: 11/28/2023 FINDINGS: The sensitivity for detection of visceral lesions is diminished without the use of intravenous contrast. LOWER CHEST: No significant pulmonary abnormalities. No effusion. Emphysematous changes at the lung bases. LIVER: Normal size. No identified cystic or solid masses. GALLBLADDER: No stones identified. No wall thickening or inflammatory changes. BILE DUCTS: No intrahepatic or extrahepatic ductal dilatation. SPLEEN: Normal size. No focal lesions. PANCREAS: No identified cystic or solid masses. No significant calcifications. No adjacent inflammation or peripancreatic fluid collections. Pancreatic duct not dilated. ADRENALS: Normal. KIDNEYS/URINARY TRACT: No identified significant cystic or solid masses. Punctate nonobstructing right renal stones. Bilateral renal vascular calcification. No hydronephrosis or hydroureter. Urinary bladder is unremarkable. GI: No dilated bowel loops. No obvious wall thickening. Normal appendix. Scattered diverticular disease without diverticulitis. PERITONEUM: No ascites or free air. RETROPERITONEUM: No mass or adenopathy. REPRODUCTIVE: No significant abnormality. VASCULATURE: No abdominal aortic aneurysm. Aorto bi-iliac stent. MUSCULOSKELETAL: Multilevel degenerative changes are present without fracture. No concerning lesions are present. Stable chronic compression deformity of T12. OTHER: No other abnormality. IMPRESSION: Emphysematous changes at the lung bases. Punctate nonobstructing right renal stones. Diverticulosis. No evidence of diverticulitis. THIS IS AN ELECTRONICALLY VERIFIED FINAL REPORT 06/09/2024 11:59 PM - Electronically signed by Gabriele Pelletier M.D. KT: TITO Report ID: [id number] Reading Location: [place] [address] Procedure Note Gabriele Pelletier MD - 06/10/2024 EXAM DESCRIPTION: CT ABDOMEN PELVIS WO CONTRAST REASON FOR STUDY: Abdominal pain, acute, nonlocalized Patient complains of abdominal pain and diarrhea today. TECHNIQUE: CT scan of the abdomen and pelvis performed without intravenousand without oral contrast using helical scanning technique. Reconstructed coronal and sagittal MPR images reviewed. All images stored on PACS.Automated exposure control was used as a dose optimization technique for this examination. COMPARISON: 11/28/2023 FINDINGS: The sensitivity for detection of visceral lesions is diminished withoutthe use of intravenous contrast. LOWER CHEST: No significant pulmonary abnormalities. No effusion. Emphysematous changes at the lung bases. LIVER: Normal size. No identified cystic or solid masses. GALLBLADDER: No stones identified. No wall thickening or inflammatory changes. BILE DUCTS: No intrahepatic or extrahepatic ductal dilatation. SPLEEN: Normal size. No focal lesions. PANCREAS: No identified cystic or solid masses. No significant calcifications. No adjacent inflammation or peripancreatic fluidcollections. Pancreatic duct not dilated. ADRENALS: Normal. KIDNEYS/URINARY TRACT: No identified significant cystic or solid masses. Punctate nonobstructing right renal stones. Bilateral renal vascular calcification. No hydronephrosis or hydroureter. Urinary bladder is unremarkable. GI: No dilated bowel loops. No obvious wall thickening. Normal appendix. Scattered diverticular disease without diverticulitis. PERITONEUM: No ascites or free air. RETROPERITONEUM: No mass or adenopathy. REPRODUCTIVE: No significant abnormality. VASCULATURE: No abdominal aortic aneurysm. Aorto bi-iliac stent. MUSCULOSKELETAL: Multilevel degenerative changes are present without fracture. No concerning lesions are present. Stable chronic compression deformity of T12. OTHER: No other abnormality. IMPRESSION: Emphysematous changes at the lung bases. Punctate nonobstructing right renal stones. Diverticulosis. No evidence of diverticulitis. THIS IS AN ELECTRONICALLY VERIFIED FINAL REPORT 06/09/2024 11:59 PM - Electronically signed by Gabriele Pelletier M.D. KT: KT Report ID: [id number] Reading Location: [place] [address] Prabhu Davis MD IMG CT PROCEDURES Final Resu lt * (ABNORMAL) Urinalysis reflex to microscopic and culture Urine (06/09/2024 10:53 PM CDT) Color, ur Yellow Yellow Clarity, ur Turbid(A) Clear [facility] ([place]) Specific gravity, ur 1.018 1.003 - 1.030 [facility] ([place]) pH, urine 7.5 [facility] ([place]) Comment: Interpretive Data U rine pH is affected by diet, medications, systemic acid-base disturbances, and renal tubular function. pH may affect urinary stone formation. For example, urine pH below 6.0 may help reduce the tendency for calcium phosphate stones and pH greater than 6.0 may reduce the tendency for uric acid stone formation. Source: [employer] Current Interpretive Data was last revised on 2017 Protein, ur ql 2+(A) Negative [facility] ([place]) Glucose, ur ql Negative Negative [facility] ([place]) Ketones, ur 2+(A) Negative [facility] ([place]) Bilirubin, ur Negative Negative [facility] ([place]) Blood, ur Negative Negative [facility] ([place]) Urobilinogen, ur <2.0 <2.0 mg/dL [facility] ([place]) Nitrite, ur Negative Negative [facility] ([place]) Leukocyte esterase, ur Negative Negative [facility] ([place]) UA reflex comment Reflex to microscopic UA will be performed. [facility] ([place]) Urine 06/09/2024 10:5 3 PM CDT 06/09/2024 10:55 PM CDT Prabhu Davis MD LAB MICROBIOLOGY - GENERAL O RDERABLES Final Result Performing Organization Address [facility] de Phone Number [facility] ([place]) 1 [facility] [place] [address] * (ABNORMAL) Urinalysis, microscopic only (06/09/2024 10:53 PM CDT) Pathologist [facility] WBC, ur 0-5 0 - 5 /HPF RBC, ur 0-2 0 - 2 /HPF [facility] ([place]) Epithelial cells, squamous, ur 1-5 0 - 5 /HPF [facility] ([place]) Mucous, ur Present(A) [facility] ([place]) Hyaline casts, ur 1-5 0 - 10 /LPF [facility] ([place]) Culture Reflex Comment Reflex conditions for urine culture (WBC >10) not met. [facility] ([place]) Urine 06/09/2024 10:5 3 PM CDT 06/09/2024 10:55 PM CDT Prabhu Davis MD LAB URINE ORDERABLES Final R esult Performing Organization Address [facility] Co de Phone Number ANTONI BORGES ([place]) 1 [facility] [place] [address] * (ABNORMAL) Blood culture Blood (06/09/2024 10:35 PM CDT) Pathologist [facility] Direct Specimen Exam Molecular Analysis: Enterococcus faecalis detected by shelly ePlex BCID-G panel. Enterococcus faecalis is routinely susceptible to ampicillin. Genes conferring Vancomycin resistance were not detected. This test does not exclude the possibility of a mixed bacterial infection. Notification of: Enterococcus faecalis called to and read back by: Bety Ashton MLT [phone] on 06/10/2024 15:37:18 by: Stacey Escobedo MT Test result called to and read back by Renetta Blanco on 06/10/2024 15:42:54 by Bety [place] Comment:Testing performed by : [facility], [address] [place] [address]., [id number] Direct Specimen Exam Stain: Gram Positive Cocci in pairs and chains Time to culture positivity (aerobic media): 7.1 hours Time to culture positivity (anaerobic media): 7.7 hours Notification of: Gram Positive Cocci in pairs and chains called to and read back by: Reba Pacheco, [facility] [phone] on 06/10/2024 13:49:42 by: Selena Schsuter MT Test result called to and read back by Varsha Villalpando RN on 06/10/2024 13:53:33 by Reba Pacheco. ANTONI BORGES ([place]) Comment:Testing performed by : [facility], [address] [place] [address]., [id number] Report Final Report: Enterococcus faecalis For serious infections with Enterococcus species (such as endocarditis or endovascular graft infections), combination antimicrobial therapy is often required. In these cases, an Infectious Disease Consult is strongly recommended. (.) ANTONI BORGES ([place]) Comment:Testing performed by : [facility], [address] [place] [address]., [id number] Organism ENTEROCOCCUS FAECALIS ANTONI BORGES ([place]) Blood 06/09/2024 10:3 5 PM CDT 06/10/2024 5:59 AM CDT Narrative ANTONI BORGES ([place]) - 06/13/2024 8:22 AM CDT 1. Blood cultures are incubated for 4 days on a continuously monitored blood culture system. The first report of a negative culture is issued within 24 hours of receipt of the specimen in the laboratory. 2. Positive culture results are reported as soon as they are detected. 3. The most important factor for detection of microbes in the setting of bloodstream infection is the volume of blood submitted for culture. Failure to collect an optimal blood volume can result in false negative blood cultures. 4. For pediatric patients, the recommended blood volume to collect follows a weight based strategy. See the electronic test catalog for collection instructions. 5. For positive blood cultures, a rapid molecular test may be performed for organism identification using the shelly ePlex blood culture identification panel for gram positive (BCID-GP) and gram negative (BCID-GN) organisms. This nucleic acid amplification test detects microbial DNA in positive blood culture broth. This assay has been cleared by the [place] Food and Drug Administration and its performance characteristics have been verified by the [facility]. For questions about this culture, contact the Microbiology Laboratory at [phone]. Interpretive data was last revised on 23. Organism Antibiotic Method Susceptibility Enterococcus faecalis Ampicillin (ALYCIA) INTERPRETATIO N Susceptible Enterococcus faecalis Vancomycin (ALYCIA) INTERPRETATIO N Susceptible Enterococcus faecalis High-Level Gentamicin (ALYCIA) INTE RPRETATION Susceptible Enterococcus faecalis Linezolid (ALYCIA) INTERPRETATIO N Susceptible Enterococcus faecalis Doxycycline (ALYCIA) INTERPRETATIO N Resistant us Prabhu Davis MD LAB MICROBIOLOGY - GENERAL O RDERABLES Final Result ANTONI BORGES ([place]) 1 [facility] [place] [address] * (ABNORMAL) Blood culture Blood (06/09/2024 10:35 PM CDT) Direct Specimen Exam Stain: Gram Positive Cocci in pairs and chains Time to culture positivity (anaerobic media): 7.4 hours Time to culture positivity (aerobic media): 7.4 hours Comment:Testing performed by : [facility], [address] [place] [address], [place]., [id number] Report Final Report: Enterococcus faecalis For susceptibility results, refer to accession number [id number] on the blood culture from 06/09/2024 (.) ANTONI BORGES ([place]) Comment:Testing performed by : [facility], [address] [place] [address], [place]., [id number] Organism ENTEROCOCCUS FAECALIS ANTONI BORGES ([place]) Blood 06/09/2024 10:3 5 PM CDT 06/10/2024 5:59 AM CDT Narrative ANTONI BORGES ([place]) - 06/13/2024 8:29 AM CDT 1. Blood cultures are incubated for 4 days on a continuously monitored blood culture system. The first report of a negative culture is issued within 24 hours of receipt of the specimen in the laboratory. 2. Positive culture results are reported as soon as they are detected. 3. The most important factor for detection of microbes in the setting of bloodstream infection is the volume of blood submitted for culture. Failure to collect an optimal blood volume can result in false negative blood cultures. 4. For pediatric patients, the recommended blood volume to collect follows a weight based strategy. See the electronic test catalog for collection instructions. 5. For positive blood cultures, a rapid molecular test may be performed for organism identification using the shelly ePlex blood culture identification panel for gram positive (BCID-GP) and gram negative (BCID-GN) organisms. This nucleic acid amplification test detects microbial DNA in positive blood culture broth. This assay has been cleared by the [place] Food and Drug Administration and its performance characteristics have been verified by the [facility]. For questions about this culture, contact the Microbiology Laboratory at [phone]. Interpretive data was last revised on 23. us Prabhu Davis MD LAB MICROBIOLOGY - GENERAL O RDERABLES Final Result ANTONI BORGES ([place]) 1 [facility] Department [place] [address] * XR Chest 1 Vw (06/09/2024 9:51 PM CDT) Anatomical Region Laterality Modality Body, Chest N/A Computed Radiogr aphy 06/09/2024 10:2 7 PM CDT Narrative 06/09/2024 10:28 PM CDT EXAM DESCRIPTION: XR CHEST 1 VIEW REASON FOR STUDY: Shortness of breath Patient to the ED with c/o fever x3 days with vomiting and nausea. Denies chest pain/sob. TECHNIQUE: Single radiographic view of the chest. COMPARISON: Chest x-ray of February 06, 2024. FINDINGS: LUNGS/PLEURA: No focal consolidation or pneumothorax. No pleural effusion. There is no significant change as compared to previous study. HEART/MEDIASTINUM: Cardiac silhouette is normal. There is atherosclerosis of the aorta. Remaining mediastinal silhouettes are unremarkable. HARDWARE/LINES/TUBES: There are sequelae of sternotomy. BONES: No acute findings. IMPRESSION: No acute cardiopulmonary abnormality. THIS IS AN ELECTRONICALLY VERIFIED FINAL REPORT 06/09/2024 10:28 PM - Electronically signed by Kamini Zhao M.D. SN: Report ID: [id number] Reading Location: [id number] Procedure Note Kamini Zhao MD - 06/09/2024 EXAM DESCRIPTION: XR CHEST 1 VIEW REASON FOR STUDY: Shortness of breath Patient to the ED with c/o fever x3 days with vomiting and nausea. Denies chest pain/sob. TECHNIQUE: Single radiographic view of the chest. COMPARISON: Chest x-ray of February 06, 2024. FINDINGS: LUNGS/PLEURA: No focal consolidation or pneumothorax. No pleuraleffusion. There is no significant change as compared to previous study. HEART/MEDIASTINUM: Cardiac silhouette is normal. There isatherosclerosis of the aorta. Remaining mediastinal silhouettes are unremarkable. HARDWARE/LINES/TUBES: There are sequelae of sternotomy. BONES: No acute findings. IMPRESSION: No acute cardiopulmonary abnormality. THIS IS AN ELECTRONICALLY VERIFIED FINAL REPORT 06/09/2024 10:28 PM - Electronically signed by Kamini Zhao M.D. SN: Report ID: [id number] Reading Location: [id number] Prabhu Davis MD IMG XR PROCEDURES Final Resu lt * (ABNORMAL) Troponin T high-sensitivity series (baseline, 2hr, 4hr, 6hr) (06/09/2024 9:48 PM CDT) Trop T hs 26(H) <=14 ng/L Comment: Interpretive Data For further hscTnT resources including the diagnostic algorithm and an aid in interpretation, copy and paste this link: https://nrl.testcatalog.org/show/hsTrop Current Interpretive Data last revised 2019. Blood 06/09/2024 9:48 PM CDT 06/09/2024 9:52 PM CDT Prabhu Davis MD LAB BLOOD ORDERABLES Final R esult ANTONI BORGES ([place]) 1 [facility] [place] [address] * eGFR (06/09/2024 9:48 PM CDT) eGFR 62 >=60 mL/min/1. 73 m2 Comment: Interpretive Data [...] interpretive data was last reviewed 2020. Blood 06/09/2024 9:48 PM CDT 06/09/2024 9:52 PM CDT Prabhu Davis MD LAB BLOOD ORDERABLES Final R esult ANTONI BORGES ([place]) 1 [facility] [place] [address] * (ABNORMAL) Differential, auto (06/09/2024 9:48 PM CDT) Neutrophil abs 12.59(H) 1.50 - 6.50 K/cumm Imm gran abs 0.07 0.00 - 0.10 K/cumm [facility] ([place]) Lymphocyte abs 0.82 0.80 - 3.30 K/cumm [facility] ([place]) Monocyte abs 0.57 0.20 - 0.80 K/cumm [facility] ([place]) Eosinophil abs 0.07 0.00 - 0.50 K/cumm [facility] ([place]) Basophil abs 0.05 0.00 - 0.10 K/cumm [facility] ([place]) Neutrophil pct 88.8 % [facility] ([place]) Comment: Interpretive [...] was last revised on 2017. Lymphocyte pct 5.8 % [facility] ([place]) Comment: Interpretive Data Percent cell count reference ranges are not reported, since discordance with absolute values may lead to misinterpretation of CBC data. Current Interpretive Data was last revised on 2017. Monocyte pct 4.0 % [facility] ([place]) Comment: Interpretive Data Percent cell count reference ranges are not reported, since discordance with absolute values may lead to misinterpretation of CBC data. Current Interpretive Data was last revised on 2017. Eosinophil pct 0.5 % [facility] ([place]) Comment: Interpretive Data Percent cell count reference ranges are not reported, since discordance with absolute values may lead to misinterpretation of CBC data. Current Interpretive Data was last revised on 2017. Basophil pct 0.4 % [facility] ([place]) Comment: Interpretive Data Percent cell count reference ranges are not reported, since discordance with absolute values may lead to misinterpretation of CBC data. Current Interpretive Data was last revised on 2017. Blood 06/09/2024 9:48 PM CDT 06/09/2024 9:52 PM CDT Prabhu Davis MD LAB BLOOD ORDERABLES Final R esult [facility] [place]) 9 [facility] [place] [address] * (ABNORMAL) Pro B-type natriuretic peptide (06/09/2024 9:48 PM CDT) NT-proBNP 4,904(H) <=300 pg/mL Comment: Interpretive Comments: A. Dyspnea [...] Interpretive Data Last Revised Date: 2017. Blood 06/09/2024 9:48 PM CDT 06/09/2024 10:10 PM CDT Prabhu Davis MD LAB BLOOD ORDERABLES Final R esult [facility] ([place]) 1 [facility] [place] [place] [place] [address] * (ABNORMAL) CBC with auto differential (06/09/2024 9:48 PM CDT) WBC 14.17(H) 3.80 - 9.90 K/cumm Hgb 13.0 11.9 - 15.5 g/dL [facility] ([place]) Hct 40.0 35.6 - 45.5 % [facility] ([place]) Plt 165 150 - 400 K/cumm [facility] ([place]) MPV 9.7 9.1 - 12.3 fL [facility] ([place]) RBC 4.50 3.90 - 5.20 M/cumm [facility] ([place]) MCV 88.9 81.3 - 96.4 fL [facility] ([place]) MCH 28.9 27.1 - 33.3 pg [facility] ([place]) MCHC 32.5 32.3 - 35.7 g/dL [facility] ([place]) RDW CV 15.2(H) 11.1 - 14.9 % [facility] ([place]) RDW SD 49.9(H) 35.7 - 48.1 fL [facility] ([place]) NRBC abs 0.00 0.00 - 0.01 K/cumm [facility] ([place]) Blood Venous blood specimen / Unknown 06/09/2024 9:48 PM CDT 06/09/2024 9:52 PM CDT Prabhu Davis MD LAB BLOOD ORDERABLES Final R esult ANTONI BORGES ([place]) 1 [facility] [place] [address] * Magnesium (06/09/2024 9:48 PM CDT) Magnesium 1.6 1.4 - 2.5 mg/dL Blood 06/09/2024 9:48 PM CDT 06/09/2024 10:10 PM CDT us Prabhu Davis MD LAB BLOOD ORDERABLES Final R esult ANTONI BORGES ([place]) 1 [facility] [place] [address] * (ABNORMAL) Comprehensive metabolic panel (06/09/2024 9:48 PM CDT) Sodium 130(L) 135 - 145 mmol/L Potassium, pl 3.7 3.3 - 4.9 mmol/L [facility] ([place]) Chloride 94(L) 97 - 110 mmol/L [facility] ([place]) CO2 19(L) 22 - 32 mmol/L [facility] ([place]) Anion gap 17(H) 2 - 15 mmol/L [facility] ([place]) BUN 10 6 - 25 mg/dL [facility] ([place]) Creatinine 1.00 0.60 - 1.10 mg/dL [facility] ([place]) Glucose 157 70 - 199 mg/dL [facility] ([place]) [...] interpretive data was last revised 2022. Calcium 9.6 8.5 - 10.3 mg/dL [facility] ([place]) Bilirubin, total 0.5 0.1 - 1.2 mg/dL [facility] ([place]) Protein, pl 7.3 6.5 - 8.5 g/dL [facility] ([place]) Albumin 3.8 3.5 - 5.0 g/dL [facility] ([place]) Alk phos 106 40 - 130 Units/L [facility] ([place]) ALT 24 7 - 45 Units/L [facility] ([place]) AST 34 10 - 45 Units/L [facility] ([place]) Comment:Slightly Hemolyzed S pecimen Blood Venous blood specimen / Unknown 06/09/2024 9:48 PM CDT 06/09/2024 9:52 PM CDT Prabhu Davis MD LAB BLOOD ORDERABLES Final R esult Performing Organization Address [facility] Co de Phone Number ANTONI BORGES ([place]) [address] [place] [address] [place] [address] * ECG 12 lead (06/09/2024 9:45 PM CDT) 06/09/2024 9:45 PM [address] [facility] 06/10/2024 9:39 AM CDT Vent Rate: 143 bpm RR Interval: 419 msec CO Interval: 0 msec QRS Duration: 100 msec QT Interval: 300 msec QTC Interval: 383 msec P-R-T [place]: [address] - 67 - 10 degrees IMPRESSION: ATRIAL FIBRILLATION WITH RAPID VENTRICULAR RESPONSE WITH ABERRANT CONDUCTION OR VENTRICULAR PREMATURE COMPLEXES NONSPECIFIC ST \T\ T-WAVE ABNORMALITY ABNORMAL RHYTHM ECG Compared to prior EKG, atrial fibrillation replaced sinus rhythm Heart rate has increased Electronically Signed By: Osmel [place] MD Prabhu Davis MD ECG ORDERABLES Final Result Performing Organization Address [facility] Co de Phone Number [facility] [employer] [facility] * TRANSTHORACIC ECHO (TTE) COMPLETE W DOPPLER/CF WO CONTRAST (06/04/2024 2:34 PM CDT) Anatomical Region Laterality Modality Ultrasound 06/04/2024 2:09 PM CDT Narrative 06/04/2024 3:59 PM CDT [address] [address] Echocardiogram Report Patient Name: BHAVANA ESCAMILLA : 1955 Study Date: 06/04/2024 2:09:41 PM Gender: F Tech: WILLIAM Location: Echo Lab 2 Ref Provider: CORONA CRABTREE Height(Cm): BSA: Weight(Kg): Quality: Adequate Order Provider: CORONA CRABTREE PROCEDURES: Echocardiographic Report: Transthoracic echocardiogram with complete 2D, M-Mode, and color Doppler examination. INDICATIONS: Nonrheumatic mitral valve regurgitation I34.0 Nonrheumatic mitral (valve) insufficiency. MEASUREMENTS: 2D/MM Value Range Doppler Value Range EF Teich MM 60.0 % [ 54.0 - 74.0 ] JL Vmax 3.49 cm2 EF Mod BP 60 % [ 54 - 74 ] AV Mean PG 3 mmHg LVIDd MM 4.50 cm [ 3.80 - 5.20 ] AV Peak Tom 1.10 m/s [ 1.00 - 1.70 ] LVIDs MM 3.10 cm [ 2.20 - 3.50 ] AV VTI 24.60 cm LVPWd MM 1.30 cm [ 0.60 - 0.90 ] LVOT Diam 2.45 cm IVSd MM 1.00 cm [ 0.60 - 0.90 ] LVOT Peak Tom 0.81 m/s [ 0.70 - 1.10 ] LA Dimension MM 4.41 cm [ 2.70 - 3.80 ] LVOT VTI 17.85 cm AoR Diam MM 3.03 cm [ 2.70 - 3.70 ] MV E Peak Tom 1.41 m/s [ 0.60 - 1.30 ] ACS MM 1.41 cm MV A Peak Tom 1.31 m/s [ 1.00 - 1.20 ] MV Mean PG 5 mmHg MV PHT 53 msec [ 20 - 100 ] MVA 4.20 MV Decel Time 182 msec [ 104 - 258 ] PV Peak Tom 0.86 m/s [ 0.40 - 0.80 ] TR Peak Tom 2.19 m/s [ 1.00 - 2.80 ] TR Peak PG 19 mmHg RVSP 27.00 mmHg [ 10.00 - 36.00 ] E` 0.05 m/s E/E` 31.32 [ <= 10.00 ] PA Pressure 27.00 mmHg [ 10.00 - 36.00 ] 2D/MM Value Range Doppler Value Range - FINDINGS: Atrial Septum: Normal atrial septum. Left Ventricle: Normal left ventricular systolic function with no focal wall motion abnormalities. Normal left ventricular size. Mild concentric left ventricular hypertrophy. Normal left ventricular diastolic function. Ejection fraction is measured at 60 %. Left Atrium: There is mild enlargement of left atrium. Right Ventricle: Normal right ventricular size. Normal right ventricular systolic function. Right Atrium: The right atrium is normal in size. Aortic Valve: No evidence of hemodynamically significant aortic stenosis by Doppler. Aortic cusps appear mildly sclerotic. Mitral Valve: Mitral valve leaflets appear mildly thickened. Trivial regurgitation of the mitral valve. Normal appearing mitral valve prosthesis for valve type and size. Normal gradients for valve type and size. Pulmonic Valve: Normal structure of the pulmonic valve. No evidence of pulmonic regurgitation. Tricuspid Valve: Normal structure of the tricuspid valve. Normal right ventricular systolic pressure. Trivial regurgitation in the tricuspid valve. Pericardium: Normal pericardium with no significant pericardial effusion. There is an anterior echo free space consistent with epicardial fat pad. Aorta: There is mild atherosclerosis in the aortic root. IVC: Normal size and normal respiratory collapse consistent with normal right atrial pressure (<5 mmHg). Pulmonary Artery: Pulmonary artery not well visualized. CONCLUSIONS: Normal left ventricular systolic function with no focal wall motion abnormalities. Normal left ventricular size. Mild concentric left ventricular hypertrophy. Normal left ventricular diastolic function. Ejection fraction is measured at 60 %. Normal right ventricular size. Normal right ventricular systolic function. There is mild enlargement of left atrium. Mitral valve leaflets appear mildly thickened. Trivial regurgitation of the mitral valve. Normal appearing mitral valve prosthesis for valve type and size. Normal gradients for valve type and size. No mitral stenosis. No evidence of hemodynamically significant aortic stenosis by Doppler. Aortic cusps appear mildly sclerotic. Normal structure of the tricuspid valve. Normal right ventricular systolic pressure. Trivial regurgitation in the tricuspid valve. Normal pericardium with no significant pericardial effusion. There is an anterior echo free space consistent with epicardial fat pad. Electronically Signed By: Ronel Figueredo MD 06/04/2024 3:59:01 PM CDT Procedure Note Ronel Figueredo MD - 06/04/[address] [place] [address] Echocardiogram Report Patient Name: BHAVANA ESCAMILLA : 1955 Study Date: 06/04/2024 2:09:41 PM Gender: F Tech: WILLIAM Location: Echo Lab 2 Ref Provider: CORONA CRABTREE Height(Cm): BSA: Weight(Kg): Quality: Adequate Order Provider: CORONA CRABTREE PROCEDURES: Echocardiographic Report: Transthoracic echocardiogram with complete 2D, M-Mode, and color Dopplerexamination. INDICATIONS: Nonrheumatic mitral valve regurgitation I34.0 Nonrheumatic mitral (valve) insufficiency. MEASUREMENTS: 2D/MM Value Range Doppler ValueRange EF Teich MM 60.0 % [ 54.0 - 74.0 ] JL Vmax 3.49cm2 EF Mod BP 60 % [ 54 - 74 ] AV Mean PG 3 mmHg LVIDd MM 4.50 cm [ 3.80 - 5.20 ] AV Peak Tom 1.10 m/s[ 1.00 - 1.70 ] LVIDs MM 3.10 cm [ 2.20 - 3.50 ] AV VTI 24.60cm LVPWd MM 1.30 cm [ 0.60 - 0.90 ] LVOT Diam 2.45cm IVSd MM 1.00 cm [ 0.60 - 0.90 ] LVOT Peak Tom 0.81 m/s[ 0.70 - 1.10 ] LA Dimension MM 4.41 cm [ 2.70 - 3.80 ] LVOT VTI 17.85cm AoR Diam MM 3.03 cm [ 2.70 - 3.70 ] MV E Peak Tom 1.41 m/s[ 0.60 - 1.30 ] ACS MM 1.41 cm MV A Peak Tom 1.31 m/s[ 1.00 - 1.20 ] MV Mean PG 5 mmHg MV PHT 53 msec [ 20 - 100 ] MVA 4.20 MV Decel Time 182 msec [ 104 - 258 ] PV Peak Tom 0.86 m/s [ 0.40 - 0.80 ] TR Peak Tom 2.19 m/s [ 1.00 - 2.80 ] TR Peak PG 19 mmHg RVSP 27.00 mmHg [ 10.00 - 36.00 ] E` 0.05 m/s E/E` 31.32 [ <= 10.00 ] PA Pressure 27.00 mmHg [ 10.00 - 36.00 ] 2D/MM Value Range Doppler ValueRange - FINDINGS: Atrial Septum: Normal atrial septum. Left Ventricle: Normal left ventricular systolic function with no focal wall motionabnormalities. Normal left ventricular size. Mild concentric left ventricular hypertrophy.Normal left ventricular diastolic function. Ejection fraction is measured at 60 %. Left Atrium: There is mild enlargement of left atrium. Right Ventricle: Normal right ventricular size. Normal right ventricular systolicfunction. Right Atrium: The right atrium is normal in size. Aortic Valve: No evidence of hemodynamically significant aortic stenosis by Doppler.Aortic cusps appear mildly sclerotic. Mitral Valve: Mitral valve leaflets appear mildly thickened. Trivial regurgitation ofthe mitral valve. Normal appearing mitral valve prosthesis for valve type and size. Normalgradients for valve type and size. Pulmonic Valve: Normal structure of the pulmonic valve. No evidence of pulmonicregurgitation. Tricuspid Valve: Normal structure of the tricuspid valve. Normal right ventricular systolicpressure. Trivial regurgitation in the tricuspid valve. Pericardium: Normal pericardium with no significant pericardial effusion. There is ananterior echo free space consistent with epicardial fat pad. Aorta: There is mild atherosclerosis in the aortic root. IVC: Normal size and normal respiratory collapse consistent with normal rightatrial pressure (<5 mmHg). Pulmonary Artery: Pulmonary artery not well visualized. CONCLUSIONS: Normal left ventricular systolic function with no focal wall motionabnormalities. Normal left ventricular size. Mild concentric left ventricular hypertrophy.Normal left ventricular diastolic function. Ejection fraction is measured at 60 %. Normal right ventricular size. Normal right ventricular systolicfunction. There is mild enlargement of left atrium. Mitral valve leaflets appear mildly thickened. Trivial regurgitation ofthe mitral valve. Normal appearing mitral valve prosthesis for valve type and size. Normalgradients for valve type and size. No mitral stenosis. No evidence of hemodynamically significant aortic stenosis by Doppler.Aortic cusps appear mildly sclerotic. Normal structure of the tricuspid valve. Normal right ventricular systolicpressure. Trivial regurgitation in the tricuspid valve. Normal pericardium with no significant pericardial effusion. There is ananterior echo free space consistent with epicardial fat pad. Electronically Signed By: Ronel Figueredo MD 06/04/2024 3:59:01 PM CDT us Corona Crabtree MD CV ECHO PROCEDURES Final Res ult * CT Lung Cancer Screening (11/22/2023 11:58 [...] Recently Relevant to Health Maintenance Insurance MEDICARE ADVANTAGE Member Subscriber Plan / Payer (Ef fective 2022-Present) Name:Bishnu Escamilladelmar Quinn Relation to Subscriber:Self Name:Bhvaana Escamilla Kai Payer ID:[id number] (NAIC) Type:[facility] MEDICARE Address: [place] [id number] MEDICARE ADVANTAGE Advance Directives For more information, please contact: [phone] * Full Code (Latest Code Status on File) Date Activated Date Inactivated Comments 06/10/2024 12:53 AM 06/16/2024 4:49 PM * Full Code Date Activated Date Inactivated Comments 11/28/2023 1:01 PM 12/06/2023 8:45 PM * Full Code Date Activated Date Inactivated Comments 12/25/2022 1:37 PM 01/08/2023 9:41 PM * Full Code Date Activated Date Inactivated Comments 12/23/2022 2:56 AM 12/25/2022 7:36 AM Healthcare Agents on File Name Relationship Healthcare Agent Relationship Communication Stefani Daly Health Care Agent Care Teams Snout Puller Relationship Specialty Start Date End Date Ed Robles MD PCP - General Family Practice 08/22/21 Corona Carbtree MD Surgeon Cardiothoracic Surgery 01/08/23 Demond Estevez MD Consulting Physician Cardiology 01/08/23 Shobha Menon MD [address] [place] [address] [place] [address] Consulting Physician Gastroenterology 06/16/24
--- OUTSIDE RECORDS SUMMARY | 2024-07-16 11:24 | XMS_ITS | Clinical Summary ---
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 Gender Identity Not on file Sexual Orientation Not on file Last Filed Vital Signs Vital Sign Reading Time Taken Comments Blood Pressure 124/76 02/01/2023 11:00 AM PULP DRIER FIRER Pulse 90 02/01/2023 11:00 AM PULP DRIER FIRER Temperature 36.6 C (97.9 F) 02/01/2023 11:00 AM PULP DRIER FIRER Respiratory Rate 18 02/01/2023 11:00 AM PULP DRIER FIRER Oxygen Saturation 98% 02/01/2023 11:00 AM PULP DRIER FIRER Inhaled Oxygen Concentration - - Weight 70.3 kg (155 lb) 01/29/2023 11:37 AM PULP DRIER FIRER Height 170.2 cm (5' 7) 01/10/2023 12:45 PM PULP DRIER FIRER Body Mass Index 24.28 01/10/2023 12:45 PM PULP DRIER FIRER Plan of Treatment Health Maintenance Due Date [...] to complete this topic Insurance MEDIC[facility] Directives * Full Code (Latest Code Status on File) Date Activated Date Inactivated Comments 01/24/2023 6:35 AM Care Teams Workday Manager Relationship Specialty Start Date End Date Ed Robles MD [address] [place] [address] PCP - General Family Medicine 01/04/23
--- OUTSIDE RECORDS SUMMARY | 2024-07-16 11:24 | XMS_ITS | Encounter Summary ---
Author Organization [facility] Address [address] [place] [address] Phone Care Team Providers Care Construction Pit Worker Name Role Phone Ed Robles MD Primary Care Provider Encounter Details Date Type Department Care Team (Latest Contact Info) Description 01/17/2023 Lab Requisition [id number] [address] [place] [id number] [place] [address] 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 Gender Identity Not on file Sexual Orientation Not on file documented as of this encounter Plan of Treatment Not on file documented as of this encounter Procedures Procedure Name Priority Date/Time Associated Diagnosis Comments CBC WITH AUTO DIFFERENTIAL Routine 01/17/2023 10:00 AM ROVING INSPECTOR Atherosclerotic heart disease of [place] coronary artery without angina pectoris CMP (COMPREHENSIVE METABOLIC PANEL) Routine 01/17/2023 10:00 AM ROVING INSPECTOR Atherosclerotic heart disease of [place] coronary artery without angina pectoris COMPLETE BLOOD COUNT (CBC) WITH DIFF Routine 01/17/2023 10:00 AM ROVING INSPECTOR Atherosclerotic heart disease of [place] coronary artery without angina pectoris documented in this encounter Results * (ABNORMAL) CBC WITH AUTO DIFFERENTIAL (01/17/2023 10:00 AM [facility]) WBC 9.92 4.00 - 12.00 10(3)/mcL 01/17/2023 11:[address] [facility] RBC 3.10(L) 3.80 - 5.30 10(6)/mcL 01/17/2023 11:[address] [facility] HEMOGLOBIN (HGB) 9.2(L) 12.0 - 15.8 g/dL 01/17/2023 11:[address] [facility] HEMATOCRIT (HCT) 28.7(L) 36.0 - 47.0 % 01/17/2023 11:[address] [facility] MCV 92.6 82.0 - 96.0 fL 01/17/2023 11:[address] [facility] MCH 29.7 26.0 - 34.0 pg 01/17/2023 11:[address] [facility] MCHC 32.1 31.0 - 36.0 g/dL 01/17/2023 11:[address] [facility] PLATELET COUNT 498(H) 140 - 440 10(3)/mcL 01/17/2023 11:[address] [facility] RDW 15.9(H) 11.8 - 15.5 % 01/17/2023 11:[address] [facility] MPV 8.5(L) 9.7 - 12.4 fL 01/17/2023 11:[address] [facility] NEUTROPHILS 68.2 47.0 - 73.0 % 01/17/2023 11:[address] [facility] LYMPHOCYTES 11.1(L) 18.0 - 42.0 % 01/17/2023 11:[address] [facility] MONOCYTES 8.1 4.0 - 12.0 % 01/17/2023 11:[address] [facility] EOSINOPHILS 12.1(H) 0.0 - 5.0 % 01/17/2023 11:[address] [facility] BASOPHILS 0.5 0.0 - 1.0 % 01/17/2023 11:[address] [facility] ABSOLUTE NEUTROPHILS 6.77 1.60 - 7.70 10(3)/[facility] 01/17/2023 11:[address] [facility] ABSOLUTE LYMPHOCYTES 1.10(L) 1.30 - 3.20 10(3)/[facility] 01/17/2023 11:[address] [facility] ABSOLUTE MONOCYTES 0.80 0.20 - 1.00 10(3)/[facility] 01/17/2023 11:[address] [facility] ABSOLUTE EOSINOPHIL 1.20(H) 0.00 - 0.40 10(3)/[facility] 01/17/2023 11:[address] [facility] ABSOLUTE BASOPHILS 0.05 0.00 - 0.10 10(3)/[facility] 01/17/2023 11:[address] [facility] NRBC PER 100 WBC 0 01/18/20 11:[address] [facility] Blood No Phlebotomy Charged / Unknown 01/17/2023 10:00 AM ROVING INSPECTOR 01/17/2023 10:59 AM [facility] us Corona Crabtree MD HEMATOLOGY ORDERABLES Final Result [facility] [place] [address] * (ABNORMAL) CMP (COMPREHENSIVE METABOLIC PANEL) (01/17/2023 10:00 AM ROVING INSPECTOR) SODIUM 139 136 - 145 mmol/L 01/17/2023 11:20 AM ROVING INSPECTOR [facility] POTASSIUM 4.3 3.5 - 5.1 mmol/L 01/17/2023 11:[address] [facility] CHLORIDE 107 98 - 107 mmol/L 01/17/2023 11:[address] [facility] CO2, VENOUS 22 22 - 30 mmol/L 01/17/2023 11:[address] [facility] ANION GAP 14.3 <18.0 mmol/L 01/17/2023 11:[address] [facility] GLUCOSE 117(H) 70 - 99 mg/dL 01/17/2023 11:[address] [facility] BUN 10 10 - 20 mg/dL 01/17/2023 11:[address] [facility] CREATININE, BLOOD 0.68 0.60 - 1.00 mg/dL 01/17/2023 11:[address] [facility] BUN/CREATININE RATIO 15 12 - 20 ratio 01/17/2023 11:[address] [facility] TOTAL PROTEIN 6.9 6.3 - 8.2 g/dL 01/17/2023 11:[address] [facility] ALBUMIN 3.5 3.5 - 5.0 g/dL 01/17/2023 11:[address] [facility] A/G RATIO 1.0 1.0 - 2.2 01/17/2023 11:[address] [facility] CALCIUM 9.5 8.7 - 10.5 mg/dL 01/17/2023 11:[address] [facility] T BILI 0.2 0.2 - 1.2 mg/dL 01/17/2023 11:[address] [facility] SGOT (AST) 30 5 - 34 U/L 01/17/2023 11:[address] [facility] SGPT (ALT) 32 0 - 55 U/L 01/17/2023 11:[address] [facility] ALKALINE PHOSPHATASE 99 40 - 150 U/L 01/17/2023 11:[address] [facility] GFR, ESTIMATED >60 >=60 01/17/2023 11:[address] [facility] Comment: Creatinine Clearance is the preferred criteria for selecting drug dose adjustments in renally impaired patients. The GFR is provided as additional pertinent clinical information. GFR is reported in mL/min/1.73 sq m. Calculation based on the Chronic Kidney Disease Epidemiology Collaboration (CKD- EPI) equation refit without adjustment for race. GFR, EST. >60 >=60 023 11:20 AM ROVING INSPECTOR [facility] GFR, EST. NONAFRICAN >60 >=60 01/17/2023 11:20 AM ROVING INSPECTOR [facility] Blood No Phlebotomy Charged / Unknown 01/17/2023 10:00 AM ROVING INSPECTOR 01/17/2023 10:59 AM ROVING INSPECTOR us Corona Crabtree MD CHEMISTRY ORDERABLES Final R esult [facility] [place] [address] documented in this encounter Visit Diagnoses Diagnosis Atherosclerotic heart disease of [place] coronary artery without angina pectoris Coronary atherosclerosis of [place] coronary artery documented in this encounter Care Teams Construction Pit Worker Relationship Specialty Start Date End Date Ed Robles MD [address] [place] [id number] PCP - General Family Medicine 01/04/23 documented as of this encounter
--- OUTSIDE RECORDS SUMMARY | 2024-07-16 11:24 | XMS_ITS | Clinical Summary ---
Author Organization [facility] Medical Office Building B Address [address] [place] [address] Care Team Providers Care Enrichment Teacher Name Role Phone Ed Robles MD Primary Care Provider [phone] Corona Crabtree MD Unavailable [phone] Demond Estevez MD Unavailable [phone] Shobha Menon MD Unavailable [phone] Allergies Active Allergy Reactions Criticality Noted Date [...] Description 07/14/2024 1:00 PM CDT Office Visit [place] [facility] [address] 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 (Primary Dx); Carotid bruit, unspecified laterality 07/07/2024 1:45 PM CDT Office Visit [facility] [address] [place] [address] Corona Crabtree MD Coronary artery disease involving bois forte coronary artery of bois forte heart without angina pectoris 07/07/2024 Telephone [facility] Gastroenterology at [address] [place] [phone] Kati Martines 06/24/2024 [facility] Post Discharge Follow up phone call [facility] [address] [place] [address] Edna Guadalupe RN 06/09/2024 9:58 PM CDT - 06/16/2024 12:49 PM CDT Hospital Encounter [facility] 1 [place] [address] Prabhu Davis MD Huynh, Kiet T., MD Nations, DO Cher Monroe Narine, MD Gastroenteritis (Primary Dx); Longstanding persistent atrial fibrillation (HCC) Discharge Disposition: Discharge to home or self care 06/04/2024 1:43 PM CDT - 06/04/2024 11:59 PM CDT Hospital Encounter [facility] Cardiology 1 [place] [address] Nonrheumatic mitral valve regurgitation Discharge Disposition: Discharge to home or self care 04/30/2024 Orders Only [facility] [address] [place] [address] Corona Crabtree MD NSTEMI (non-ST elevated myocardial infarction) (HCC) (Primary Dx); Nonrheumatic mitral valve regurgitation from Last 3 Months Immunizations Immunization Administration [...] drink = 0.6 oz pur e alcohol) Authorly Utilities Answer Date Recorded In the past 12 months has [employer], gas, oil, or water new test company threatened to shut off services in [...] week 06/11/2024 How often do you attend [facility] or episcopalian services? Never 06/11/2024 Do you belong to any clubs o r organizations such as congregation groups, unions, fraternal or athletic groups, or [...] place to sleep or slept in a alf (including now)? No 12/25/2022 Housing Stability Vital Sign Answer Fran e Recorded In the last 12 months, was t here a time when you were not able to pay the mortgage or rent on time? No 06/11/2024 In the past 12 months, how m any times have you moved where you were living? 0 06/11/2024 At any time in the past 12 m [facility], were you homeless or living in a alf (including now)? No 06/11/2024 Personal Safety Answer [...] Description 08/25/2024 1:50 PM CDT Hospital Encounter [address] [address] Shobha Menon MD [address] [place] [address] [place] [address] 08/25/2024 1:50 PM CDT - 08/25/2024 2:20 PM CDT Surgery [address] [address] Shobha Menon MD [address] [place] [address] [place] [address] COLONOSCOPY Scheduled Procedures Name Priority Associated Diagnoses Date/Ti me COLONOSCOPY Gastroenteritis History of colonic polyps 08/25/2024 1:50 PM CDT Health Maintenance Due Date Last Done Comments [...] history exists Medical Devices Implanted Type 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 Basophil pct 0.6 % [facility] ([facility]) Comment: Interpretive Data Percent cell count reference ranges are not reported, since discordance with absolute values may lead to misinterpretation of CBC data. Current Interpretive Data was last revised on 2017. Blood 06/16/2024 9:01 AM CDT 06/16/2024 9:19 AM CDT Tanner Jamie Washington DO LAB BLOOD ORDERABLES F inal Result ANTONI BORGES ([place]) [address] [facility] [place] [address] * (ABNORMAL) CBC with auto differential (06/16/2024 9:01 AM CDT) WBC 6.35 3.80 - 9.90 K/cumm Hgb 11.1(L) 11.9 - 15.5 g/dL [facility] ([facility]) Hct 35.5(L) 35.6 - 45.5 % [facility] ([place]) Plt 324 150 - 400 K/cumm [facility] ([facility]) MPV 9.8 9.1 - 12.3 fL [facility] ([place]) RBC 3.88(L) 3.90 - 5.20 [...] AM CDT 06/16/2024 9:19 AM CDT Tanner Ayala [facility] DO LAB BLOOD ORDERABLES F inal Result ANTONI BORGES ([place]) [address] [facility] [place] [address] * eGFR (06/16/2024 5:42 AM CDT) eGFR [...] AM CDT 06/16/2024 6:02 AM CDT Tanner Washington DO LAB BLOOD ORDERABLES F inal Result [facility] ([place]) [address] [facility] [place] [address] * (ABNORMAL) Comprehensive metabolic panel (06/16/2024 5:42 [...] AM CDT 06/16/2024 6:02 AM CDT Tanner Washington DO LAB BLOOD ORDERABLES F inal Result Performing Organization Address [facility] Co de Phone Number ANTONI BORGES (SARY) 1 [facility] [place] [address] * Digoxin level (06/14/2024 4:56 PM CDT) [...] 4:56 PM CDT 06/14/2024 4:58 PM CDT Tanner Ayala Zuleyka DO LAB BLOOD ORDERABLES F inal Result Performing Organization Address [facility] de Phone Number ANTONI BORGES ([place]) 1 [facility] [place] [address] * Differential, auto (06/14/2024 8:50 AM CDT) [...] Neutrophil pct 57.5 % [facility] ([facility]) Comment: Interpretive [...] revised on 2017. Monocyte pct 10.6 % [facility] ([facility]) Comment: Interpretive Data Percent cell [...] LAB BLOOD ORDERABLES F inal Result ANTONI KATERINA (SARY) [address] [facility] [place] [address] * (ABNORMAL) CBC with auto differential (06/14/2024 [...] F inal Result [facility] ([place]) [address] [facility] Department of Laboratories [place], [place] [id number] * eGFR (06/14/2024 2:37 AM CDT) eGFR [...] LAB BLOOD ORDERABLES Final Resu lt ANTONI [facility] ([place]) [address] [facility] [place] [address] * Differential, auto (06/14/2024 2:37 AM CDT) Neutrophil abs 3.67 1.50 - 6.50 K/cumm Imm gran abs 0.04 0.00 - 0.10 K/cumm [facility] ([place]) Lymphocyte abs 1.89 0.80 - 3.30 K/cumm [facility] ([place]) Monocyte abs 0.77 0.20 - 0.80 K/cumm [facility] ([place]) Eosinophil abs 0.33 0.00 - 0.50 K/cumm [...] MD LAB BLOOD ORDERABLES Final Resu lt [facility] ([place]) [address] [facility] [place] [address] * (ABNORMAL) CBC with auto differential (06/14/2024 [...] RDW SD 49.4(H) 35.7 - 48.1 fL [facility] ([facility]) NRBC abs 0.00 0.00 - 0.01 K/cumm [facility] ([facility]) Blood 06/14/2024 2:37 AM CDT 06/14/2024 3:04 AM CDT Juan Antonio Farias MD LAB BLOOD ORDERABLES Final Resu lt [facility] ([place]) 1 [facility] [place] [address] * Magnesium (06/14/2024 2:37 AM CDT) [facility] Magnesium 1.9 1.4 - 2.5 mg/dL Blood 06/14/2024 2:37 AM CDT 06/14/2024 3:04 AM CDT Juan Antonio Farias MD LAB BLOOD ORDERABLES Final Resu lt Performing Organization Address City/[facility]/ZIP Co de Phone Number [facility] ([place]) 1 [facility] [place] [address] * (ABNORMAL) Comprehensive metabolic panel (06/14/2024 2:37 AM CDT) Sodium 137 135 - 145 mmol/L Potassium, pl 3.3 3.3 - 4.9 mmol/L [facility] ([place]) Chloride 104 97 - 110 mmol/L [facility] ([place]) CO2 22 22 - 32 mmol/L [facility] ([place]) Anion gap 11 2 - 15 mmol/L [facility] ([place]) BUN 7 6 - 25 mg/dL [facility] ([place]) Creatinine 0.61 0.60 - 1.10 mg/dL [facility] ([place]) Glucose 109 70 - 199 mg/dL [facility] ([place]) Comment: Interpretive Data Fasting glucose [...] MD LAB BLOOD ORDERABLES Final Resu lt [facility] ([place]) [address] [facility] [place] [address] * eGFR (06/13/2024 2:17 AM CDT) eGFR [...] BLOOD ORDERABLES Final Resu lt [facility] ([place]) [address] [facility] [place] [address] * Differential, auto (06/13/2024 2:17 AM CDT) Neutrophil abs 3.68 1.50 - 6.50 K/cumm Imm gran abs 0.05 0.00 - 0.10 K/cumm [facility] ([place]) Lymphocyte abs 1.45 0.80 - 3.30 K/cumm [facility] ([place]) Monocyte abs 0.80 0.20 - 0.80 K/cumm [facility] ([place]) Eosinophil abs 0.32 0.00 - 0.50 K/cumm [facility] ([place]) Basophil abs 0.04 0.00 - 0.10 K/cumm [facility] ([place]) Neutrophil pct 58.1 % [facility] ([facility]) Comment: Interpretive [...] Lymphocyte pct 22.9 % [facility] ([facility]) Comment: Interpretive Data Percent cell count reference ranges are not reported, since discordance with absolute values may lead to misinterpretation of CBC data. Current Interpretive Data was last revised on 2017. Monocyte pct 12.6 % [facility] ([facility]) Comment: Interpretive Data [...] revised on 2017. Basophil pct 0.6 % [facility] ([facility]) Comment: Interpretive Data Percent cell count reference ranges are not reported, since discordance with absolute values may lead to misinterpretation of CBC data. Current Interpretive Data was last revised on 2017. Blood 06/13/2024 2:17 AM CDT 06/13/2024 3:50 AM CDT us Juan Antonio Farias MD LAB BLOOD ORDERABLES Final Resu lt [facility] ([place]) [address] [facility] [place] [address] * (ABNORMAL) CBC with auto differential (06/13/2024 2:17 AM CDT) WBC 6.34 3.80 - 9.90 K/cumm Hgb 9.8(L) 11.9 - 15.5 g/dL [facility] ([place]) Hct 30.9(L) 35.6 - 45.5 % [facility] ([place]) Plt 167 150 - 400 K/cumm [facility] ([place]) MPV 10.6 9.1 - 12.3 fL [facility] ([place]) RBC 3.41(L) 3.90 - 5.20 M/cumm [facility] ([place]) MCV 90.6 81.3 - 96.4 fL [facility] ([place]) MCH 28.7 27.1 - 33.3 pg [facility] ([place]) MCHC 31.7(L) 32.3 - 35.7 g/dL [facility] ([place]) RDW CV 15.4(H) 11.1 - 14.9 % [facility] ([place]) RDW SD 51.2(H) 35.7 - 48.1 fL [facility] ([place]) NRBC abs 0.00 0.00 - 0.01 K/cumm [facility] ([place]) Blood 06/13/2024 2:17 AM CDT 06/13/2024 3:50 AM CDT Juan Antonio Farias MD LAB BLOOD ORDERABLES Final Resu lt [facility] ([place]) 1 [facility] [place] [address] * Magnesium (06/13/2024 2:17 AM CDT) [facility] Magnesium 2.0 1.4 - 2.5 mg/dL Blood 06/13/2024 2:17 AM CDT 06/13/2024 3:50 AM CDT Juan Antonio Farias MD LAB BLOOD ORDERABLES Final Resu lt Performing Organization Address City/[facility]/ZIP Co de Phone Number [facility] ([place]) 1 [facility] [place] [address] * (ABNORMAL) Comprehensive metabolic panel (06/13/2024 2:17 AM CDT) Sodium 140 135 - 145 mmol/L Potassium, pl 3.5 3.3 - 4.9 mmol/L [facility] ([facility]) Chloride 107 97 - 110 mmol/L [facility] ([place]) CO2 20(L) 22 - 32 mmol/L [facility] ([place]) Anion gap 13 2 - 15 mmol/L [facility] ([place]) BUN 7 6 - 25 mg/dL [facility] ([place]) Creatinine 0.59(L) 0.60 - 1.10 [...] BLOOD ORDERABLES Final Resu lt [facility] ([place]) [address] [facility] [place] [address] * TRANSESOPHAGEAL ECHO (THAD) W DOPPLER/CF WO CONTRAST (06/12/2024 1:16 PM CDT) Anatomical Region Laterality Modality Ultrasound 06/12/2024 12:4 8 PM CDT Narrative 06/12/2024 1:26 PM CDT [address] [place] [address] TRANSESOPHAGEAL ECHOCARDIOGRAM Patient Name: BHAVANA ESCAMILLA : 1955 Study Date: 06/12/2024 12:48:14 PM Gender: F Tech: JOSE MARIA Location: [id number] Ref Provider: TANNER WASHINGTON Height(Cm): BSA: Weight(Kg): [...] Procedure Note Norberto Gastelum MD - 06/12/[address] [place] [address] TRANSESOPHAGEAL ECHOCARDIOGRAM Patient Name: BHAVANA ESCAMILLA : 1955 Study Date: 06/12/2024 12:48:14 PM Gender: F Tech: AA Location: [id number] Ref Provider: TANNER WASHINGTON Height(Cm): BSA: Weight(Kg): [...] Report: No growth Comment:Testing performed by : [facility], [address] [place]., [address] Blood 06/12/2024 10:0 1 AM CDT 06/12/2024 12:03 PM CDT Narrative ANTONI BORGES ([place]) - 06/16/2024 4:00 PM CDT From [...] performance characteristics have been verified by the [facility] Microbiology Laboratory. For questions about this culture, contact the Microbiology Laboratory at [phone]. Interpretive data was last revised on 23. Tanner Washington DO LAB MICROBIOLOGY - GEN ERAL ORDERABLES Final Result ANTONI BORGES ([place]) [address] [facility] [place] [address] * Blood culture Blood (06/12/2024 9:52 AM CDT) Report Final Report: No growth Comment:Testing performed by : [facility], 1 [place] [address] Blood 06/12/2024 9:52 AM CDT 06/12/2024 12:03 [...] performance characteristics have been verified by the [facility] Microbiology [facility]. For questions about this culture, contact the Microbiology Laboratory at [phone]. Interpretive data was last revised on 23. Tanner Washington DO LAB MICROBIOLOGY - GEN ERAL ORDERABLES Final Result ANTONI BORGES ([place]) [address] [facility] [place] [address] * eGFR (06/12/2024 2:49 AM CDT) eGFR [...] BLOOD ORDERABLES Final Resu lt ANTONI BORGES ([place]) [address] [facility] [place] [address] * (ABNORMAL) Differential, auto (06/12/2024 2:49 AM [...] Lymphocyte pct 25.8 % [facility] ([place]) Comment: Interpretive Data Percent cell count reference ranges are not reported, since discordance with absolute values may lead to misinterpretation of CBC data. Current Interpretive Data was last revised on 2017. Monocyte pct 18.0 % [facility] ([place]) Comment: Interpretive Data [...] BLOOD ORDERABLES Final Resu lt [facility] ([place]) [address] [facility] [place] [address] * (ABNORMAL) CBC with auto differential (06/12/2024 [...] Final Resu lt [facility] ([place]) [address] [facility] [employer] [place] [address] * Magnesium (06/12/2024 2:49 AM CDT) [facility] Magnesium 2.0 1.4 - 2.5 mg/dL Blood 06/12/2024 2:49 AM CDT 06/12/2024 3:20 AM CDT Juan Antonio Farias MD LAB BLOOD ORDERABLES Final Resu lt Performing Organization Address City/[facility]/ZIP Co de Phone Number [facility] ([place]) 1 [facility] [place] [place] [address] * (ABNORMAL) Comprehensive metabolic panel (06/12/2024 2:49 AM CDT) Sodium 137 135 - 145 mmol/L Potassium, pl 3.1(L) 3.3 - 4.9 mmol/L [facility] ([place]) Chloride 106 97 - 110 mmol/L [facility] ([place]) CO2 19(L) 22 - 32 mmol/L [facility] ([place]) Anion gap 12 2 - 15 mmol/L [facility] ([place]) BUN 10 6 - 25 mg/dL [facility] ([place]) Creatinine 0.68 0.60 - 1.10 [...] Final Resu lt [facility] ([place]) [address] [facility] [place] [address] * eGFR (06/11/2024 2:29 AM CDT) eGFR [...] BLOOD ORDERABLES Final Resu lt [facility] ([place]) [address] [facility] [place] [address] * Differential, auto (06/11/2024 2:29 AM CDT) [...] BLOOD ORDERABLES Final Resu lt [facility] ([place]) [address] [facility] [place] [address] * (ABNORMAL) CBC with auto differential (06/11/2024 2:29 AM CDT) WBC 4.42 3.80 - 9.90 K/cumm Hgb 10.1(L) 11.9 - 15.5 g/dL [facility] ([place]) Hct 31.8(L) 35.6 - 45.5 % [facility] ([place]) Plt 125(L) 150 - 400 K/cumm [facility] ([place]) MPV 11.1 9.1 - 12.3 fL [facility] ([place]) RBC 3.50(L) 3.90 - 5.20 M/cumm [facility] ([place]) MCV 90.9 81.3 - 96.4 fL [facility] ([place]) MCH 28.9 27.1 - 33.3 pg [facility] ([place]) MCHC 31.8(L) 32.3 - 35.7 g/dL [facility] ([place]) RDW CV 15.7(H) 11.1 - 14.9 % [facility] ([place]) RDW SD 51.8(H) 35.7 - 48.1 fL [facility] ([place]) NRBC abs 0.00 0.00 - 0.01 K/cumm [facility] ([facility]) Blood 06/11/2024 2:29 AM CDT 06/11/2024 3:31 AM CDT Juan Antonio Farias MD LAB BLOOD ORDERABLES Final Resu lt Performing Organization Address City/[facility]/ZIP Co de Phone Number [facility] ([place]) [address] [facility] [place] [address] * Magnesium (06/11/2024 2:29 AM CDT) Pathologist [facility] Magnesium 2.0 1.4 - 2.5 mg/dL Blood 06/11/2024 2:29 AM CDT 06/11/2024 3:32 AM CDT Juan Antonio Farias MD LAB BLOOD ORDERABLES Final Resu lt [facility]I BORGES ([place]) 1 [facility] [place] [address] * (ABNORMAL) Comprehensive metabolic panel (06/11/2024 2:29 AM CDT) Sodium 136 135 - 145 mmol/L Potassium, pl 3.4 3.3 - 4.9 mmol/L [facility] ([facility]) Chloride 105 97 - 110 mmol/L [facility] ([place]) CO2 20(L) 22 - 32 [...] (SARY) AST 57(H) 10 - 45 Units/L [facility] ([place]) Comment:Slightly Hemolyzed S pecimen Blood 06/11/2024 2:29 AM CDT 06/11/2024 3:32 AM CDT us Juan Antonio Farias MD LAB BLOOD ORDERABLES Final Resu lt [facility] ([place]) [address] [facility] [place] [address] * (ABNORMAL) Blood culture Blood (06/10/2024 3:04 PM CDT) Direct Specimen Exam Stain: Gram Positive Cocci in pairs and chains Time to culture positivity (anaerobic media): 13.4 hours Comment:Testing performed by : [facility], [address] [place]., [address] Report Final Report: Enterococcus faecalis For susceptibility results, refer to accession number [id number] on the blood culture from 06/09/2024 (.) [facility] ([place]) Comment:Testing performed by : [facility], [address] [place]., [address] Organism ENTEROCOCCUS FAECALIS [facility]I BORGES (SARY) Blood [...] performance characteristics have been verified by the [facility]biology Laboratory. For questions about this culture, contact the Microbiology Laboratory at [phone]. Interpretive data was last revised on 23. Yun Tierney NP LAB MICROBIOLOGY - GENERAL ORDERABLES Final Result ANTONI KATERINA ([place]) [address] [facility] [place] [address] * Blood culture Blood (06/10/2024 2:57 PM CDT) Report Final Report: No growth Comment:Testing performed by : [facility], 1 [place]., [address] Blood 06/10/2024 2:57 PM CDT 06/10/2024 6:43 [...] performance characteristics have been verified by the [facility]biology [facility]. For questions about this culture, contact the Microbiology Laboratory at [phone]. Interpretive data was last revised on 23. Yun Tierney NP LAB MICROBIOLOGY - GENERAL ORDERABLES Final Result ANTONI KATERINA ([place]) [address] [facility] [place] [address] * CT Chest WO Contrast (06/10/2024 1:45 [...] UPPER ABDOMEN: No significant abnormality. MUSCULOSKELETAL: Stable [id number] compression deformity of T12. OTHER: No other [...] De Anda M.D. RW: MIKKI Report ID: [id number] Reading Location: [id number] Procedure Note Raf De Anda MD - [...] UPPER ABDOMEN: No significant abnormality. MUSCULOSKELETAL: Stable cawr-fg-[id number] compression deformity of T12. OTHER: No other [...] De Anda M.D. RW: MIKKI Report ID: [id number] Reading Location: [place] [address] us Yun Tierney NP IMG CT PROCEDURES F inal Result * Lactate (06/10/2024 6:53 AM CDT) Lactate 0.7 0.7 - 2.0 mmol/L Blood 06/10/2024 6:53 AM CDT 06/10/2024 6:56 AM CDT Juan Antonio Farias MD LAB BLOOD ORDERABLES Final Resu lt [facility]I BORGES ([place]) [address] [facility] [place] [address] * eGFR (06/10/2024 6:53 AM CDT) eGFR [...] Final Resu lt ANTONI BORGES ([place]) [address] [facility] [place] [address] * (ABNORMAL) Differential, auto (06/10/2024 6:53 AM [...] Final Resu lt [facility]I BORGES ([place]) 1 [facility] [place] [address] * (ABNORMAL) Procalcitonin (06/10/2024 6:53 AM CDT) Pathologist [facility] Procalcitonin 0.42(H) <=0.25 ng/mL Comment:Testing performed by : [facility] [place]., [address] Blood 06/10/2024 6:53 AM CDT 06/10/2024 11:36 AM CDT us Juan Antonio Farias MD LAB BLOOD ORDERABLES Final Resu lt Performing Organization Address City/[facility]/ZIP Co de Phone Number [facility]I BORGES ([place]) 1 [facility] [place] [address] * (ABNORMAL) CBC with auto differential (06/10/2024 6:53 AM CDT) Pathologist [facility] WBC 11.01(H) 3.80 - 9.90 K/cumm Hgb [...] 31.9(L) 32.3 - 35.7 g/dL [facility] ([place]) RDW CV 15.3(H) 11.1 - 14.9 % [facility] ([place]) RDW SD 51.0(H) 35.7 - 48.1 fL [facility] ([place]) NRBC abs 0.00 0.00 - 0.01 K/cumm [facility] ([place]) Blood 06/10/2024 6:53 AM CDT 06/10/2024 6:56 AM CDT Juan Antonio Farias MD LAB BLOOD ORDERABLES Final Resu lt Performing Organization Address City/[facility]/ZIP Co de Phone Number [facility] B[facility] ([place]) 1 [facility] [place] [address] * Magnesium (06/10/2024 6:53 AM CDT) Magnesium 1.7 1.4 - 2.5 mg/dL Blood 06/10/2024 6:53 AM CDT 06/10/2024 6:56 AM CDT Juan Antonio Farias MD LAB BLOOD ORDERABLES Final Resu lt Performing Organization Address [facility] Co de Phone Number [facility] ([place]) 1 [facility] [place] [address] * Ethanol (06/10/2024 6:53 AM CDT) Ethanol <10 <=10 mg/dL Comment: Interpretive Data Legal limit of intoxication > or = 80 mg/dL Levels > or = 400 mg/dL are potentially TOXIC. Current interpretive data was last revised on 2018. Blood 06/10/2024 6:53 AM CDT 06/10/2024 6:56 AM CDT Juan Antonio Farias MD LAB BLOOD ORDERABLES Final Resu lt [facility]I BORGES ([place]) 1 [facility] [place] [address] * (ABNORMAL) Comprehensive metabolic panel (06/10/2024 6:53 AM CDT) Sodium 137 135 - 145 mmol/L Potassium, pl 3.4 3.3 - 4.9 mmol/L [facility] ([place]) Chloride 106 97 - 110 mmol/L [facility] ([place]) CO2 19(L) 22 - 32 mmol/L [facility] ([place]) Anion gap 12 2 - 15 mmol/L [facility] ([place]) BUN 9 6 - 25 mg/dL [facility] ([place]) Creatinine 0.82 0.60 - 1.10 mg/dL [facility] ([place]) Glucose 113 70 - 199 mg/dL [facility] ([place]) [...] 06/10/2024 6:56 AM CDT us Juan Antonio T. Farias MD LAB BLOOD ORDERABLES Final Resu lt ANTONI BORGES ([place]) [address] [facility] Department of Laboratories [place], [place] [id number] * Lipid panel (06/10/2024 6:48 AM CDT) [...] revised on 2017. Triglycerides 114 <=149 mg/dL ANTONI BORGES ([place]) Comment: Interpretive Data [...] 2017. LDL, calculated 45 <=129 mg/dL ANTONI KEBEDE) Comment: Interpretive Data Ages < or = [...] NCEP Expert Panel. Circulation 2004;110:227 3. Yoandy Ricketts et al. DEJA Cardiol. 2019June 11;5(5):540-548. doi: 10.1001/jamacardio.2020.0013 Current Interpretive Data was last revised on 2023. Non-HDL Cholesterol 66 mg/dL ANTONI KEBEDE) Comment: Interpretive Data Ages < or = [...] last revised on 2017. Chol/HDL ratio 3 TRAN KEBEDE) Blood 06/10/2024 6:48 AM CDT 06/10/2024 9:59 AM CDT Narrative ANTONI KEBEDE) - 06/10/2024 10:17 AM CDT May run on this a.m. blood if possible. If not possible, draw the blood at 6:00 a.m. tomorrow morning. us Norberto Gastelum MD LAB BLOOD ORDERABLES Final Re sult Performing Organization Address [facility]/ZIP Co de Phone Number ANTONI BORGES ([place]) [address] [place] [address] * Influenza A/B, RSV, and COVID-19 PCR Nasopharyngeal (06/10/2024 5:58 AM CDT) Pathologist [facility] COVID-19 RNA Negative Negative Influenza A RNA Negative Negative [facility] ([place]) Influenza B RNA Negative Negative [facility] ([place]) RSV RNA Negative Negative [facility] ([place]) Comment: Interpretive data: Testing performed by [facility]. This test is performed using the [employer] Xpert Xpress CoV-2/Flu/RSV plus assay. This is a multiplex, real- time reverse transcriptase PCR assay intended for the qualitative detection of nucleic acid from SARS-CoV-2, influenza A, influenza B, and respiratory syncytial virus. This assay has been cleared by the [place] Food and Drug administration. The performance characteristics have been verified by the [facility]. Results must be considered in the clinical context, and a negative result does not rule out infection. Interpretive Data last revised 2023 Nasopharyngeal 06/10/2024 5: 58 AM CDT 06/10/2024 6:05 AM CDT Narrative [facility] ([place]) - 06/10/2024 6:54 AM CDT Is the Patient experiencing symptoms consistent with COVID?->Yes us Juan Antonio Farias MD LAB MICROBIOLOGY - GENERAL ORDE RABLES Final Result ANTONI BORGES ([place]) [address] [facility] Department [place] [address] * Drugs of Abuse Screen, Urine with Reflex Confirmation (06/10/2024 3:38 AM CDT) Pathologist [facility] Amphetamine, ur Not Detected CutOff 500ng/mL Comment: Interpretive Data - Amphetamines: Samples containing greater than 500 ng/mL d-methamphetamine or other cross-reacting amphetamine compounds are reported as positive. Amphetamine immunoassays are subject to significant false positive rates due to cross-reactivity of non-amphetamine drugs. Confirmatory testing required for definitive results. Current Interpretive Data was last reviewed 2022. Barbiturates, ur Not Detected CutOff 200ng/mL [facility] ([place]) Comment: Interpretive Data - Barbiturates: Samples containing greater than 200 ng/mL secobarbital or other cross-reacting barbiturate compounds are reported as positive. False positive and false negative results are possible. Confirmatory testing required for definitive results. Current Interpretive Data was last reviewed 2022. Benzodiazepines, ur Not Detected CutOff 100ng/mL [facility] ([place]) Comment: Interpretive Data - Benzodiazepines: Samples containing greater than 100 ng/mL nordiazepam or other cross-reacting compounds are reported as positive. False positive and false negative results are possible. Confirmatory testing required for definitive results. Current Interpretive Data was last reviewed 2022. Cannabinoids, ur Not Detected CutOff 50 ng/mL [facility] ([place]) Comment: Interpretive Data - Cannabinoids: Samples containing greater than 50 ng/mL delta-9 THC -COOH or other cross- reacting compounds are reported as positive. False positive and false negative results are possible. Confirmatory testing required for definitive results. Current Interpretive Data was last reviewed 2022. Cocaine, ur Not Detected CutOff 150ng/mL [facility] ([place]) Comment: Interpretive Data - Cocaine: Samples [...] 2022. Opiates, ur Not Detected CutOff 300ng/mL ANTONI BORGES ([place]) Comment: Interpretive Data - Opiates: Samples containing greater than 300 ng/mL morphine or other cross-reacting compounds are reported as positive. False positive and false negative results are possible. Confirmatory testing required for definitive results. Current Interpretive Data was last reviewed 2022. Oxycodone, ur Not Detected CutOff 100ng/mL ANTONI BORGES ([place]) Comment: Interpretive Data - Oxycodone: Samples containing greater than 100 ng/mL oxycodone or other cross-reacting compounds are reported as positive. False positive and false negative results are possible. Confirmatory testing required for definitive results. Current Interpretive Data was last reviewed 2022. Phencyclidine, ur Not Detected CutOff 25 ng/mL ANTONI BORGES ([place]) Comment: Interpretive Data - Phencyclidine: Samples containing greater than 25 ng/mL phencyclidine or other cross-reacting compounds are reported as positive. False positive and false negative results are possible. Confirmatory testing required for definitive results. Current Interpretive Data was last reviewed 2022. Urine Creatinine 137 mg/dL EMILY BORGES ([place]) Comment: Interpretive Data Urine Creatinine: < 10 mg/dL is extremely dilute = or > 10 but < 20 mg/dL is dilute = or > 20 mg/dL is normal Current Interpretive Data was last revised on 2017. Urine 06/10/2024 3:38 AM CDT 06/10/2024 3:44 AM CDT Narrative ANTONI BORGES ([place]) - 06/10/2024 4:27 AM CDT Drug of Abuse screening is performed by immunoassay for medical purposes only. This is not to be used for Pain Management purposes. If Detected, confirmation testing will be performed for Amphetamines, Cocaine, Fentanyl, Methadone, Opiates, Oxycodone or Phencyclidine. us Juan Antonio Farias MD LAB URINE ORDERABLES Final Resu lt ANTONI BORGES ([place]) [address] [facility] [place] [address] * MRSA Only (Staphylococcus aureus) PCR Nasal (06/10/2024 3:38 AM CDT) PCR Scrn, Methicillin resistant Staphylococcus aureus (MRSA) Not Detected Not Detected Comment: Interpretive Data Testing performed using Nucleic Acid Amplification with the [employer] Xpert MRSA NxG Assay. This assay detects target DNA from mecA, mecC and the SCCmec insertion site of Staphylococcus aureus using Real-Time PCR and has been cleared by the FDA. Performance characteristics have been verified by the [facility]. Current Interpretive Data was last revised on 2022 Nasal 06/10/2024 3:38 AM CDT 06/10/2024 3:44 AM CDT us Juan Antonio Farias MD LAB MICROBIOLOGY - GENERAL [facility] Final Result Performing Organization Address City/[facility]/ZIP Co de Phone Number ANTONI [facility] ([place]) [address] [place] [address] * (ABNORMAL) Troponin T high-sensitivity 2-hour (06/10/2024 12:02 AM CDT) Trop T hs 23(H) <=14 ng/L Comment: Interpretive Data For further hscTnT resources including the diagnostic algorithm and an aid in interpretation, copy and paste this link: https://nrl.testcatalog.org/show/hsTrop Current Interpretive Data last revised 2019. Trop T hs delta -3 ng/L [facility] ([place]) Trop T hs interp Insignificant [facility] ([place]) Blood 06/10/2024 12:0 2 AM CDT 06/10/2024 12:08 AM CDT Prabhu Davis MD LAB BLOOD ORDERABLES Final R esult ANTONI [facility] ([place]) [address] [place] [address] * CT Abdomen Pelvis WO Contrast (06/09/2024 [...] Gabriele Pelletier M.D. KT: TITO Report ID: [id number] Reading Location: [id number] Procedure Note Gabriele Pelletier MD - 06/10/2024 [...] Gabriele Pelletier M.D. KT: TITO Report ID: [id number] Reading Location: [id number] Prabhu Davis MD IMG CT PROCEDURES Final [...] tendency for uric acid stone formation. Source: [facility] [employer] Current Interpretive Data was last revised on [...] MH ([place]) Leukocyte esterase, ur Negative Negative [facility] ([place]) UA reflex comment Reflex to microscopic UA will be performed. [facility] ([place]) Urine 06/09/2024 10:5 3 PM CDT 06/09/2024 10:55 PM CDT Prabhu Davis MD LAB MICROBIOLOGY - GENERAL O RDERABLES Final Result ANTONI KATERINA ([place]) [address] [facility] Department [place] [address] * (ABNORMAL) Urinalysis, microscopic only (06/09/2024 10:53 PM CDT) WBC, ur 0-5 0 - 5 /HPF RBC, ur 0-2 0 - 2 /HPF ANTONI [facility] ([place]) Epithelial cells, squamous, ur 1-5 0 - 5 /HPF ANTONI [facility] ([place]) Mucous, ur Present(A) ANTONI A ([place]) Hyaline casts, ur 1-5 0 - 10 /LPF ANTONI [facility] ([place]) Culture Reflex Comment Reflex conditions for urine culture (WBC >10) not met. ANTONI BORGES ([place]) Urine 06/09/2024 10:5 3 PM CDT 06/09/2024 10:55 PM CDT us Prabhu Davis MD LAB URINE ORDERABLES Final R esult ANTONI KATERINA ([place]) [address] [facility] Department [place] [address] * (ABNORMAL) Blood culture Blood (06/09/2024 10:35 PM CDT) Direct Specimen Exam Molecular Analysis: Enterococcus faecalis detected by shelly ePlex BCID-G panel. Enterococcus faecalis is routinely susceptible to ampicillin. Genes conferring Vancomycin resistance were not detected. This test does not exclude the possibility of a mixed bacterial infection. Notification of: Enterococcus faecalis called to and read back by: Bety Ashton MLT [phone] on 06/10/2024 15:37:18 by: Stacey Escobedo MT Test result called to and read back by Renetta Blanco on 06/10/2024 15:42:54 by Bety Ashton Comment:Testing performed by : [facility], 1 [place]., [address] Direct Specimen Exam Stain: Gram Positive Cocci in pairs and chains Time to culture positivity (aerobic media): 7.1 hours Time to culture positivity (anaerobic media): 7.7 hours Notification of: Gram Positive Cocci in pairs and chains called to and read back by: Reba Pacheco MLT [phone] on 06/10/2024 13:49:42 by: Selena Schuster MT Test result called to and read back by Varsha Villalpando RN on 06/10/2024 13:53:33 by Reba Pacheco. ANTONI BORGES ([place]) Comment:Testing performed by : [facility], [address] [place]., [address] Report Final Report: Enterococcus faecalis For serious infections with Enterococcus species (such as endocarditis or endovascular graft infections), combination antimicrobial therapy is often required. In these cases, an Infectious Disease Consult is strongly recommended. (.) ANTONI BORGES ([place]) Comment:Testing performed by : [facility], [address] [place]., [address] Organism ENTEROCOCCUS FAECALIS ANTONI BORGES ([place]) Blood [...] performance characteristics have been verified by the [facility]. For questions about this culture, contact the Microbiology Laboratory at [phone]. Interpretive data was last revised on 23. Organism Antibiotic Method Susceptibility Enterococcus faecalis Ampicillin (ALYCIA) INTERPRETATIO N Susceptible Enterococcus faecalis Vancomycin (ALYCIA) INTERPRETATIO N Susceptible Enterococcus faecalis High-Level Gentamicin (ALYCIA) INTE RPRETATION Susceptible Enterococcus faecalis Linezolid (ALYCIA) INTERPRETATIO N Susceptible Enterococcus faecalis Doxycycline (ALYCIA) INTERPRETATIO N Resistant us Prabhu Davis MD LAB MICROBIOLOGY - GENERAL O RDERABLES Final Result ANTONI KEBEDE) [address] [facility] Department [place] [address] * (ABNORMAL) Blood culture Blood (06/09/2024 10:35 PM CDT) Direct Specimen Exam Stain: Gram Positive Cocci in pairs and chains Time to culture positivity (anaerobic media): 7.4 hours Time to culture positivity (aerobic media): 7.4 hours Comment:Testing performed by : [facility], [address] [place] [address]., [address] Report Final Report: Enterococcus faecalis For susceptibility results, refer to accession number [id number] on the blood culture from 06/09/2024 (.) EMILYTAWANDA KATERINA ([place]) Comment:Testing performed by : [facility], [address] [place] [address]., [address] Organism ENTEROCOCCUS FAECALIS ANTONI BORGES ([place]) Blood [...] performance characteristics have been verified by the [facility]. For questions about this culture, contact the Microbiology Laboratory at [phone]. Interpretive data was last revised on 23. us Prabhu Davis MD LAB MICROBIOLOGY - GENERAL O RDERABLES Final Result ANTONI BORGES [place]) [address] [facility] [place] [address] * XR Chest 1 Vw (06/09/2024 9:51 [...] by Kamini Zhao M.D. SN: Report ID: [id number] Reading Location: [id number] Procedure Note Kamini Zhao MD - 06/09/2024 [...] Electronically signed by Kamini Zhao M.D. SN: SN Report ID: [id number] Reading Location: [place] [address] Prabhu Davis MD IMG XR PROCEDURES Final [...] BLOOD ORDERABLES Final R esult ANTONI BORGES [place]) [address] [facility] [place] [address] * eGFR (06/09/2024 9:48 PM CDT) eGFR [...] MD LAB BLOOD ORDERABLES Final R esult [facility] ([place]) [address] [facility] [place] [address] * (ABNORMAL) Differential, auto (06/09/2024 9:48 PM [...] 9:48 PM CDT 06/09/2024 9:52 PM CDT us Prabhu Davis MD LAB BLOOD ORDERABLES Final R esult ANTONI KATERINA ([place]) [address] [facility] [place] [address] * (ABNORMAL) Pro B-type natriuretic peptide (06/09/2024 [...] J. 2006:27:330-337. 2. Vasiliy RW, José Manuel DALTON. J. AM Che Cardiol: Cardiovasc Imag. 2009;2: 216- 225. Interpretive Data Last Revised Date: 2017. Blood 06/09/2024 9:48 PM CDT 06/09/2024 10:10 PM CDT us Prabhu Davis MD LAB BLOOD ORDERABLES Final R esult ANTONI [facility] ([place]) [address] [facility] [place] [address] * (ABNORMAL) CBC with auto differential (06/09/2024 9:48 PM CDT) WBC 14.17(H) 3.80 - 9.90 K/cumm Hgb 13.0 11.9 - 15.5 g/dL [facility] ([place]) Hct 40.0 35.6 - 45.5 % [facility] ([place]) Plt 165 150 - 400 K/cumm [facility] ([place]) MPV 9.7 9.1 - 12.3 fL [facility] ([place]) RBC 4.50 3.90 - 5.20 M/cumm [facility] ([place]) MCV 88.9 81.3 - 96.4 fL [facility] ([place]) MCH 28.9 27.1 - 33.3 pg [facility] ([place]) MCHC 32.5 32.3 - 35.7 g/dL [facility] ([place]) RDW CV 15.2(H) 11.1 - 14.9 % [facility] ([place]) RDW SD 49.9(H) 35.7 - 48.1 fL [facility] ([place]) NRBC abs 0.00 0.00 - 0.01 K/cumm [facility] ([place]) Blood Venous blood specimen / Unknown 06/09/2024 9:48 PM CDT 06/09/2024 9:52 PM CDT Prabhu Davis MD LAB BLOOD ORDERABLES Final R esult Performing Organization Address City/[facility]/ZIP Co de Phone Number [facility] ([place]) [address] [facility] [place] [address] * Magnesium (06/09/2024 9:48 PM CDT) [facility] Magnesium 1.6 1.4 - 2.5 mg/dL Blood 06/09/2024 9:48 PM CDT 06/09/2024 10:10 PM CDT Prabhu Davis MD LAB BLOOD ORDERABLES Final R esult Performing Organization Address City/[facility] Co de Phone Number ANTONI BORGES ([place]) 1 [facility] [address] [place] [address] * (ABNORMAL) Comprehensive metabolic panel (06/09/2024 9:48 PM CDT) Sodium 130(L) 135 - 145 mmol/L Potassium, pl 3.7 3.3 - 4.9 mmol/L [facility] ([place]) Chloride 94(L) 97 - 110 mmol/L [facility] ([place]) CO2 19(L) 22 - 32 [...] (SARY) AST 34 10 - 45 Units/L [facility] ([place]) Comment:Slightly Hemolyzed S pecimen Blood Venous blood specimen / Unknown 06/09/2024 9:48 PM CDT 06/09/2024 9:52 PM CDT us Prabhu Davis MD LAB BLOOD ORDERABLES Final R esult [facility] ([place]) [address] [facility] [place] [address] * ECG 12 lead (06/09/2024 9:45 PM CDT) 06/09/2024 9:45 PM CDT Narrative [facility] - 06/10/2024 9:39 AM CDT Vent Rate: 143 bpm RR Interval: 419 msec [place] Interval: 0 msec QRS Duration: 100 msec QT Interval: 300 msec QTC Interval: 383 msec P-R-T [place]: [id number] - 67 - 10 degrees IMPRESSION: ATRIAL FIBRILLATION WITH RAPID VENTRICULAR RESPONSE WITH ABERRANT CONDUCTION OR VENTRICULAR PREMATURE COMPLEXES NONSPECIFIC ST \T\ T-WAVE ABNORMALITY ABNORMAL RHYTHM ECG Compared to prior EKG, atrial fibrillation replaced sinus rhythm Heart rate has increased Electronically Signed By: Osmel Chavez MD us Prabhu Davis MD ECG ORDERABLES Final Result [facility] * TRANSTHORACIC ECHO (TTE) COMPLETE W DOPPLER/CF WO CONTRAST (06/04/2024 2:34 PM CDT) Anatomical Region Laterality Modality Ultrasound 06/04/2024 2:09 PM CDT Narrative 06/04/2024 3:59 [place] [address] Echocardiogram Report Patient Name: BHAVANA ESCAMILLA : [...] Procedure Note Ronel Figueredo MD - 06/04/[address] [address] Echocardiogram Report Patient Name: BHAVANA ESCAMILLA : [...] Most Recently Relevant to Health Maintenance Insurance [facility] MEDICARE ADVANTAGE [facility] Address: [facility] [address] [place] [address] [facility] MEDICARE ADVANTAGE [facility] Address: [address] [address] Advance Directives For more information, please contact: [phone] * Full Code (Latest Code Status on [...] Name Relationship Healthcare Agent Relationship Communication Stefani Ordonez Daughter Health Care Agent Care Teams Enrichment Teacher Relationship Specialty Start Date End Date Ed Robles MD PCP - General Family Practice 08/22/21 Corona Crabtree MD Surgeon Cardiothoracic Surgery 01/08/23 Demond Estevez MD Consulting Physician Cardiology 01/08/23 Shobha Menon MD [address] [place] [address] [place] [address] Consulting Physician Gastroenterology 06/16/24
--- OUTSIDE RECORDS SUMMARY | 2024-07-16 11:24 | XMS_ITS | Patient Health Record ---
Author Organization [employer] Address [address] [facility] [address] [place] [address] Care Team Providers Care Licensed Practical Vocational Nurse Name Role Phone Phuc Coffman Primary Care Provider Unava ilable Reason For Referral No Information Medications Medication SIG (Take, Route, Fr equency, Duration) Notes Start Date End Date Status Cholestyramine 4 GM 1 packet mixed with water or non-carbonated drink Orally Once a day for 30 day(s) 02/18/2020 Active Colestid 1 GM TAKE 2 TABLETS BY [facility] TWICE DAILY for 30 Active Colestid 1 GM 2 tablets Orally bid for 30 day(s) 11/05/2019 Active Problems Problem Type SNOMED Code ICD Code Onset Dates Problem Status W/U Status Risk Notes Problem [id number] Personal history of colonic polyps (Z86.010) Active confirmed Plan Of Treatment No Information Insurance Providers Payer Name Payer Address Payer Phone Subscriber Number Group Number Insured Name Patient Relationship to Insured Coverage Start Date Coverage End Date [employer] Access PPO E2 [address] [place] [address] [id number] Bhavana Escamilla Self - patient is the insured
--- OUTSIDE RECORDS SUMMARY | 2024-07-16 11:24 | XMS_ITS | Encounter Summary ---
Author Organization [facility] Address [address] [place] [address] Phone Care Team Providers Care Cold Roll Operator Name Role Phone Ed Robles MD Primary Care Provider Encounter Details Date Type Department Care Team (Latest Contact Info) Description 01/17/2023 Lab Requisition [facility] Services [address] [place] [address] [place] [address] [facility] DIV SURG CT ADULT-[place]IO, [place] [address] Atherosclerotic heart disease of [place] coronary artery without angina pectoris Social History Tobacco Use Types Packs/Day Years Used Date Smoking Tobacco: Never Assessed Comments Unknown Sex and Gender Information Value Date Recorded Sex Assigned at Not on file 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[employer] Gender Identity Not on file Sexual Orientation Not on file documented as of this encounter Plan of Treatment Scheduled Orders Name Type Priority Associated Diagnoses Orde r Schedule CMP (COMPREHENSIVE METABOLIC PANEL) Lab Routine Atherosclerotic heart disease of [place] coronary artery without angina pectoris Ordered: 01/17/2023 COMPLETE BLOOD COUNT (CBC) WITH DIFF Lab Routine Atherosclerotic heart disease of [place] coronary artery without angina pectoris Ordered: 01/17/2023 documented as of this encounter Visit Diagnoses Diagnosis Atherosclerotic heart disease of [place] coronary artery without angina pectoris Coronary atherosclerosis of [place] coronary artery documented in this encounter Care Teams Cold Roll Operator Relationship Specialty Start Date End Date Ed Robles MD [address] [place] [id number] PCP - General Family Medicine 01/04/23 documented as of this encounter
[2024-07-16 19:16] LABS: Add Urine Microscopic? YES; Appearance Urine Clear (Clear); Bacteria Urine Rare /hpf; Bilirubin Urine Negative (Negative); Blood Urine Negative (Negative); Color Urine Yellow (Yellow); Glucose Urine UA Negative (Negative); Ketones Urine Negative (Negative); Leukocyte Esterase Ur Trace LEU/UL (Negative); Nitrate Urine Negative (Negative); Protein Urine 1+ mg/dL (Negative); RBC Urine 0-2 /hpf (0-2); Specific Grav Ur 1.009 (1.001-1.035); Squamous Epithelial Cell Urine Occasional /hpf (Few); Urobilinogen Urine 0.2 mg/dL (<2.0); WBC Urine 0-5 /hpf (0-3)
== END 2024-07-16 10:21 | disposition home or self-care (01) ==
PROVIDERS: PCP Nurse Practitioner Adult Health; Visit Provider Nurse Practitioner Adult Health
DX: R39.9 Unspecified symptoms and signs involving the genitourinary system (principal)
CPT/HCPCS: 81001

== ENCOUNTER 2024-10-15 14:06 | Outpatient (CLI) | payer MEDICARE, SELFPAY ==
--- OUTSIDE RECORDS SUMMARY | 2024-10-15 14:19 | XMS_ITS | Clinical Summary ---
Author Organization [facility] Medical Office Building B Address [address] [place] [address] Care Team Providers Care Piling Setter Name Role Phone Corona Crabtree MD Unavailable [phone] Franky Torres MD Unavailable [phone] Shobha Menon MD Unavailable [phone] Radha Diane NP Primary Care Provider [phone] Caren Almaraz NP Unavailable [phone] Allergies Active Allergy Reactions Criticality Noted Date Comments Hydromorphone Mental status changes,Delusions Medium 07/02/2018 makes me crazy Tolerated oxycodone 12/30/22 Medications ascorbic acid (VITAMIN C) 100 mg tabletIndications: Vitamin C Deficiency Take 1 tablet (100 mg total) by mouth daily Active aspirin 81 mg tabletIndications: Myocardial Reinfarction Prevention Take 1 tablet (81 mg total) by mouth daily Active citalopram (CeleXA) 10 mg tabletIndications: Anxiety with Depression Take 2 tablets (20 mg total) by mouth daily Take 1 tablet daily Active Breztri Aerosphere 160-9-4.8 mcg/actuation HFA aerosol inhalerIndications :Bronchospasm Prevention with COPD Inhale 2 puffs 2 (two) times a day 06/22/19 Active montelukast (SINGULAIR) 10 mg tabletIndications: Seasonal Allergic Rhinitis Take 1 tablet (10 mg total) by mouth daily 06/05/19 22 Active albuterol HFA (PROVENTIL HFA,VENTOLIN HFA,PROAIR HFA) 90 mcg/actuation inhaler Inhale 2 puffs every 4 (four) hours as needed for wheezing Active fluticasone propionate (FLONASE) 50 mcg/actuation nasal sprayIndications:A llergic Rhinitis Administer 2 sprays into affected nostril(s) daily Active ezetimibe (ZETIA) 10 mg tabletIndications: hypercholesterolem ia Take 1 tablet (10 mg total) by mouth daily Active cholecalciferol (VITAMIN D-3) 2000 unit tabletIndications: Prevention of Vitamin D Deficiency,Vitamin D Deficiency Take 1 tablet (2,000 Units total) by mouth daily Active metoprolol tartrate (LOPRESSOR) 25 mg immediate release tabletIndications: hypertension Take 2 tablets (50 mg total) by mouth 2 (two) times a day 120 tablet 11 12/06/19 24 025 Active cetirizine (ZyrTEC) 10 mg tabletIndications: Allergic Conjunctivitis Take 0.5 tablets (5 mg total) by mouth daily 12/06/19 24 Active apixaban (ELIQUIS) 5 mg tabletIndications: atrial fibrillation Take 0.5 tablets (2.5 mg total) by mouth 2 (two) times a day 60 tablet 11 12/06/19 24 Active lisinopriL (PRINIVIL,ZESTRIL) 5 mg tabletIndications: hypertension Take 1 tablet (5 mg total) by mouth daily 90 tablet 3 04/07/19 25 026 Active calcium carb-magnesium carb,ox 200 mg calcium- 100 mg tablet,chewableInd ications:Vitamin Deficiency Prevention Take 1 tablet by mouth daily Active digoxin (LANOXIN) 125 mcg (0.125 mg) tabletIndications: Ventricular Rate Control in Atrial Fibrillation Take 1 tablet (125 mcg total) by mouth daily 30 tablet 11 06/17/19 25 026 Active potassium chloride ER (KLOR-CON) 20 mEq CR tabletIndications: Vitamin Deficiency Prevention Take 1 tablet (20 mEq total) by mouth 2 (two) times a day 60 tablet 11 06/17/19 25 026 Active rosuvastatin (CRESTOR) 40 mg tabletIndications: hyperlipidemia Take 1 tablet (40 mg total) by mouth daily 90 tablet 3 07/21/19 25 026 Active polyethylene glycol (GoLYTELY) 236-22.74-6.74 -5.86 gram solutionIndication s:Colonoscopy On 09/21/24 at 6 PM, drink 1/2 jug of the Nulytely/Golyt hilda, then on 09/22/24 at 6:00 AM drink the other 1/2 jug of the Nulytely/Golyt hilda until completely gone. May substitute with any 4 L PEG 4000 mL 07/30/19 Active nitrofurantoin monohydrate (MACROBID) 100 mg capsuleIndications :Urinary Tract/Genitourinar y Infection Take 1 capsule by mouth 2 (two) times a day 07/21/19 025 Discontin ued(Thera py completed ) Active Problems Problem Noted Date Diagnosed Date Colon polyps 07/28/2024 Coronary artery disease 07/22/2024 Assessment & Plan (07/22/2024 2:22 AM CDT): Chronic. At baseline. Status post recent cardiology appointment. Status post prior CABG Plan: Continue aspirin 81 mg daily. Continue Zetia 10 mg daily. Continue Lopressor 50 mg b.i.d.. Continue Crestor 40 mg daily. Chronic heart failure with preserved ejection fr action 07/22/2024 Assessment & Plan (07/22/2024 2:19 AM CDT): Euvolemic. Last echocardiogram 06/2024 with EF 60-65%. Presently compensated. Plan: Continue Lopressor 50 mg b.i.d.. Appears to be discrepancy of present home med list from last Cardiology mentation. Will need further reconciliation in the a.m.. History of mitral valve replacement 07/22/2024 Assessment & Plan (07/22/2024 2:21 AM CDT): Prior history. Denying any respiratory concerns at this time. Plan: Supportive care Hx of CABG 07/22/2024 Assessment & Plan (07/22/2024 2:22 AM CDT): See assessment and plan for CAD Metabolic acidosis, normal anion gap (NAG) 07/22 Assessment & Plan (07/22/2024 2:24 AM CDT): Bicarb 19 on admission without increased anion gap. Potentially secondary to recent infection versus viral process. Plan: Monitor bicarb levels. Mild protein-calorie malnutrition 07/22/2024 Fever, unspecified 07/22/2024 History of colonic polyps 07/07/2024 Bacteremia due to Enterococcus 06/12/2024 Gastroenteritis 06/10/2024 SIRS (systemic inflammatory response syndrome) 0 06/10/2024 Alcohol use 06/10/2024 Hypotensive episode 06/10/2024 Pneumonia of both lower lobe s due to Streptococcus pneumoniae 11/29/2023 Acute kidney injury 11/29/2023 Pneumonia of both lungs due to infectious organism, unspecified part of lung 11/28/2023 Coronary artery disease of n ative heart with stable angina pectoris 12/27/2022 Allergic rhinitis 12/25/2022 Anxiety 12/25/2022 Assessment & Plan (07/22/2024 2:18 AM CDT): Chronic. At baseline. Plan: Continue citalopram 20 mg daily Asthma-COPD overlap syndrome 12/25/2022 Atherosclerotic DENISA (renal artery stenosis), rony ateral 12/25/2022 KP on CPAP 12/25/2022 PSVT (paroxysmal supraventricular tachycardia) 1 02/24/2022 Shortness of breath 12/23/2022 NSTEMI (non-ST elevated myocardial infarction) 1 02/21/2022 PAD (peripheral artery disease) 04/17/2018 Assessment & Plan (07/22/2024 2:23 AM CDT): See assessment and plan for CAD Assessment & Plan (08/23/2020 11:50 AM CDT): Normal lower extremity arterial perfusion with stable left SFA stenosis. Repeat lower extremity arterial Doppler in one year. Mixed hyperlipidemia 03/30/2018 Overview (12/25/2022): 7/20 Cholesterol 163 HDL 71 LDL 68 triglyceride [...] glucose 129 (on pravastatin 40 mg daily) Assessment & Plan (07/22/2024 2:22 AM CDT): See assessment plan for CAD Resolved Problems Problem Noted Date Diagnosed Date Resolved Date Fever, unspecified fever cause 07/21/2024 07/22/2024 Assessment & Plan (07/22/2024 2:25 AM CDT): Reporting sent by primary care for further evaluation. Patient afebrile since admission. Denies any urinary symptoms. UA here additionally reassuring. Previously recommended outpatient colonoscopy due to Enterococcus faecalis. Already has an outpatient GI appointment August 25. Is denying any GI symptoms at this time. Chest x-ray was additionally reassuring. Per documentation, infectious disease in the ED recommended holding further outpatient antibiotic treatment this time. Plan: Follow up blood cultures of admission. If persistent bacteremia re-consult Infectious Disease and obtain an echo to rule out infective endocarditis Recommend continued outpatient follow up or colonoscopy. S/P carotid endarterectomy 08/23/2020 1 02/24/2022 Assessment & Plan (08/23/2020 11:52 AM CDT): No recurrent right ICA stenosis and minimal asymptomatic left ICA stenosis. Repeat carotid Doppler in one year. Stenosis of right carotid artery 04/17/2018 08/23/2020 Encounters Date Type Department Care Team Description 09/24/2024 Results Follow-Up [facility] Medicine Gastroenterology [address] [facility] 2nd Floor [address] [place] [address] Ancelmo Main MD Surgical pathology 09/22/2024 1:09 PM CDT Anesthesia Event [facility] [address] [facility] [address] [place] [address] Hany Hunter MD 09/22/2024 1:00 PM CDT - 09/22/2024 2:00 PM CDT Surgery [facility] [address] [facility] [address] [place] [address] Ancelmo Main MD COLON MUCOSAL RESECTION 09/22/2024 11:43 AM CDT - 09/22/2024 2:57 PM CDT Hospital Encounter [place] [address] [facility] [address] [place] [address] Ancelmo Main MD Colon polyps Discharge Disposition: Discharge to home or self care 09/15/2024 Telephone [place] at [address] [place] [phone] Beverly Muller MA 09/08/2024 Home Infusion [facility] Home Infusion Therapy [address] [place] [address] Suraj Kirkpatrick 09/04/2024 12:00 PM CDT Home Care Visit [place] [address] [address] [place] [address] Boaz Rodriguez RN SN OASIS DISCHARGE 09/02/2024 9:30 AM CDT - 09/02/2024 11:59 PM CDT Hospital Encounter [facility] [address] [place] [address] Discharge Disposition: Discharge to home or self care 09/02/2024 9:30 AM CDT Home Care Visit [place] [address] [address] [place] [address] Boaz Rodriguez RN SN HOME VISIT 08/31/2024 Home Infusion [facility] Home Infusion Therapy [address] [place] [address] Charles De Luna, [facility] Bacteremia (Primary Dx) 08/31/2024 Home Infusion [facility] Home Infusion Therapy [address] [place] [address] Charles De Luna, [facility] 08/27/2024 1:00 PM CDT Office Visit [facility] [address] [facility] [address] [place] [address] Angel Zepeda MD Enterococcal bacteremia (Primary Dx) 08/27/2024 Home Care Visit [place] [address] [address] [place] [address] Boaz Rodriguez, RN CASE COMMUNICATION 08/26/2024 1:30 PM CDT Home Care Visit [place] [address] [address] [place] [address] Boaz Rodriguez, DAREK SN HOME VISIT 08/26/2024 12:30 PM CDT - 08/26/2024 11:59 PM CDT Hospital Encounter [address] [address] Discharge Disposition: Discharge to home or self care 08/26/2024 9:34 AM CDT - 08/26/2024 11:59 PM CDT Hospital Encounter [facility] [address] [place] [address] Bacteremia due to Enterococcus Discharge Disposition: Discharge to home or self care 08/26/2024 Home Care Visit [place] [address] [address] [place] [address] Bella Richter RN SN TRIAGE ENCOUNTER 08/24/2024 Home Infusion [facility] Home Infusion Therapy [address] [place] [address] Eugenia Odom [place] 08/19/2024 10:30 AM CDT - 08/19/2024 11:59 PM CDT Hospital Encounter [address] [address] Discharge Disposition: Discharge to home or self care 08/19/2024 10:00 AM CDT Home Care Visit [place] [address] [address] [place] [address] Boaz Rodriguez, RN SN HOME VISIT 08/13/2024 Home Care Visit [address] [place] [address] Miracle Topete, RN TELEPHONE ENCOUNTER 08/11/2024 12:30 PM CDT Home Care Visit [address] [place] [address] Boaz Rodriguez, RN SN HOME VISIT 08/11/2024 12:00 PM CDT - 08/11/2024 11:59 PM CDT Hospital Encounter [address] [address] Discharge Disposition: Discharge to home or self care 08/08/2024 Home Infusion [facility] Home Infusion Therapy [address] [place] [address] Noelle Raman [facility] Bacteremia (Primary Dx) 08/05/2024 11:00 AM CDT Home Care Visit [address] [place] [address] Boaz Rodriguez, DAREK SN HOME VISIT 08/05/2024 10:30 AM CDT - 08/05/2024 11:59 PM CDT Hospital Encounter [address] [address] Discharge Disposition: Discharge to home or self care 08/04/2024 1:19 PM CDT - 08/04/2024 11:59 PM CDT Hospital Encounter [facility] [address] [place] [address] Carotid bruit, unspecified laterality Discharge Disposition: Discharge to home or self care 07/31/2024 Telephone [facility] Medical Group Gastroenterology at [address] [place] [phone] Maryam Hernandez Colonoscopy Cancel 07/30/2024 Results Follow-Up [facility] Group Gastroenterology at [address] [place] [phone] Aminah Nair MD Surgical pathology 07/29/2024 11:30 AM CDT - 07/29/2024 11:59 PM CDT Hospital Encounter [facility] [address] [place] [address] Discharge Disposition: Discharge to home or self care 07/29/2024 11:00 AM CDT Home Care Visit [place] [address] [address] [place] [address] Boaz Rodriguez, DAREK SN OASIS START OF CARE 07/29/2024 Plan of Care Documentation [address] [place] [address] 07/29/2024 Telephone [facility] [address] [place] [address] Jo Ramos RN GI Preprocedure 07/28/2024 Orders Only [facility] Medical Group Gastroenterology at [address] [place] [phone] Eleonora Mathew PA Cecal polyp (Primary Dx) 07/28/2024 Plan of Care Documentation [facility] Home Infusion Therapy [address] [place] [address] 07/28/2024 Home Infusion [facility] Home Infusion Therapy [address] [place] [address] Doreen Chavez, [facility] Bacteremia (Primary Dx) 07/28/2024 [facility]ation [facility] [address] [facility] [address] [place] [phone] Aparna Dumont LPN IV Antibx (NM) 07/27/2024 2:45 PM CDT Anesthesia Event [address] [address] Neal Mauro MD Funkhouser, Andrew Frank, CRNA 07/27/2024 1:30 PM CDT - 07/27/2024 2:00 PM CDT Surgery [address] [address] Aminah Nair MD COLON REMOVAL SNARE 07/21/2024 10:21 AM CDT - 07/28/2024 1:33 PM CDT Hospital Encounter [facility] Acute Medicine [address] [place] [id number] Hermes Cruz MD Richards, Sterling Mensah Jr., MD Don, Noah Ruiz MD Fever, unspecified fever cause (Primary Dx); Chills; Leukocytosis, unspecified type; Illness, unspecified; Bacteremia due to Enterococcus; SIRS (systemic inflammatory response syndrome) (HCC) Discharge Disposition: Discharge to home, home health skilled care from Last 3 Months Immunizations Immunization Administration [...] HYSTERECTOMY FEMORAL BYPASS CAROTID ARTERY ANGIOPLASTY Right CORONARY ARTERY BYPASS GRAFT 02/11/2022 - 02/10/2023 MITRAL VALVE REPLACEMENT 02/11/2022 - 02/10/2023 Medical History Medical History Date Comments COPD (chronic obstructive pulmonary disease) Hyperlipidemia Hypertension Vitamin D deficiency PAD (peripheral artery disease) Carotid stenosis, bilateral Aortoiliac stenosis Sleep apnea Family History Medical History Relation Name Comments Esophageal cancer Maternal Grandfather Relation Name Status Comments Maternal Grandfather Social History Tobacco Use Types Packs/Day Years Used Date Smoking Tobacco: Former Cigarettes 1 35 Q uit: 04/2018 Smokeless Tobacco: Never Tobacco Cessation:Counseling Given: Not Answered Alcohol Use Standard Drinks/Week Comments Yes 0 (1 standard drink = 0.6 oz pur e alcohol) OASIS D0700: Social Isolation Answer Da te Recorded Frequency of experiencing loneliness or isolatio n Never 09/04/2024 OASIS A1250: Transportation Answer Date Recorded Lack of Transportation (Medical) No 09/04/2024 Lack of Transportation (Non-Medical) No 09/04/2024 Patient Unable or Declines to Respond No 09/04/2024 OASIS B1300: Health Literacy Answer Fran e Recorded Frequency of needing help to read materials from doctor or pharmacy Sometimes 09/04/2024 [facility] Utilities Answer Date Recorded In the past 12 months has th e [employer], gas, oil, or water [employer] threatened to shut off services in your home? No 07/22/2024 Social Connection and Isolation Panel Answer Date Recorded In a typical week, how many times do you talk on the phone with family, friends, or neighbors? More than three times a week 07/22/2024 How often do you get togethe r with friends or relatives? More than three times a week 07/22/2024 How often do you attend chur ch or rastafari services? Never 07/22/2024 Do you belong to any clubs o r organizations such as evangelical groups, unions, fraternal or athletic groups, or school groups? No 07/22/2024 How often do you attend meet ings of the clubs or organizations you belong to? Never 07/22/2024 Are you , , di vorced, , never , or living with a partner? 07/22/2024 Overall Financial Resource Strain (CARDIA) Answe r Date Recorded How hard is it for you to pa y for the very basics like food, housing, medical care, and heating? Not very hard 07/22/2024 PHQ-2 Answer Date Recorded PHQ-2 Total Score (If total score is 3 or more points, staff should administer the PHQ-9) 0 12/24/2022 Hunger Vital Sign Answer Date Recorded Within the past 12 months, y ou worried that your food would run out before you got the money to buy more. Never true 07/23/19 25 Within the past 12 months, t he food you bought just didn't last and you didn't have money to get more. Never true 07/22/2024 PRAPARE - Transportation Answer Date Re corded In the past 12 months, has l ack of transportation kept you from medical appointments or from getting medications? No 07/12 In the past 12 months, has l ack of transportation kept you from meetings, work, or from getting things needed for daily living? No 07/22/2024 Housing Stability Vital Sign Answer Fran e [...] place to sleep or slept in a chcf (including now)? No 12/25/2022 Housing Stability Vital Sign Answer Fran e Recorded In the last 12 months, was t here a time when you were not able to pay the mortgage or rent on time? No 07/22/2024 In the past 12 months, how m any times have you moved where you were living? 0 07/22/2024 At any time in the past 12 m [facility], were you homeless or living in a chcf (including now)? No 07/22/2024 AUDIT-C Answer Date Recorded Q1: How often do you have a drink containing alcohol? 4 or more times a week 09/22/2024 Q2: How many drinks containi ng alcohol do you have on a typical day when you are drinking? 3 or 4 Q3: How often do you have si x or more drinks on one occasion? Never 09/22/2024 Personal Safety Answer Date Recorded Have you ever been in or are you currently in a harmful physical or emotional relationship or is someone making you feel afraid or unsafe? Denies 09/22/2024 Comments No Sex and Gender Information Value Date Recorded Sex Assigned at Not on file Legal Sex Female 2:14 PM CDT Gender Identity Not on file Sexual Orientation Not on file Obstetrics History Last Filed Vital Signs Vital Sign Reading Time Taken Comments Blood Pressure 125/56 09/22/2024 2:40 PM CDT Pulse 65 09/22/2024 2:40 PM CDT Temperature 36.1 C (97 F) 09/22/2024 1:50 PM CDT Respiratory Rate 17 09/22/2024 2:40 PM CDT Oxygen Saturation 100% 09/22/2024 2:40 PM CDT Inhaled Oxygen Concentration - - Weight 71.2 kg (157 lb) 09/22/2024 1:00 PM CDT Height 167.6 cm (5' 6) 09/22/2024 1:00 PM CDT Body Mass Index 25.34 09/22/2024 1:00 PM CDT Plan of Treatment Health Maintenance Due Date Last Done Comments Albumin Creatinine Ratio, Urine 1956 Breast Cancer Screening-Mammogram 1955 Hepatitis C Screening 1955 Osteoporosis Screening-Bone Density Scan 1955 Dilated Eye Exam 1956 Foot Exam 1956 Hepatitis B Screening 1974 Well Visit 65+ 2021 DTaP/Tdap/Td Vaccine (2 - Td or Tdap) 03/07/2022 03/07/2012 Hemoglobin A1C 06/23/2023 12/23/2022 Depression Screening 12/23/2023 12/22/2022, 12/23/19 23 Covid-19 Vaccine (2024-2 6 season) 2024 08/24/2021, 11/18/2020, 05/05/2020, Additional history exists Influenza Vaccine (#1) 2024 , 11/08/2022, 12/10/2021, Additional history exists Lung Cancer Screening 11/22/2024 11/22/2023 Lipid Panel 06/10/2025 06/10/2024, 12/23/2022 eGFR 09/02/2025 09/02/2024, 0707/2024, 08/19/2024, Additional history exists Fall Risk Assessment 09/22/2025 09/22/2024 Colon Cancer Screening-Colonoscopy 09/22/2034 09/22/2024, 07/27/2024 Zoster Vaccine Completed 03/27/2019, 10/21/2018 Pneumococcal vaccine 65+ Completed 022, 05/28/2021, 07/18/2020 Colon Cancer Screening-CT Colonography Discontinued 09/22/2024, 07/27/2024 Colon Cancer Screening-DNA Stool Discontinued 09/23/19, 07/27/2024 Colon Cancer Screening-FIT Discontinued 09/22/2024, Colon Cancer Screening-Sigmoidoscopy Discontinued 09/22/2024, 07/27/2024 Medical Devices Implanted Type Area Soft Metals Engraver Hand Device Identifier Shelf Expiration Date Model / Serial / Lot [employer] Valve Mitral Tissue Stented Epic Plus 31mm [id number] - [id number] - [id number] Implanted:Qty : 1 on 12/28/2022 by Corona Crabtree MD at [facility] Prosthetic Valve N/A: Heart [employer] 06/14/2026 [id number] / [id number] / Procedures Procedure Name Priority Date/Time Associated Diagnosis Comments SURGICAL PATHOLOGY Routine 09/22/2024 1: 48 PM CDT Colon polyps ENDO ADD ON COLON REMOVAL SNARE 09/22/2024 1:11 PM CDT Colon polyps Special Needs Colon EMR ENDO ADD ON COLON INJECTION SUBMUCOSAL 09/22/2024 1:11 PM CDT Colon polyps Special Needs Colon EMR COLON MUCOSAL RESECTION 09/22/2024 1:11 PM CDT Colon polyps Special Needs Colon EMR COLONOSCOPY 09/22/2024 1:02 PM CDT EGFR Routine 09/02/2024 9:30 AM CDT DIFFERENTIAL AUTO Routine 09/02/2024 9:3 0 AM CDT CBC WITH AUTO DIFFERENTIAL Routine 09/02/2024 9:30 AM CDT BASIC METABOLIC PANEL Routine 09/02/2024 9:30 AM CDT EGFR STAT 08/26/2024 12:30 PM CDT BASIC METABOLIC PANEL STAT 08/26/2024 12:30 PM CDT PET/CT FDG SKULL TO THIGH Schedule Routine, Read Routine (OP Routine) 08/26/2024 11:26 AM CDT Bacteremia due to Enterococcus EGFR STAT 08/19/2024 10:30 AM CDT DIFFERENTIAL AUTO STAT 08/19/2024 10:30 AM CDT CBC WITH AUTO DIFFERENTIAL STAT 08/19/2024 10:30 AM CDT BASIC METABOLIC PANEL STAT 08/19/2024 10:30 AM CDT EGFR Routine 08/11/2024 12:00 PM CDT DIFFERENTIAL AUTO Routine 08/11/2024 12:00 PM CDT CBC WITH AUTO DIFFERENTIAL Routine 08/11/2024 12:00 PM CDT BASIC METABOLIC PANEL Routine 08/11/2024 12:00 PM CDT EGFR Routine 08/05/2024 10:30 AM CDT DIFFERENTIAL AUTO Routine 08/05/2024 10:30 AM CDT CBC WITH AUTO DIFFERENTIAL Routine 08/05/2024 10:30 AM CDT BASIC METABOLIC PANEL Routine 08/05/2024 10:30 AM CDT US CAROTIDS DUPLEX BILATERAL Schedule Routine, Read Routine (OP Routine) 08/04/2024 2:39 PM CDT Carotid bruit, unspecified laterality EGFR Routine 07/29/2024 11:30 AM CDT DIFFERENTIAL AUTO Routine 07/29/2024 11:30 AM CDT CBC WITH AUTO DIFFERENTIAL Routine 07/29/2024 11:30 AM CDT BASIC METABOLIC PANEL Routine 07/29/2024 11:30 AM CDT ENDO ADD ON COLON BIOPSY 07/27/2024 2:40 PM CDT Bacteremia due to Enterococcus COLON REMOVAL SNARE 07/27/2024 2 :40 PM CDT Bacteremia due to Enterococcus COLONOSCOPY 07/27/2024 2:16 PM CDT SURGICAL PATHOLOGY STAT 07/27/2024 10:35 AM CDT Bacteremia due to Enterococcus CBC WITHOUT DIFFERENTIAL Routine 07/27/2024 4:07 AM CDT CBC WITHOUT DIFFERENTIAL Routine 07/26/2024 3:13 AM CDT CBC WITHOUT DIFFERENTIAL Routine 07/25/2024 5:20 AM CDT POTASSIUM LEVEL Timed 07/25/2024 5:20 AM CDT MAGNESIUM Timed 07/25/2024 5:20 AM CDT BLOOD CULTURE Routine 07/24/2024 9:41 AM CDT BLOOD CULTURE Routine 07/24/2024 9:37 AM CDT CBC WITHOUT DIFFERENTIAL Routine 07/24/2024 3:35 AM CDT TRANSESOPHAGEAL ECHO (THAD) W DOPPLER/CF WO CONTRAST Routine 07/23/2024 9:00 AM CDT CBC WITHOUT DIFFERENTIAL Routine 07/23/2024 4:13 AM CDT BLOOD CULTURE Routine 07/23/2024 4:13 AM CDT BLOOD CULTURE Routine 07/23/2024 4:05 AM CDT BLOOD CULTURE Routine 07/22/2024 8:49 AM CDT BLOOD CULTURE Routine 07/22/2024 8:41 AM CDT EGFR Routine 07/22/2024 2:46 AM CDT DIFFERENTIAL AUTO Routine 07/22/2024 2:4 6 AM CDT DIGOXIN LEVEL Routine 07/22/2024 2:46 AM CDT CBC WITH AUTO DIFFERENTIAL Routine 07/22/2024 2:46 AM CDT RENAL FUNCTION PANEL Routine 07/22/2024 2:46 AM CDT MAGNESIUM Add-On 07/22/2024 2:43 AM CDT BLOOD CULTURE STAT 07/21/2024 3:33 PM CDT BLOOD CULTURE STAT 07/21/2024 2:11 PM CDT INFLUENZA A/B, RSV, AND COVID-19 PCR STAT 07/21/2024 11:34 AM CDT XR CHEST PA LATERAL 2 VIEWS ED 07/21/2024 11:30 AM CDT URINALYSIS AND REFLEX TO MICROSCOPIC AND CULTURE STAT 07/21/2024 10:34 AM CDT PROCALCITONIN Add-On 07/21/2024 9:52 AM CDT CRP (ACUTE PHASE) Add-On 07/21/2024 9:5 2 AM CDT EGFR STAT 07/21/2024 9:52 AM CDT DIFFERENTIAL AUTO STAT 07/21/2024 9:5 2 AM CDT COMPREHENSIVE METABOLIC PANEL STAT 07/21/2024 9:52 AM CDT CBC WITH AUTO DIFFERENTIAL STAT 07/21/2024 9:52 AM CDT ECG 12-LEAD STAT 07/21/2024 9:47 AM CDT LIPID PANEL Routine 06/10/2024 6:[address] LUNG CANCER SCREENING Schedule Routine, Read Routine (OP Routine) 11/22/2023 11:58 AM CDT Personal history of nicotine dependence HEMOGLOBIN A1C Routine 12/23/2022 7:55 AM SYSTEM SAFETY ENGINEER from Last 3 Months or Most Recently Relevant to Health Maintenance Results * Surgical pathology (09/22/2024 1:48 PM CDT) Tissue (Polyp(s), colon/colorectal, esophageal, gastric) 09/22/2024 1:48 PM CDT Tissue specimen (specimen) (Polyp(s), colon/colorectal, esophageal, gastric) 09/22/2024 1:59 PM CDT Narrative PATHOLOGY [facility] - 09/24/2024 11:14 AM CDT EPIC results best viewed via link to PDF [facility] [place] [address] Note to Patients: This report may contain a detailed description of human tissue sent by a health care provider to the laboratory for pathologic evaluation. The content of this report is essential for diagnosis and may provide important critical findings. This information may be unfamiliar to patients to review without a medical professional present. It is advised that the patient review this report in the presence of a health care provider who can answer questions and explain the details. SURGICAL PATHOLOGY REPORT FINAL Patient Name: BHAVANA ESCAMILLA Gender: F : 1955 (Age: 69) Address: [address] [place], [place] [id number] Hospital #: [id number] Taken:09/22/2024 Received:09/22/2024 Reported: 09/24/2024 Patient Type: [facility] Service: Gastro Location: Physician(s): Ancelmo Main M.D. Radha Diane, HERB Nair MD Diagnosis: A. Cecal polyp- emr- hot snare: - Tubular adenoma - Margins free of neoplasm B. Ascending colon polyp- oriana- hot snare: - Sessile serrated lesion - Margins free of sessile serrated lesion xl09/24/2024 11:14 By this signature, I attest that the above diagnosis is based upon my personal examination of the slides(and/or other material indicated in the diagnosis). Catherine Hernandez MD Report Electronically Reviewed and Signed Out By Catherine Hernandez MD 09/24/2024 11:14:39 History: The patient is a 69-year-old woman presenting with colon polyps. Operative procedure: Colon mucosal resection with injection submucosal and removal snare. Specimen(s) Received: A: Cecal polyp- emr- hot snare B: Ascending colon polyp- oriana- hot snare Gross Description: Received in two formalin jars labeled with the patient's identifiers. A. Labeled cecal polyp EMR and consists of a single red and goldstein, sessile polypoid fragment(s) of soft tissue measuring 1.2 x 0.8 x 0.4 cm. The margin of excision is inked blue and the specimen is serially sectioned. Labeled A1. Jar 0. B. Labeled ascending colon polyp EMR and consists of a single goldstein, sessile polypoid fragment(s) of soft tissue measuring 1.7 x 1.5 x 0.9 cm. The margin of excision is inked blue and the specimen is serially sectioned. Labeled B1. Jar 0. sxst/09/22/2024 17:23 PA(s): Zuleika Cox By this signature, I attest that the above diagnosis is based upon my personal examination of the slides(and/or other material). Addenda/Procedures The performance characteristics of some immunohistochemical stains, fluorescence in-situ hybridization tests and immunophenotyping by flow cytometry cited in this report (if any) were determined by the Surgical Pathology and Flow Cytometry Departments at [facility] as part of an ongoing quality control director program and in compliance with federally mandated regulations drawn from the Clinical Laboratory Improvement Act of 1988 (CLIA '88). Some of these tests rely on the use of analyte specific reagents and are subject to specific labeling requirements by the US Food and Drug Administration. Such diagnostic tests may only be performed in a facility that is certified by the Department of Health and Human Services as a high complexity laboratory under CLIA '88. The FDA has determined that such clearance or approval is not necessary. This test is used for clinical purposes. It should not be regarded as investigational or for research. Nevertheless, federal rules concerning the medical use of analyte specific reagents require that the following disclaimer be attached to the report: This test was developed and its performance characteristics determined by the Surgical Pathology and Flow Cytometry Departments of [facility]. It has not been cleared or approved by the U. S. Food and Drug Administration. IMAGES AND SCANNED DOCUMENTS, IF INCLUDED, ONLY VIEWABLE IN PDF VERSION OF REPORT us Ancelmo Main MD LAB PATHOLOGY ORDERABLES Fi nal Result PATHOLOGY [facility] 3rd Floor [place], [place] [phone] * Colonoscopy (09/22/2024 1:02 PM CDT) Anatomical Region Laterality Modality Other Narrative Procedure Note Ancelmo Main MD - 09/22/2024 1:02 PM CDT GI ENDOSCOPY [facility] Patient Name: Bhavana Escamilla Procedure Date: 09/22/2024 1:02 PM Date of : 1955 Admit Type: Outpatient Age: 69 Gender: Female Attending MD: Ancelmo Main M.D., Room: [facility] ENDOSCOPY ROOM 9 Note Status: Finalized Procedure: Colonoscopy Indications: Therapeutic procedure for colon polyps Referring MD: Aminah Nair M.D. Providers: Ancelmo Main M.D. Comorbidities See the other procedure note for documentation of comorbidities Medicines: Monitored Anesthesia Care Complications: No immediate complications. Estimated Blood Loss: Estimated blood loss: none. Procedure: Pre-Anesthesia Assessment: - Prior to the procedure, a History and Physicalwas performed, and patient medications, allergies and sensitivities were reviewed. The patient'stolerance of previous anesthesia was reviewed. - Immediately prior to administration ofmedications, the patient was re-assessed for adequacy to receive sedatives. - The risks and benefits of the procedure and the sedation options and risks were discussed with the patient. All questions were answered and informed consent was obtained. The benefits, risks and alternatives of theprocedure and sedation were discussed and informed consentwas obtained. All questions were answered. Please referto the signed informed consent document in the medical record. The scope was passed under direct vision.The [id number] endoscope was introduced through the anus and advanced to the cecum, identified by appendiceal orifice and ileocecal valve. The colonoscopy was performed without difficulty. The patient tolerated the procedure well. The qualityof the bowel preparation was adequate. The bowel preparation used was GoLYTELY via split dose instruction. Findings: The perianal and digital rectal examinations were normal. A 25 mm polyp was found in the cecum. The polyp was granular lateral spreading. Preparations were made for mucosal resection. Demarcationof the lesion was performed to clearly identify boundaries of thelesion. 3 mL of saline with methylene blue was injected with adequate lift ofthe lesion from the muscularis propria. Snare mucosal resection withsuction (via the working channel) retrieval was performed. Resection and retrieval were complete. Defect edges were fulgurated using snare tip soft coagulation. To close a defect after mucosal resection, two hemostatic clips were successfully placed. There was no bleedingduring, or at the end, of the procedure. A 20 mm polyp was found in the ascending colon immediately adjacentto previous polypectomy site with adherent clips. The polyp was sessile. Area was successfully injected with 2 mL saline with methylene bluefor a lift polypectomy. The polyp was removed with a hot snare. Resection and retrieval were complete. To close a defect after polypectomy,three hemostatic clips were successfully placed. There was no bleedingduring, or at the end, of the procedure. Multiple small and large-mouthed diverticula were found in the entire colon. Remainder of colon was not examined carefully given recent highquality examination. Impression: - One 25 mm polyp in the cecum, removed withmucosal resection. Resected and retrieved. Clips wereplaced. - One 20 mm polyp in the ascending colon, removedwith a hot snare after injection. Resected andretrieved. Clips were placed. - Diverticulosis in the entire examined colon. Recommendation: - The patient will be observed post-procedure,until all discharge criteria are met. - Surveillance colonoscopy in 6 months. - Avoidance of NSAIDs for 14 days. - Would hold anticoagulation for 72 hours if permissible from cardiovascular standpoint. - Resume previous diet. - Follow up with referring physician as previously scheduled. - In the unusual situation that you developabdominal, bleeding or other significant problems in the days following this procedure please call [phone] ask for my nurse, Edith Engle. After hours and evenings please call [phone] and speak to theGI fellow content specialist. Please tell the fellow that Dr. Main did your procedure and that you were instructed to have the fellow call me or thephysician covering for me to discuss the management of your condition. If you have an urgent problem, please goto the nearest emergency room and have the ER doctorcall my office during the day or [facility] transfer ([phone]) center after hours and weekends to arrange admission or transfer to our facility. Attending Participation: I personally performed the entire procedure. Electronically signed by Ancelmo Main MD Ancelmo Main M.D. 09/22/2024 1:57:21 PM . Number of Addenda: 0 Note Initiated On: 09/22/2024 1:02 PM us Ancelmo Main MD ENDOSCOPY PROCEDURES Final Result * eGFR (09/02/2024 9:30 AM CDT) eGFR 90 >=60 mL/min/1. 73 m2 Comment: Interpretive Data [...] interpretive data was last reviewed 2020. Blood 09/02/2024 9:30 AM CDT 09/02/2024 12:39 PM CDT us Caren Almaraz NP LAB BLOOD ORDERABLES Silvia l Result [facility] Department [place] [address] * Differential, auto (09/02/2024 9:30 AM CDT) Pathologist [facility] Neutrophil abs 4.36 1.50 - 6.50 K/cumm Imm gran abs 0.01 0.00 - 0.10 K/cumm [facility] Lymphocyte abs 1.27 0.80 - 3.30 K/cumm [facility] Monocyte abs 0.74 0.20 - 0.80 K/cumm [facility] Eosinophil abs 0.17 0.00 - 0.50 K/cumm [facility] Basophil abs 0.06 0.00 - 0.10 K/cumm [facility] Neutrophil pct 65.9 % [facility] Comment: Interpretive Data Percent cell count reference ranges are not reported, since discordance with absolute values may lead to misinterpretation of CBC data. Current Interpretive Data was last revised on 2017. Imm gran pct 0.2 % [facility] Comment: Interpretive Data Percent cell count reference ranges are not reported, since discordance with absolute values may lead to misinterpretation of CBC data. Current Interpretive Data was last revised on 2017. Lymphocyte pct 19.2 % [facility] Comment: Interpretive Data Percent cell count reference ranges are not reported, since discordance with absolute values may lead to misinterpretation of CBC data. Current Interpretive Data was last revised on 2017. Monocyte pct 11.2 % [facility] Comment: Interpretive Data Percent cell count reference ranges are not reported, since discordance with absolute values may lead to misinterpretation of CBC data. Current Interpretive Data was last revised on 2017. Eosinophil pct 2.6 % [facility] Comment: Interpretive Data Percent cell count reference ranges are not reported, since discordance with absolute values may lead to misinterpretation of CBC data. Current Interpretive Data was last revised on 2017. Basophil pct 0.9 % [facility] Comment: Interpretive Data Percent cell count reference ranges are not reported, since discordance with absolute values may lead to misinterpretation of CBC data. Current Interpretive Data was last revised on 2017. Blood 09/02/2024 9:30 AM CDT 09/02/2024 12:37 PM CDT us Caren Almaraz BRAND LEADER LAB BLOOD ORDERABLES Silvia l Result [facility] Department [place] [address] * (ABNORMAL) CBC with auto differential (09/02/2024 9:30 AM CDT) WBC 6.61 3.80 - 9.90 K/cumm Hgb 11.1(L) 11.9 - 15.5 g/dL [facility] Hct 35.7 35.6 - 45.5 % [facility] Plt 303 150 - 400 K/cumm [facility] MPV 11.2 9.1 - 12.3 fL [facility] RBC 4.42 3.90 - 5.20 M/cumm [facility] MCV 80.8(L) 81.3 - 96.4 fL [facility] MCH 25.1(L) 27.1 - 33.3 pg [facility] MCHC 31.1(L) 32.3 - 35.7 g/dL [facility] RDW CV 16.0(H) 11.1 - 14.9 % [facility] RDW SD 46.7 35.7 - 48.1 fL [facility] NRBC abs 0.00 0.00 - 0.01 K/cumm [facility] Blood 09/02/2024 9:30 AM CDT 09/02/2024 12:37 PM CDT Caren Almaraz BRAND LEADER LAB BLOOD ORDERABLES Silvia l Result [facility] Department [place] [address] * Basic metabolic panel (09/02/2024 9:30 AM CDT) Sodium 142 135 - 145 mmol/L Potassium, pl 4.4 3.3 - 4.9 mmol/L [facility] Chloride 105 97 - 110 mmol/L [facility] CO2 27 22 - 32 mmol/L [facility] Anion gap 10 2 - 15 mmol/L [facility] BUN 12 6 - 25 mg/dL [facility] Creatinine 0.73 0.60 - 1.10 mg/dL [facility] Glucose 99 70 - 199 mg/dL [facility] Comment: Interpretive Data Fasting glucose >/= 126 [...] interpretive data was last revised 2022. Calcium 10.1 8.5 - 10.3 mg/dL [facility] Blood 09/02/2024 9:30 AM CDT 09/02/2024 12:37 PM CDT Caren Almaraz BRAND LEADER LAB BLOOD ORDERABLES Silvia l Result [facility] Department [place] [address] * eGFR (08/26/2024 12:30 PM CDT) eGFR 88 >=60 mL/min/1. 73 m2 Comment: Interpretive Data [...] interpretive data was last reviewed 2020. Blood 08/26/2024 12:3 0 PM CDT 08/26/2024 4:02 PM CDT us Caren Almaraz BRAND LEADER LAB BLOOD ORDERABLES Silvia l Result [facility] Department [place] [address] * Basic metabolic panel (08/26/2024 12:30 PM CDT) Sodium 144 135 - 145 mmol/L Potassium, pl 4.2 3.3 - 4.9 mmol/L [facility] Chloride 108 97 - 110 mmol/L [facility] CO2 25 22 - 32 mmol/L [facility] Anion gap 11 2 - 15 mmol/L [facility] BUN 12 6 - 25 mg/dL [facility] Creatinine 0.74 0.60 - 1.10 mg/dL [facility] Glucose 84 70 - 199 mg/dL [facility] Comment: Interpretive Data Fasting glucose >/= 126 [...] interpretive data was last revised 2022. Calcium 9.5 8.5 - 10.3 mg/dL [facility] Blood 08/26/2024 12:3 0 PM CDT 08/26/2024 3:56 PM CDT Caren Almaraz BRAND LEADER LAB BLOOD ORDERABLES Silvia l [facility] [place] [address] * PET/CT FDG Skull to Thigh (08/26/2024 11:26 AM CDT) Anatomical Region Laterality Modality N/A Positron Emissio n Tomography (PET) 08/26/2024 1:57 PM CDT Narrative 08/26/2024 2:16 PM CDT EXAM DESCRIPTION: PET/CT FDG SKULL TO THIGH REASON FOR STUDY: Recurrent Enterococcal bacteremia of unclear etiology. Presumably the examination is for detection of occult source of infection. No indicated history or suspicion of malignancy. RADIOPHARMACEUTICAL: 13.1 mCi F-18 Fluorodeoxyglucose (FDG) via a right antecubital IV site. TECHNIQUE: The patient's fasting blood glucose level, measured by glucometer before injection of FDG, was 110 mg/dL. After intravenous administration of FDG, noncontrast CT images were obtained for attenuation correction and for fusion with emission PET images to allow for anatomical localization of PET findings. Emission PET images were then obtained. The area imaged spanned the region from the skull base to the thighs. The uptake time was approximately 60 minutes. SUV max was normalized to body weight. COMPARISON: No prior PET-CT. CT chest 06/10/2024 FINDINGS: For reference, a region of interest of the ascending thoracic aorta has a maximal SUV of 2.8 . For reference, a region of interest of the right hepatic lobe of the liver has a maximal SUV of 3.4. Head: Normal FDG uptake is seen in the included portion of the brain. Neck: Physiologic uptake is present in the lymphoid structures and salivary glands. No hypermetabolic lymphadenopathy is identified. Chest: Emphysema is noted. No hypermetabolic pulmonary nodule or mass. No focal consolidation. No hypermetabolic thoracic lymphadenopathy. Status post median sternotomy. Coronary artery calcifications are noted. There is no pleural or pericardial effusion. A right PICC line is noted. Abdomen and Pelvis: Liver and spleen demonstrate normal physiologic activity. The gallbladder is mildly distended with gallstones but without overt inflammatory change or abnormal FDG uptake. Spleen, pancreas, and both adrenal glands normal. Physiologic excretion FDG from the kidneys. Status post aorto bi femoral bypass. There is mild uniform activity along the bypass graft which is a typical postoperative finding without specific evidence of complication. Moderate sigmoid colon diverticulosis is seen. Physiologic bowel activity. Bones: There is radiotracer uptake associated with an acute or subacute right anterior 5th rib fracture. Status post median sternotomy, the superior sternotomy segments are not fully fused, with some mild activity. Degenerative changes in the lumbar spine with some areas of vacuum disc phenomena. There is mild anterior wedging T12 with approximately 50% height loss anteriorly likely chronic compression fracture with only minimal activity in the anterior inferior endplate at T12. IMPRESSION: 1. No evidence of FDG avid malignancy. 2. No specific site of FDG uptake to localize an occult site of infection. 3. Status post aorto bi femoral bypass with mild uniform activity along the bypass graft which is a typical postoperative finding without specific evidence of complication. 4. Cholelithiasis. 5. Emphysema. Recommend evaluation for annual lung cancer screening enrollment if the patient qualifies based on clinical factors and smoking history. 6. Subacute right anterior 5th rib fracture. THIS IS AN ELECTRONICALLY VERIFIED FINAL REPORT 08/26/2024 2:16 PM - Electronically signed by Harry Fitzpatrick M.D. CH: Report ID: [id number] Reading Location: [id number] Procedure Note Harry Fitzpatrick Jr., MD - 08/26/2024 EXAM DESCRIPTION: PET/CT FDG SKULL TO THIGH REASON FOR STUDY: Recurrent Enterococcal bacteremia of unclear etiology. Presumably the examination is for detection of occult source of infection.No indicated history or suspicion of malignancy. RADIOPHARMACEUTICAL: 13.1 mCi F-18 Fluorodeoxyglucose (FDG) via a right antecubital IV site. TECHNIQUE: The patient's fasting blood glucose level, measured byglucometer before injection of FDG, was 110 mg/dL. After intravenousadministration of FDG, noncontrast CT images were obtained for attenuation correction andfor fusion with emission PET images to allow for anatomical localization ofPET findings. Emission PET images were then obtained. The area imaged spannedthe region from the skull base to the thighs. The uptake time wasapproximately 60 minutes. SUV max was normalized to body weight. COMPARISON: No prior PET-CT. CT chest 06/10/2024 FINDINGS: For reference, a region of interest of the ascending thoracic aorta has a maximal SUV of 2.8 . For reference, a region of interest of the right hepatic lobe of the liver has a maximal SUV of 3.4. Head: Normal FDG uptake is seen in the included portion of the brain. Neck: Physiologic uptake is present in the lymphoid structures andsalivary glands. No hypermetabolic lymphadenopathy is identified. Chest: Emphysema is noted. No hypermetabolic pulmonary nodule or mass.No focal consolidation. No hypermetabolic thoracic lymphadenopathy. Statuspost median sternotomy. Coronary artery calcifications are noted. There is no pleural or pericardial effusion. A right PICC line is noted. Abdomen and Pelvis: Liver and spleen demonstrate normal physiologicactivity. The gallbladder is mildly distended with gallstones but without overt inflammatory change or abnormal FDG uptake. Spleen, pancreas, and both adrenal glands normal. Physiologic excretion FDG from the kidneys.Status post aorto bi femoral bypass. There is mild uniform activity along thebypass graft which is a typical postoperative finding without specific evidenceof complication. Moderate sigmoid colon diverticulosis is seen. Physiologic bowel activity. Bones: There is radiotracer uptake associated with an acute or subacuteright anterior 5th rib fracture. Status post median sternotomy, the superior sternotomy segments are not fully fused, with some mild activity. Degenerative changes in the lumbar spine with some areas of vacuum disc phenomena. There is mild anterior wedging T12 with approximately 50%height loss anteriorly likely chronic compression fracture with only minimalactivity in the anterior inferior endplate at T12. IMPRESSION: 1. No evidence of FDG avid malignancy. 2. No specific site of FDG uptake to localize an occult site ofinfection. 3. Status post aorto bi femoral bypass with mild uniform activity alongthe bypass graft which is a typical postoperative finding without specific evidence of complication. 4. Cholelithiasis. 5. Emphysema. Recommend evaluation for annual lung cancer screening enrollment if the patient qualifies based on clinical factors and smoking history. 6. Subacute right anterior 5th rib fracture. THIS IS AN ELECTRONICALLY VERIFIED FINAL REPORT 08/26/2024 2:16 PM - Electronically signed by Harry Fitzpatrick M.D. CH: TITI Report ID: [id number] Reading Location: [place] [address] Caren Almaraz NP IM PET PROCEDURES Final Result * eGFR (08/19/2024 10:30 AM CDT) eGFR 84 >=60 mL/min/1. 73 m2 Comment: Interpretive Data [...] interpretive data was last reviewed 2020. Blood 08/19/2024 10:3 0 AM CDT 08/19/2024 1:22 PM CDT us Notinfile Unknown LAB BLOOD ORDERABLES Final Res ult [facility] Department [place] [address] * Differential, auto (08/19/2024 10:30 AM CDT) Neutrophil abs 4.80 1.50 - 6.50 K/cumm Imm gran abs 0.03 0.00 - 0.10 K/cumm [facility] Lymphocyte abs 1.70 0.80 - 3.30 K/cumm [facility] Monocyte abs 0.78 0.20 - 0.80 K/cumm [facility] Eosinophil abs 0.31 0.00 - 0.50 K/cumm [facility] Basophil abs 0.07 0.00 - 0.10 K/cumm [facility] Neutrophil pct 62.5 % [facility] Comment: Interpretive Data Percent cell count reference ranges are not reported, since discordance with absolute values may lead to misinterpretation of CBC data. Current Interpretive Data was last revised on 2017. Imm gran pct 0.4 % [facility] Comment: Interpretive Data Percent cell count reference ranges are not reported, since discordance with absolute values may lead to misinterpretation of CBC data. Current Interpretive Data was last revised on 2017. Lymphocyte pct 22.1 % [facility] Comment: Interpretive Data Percent cell count reference ranges are not reported, since discordance with absolute values may lead to misinterpretation of CBC data. Current Interpretive Data was last revised on 2017. Monocyte pct 10.1 % [facility] Comment: Interpretive Data Percent cell count reference ranges are not reported, since discordance with absolute values may lead to misinterpretation of CBC data. Current Interpretive Data was last revised on 2017. Eosinophil pct 4.0 % [facility] Comment: Interpretive Data Percent cell count reference ranges are not reported, since discordance with absolute values may lead to misinterpretation of CBC data. Current Interpretive Data was last revised on 2017. Basophil pct 0.9 % [facility] Comment: Interpretive Data Percent cell count reference ranges are not reported, since discordance with absolute values may lead to misinterpretation of CBC data. Current Interpretive Data was last revised on 2017. Blood 08/19/2024 10:3 0 AM CDT 08/19/2024 1:09 PM CDT us Notinfile Unknown LAB BLOOD ORDERABLES Final Res ult [facility] Department [place] [address] * (ABNORMAL) CBC with auto differential (08/19/2024 10:30 AM CDT) WBC 7.69 3.80 - 9.90 K/cumm Hgb 10.9(L) 11.9 - 15.5 g/dL [facility] Hct 35.4(L) 35.6 - 45.5 % [facility] Plt 294 150 - 400 K/cumm [facility] MPV 10.9 9.1 - 12.3 fL [facility] RBC 4.22 3.90 - 5.20 M/cumm [facility] MCV 83.9 81.3 - 96.4 fL [facility] MCH 25.8(L) 27.1 - 33.3 pg [facility] MCHC 30.8(L) 32.3 - 35.7 g/dL [facility] RDW CV 15.3(H) 11.1 - 14.9 % [facility] RDW SD 46.8 35.7 - 48.1 fL [facility] NRBC abs 0.00 0.00 - 0.01 K/cumm [facility] Blood 08/19/2024 10:3 0 AM CDT 08/19/2024 1:09 PM CDT us Notinfile Unknown LAB BLOOD ORDERABLES Final Res ult [facility] Department [place] [address] * Basic metabolic panel (08/19/2024 10:30 AM CDT) Sodium 142 135 - 145 mmol/L Potassium, pl 4.3 3.3 - 4.9 mmol/L [facility] Chloride 107 97 - 110 mmol/L [facility] CO2 25 22 - 32 mmol/L [facility] Anion gap 10 2 - 15 mmol/L [facility] BUN 11 6 - 25 mg/dL [facility] Creatinine 0.77 0.60 - 1.10 mg/dL [facility] Glucose 94 70 - 199 mg/dL [facility] Comment: Interpretive Data Fasting glucose >/= 126 [...] interpretive data was last revised 2022. Calcium 9.1 8.5 - 10.3 mg/dL [facility] Blood 08/19/2024 10:3 0 AM CDT 08/19/2024 1:08 PM CDT us Notinfile Unknown LAB BLOOD ORDERABLES Final Res ult Performing Organization Address [facility] Co de Phone Number [facility]TON[facility] Department [place] [address] * eGFR (08/11/2024 12:00 PM CDT) eGFR 90 >=60 mL/min/1. 73 m2 Comment: Interpretive Data [...] interpretive data was last reviewed 2020. Blood 08/11/2024 12:0 0 PM CDT 08/11/2024 3:56 PM CDT us Caren Almaraz [employer] LAB BLOOD ORDERABLES Silvia l Result Performing Organization Address [facility]/ZIP Co de Phone Number [facility] Department [place] [address] * (ABNORMAL) Differential, auto (08/11/2024 12:00 PM CDT) Neutrophil abs 5.49 1.50 - 6.50 K/cumm Imm gran abs 0.02 0.00 - 0.10 K/cumm [facility] Lymphocyte abs 2.15 0.80 - 3.30 K/cumm [facility] Monocyte abs 0.91(H) 0.20 - 0.80 K/cumm [facility] Eosinophil abs 0.25 0.00 - 0.50 K/cumm [facility] Basophil abs 0.08 0.00 - 0.10 K/cumm [facility] Neutrophil pct 61.7 % [facility] Comment: Interpretive Data Percent cell count reference ranges are not reported, since discordance with absolute values may lead to misinterpretation of CBC data. Current Interpretive Data was last revised on 2017. Imm gran pct 0.2 % [facility] Comment: Interpretive Data Percent cell count reference ranges are not reported, since discordance with absolute values may lead to misinterpretation of CBC data. Current Interpretive Data was last revised on 2017. Lymphocyte pct 24.2 % [facility] Comment: Interpretive Data Percent cell count reference ranges are not reported, since discordance with absolute values may lead to misinterpretation of CBC data. Current Interpretive Data was last revised on 2017. Monocyte pct 10.2 % [facility] Comment: Interpretive Data Percent cell count reference ranges are not reported, since discordance with absolute values may lead to misinterpretation of CBC data. Current Interpretive Data was last revised on 2017. Eosinophil pct 2.8 % [facility] Comment: Interpretive Data Percent cell count reference ranges are not reported, since discordance with absolute values may lead to misinterpretation of CBC data. Current Interpretive Data was last revised on 2017. Basophil pct 0.9 % [facility] Comment: Interpretive Data Percent cell count reference ranges are not reported, since discordance with absolute values may lead to misinterpretation of CBC data. Current Interpretive Data was last revised on 2017. Blood 08/11/2024 12:0 0 PM CDT 08/11/2024 3:47 PM CDT us Caren Almaraz NP LAB BLOOD ORDERABLES Silvia l Result [facility] Department [place] [address] * (ABNORMAL) CBC with auto differential (08/11/2024 12:00 PM CDT) [facility] WBC 8.90 3.80 - 9.90 K/cumm Hgb 10.6(L) 11.9 - 15.5 g/dL [facility] Hct 34.3(L) 35.6 - 45.5 % [facility] Plt 337 150 - 400 K/cumm [facility] MPV 10.6 9.1 - 12.3 fL [facility] RBC 4.07 3.90 - 5.20 M/cumm [facility] MCV 84.3 81.3 - 96.4 fL [facility] MCH 26.0(L) 27.1 - 33.3 pg [facility] MCHC 30.9(L) 32.3 - 35.7 g/dL [facility] RDW CV 15.2(H) 11.1 - 14.9 % [facility] RDW SD 46.8 35.7 - 48.1 fL [facility] NRBC abs 0.00 0.00 - 0.01 K/cumm [facility] Blood 08/11/2024 12:0 0 PM CDT 08/11/2024 3:47 PM CDT us Caren Almaraz [employer] LAB BLOOD ORDERABLES Silvia l Result [facility] Department [place] [address] * Basic metabolic panel (08/11/2024 12:00 PM CDT) [facility] Sodium 138 135 - 145 mmol/L Potassium, pl 4.0 3.3 - 4.9 mmol/L [facility] Chloride 102 97 - 110 mmol/L [facility] CO2 24 22 - 32 mmol/L [facility] Anion gap 12 2 - 15 mmol/L [facility] BUN 13 6 - 25 mg/dL [facility] Creatinine 0.73 0.60 - 1.10 mg/dL [facility] Glucose 92 70 - 199 mg/dL [facility] Comment: Interpretive Data Fasting glucose >/= 126 [...] interpretive data was last revised 2022. Calcium 9.3 8.5 - 10.3 mg/dL [facility] Blood 08/11/2024 12:0 0 PM CDT 08/11/2024 3:47 PM CDT us Caren Almaraz NP LAB BLOOD ORDERABLES Silvia sandy Result [facility] Department [place] [address] * eGFR (08/05/2024 10:30 AM CDT) eGFR 90 >=60 mL/min/1. 73 m2 Comment: Interpretive Data [...] interpretive data was last reviewed 2020. Blood 08/05/2024 10:3 0 AM CDT 08/05/2024 12:30 PM CDT us Notinfile Unknown LAB BLOOD ORDERABLES Final Res ult [facility] Department [place] [address] * Differential, auto (08/05/2024 10:30 AM CDT) Neutrophil abs 4.67 1.50 - 6.50 K/cumm Imm gran abs 0.02 0.00 - 0.10 K/cumm [facility] Lymphocyte abs 1.69 0.80 - 3.30 K/cumm [facility] Monocyte abs 0.67 0.20 - 0.80 K/cumm [facility] Eosinophil abs 0.24 0.00 - 0.50 K/cumm [facility] Basophil abs 0.07 0.00 - 0.10 K/cumm [facility] Neutrophil pct 63.3 % [facility] Comment: Interpretive Data Percent cell count reference ranges are not reported, since discordance with absolute values may lead to misinterpretation of CBC data. Current Interpretive Data was last revised on 2017. Imm gran pct 0.3 % [facility] Comment: Interpretive Data Percent cell count reference ranges are not reported, since discordance with absolute values may lead to misinterpretation of CBC data. Current Interpretive Data was last revised on 2017. Lymphocyte pct 23.0 % [facility] Comment: Interpretive Data Percent cell count reference ranges are not reported, since discordance with absolute values may lead to misinterpretation of CBC data. Current Interpretive Data was last revised on 2017. Monocyte pct 9.1 % [facility] Comment: Interpretive Data Percent cell count reference ranges are not reported, since discordance with absolute values may lead to misinterpretation of CBC data. Current Interpretive Data was last revised on 2017. Eosinophil pct 3.3 % [facility] Comment: Interpretive Data Percent cell count reference ranges are not reported, since discordance with absolute values may lead to misinterpretation of CBC data. Current Interpretive Data was last revised on 2017. Basophil pct 1.0 % [facility] Comment: Interpretive Data Percent cell count reference ranges are not reported, since discordance with absolute values may lead to misinterpretation of CBC data. Current Interpretive Data was last revised on 2017. Blood 08/05/2024 10:3 0 AM CDT 08/05/2024 12:13 PM CDT us Notinfile Unknown LAB BLOOD ORDERABLES Final Res ult [facility] Department [place] [address] * (ABNORMAL) CBC with auto differential (08/05/2024 10:30 AM CDT) WBC 7.36 3.80 - 9.90 K/cumm Hgb 10.0(L) 11.9 - 15.5 g/dL [facility] Hct 32.9(L) 35.6 - 45.5 % [facility] Plt 312 150 - 400 K/cumm [facility] MPV 10.5 9.1 - 12.3 fL [facility] RBC 3.80(L) 3.90 - 5.20 M/cumm [facility] MCV 86.6 81.3 - 96.4 fL [facility] MCH 26.3(L) 27.1 - 33.3 pg [facility] MCHC 30.4(L) 32.3 - 35.7 g/dL [facility] RDW CV 15.1(H) 11.1 - 14.9 % [facility] RDW SD 48.2(H) 35.7 - 48.1 fL [facility] NRBC abs 0.00 0.00 - 0.01 K/cumm [facility] Blood 08/05/2024 10:3 0 AM CDT 08/05/2024 12:13 PM CDT us Notinfile Unknown LAB BLOOD ORDERABLES Final Res ult [facility] Department [place] [address] * Basic metabolic panel (08/05/2024 10:30 AM CDT) Sodium 143 135 - 145 mmol/L Potassium, pl 4.1 3.3 - 4.9 mmol/L [facility] Chloride 109 97 - 110 mmol/L [facility] CO2 24 22 - 32 mmol/L [facility] Anion gap 10 2 - 15 mmol/L [facility] BUN 10 6 - 25 mg/dL [facility] Creatinine 0.73 0.60 - 1.10 mg/dL [facility] Glucose 101 70 - 199 mg/dL [facility] Comment: Interpretive Data Fasting glucose >/= 126 [...] interpretive data was last revised 2022. Calcium 9.0 8.5 - 10.3 mg/dL [facility] Blood 08/05/2024 10:3 0 AM CDT 08/05/2024 12:13 PM CDT us Notinfile Unknown LAB BLOOD ORDERABLES Final Res ult Performing Organization Address [facility]/ZIP Co de Phone Number ANTONI [facility] Department [place] [address] * US Carotids Duplex Bilateral (08/04/2024 2:39 PM CDT) Anatomical Region Laterality Modality Vascular Bilateral Ultrasound 08/04/2024 2:07 PM CDT Narrative 08/05/2024 1:10 PM CDT [address] [address] Carotid Duplex Report Patient Name: BHAVANA ESCAMILLA : 1955 (69y ) Gender: F Study Date: 2024-08-04 02:07:09 PM Intranet Developer: WILLIAM Order Provider: FRANKY TORRES Quality: Adequate Ref Provider: FRANKY TORRES PROCEDURES: Arterial Report: Color Duplex ultrasound examination, including velocity measurements, was performed of the extracranial carotid arteries bilaterally. INDICATIONS: R09.89 Other specified symptoms and signs involving the circulatory and respiratory systems. CONCLUSIONS: 1. Plaque in the right internal carotid artery is mild calcified. The right internal carotid artery has mild atherosclerosis. 2. Plaque in the left internal carotid artery is moderate calcified. The left internal carotid artery has 60-79% stenosis. 3. Consider follow-up study after six months. FINDINGS: Right CCA: The right common carotid artery is normal in appearance. Right Bifurcation: The right bifurcation is normal in appearance. Right ECA: The right external carotid artery is normal in appearance. Right ICA: Plaque in the right internal carotid artery is mild calcified. The right internal carotid artery has mild atherosclerosis. Right Vert: The right vertebral artery is patent with antegrade flow. Left CCA: The left common carotid artery is normal in appearance. Left Bifurcation: The left bifurcation is normal in appearance. Left ECA: The left external carotid artery is normal in appearance. Left ICA: Plaque in the left internal carotid artery is moderate calcified. The left internal carotid artery has 60-79% stenosis. Left Vert: The left vertebral artery is patent with antegrade flow. MEASUREMENTS: Right Value Left Value Rt ICA Prx PSV 64.80 cm/sec Lt ICA Prx PSV 101.80 cm/sec Rt ICA Prx EDV 11.90 cm/sec Lt ICA Prx EDV 27.80 cm/sec Rt ICA Mid PSV 67.40 cm/sec Lt ICA Mid PSV 131.40 cm/sec Rt ICA Mid EDV 17.20 cm/sec Lt ICA Mid EDV 32.40 cm/sec Rt ICA Dst PSV 91.90 cm/sec Lt ICA Dst PSV 135.10 cm/sec Rt ICA Dst EDV 27.80 cm/sec Lt ICA Dst EDV 35.20 cm/sec Rt CCA Prx PSV 93.60 cm/sec Lt CCA Prx PSV 80.70 cm/sec Rt CCA Prx EDV 12.90 cm/sec Lt CCA Prx EDV 15.40 cm/sec Rt CCA Mid PSV 67.90 cm/sec Lt CCA Mid PSV 102.50 cm/sec Rt CCA Mid EDV 13.40 cm/sec Lt CCA Mid EDV 20.50 cm/sec Rt CCA Dst PSV 69.90 cm/sec Lt CCA Dst PSV 98.50 cm/sec Rt CCA Dst EDV 12.90 cm/sec Lt CCA Dst EDV 22.50 cm/sec Rt ECA PSV 90.60 cm/sec Lt ECA PSV 127.70 cm/sec Rt ECA EDV 7.30 cm/sec Lt ECA EDV 9.30 cm/sec Rt Vert PSV 48.30 cm/sec Lt ICA/CCA Ratio 1.37 ratio Rt Vert EDV 12.30 cm/sec Rt ICA/CCA Ratio 69.90 ratio Electronically Signed By: Robert Lopez MD, [facility] 2024-08-05 12:31:10 PM CDT Procedure Note Robert Lopez MD - 08/05/[address] [place] [address] Carotid Duplex Report Patient Name: BHAVANA ESCAMILLA : 1955 (69y ) Gender: F Study Date: 2024-08-04 02:07:09 PM Intranet Developer: WILLIAM Viera Provider: FRANKY TORRES Quality: Adequate Ref Provider: FRANKY TORRES PROCEDURES: Arterial Report: Color Duplex ultrasound examination, including velocitymeasurements, was performed of the extracranial carotid arteries bilaterally. INDICATIONS: R09.89 Other specified symptoms and signs involving the circulatory andrespiratory systems. CONCLUSIONS: 1. Plaque in the right internal carotid artery is mild calcified. Theright internal carotid artery has mild atherosclerosis. 2. Plaque in the left internal carotid artery is moderate calcified. Theleft internal carotid artery has 60-79% stenosis. 3. Consider follow-up study after six months. FINDINGS: Right CCA: The right common carotid artery is normal in appearance. Right Bifurcation: The right bifurcation is normal in appearance. Right ECA: The right external carotid artery is normal in appearance. Right ICA: Plaque in the right internal carotid artery is mild calcified.The right internal carotid artery has mild atherosclerosis. Right Vert: The right vertebral artery is patent with antegrade flow. Left CCA: The left common carotid artery is normal in appearance. Left Bifurcation: The left bifurcation is normal in appearance. Left ECA: The left external carotid artery is normal in appearance. Left ICA: Plaque in the left internal carotid artery is moderatecalcified. The left internal carotid artery has 60-79% stenosis. Left Vert: The left vertebral artery is patent with antegrade flow. MEASUREMENTS: Right Value Left Value Rt ICA Prx PSV 64.80 cm/sec Lt ICA Prx PSV 101.80 cm/sec Rt ICA Prx EDV 11.90 cm/sec Lt ICA Prx EDV 27.80 cm/sec Rt ICA Mid PSV 67.40 cm/sec Lt ICA Mid PSV 131.40 cm/sec Rt ICA Mid EDV 17.20 cm/sec Lt ICA Mid EDV 32.40 cm/sec Rt ICA Dst PSV 91.90 cm/sec Lt ICA Dst PSV 135.10 cm/sec Rt ICA Dst EDV 27.80 cm/sec Lt ICA Dst EDV 35.20 cm/sec Rt CCA Prx PSV 93.60 cm/sec Lt CCA Prx PSV 80.70 cm/sec Rt CCA Prx EDV 12.90 cm/sec Lt CCA Prx EDV 15.40 cm/sec Rt CCA Mid PSV 67.90 cm/sec Lt CCA Mid PSV 102.50 cm/sec Rt CCA Mid EDV 13.40 cm/sec Lt CCA Mid EDV 20.50 cm/sec Rt CCA Dst PSV 69.90 cm/sec Lt CCA Dst PSV 98.50 cm/sec Rt CCA Dst EDV 12.90 cm/sec Lt CCA Dst EDV 22.50 cm/sec Rt ECA PSV 90.60 cm/sec Lt ECA PSV 127.70 cm/sec Rt ECA EDV 7.30 cm/sec Lt ECA EDV 9.30 cm/sec Rt Vert PSV 48.30 cm/sec Lt ICA/CCA Ratio 1.37 ratio Rt Vert EDV 12.30 cm/sec Rt ICA/CCA Ratio 69.90 ratio Electronically Signed By: Robert Lopez MD, [facility] 2024-08-05 12:31:10 PM CDT us Franky Herb [facility] IM US PROCEDURES Final Res ult * eGFR (07/29/2024 11:30 AM CDT) eGFR 77 >=60 mL/min/1. 73 m2 Comment: Interpretive Data [...] interpretive data was last reviewed 2020. Blood 07/29/2024 11:3 0 AM CDT 07/29/2024 3:00 PM CDT us Notinfile Unknown LAB BLOOD ORDERABLES Final Res ult [facility] Department [place] [address] * (ABNORMAL) Differential, auto (07/29/2024 11:30 AM CDT) Neutrophil abs 6.89(H) 1.50 - 6.50 K/cumm Imm gran abs 0.02 0.00 - 0.10 K/cumm [facility] Lymphocyte abs 1.53 0.80 - 3.30 K[facility]cumm [facility] Monocyte abs 0.70 0.20 - 0.80 K/cumm [facility] Eosinophil abs 0.20 0.00 - 0.50 K/cumm [facility] Basophil abs 0.05 0.00 - 0.10 K/cumm [facility] Neutrophil pct 73.4 % [facility] Comment: Interpretive Data Percent cell count reference ranges are not reported, since discordance with absolute values may lead to misinterpretation of CBC data. Current Interpretive Data was last revised on 2017. Imm gran pct 0.2 % [facility] Comment: Interpretive Data Percent cell count reference ranges are not reported, since discordance with absolute values may lead to misinterpretation of CBC data. Current Interpretive Data was last revised on 2017. Lymphocyte pct 16.3 % [facility] Comment: Interpretive Data Percent cell count reference ranges are not reported, since discordance with absolute values may lead to misinterpretation of CBC data. Current Interpretive Data was last revised on 2017. Monocyte pct 7.5 % [facility] Comment: Interpretive Data Percent cell count reference ranges are not reported, since discordance with absolute values may lead to misinterpretation of CBC data. Current Interpretive Data was last revised on 2017. Eosinophil pct 2.1 % [facility] Comment: Interpretive Data Percent cell count reference ranges are not reported, since discordance with absolute values may lead to misinterpretation of CBC data. Current Interpretive Data was last revised on 2017. Basophil pct 0.5 % [facility] Comment: Interpretive Data Percent cell count reference ranges are not reported, since discordance with absolute values may lead to misinterpretation of CBC data. Current Interpretive Data was last revised on 2017. Blood 07/29/2024 11:3 0 AM CDT 07/29/2024 2:57 PM CDT us Notinfile Unknown LAB BLOOD ORDERABLES Final Res ult [facility] Department [place] [address] * (ABNORMAL) CBC with auto differential (07/29/2024 11:30 AM CDT) WBC 9.39 3.80 - 9.90 K/cumm Hgb 11.2(L) 11.9 - 15.5 g/dL [facility] Hct 35.7 35.6 - 45.5 % [facility] Plt 317 150 - 400 K/cumm [facility] MPV 10.5 9.1 - 12.3 fL [facility] RBC 4.13 3.90 - 5.20 M/cumm [facility] MCV 86.4 81.3 - 96.4 fL [facility] MCH 27.1 27.1 - 33.3 pg [facility] MCHC 31.4(L) 32.3 - 35.7 g/dL [facility] RDW CV 14.9 11.1 - 14.9 % [facility] RDW SD 47.5 35.7 - 48.1 fL [facility] NRBC abs 0.00 0.00 - 0.01 K/cumm [facility] Blood 07/29/2024 11:3 0 AM CDT 07/29/2024 2:57 PM CDT us Notinfile Unknown LAB BLOOD ORDERABLES Final Res ult Performing Organization Address [facility]/ZIP Co de Phone Number [facility] Department [place] [address] * Basic metabolic panel (07/29/2024 11:30 AM CDT) Pathologist [facility] Sodium 143 135 - 145 mmol/L Potassium, pl 3.8 3.3 - 4.9 mmol/L [facility] Chloride 107 97 - 110 mmol/L [facility] CO2 25 22 - 32 mmol/L [facility] Anion gap 11 2 - 15 mmol/L [facility] BUN 8 6 - 25 mg/dL [facility] Creatinine 0.83 0.60 - 1.10 mg/dL [facility] Glucose 105 70 - 199 mg/dL [facility] Comment: Interpretive Data Fasting glucose >/= 126 [...] interpretive data was last revised 2022. Calcium 9.4 8.5 - 10.3 mg/dL [facility] Blood 07/29/2024 11:3 0 AM CDT 07/29/2024 2:56 PM CDT us Notinfile Unknown LAB BLOOD ORDERABLES Final Res ult Performing Organization Address [facility]/ZIP Co de Phone Number [facility] Department [place] [address] * Colonoscopy (07/27/2024 2:16 PM CDT) Anatomical Region Laterality Modality Other Narrative Procedure Note Aminah Nair MD - 07/27/2024 2:16 PM CDT [facility] Patient Name: Bhavana Escamilla Procedure Date: 07/27/2024 2:16 PM Date of : 1955 Admit Type: Inpatient Age: 68 Gender: Female Attending MD: Aminah Nair M.D. Room: [facility] ENDOSCOPY ROOM 3 Note Status: Finalized Patient Profile: This is a 68 year old female with persistent enterococcus bacteremia here for colonoscopy forcolon cancer screening. Last colonoscopy 5 years ago with possible polyps. No family hx of colon cancer. Procedure: Colonoscopy Indications: Last colonoscopy: 2019, enterococcus bacteremia Referring MD: Radha Diane, [employer] Providers: Aminah Nair M.D. Impression: - Hemorrhoids found on perianal exam. - One 30 mm polyp in the cecum. Resection not attempted. - One 20 mm polyp in the ascending colon, removed piecemeal using a cold snare. Resected andretrieved. Treated with a hot snare. Clips (MR conditional)were placed. Clip home service consultant: [employer]. - One 8 mm polyp in the ascending colon, removedwith a hot snare. Resected and retrieved. - Congested mucosa in the ascending colon.Biopsied. - Hyperplastic appearing polypoid lesion in the sigmoid colon. Biopsied. - Diverticulosis in the sigmoid colon and in the descending colon. - External and internal hemorrhoids. Recommendation: - [facility] - Soft diet for 3 days. - No ibuprofen, naproxen, or other non-steroidal anti-inflammatory drugs for 2 weeks after polyp removal. - Await pathology results. - Referral to [facility] advanced endoscopy for removalof large cecum polyp in the next 2-3 months. - Resume Eliquis (apixaban) at prior dosetomorrow. - Repeat colonoscopy. Medicines: Monitored Anesthesia Care Complications: No immediate complications. Estimated Blood Loss: Estimated blood loss was minimal. Procedure: Pre-Anesthesia Assessment: - Prior to the procedure, a History and Physicalwas performed, and patient medications and allergieswere reviewed. The patient is competent. The risks and benefits of the procedure and the sedation optionsand risks were discussed with the patient. Allquestions were answered and informed consent was obtained. Patient identification and proposed procedure were verified by the physician, the tunnel elastic operator lockstitch and the isotope technician in the endoscopy suite. Mental Status Examination: normal. Prophylactic Antibiotics: The patient does not require prophylactic antibiotics. Prior Anticoagulants: The patient has taken Eliquis (apixaban), last dose was 3 days prior toprocedure. After reviewing the risks and benefits, the patient was deemed in satisfactory condition to undergo the procedure. The anesthesia plan was to use monitored anesthesia care (MAC). Immediately prior to administration of medications, the patient was re-assessed for adequacy to receive sedatives. The heart rate, respiratory rate, oxygen saturations, blood pressure, adequacy of pulmonary ventilation,and response to care were monitored throughout the procedure. The physical status of the patient was re-assessed after the procedure. The benefits, risks and alternatives of theprocedure and sedation were discussed and informed consentwas obtained. All questions were answered. Please referto the signed informed consent document in the medical record. The bowel preparation used was Miralax via split dose instruction. The bowel preparation usedwas magnesium citrate via split dose instruction. The scope was passed under direct vision. The Pediatric Colonoscope PCF-[id number] was introducedthrough the anus and advanced to the the cecum, identifiedby appendiceal orifice and ileocecal valve. The colonoscopy was performed without difficulty. The patient tolerated the procedure well. The qualityof the bowel preparation was excellent. Bowel prep was administered using a split dose. Findings: Hemorrhoids were found on perianal exam. A 30 mm polyp was found in the cecum. The polyp was Parisclassification Is (protruding, sessile). Polypectomy was not attempted due to polyp size (too large to be excised). A 20 mm polyp was found in the ascending colon. The polyp was Sinai classification IIa (superficial, elevated). The polyp was removedwith a piecemeal technique using a cold snare. Resection and retrieval were complete. Coagulation for tissue destruction using snare wassuccessful. To prevent bleeding after the polypectomy, two hemostatic clips were successfully placed (MR conditional). Clip home service consultant: [employer]. There was no bleeding at the end of the procedure. An 8 mm polyp was found in the ascending colon. The polyp was Sinai classification IIa (superficial, elevated). The polyp was removedwith a hot snare. Resection and retrieval were complete. A focal area of congested mucosa was found in the ascending colon.This was biopsied with a cold forceps for histology. A 20 mm hyperplastic appearing polyp was found in the sigmoid colon. Biopsies were taken with a cold forceps for histology. Multiple small and large-mouthed diverticula were found in thesigmoid colon and descending colon. External and internal hemorrhoids were found during retroflexion. Aminah Nair M.D. 07/27/2024 4:01:58 PM Number of Addenda: 0 Note Initiated On: 07/27/2024 2:16 PM Procedure Code(s): --- Professional --- 38289, Colonoscopy, flexible; with ablation of tumor(s), polyp(s), or other lesion(s) (includes pre- and post-dilation and guide wirepassage, when performed) 94702, 59, Colonoscopy, flexible; with removal of tumor(s), polyp(s),or other lesion(s) by snare technique 01971, 59, Colonoscopy, flexible; with biopsy, single or multiple --- Technical --- 83723, Colonoscopy, flexible; with ablation of tumor(s), polyp(s), or other lesion(s) (includes pre- and post-dilation and guide wirepassage, when performed) 37463, 59, Colonoscopy, flexible; with removal of tumor(s), polyp(s),or other lesion(s) by snare technique 95224, 59, Colonoscopy, flexible; with biopsy, single or multiple Diagnosis Code(s): --- Professional --- K64.8, Other hemorrhoids D12.0, Benign neoplasm of cecum D12.2, Benign neoplasm of ascending colon K63.89, Other specified diseases of intestine D49.0, Neoplasm of unspecified behavior of digestive system K57.30, Diverticulosis of large intestine without perforation orabscess without bleeding --- Technical --- K64.8, Other hemorrhoids D12.0, Benign neoplasm of cecum D12.2, Benign neoplasm of ascending colon K63.89, Other specified diseases of intestine D49.0, Neoplasm of unspecified behavior of digestive system K57.30, Diverticulosis of large intestine without perforation orabscess without bleeding CPT copyright 2020 [employer]. All rights reserved. The codes documented in this report are preliminary and upon nascar pit crew person reviewmay be revised to meet current compliance requirements. Recognized by the [employer] for promoting quality in endoscopy Aminah Nair MD ENDOSCOPY PROCEDURES Final Resul t * Surgical pathology (07/27/2024 10:35 AM CDT) Tissue (Polyp(s), colon/colorectal, esophageal, gastric) 07/27/2024 3:16 PM CDT Tissue specimen (specimen) (Colon, Biopsy) 07/27/2024 3:20 PM CDT Tissue specimen (specimen) (Colon, Biopsy) 07/27/2024 3:40 PM CDT Narrative PATHOLOGY [facility] ([place]) - 07/30/2024 12:25 PM CDT EPIC results best viewed via link to PDF [facility] Department of Pathology [address] [place] [address] Note to Patients: This report may contain a detailed description of human tissue sent by a health care provider to the laboratory for pathologic evaluation. The content of this report is essential for diagnosis and may provide important critical findings. This information may be unfamiliar to patients to review without a medical professional present. It is advised that the patient review this report in the presence of a health care provider who can answer questions and explain the details. Final Report Patient Name: BHAVANA ESCAMILLA Address: [address] [place] [address]- Gender: F : 1955 (Age: 68) Service: Medical Location: [facility] Hospital #: [id number] Patient Type: [facility] Taken: 07/27/2024 Received: 07/28/2024 Accessioned: 07/28/2024 Reported: 07/30/2024 Physician(s):Aminah Nair MD Diagnosis: A. Ascending colon polyps x2, endoscopic biopsies/polypectomies- Fragments of sessile serrated adenomas B. Ascending colon, endoscopic biopsy- Serrated polyp fragments C. Sigmoid colon polyp, endoscopic biopsy- Hyperplastic polyp fragments Nidhi Torres M.D. Report Electronically Reviewed and Signed Out By Nidhi Torres M.D. 07/30/2024 12:25:24 Specimen(s) Received: A: Ascending colon polyp x 2 B: Ascending colon biopsies C: Sigmoid colon polyp biopsies Microscopic Description: Microscopic examination corroborates the diagnosis. There is no evidence of high-grade dysplasia or malignancy in material examined. Clinical History: Bacteremia due to Enterococcus. Colonoscopy. Gross Description: The specimen is submitted in three formalin containers labeled BHAVANA ESCAMILLA. A. The first container is labeled ascending colon polyp x2. It is 1 goldstein polypoid tissue fragment measuring 6 mm and several smaller pieces between 1 and 4 mm. The largest is inked and bisected. All in A. B. The second container is labeled ascending colon biopsies. It is 3 fragments of goldstein tissue between 1 and 2 mm. All in B. C. The third container is labeled sigmoid colon biopsies. It is 2 goldstein tissue fragments measuring 1 mm. All in C. T.A. Kory Lenz, P.ARosemarie/Maxi Garcia M.D. REPORT IMAGES AND SCANNED DOCUMENTS, IF INCLUDED, ONLY VIEWABLE IN PDF VERSION OF REPORT The performance characteristics of some immunohistochemical stains, fluorescence in-situ hybridization tests and immunophenotyping by flow cytometry cited in this report (if any) were determined by the Surgical Pathology Department at [facility] as part of an ongoing quality control director program and in compliance with federally mandated regulations drawn from the Clinical Laboratory Improvement Act of 1988 (CLIA '88). Some of these tests rely on the use of analyte specific reagents and are subject to specific labeling requirements by the US Food and Drug Administration. Such diagnostic tests may only be performed in a facility that is certified by the Department of Health and Human Services as a high complexity laboratory under CLIA '88. The FDA has determined that such clearance or approval is not necessary. This test is used for clinical purposes. It should not be regarded as investigational or for research. Nevertheless, federal rules concerning the medical use of analyte specific reagents require that the following disclaimer be attached to the report: This test was developed and its performance characteristics determined by the Surgical Pathology Department [facility]. It has not been cleared or approved by the U. S. Food and Drug Administration. Note for decalcified specimens: This assay has not been validated on decalcified tissues. Results should be interpreted with caution given the possibility of false negativity on decalcified specimens Aminah Nair MD LAB PATHOLOGY ORDERABLES Final R esult PATHOLOGY [facility] ([place]) [address] [place] [address] * (ABNORMAL) CBC without differential (07/27/2024 4:07 AM CDT) WBC 8.93 3.80 - 9.90 K/cumm Hgb 11.6(L) 11.9 - 15.5 g/dL [facility] ([facility]) Hct 37.9 35.6 - 45.5 % [facility] ([facility]) Plt 338 150 - 400 K/cumm [facility] ([facility]) MPV 9.4 9.1 - 12.3 fL [facility] ([facility]) RBC 4.33 3.90 - 5.20 M/cumm [facility] ([place]) MCV 87.5 81.3 - 96.4 fL [facility] ([place]) MCH 26.8(L) 27.1 - 33.3 pg [facility] ([place]) MCHC 30.6(L) 32.3 - 35.7 g/dL [facility] ([facility]) RDW CV 14.5 11.1 - 14.9 % [facility] ([facility]) RDW SD 46.8 35.7 - 48.1 fL [facility] ([facility]) NRBC abs 0.00 0.00 - 0.01 K/cumm [facility] ([facility]) Blood 07/27/2024 4:07 AM CDT 07/27/2024 4:21 AM CDT us Sterling Georges Jr., MD LAB BLOOD ORDERABLE S Final Result [facility] ([facility]) 1 [facility] Department [place] [address] * (ABNORMAL) CBC without differential (07/26/2024 3:13 AM CDT) WBC 8.51 3.80 - 9.90 K/cumm Hgb 11.4(L) 11.9 - 15.5 g/dL [facility] ([place]) Hct 36.7 35.6 - 45.5 % [facility] ([place]) Plt 319 150 - 400 K/cumm [facility] ([facility]) MPV 9.5 9.1 - 12.3 fL [facility] ([place]) RBC 4.20 3.90 - 5.20 M/cumm [facility] ([place]) MCV 87.4 81.3 - 96.4 fL [facility] ([place]) MCH 27.1 27.1 - 33.3 pg [facility] ([place]) MCHC 31.1(L) 32.3 - 35.7 g/dL [facility] ([place]) RDW CV 14.6 11.1 - 14.9 % [facility] ([place]) RDW SD 46.7 35.7 - 48.1 fL [facility] ([facility]) NRBC abs 0.00 0.00 - 0.01 K/cumm [facility] ([facility]) Blood 07/26/2024 3:13 AM CDT 07/26/2024 3:47 AM CDT us Sterling Georges Jr., MD LAB BLOOD ORDERABLE S Final Result [facility] ([place]) 1 [facility] Department [place] [address] * (ABNORMAL) CBC without differential (07/25/2024 5:20 AM CDT) Pathologist [facility] WBC 9.23 3.80 - 9.90 K/cumm Hgb 11.7(L) 11.9 - 15.5 g/dL [facility] ([place]) Hct 37.1 35.6 - 45.5 % [facility] ([facility]) Plt 340 150 - 400 K/cumm [facility] ([facility]) MPV 9.9 9.1 - 12.3 fL [facility] ([facility]) RBC 4.28 3.90 - 5.20 M/cumm [facility] ([facility]) MCV 86.7 81.3 - 96.4 fL [facility] ([facility]) MCH 27.3 27.1 - 33.3 pg [facility] ([facility]) MCHC 31.5(L) 32.3 - 35.7 g/dL [facility] ([place]) RDW CV 14.9 11.1 - 14.9 % [facility] ([facility]) RDW SD 47.0 35.7 - 48.1 fL [facility] ([facility]) NRBC abs 0.00 0.00 - 0.01 K/cumm [facility] ([facility]) Blood 07/25/2024 5:20 AM CDT 07/25/2024 6:25 AM CDT us Sterling Georges Jr., MD LAB BLOOD ORDERABLE S Final Result [facility] ([place]) 1 [facility] [place] [address] * Potassium (07/25/2024 5:20 AM CDT) Potassium, pl 4.0 3.3 - 4.9 mmol/L Blood 07/25/2024 5:20 AM CDT 07/25/2024 6:25 AM CDT Sterling Georges Jr., MD LAB BLOOD ORDERABLE S Final Result Performing Organization Address City/[facility]/ZIP Co de Phone Number [facility] ([place]) 1 [facility] [place] [address] * Magnesium (07/25/2024 5:20 AM CDT) Magnesium 2.3 1.4 - 2.5 mg/dL Blood 07/25/2024 5:20 AM CDT 07/25/2024 6:25 AM CDT Narrative [facility] ([place]) - 07/25/2024 6:48 AM CDT High Risk QTC Electrolyte Repletion per Pharmacy Protocol Sterling Georges Jr., MD LAB BLOOD ORDERABLE S Final Result Performing Organization Address [facility] Co de Phone Number [facility] ([place]) 1 [facility] [place] [address] * Blood culture Blood (07/24/2024 9:41 AM CDT) Report Final Report: No growth Comment:Testing performed by : [facility], 1 [place]., [address] Blood 07/24/2024 9:41 AM CDT 07/24/2024 1:08 PM CDT Narrative [facility] ([place]) - 07/28/2024 4:00 PM CDT From a different site [...] performance characteristics have been verified by the [facility] Microbiology Laboratory. For questions about this culture, contact the Microbiology Laboratory at [phone]. Interpretive data was last revised on 23. Sterling Georges Jr., MD LAB MICROBIOLOGY - GENERAL ORDERABLES Final Result [facility] ([place]) 1 [facility] Department [place] [address] * Blood culture Blood (07/24/2024 9:37 AM CDT) Report Final Report: No growth Comment:Testing performed by : [facility], 1 [place]., [address] Blood 07/24/2024 9:37 AM CDT 07/24/2024 1:08 PM CDT Narrative [facility]) - 07/28/2024 4:00 PM CDT Collection->Peripheral 1. Blood cultures [...] performance characteristics have been verified by the [facility] Microbiology Laboratory. For questions about this culture, contact the Microbiology Laboratory at [phone]. Interpretive data was last revised on 23. us Sterling Georges Jr., MD LAB MICROBIOLOGY - GENERAL ORDERABLES Final Result [facility] ([facility]) 1 [facility] Department [place] [address] * (ABNORMAL) CBC without differential (07/24/2024 3:35 AM CDT) WBC 8.22 3.80 - 9.90 K/cumm Hgb 11.0(L) 11.9 - 15.5 g/dL [facility] ([place]) Hct 34.3(L) 35.6 - 45.5 % [facility] ([place]) Plt 284 150 - 400 K/cumm [facility] ([facility]) MPV 9.0(L) 9.1 - 12.3 fL [facility] ([place]) RBC 4.03 3.90 - 5.20 M/cumm [facility] ([facility]) MCV 85.1 81.3 - 96.4 fL [facility] ([place]) MCH 27.3 27.1 - 33.3 pg [facility] ([facility]) MCHC 32.1(L) 32.3 - 35.7 g/dL [facility] ([place]) RDW CV 14.9 11.1 - 14.9 % [facility] ([place]) RDW SD 46.3 35.7 - 48.1 fL [facility] ([facility]) NRBC abs 0.00 0.00 - 0.01 K/cumm [facility] ([facility]) Blood 07/24/2024 3:35 AM CDT 07/24/2024 3:39 AM CDT us Sterling Georges Jr., MD LAB BLOOD ORDERABLE S Final Result [facility]) 1 [facility] Department [place] [address] * TRANSESOPHAGEAL ECHO (THAD) W DOPPLER/CF WO CONTRAST (07/23/2024 9:00 AM CDT) Anatomical Region Laterality Modality Ultrasound 07/23/2024 Narrative 07/24/2024 6:25 AM CDT W-locate Job ID: [id number] W-locate Document ID: [id number] Dictated date/time: [id number] TRANSESOPHAGEAL ECHO A 68-year-old with bacteremia and a history of bioprosthetic mitral valve replacement. She was referred for transesophageal echo to rule out endocarditis. After obtaining informed consent, the patient was brought to the cardiac labor arbitrator area. Noninvasive blood pressure, heart rate and oxygen saturation monitoring was applied. Topical anesthesia was applied to posterior oropharynx. Conscious sedation was administered by the labor arbitrator staff under my supervision. A total of 2 mg of Versed, 100 mcg of fentanyl and 50 mg of Benadryl were given in divided doses. See procedure log for further details. Total sedation time was 14 minutes. The probe was advanced without difficulty. Full study including 2D, color-flow and spectral Doppler was performed. Adequate images were obtained and the procedure was well tolerated. FINDINGS 1. Normal left ventricular systolic function. 2. Anatomically normal aortic valve without vegetation. 3. Left atrial enlargement without evidence of spontaneous contrast or thrombus. Appendage velocity averaged 30 cm/second. 4. Bioprosthetic valve in the mitral position with normal leaflet mobility. There is a small jet of central regurgitation as well as small jet of perivalvular leak. Mean transmitral gradient was 2.5 mmHg pressure, Pressure half time was 60 msec, and calculated valve area of 3.7 cm2. Pulmonary vein flow was normal. There was slight thickening of one of the leaflets but not conclusive on vegetations. 5. Mild tricuspid regurgitation. 6. The interatrial septum was anatomically normal. There was no evidence of shunt by bubble injection. 7. The aorta had mild diffuse atherosclerotic plaque. Oseml R. Scott, MD Job ID/Internal Job ID: [id number] us Angel Zepeda MD CV ECHO PROCEDURES F inal Result * Blood culture Blood (07/23/2024 4:13 AM CDT) Report Final Report: No growth Comment:Testing performed by : [facility], [address] [place]., [address] Blood 07/23/2024 4:13 AM CDT 07/23/2024 8:33 AM CDT Narrative [facility] ([facility]) - 07/27/2024 12:00 PM CDT From a different site than [...] performance characteristics have been verified by the [facility] Microbiology Laboratory. For questions about this culture, contact the Microbiology Laboratory at [phone]. Interpretive data was last revised on 23. us Angel Zepeda MD LAB MICROBIOLOGY - G ENERAL ORDERABLES Final Result [facility] ([place]) 1 [facility] Department [place] [address] * (ABNORMAL) CBC without differential (07/23/2024 4:13 AM CDT) WBC 7.98 3.80 - 9.90 K/cumm Hgb 11.5(L) 11.9 - 15.5 g/dL [facility] ([facility]) Hct 38.1 35.6 - 45.5 % [facility] ([facility]) Plt 327 150 - 400 K/cumm [facility] ([facility]) MPV 10.1 9.1 - 12.3 fL [facility] ([facility]) RBC 4.25 3.90 - 5.20 M/cumm [facility] ([place]) MCV 89.6 81.3 - 96.4 fL [facility] ([place]) MCH 27.1 27.1 - 33.3 pg [facility] ([facility]) MCHC 30.2(L) 32.3 - 35.7 g/dL [facility] ([facility]) RDW CV 15.0(H) 11.1 - 14.9 % [facility] ([facility]) RDW SD 49.1(H) 35.7 - 48.1 fL [facility] ([facility]) NRBC abs 0.00 0.00 - 0.01 K/cumm [facility] ([facility]) Blood 07/23/2024 4:13 AM CDT 07/23/2024 8:28 AM CDT us Sterling Georges Jr., MD LAB BLOOD ORDERABLE S Final Result [facility] ([place]) 1 [facility] Department [place] [address] * (ABNORMAL) Blood culture Blood (07/23/2024 4:05 AM CDT) Direct Specimen Exam Stain: Gram Positive Cocci in pairs and chains Time to culture positivity (anaerobic media): 19.4 hours Time to culture positivity (aerobic media): 20.1 hours Comment:Testing performed by : [facility], 1 [facility], [place]., [address] Report Final Report: Enterococcus faecalis For susceptibility results, refer to accession number [id number] on the blood culture from 07/21/2024 (.) [facility] ([facility]) Comment:Testing performed by : [facility], [address] [place]., [address] Organism ENTEROCOCCUS FAECALIS [facility]WANDA [facility] ([facility]) Blood 07/23/2024 4:05 AM CDT 07/23/2024 8:33 AM CDT Narrative [facility] ([facility]) - 07/27/2024 11:00 AM CDT Collection->Peripheral 1. Blood cultures are [...] performance characteristics have been verified by the [facility] Microbiology Laboratory. For questions about this culture, contact the Microbiology Laboratory at [phone]. Interpretive data was last revised on 23. us Angel Zepeda MD LAB MICROBIOLOGY - G ENERAL ORDERABLES Final Result [facility]) 1 [facility] Department [place] [address] * (ABNORMAL) Blood culture Blood (07/22/2024 8:49 AM CDT) Direct Specimen Exam Stain: Gram Positive Cocci in pairs and chains Time to culture positivity (anaerobic media): 11.4 hours Time to culture positivity (aerobic media): 12.9 hours Comment:Testing performed by : [facility], [address] [place]., [address] Report Final Report: Enterococcus faecalis Enterococcus faecalis #2 For susceptibility results, refer to accession number [id number] on the blood culture from 07/21/2024 (.) [facility] ([place]) Comment:Testing performed by : [facility], [address] [place]., [address] Organism ENTEROCOCCUS FAECALIS [facility] ([facility]) Organism ENTEROCOCCUS FAECALIS [facility] ([facility]) Blood 07/22/2024 8:49 AM CDT 07/22/2024 12:56 PM CDT Narrative [facility] ([facility]) - 07/26/2024 7:58 AM CDT From a different site than #1. 1. Blood cultures are incubated for 4 [...] performance characteristics have been verified by the [facility] Microbiology Laboratory. For questions about this culture, contact the Microbiology Laboratory at [phone]. Interpretive data was last revised on 23. Sterling Georges Jr., MD LAB MICROBIOLOGY - GENERAL ORDERABLES Final Result [facility]) 1 [facility] Department [place] [address] * (ABNORMAL) Blood culture Blood (07/22/2024 8:41 AM CDT) Direct Specimen Exam Stain: Gram Positive Cocci in pairs and chains Time to culture positivity (anaerobic media): 11.4 hours Time to culture positivity (aerobic media): 12.7 hours Comment:Testing performed by : [facility], [address] [place] [address]., [address] Report Final Report: Enterococcus faecalis Enterococcus faecalis #2 For susceptibility results, refer to accession number [id number] on the blood culture from 07/21/2024 (.) EMILYTAWANDA KATERINA ([facility]) Comment:Testing performed by : [facility], [address] [place] [address]., [address] Organism ENTEROCOCCUS FAECALIS [facility] ([facility]) Organism ENTEROCOCCUS FAECALIS [facility] ([facility]) Blood 07/22/2024 8:41 AM CDT 07/22/2024 12:56 PM CDT Narrative [facility]DA [facility] ([facility]) - 07/26/2024 8:05 AM CDT 1. Blood cultures are incubated [...] performance characteristics have been verified by the [facility] Microbiology Laboratory. For questions about this culture, contact the Microbiology Laboratory at [phone]. Interpretive data was last revised on 23. us Sterling Georges Jr., MD LAB MICROBIOLOGY - GENERAL ORDERABLES Final Result [facility] ([place]) 1 [facility] Department [place] [address] * eGFR (07/22/2024 2:46 AM CDT) eGFR 72 >=60 mL/min/1. 73 m2 Comment: Interpretive Data [...] interpretive data was last reviewed 2020. Blood 07/22/2024 2:46 AM CDT 07/22/2024 3:19 AM CDT us Sterling Georges Jr., MD LAB BLOOD ORDERABLE S Final Result [facility] ([place]) 1 [facility] Department [place] [address] * (ABNORMAL) Differential, auto (07/22/2024 2:46 AM CDT) Neutrophil abs 5.49 1.50 - 6.50 K/cumm Imm gran abs 0.05 0.00 - 0.10 K/cumm [facility] ([facility]) Lymphocyte abs 1.93 0.80 - 3.30 K/cumm [facility] ([facility]) Monocyte abs 0.99(H) 0.20 - 0.80 K/cumm [facility] ([facility]) Eosinophil abs 0.14 0.00 - 0.50 K/cumm [facility] ([facility]) Basophil abs 0.04 0.00 - 0.10 K/cumm [facility] ([facility]) Neutrophil pct 63.5 % [facility] ([facility]) Comment: Interpretive [...] was last revised on 2017. Lymphocyte pct 22.3 % [facility] ([facility]) Comment: Interpretive [...] was last revised on 2017. Eosinophil pct 1.6 % [facility] ([facility]) Comment: Interpretive [...] Data was last revised on 2017. Blood 07/22/2024 2:46 AM CDT 07/22/2024 3:18 AM CDT us Sterling Georges Jr., MD LAB BLOOD ORDERABLE S Final Result [facility] ([facility]) 1 [facility] Department [place] [address] * (ABNORMAL) CBC with auto differential (07/22/2024 2:46 AM CDT) WBC 8.64 3.80 - 9.90 K/cumm Hgb 11.0(L) 11.9 - 15.5 g/dL [facility] ([facility]) Hct 34.3(L) 35.6 - 45.5 % [facility] ([facility]) Plt 269 150 - 400 K/cumm [facility] ([facility]) MPV 9.6 9.1 - 12.3 fL [facility] ([facility]) RBC 3.99 3.90 - 5.20 M/cumm [facility] ([facility]) MCV 86.0 81.3 - 96.4 fL [facility] ([facility]) MCH 27.6 27.1 - 33.3 pg [facility] ([facility]) MCHC 32.1(L) 32.3 - 35.7 g/dL [facility] ([facility]) RDW CV 14.7 11.1 - 14.9 % [facility] ([facility]) RDW SD 46.6 35.7 - 48.1 fL [facility] ([facility]) NRBC abs 0.00 0.00 - 0.01 K/cumm [facility] ([facility]) Blood 07/22/2024 2:46 AM CDT 07/22/2024 3:18 AM CDT Sterling Georges Jr., MD LAB BLOOD ORDERABLE S Final Result [facility] ([facility]) 1 [facility] [place] [address] * Digoxin level (07/22/2024 2:46 AM CDT) Digoxin 0.6 0.5 - 1.2 ng/mL Comment: Interpretive data The therapeutic range for digoxin varies by indication: Heart failure: 0.5 to 0.8 ng/mL Atrial fibrillation: less than 1.2 ng/mL Toxicity: >2.4. Normal or low digoxin does not rule out toxicity. Current interpretive data was last revised on 2023. Blood 07/22/2024 2:46 AM CDT 07/22/2024 3:19 AM CDT Mikhail Winters MD LAB BLOOD ORDERABLE S Final Result [facility] ([facility]) 1 [facility] Department [place] [address] * (ABNORMAL) Renal function panel (07/22/2024 2:46 AM CDT) Sodium 139 135 - 145 mmol/L Potassium, pl 3.5 3.3 - 4.9 mmol/L [facility] (S[facility]) Chloride 104 97 - 110 mmol/L [facility] ([place]) CO2 22 22 - 32 mmol/L [facility] ([place]) Anion gap 14 2 - 15 mmol/L [facility] ([place]) BUN 14 6 - 25 mg/dL [facility] ([place]) Creatinine 0.88 0.60 - 1.10 mg/dL [facility] ([place]) Glucose 111 70 - 199 mg/dL [facility] ([place]) [...] interpretive data was last revised 2022. Calcium 9.1 8.5 - 10.3 mg/dL [facility] ([place]) Phosphorus, pl 3.5 2.3 - 4.5 mg/dL [facility] ([place]) Albumin 3.4(L) 3.5 - 5.0 g/dL [facility] ([place]) Blood 07/22/2024 2:46 AM CDT 07/22/2024 3:19 AM CDT Sterling Georges Jr., MD LAB BLOOD ORDERABLE S Final Result Performing Organization Address City/[facility]/ZIP Co de Phone Number [facility] (SARY) 1 [facility] [place] [address] * Magnesium (07/22/2024 2:43 AM CDT) Magnesium 2.1 1.4 - 2.5 mg/dL Blood 07/22/2024 2:43 AM CDT 07/22/2024 5:55 AM CDT us Sterling Georges Jr., MD LAB BLOOD ORDERABLE S Final Result Performing Organization Address [facility] de Phone Number [facility] (SARY) [address] [place] [address] * (ABNORMAL) Blood culture Blood Peripheral (07/21/2024 3:33 PM CDT) Direct Specimen Exam Stain: Gram Positive Cocci in pairs and chains Time to culture positivity (anaerobic media): 10.9 hours Time to culture positivity (aerobic media): 12.9 hours Comment:Testing performed by : [facility], [address] [place] [address], [place]., [id number] Report Final Report: Enterococcus faecalis Enterococcus faecalis #2 For susceptibility results, refer to accession number [id number] on the blood culture from 07/21/2024 (.) [facility] (S[facility]) Comment:Testing performed by : [facility], [address] [place] [address]., [id number] Organism ENTEROCOCCUS FAECALIS [facility] ([facility]) Organism ENTEROCOCCUS FAECALIS [facility] (S[facility]) Blood (Peripheral) 07/21/2024 3:33 PM CDT 07/21/2024 7:25 PM CDT Narrative [facility] (SCANDIA) - 07/25/2024 9:09 AM CDT From a different site than #1. Draw Blood cultures before administration of Antibiotics Collection->Peripheral 1. Blood cultures are incubated for [...] performance characteristics have been verified by the [facility] Microbiology Laboratory. For questions about this culture, contact the Microbiology Laboratory at [phone]. Interpretive data was last revised on 23. Hermes Cruz MD LAB MICROBIOLOGY - GENERAL O RDERABLES Final Result [facility] (SARY) 1 [facility] [place] [address] * (ABNORMAL) Blood culture Blood Peripheral (07/21/2024 2:11 PM CDT) Direct Specimen Exam Molecular Analysis: Enterococcus faecalis detected by shelly ePlex BCID-G panel. Enterococcus faecalis is routinely susceptible to ampicillin. Genes conferring Vancomycin resistance were not detected. This test does not exclude the possibility of a mixed bacterial infection. Notification of: Enterococcus faecalis called to and read back by: Reba Pacheco IN [phone] on 07/22/2024 09:12:56 by: Brett Cardenas Test result called to and read back by Boaz Durham [facility] on 07/22/2024 09:22:35 by Reba Pacheco. Comment:Testing performed by : [facility], [address] [place] [address]., [id number] Direct Specimen Exam Stain: Gram Positive Cocci in pairs and chains Time to culture positivity (aerobic media): 12.4 hours Time to culture positivity (anaerobic media): 12.9 hours Notification of: Gram Positive Cocci in pairs and chains called to and read back by: Reba Pacheco MLT [phone] on 07/22/2024 06:28:38 by: Timmy Jung MLT Test result called to and read back by Mona Carson AMU on 07/22/2024 06:36:20 by Reba Pacheco. [facility] (SARY) Comment:Testing performed by : [facility], [address] [place] [address]., [id number] Report Final Report: Enterococcus faecalis For serious infections with Enterococcus species (such as endocarditis or endovascular graft infections), combination antimicrobial therapy is often required. In these cases, an Infectious Disease Consult is strongly recommended. Enterococcus faecalis #2 For serious infections with Enterococcus species (such as endocarditis or endovascular graft infections), combination antimicrobial therapy is often required. In these cases, an Infectious Disease Consult is strongly recommended. (.) [facility] (SARY) Comment:Testing performed by : [facility], [address] [place] [address]., [id number] Organism ENTEROCOCCUS FAECALIS [facility] (SARY) Organism ENTEROCOCCUS FAECALIS [facility] (SARY) Blood (Peripheral) 07/21/2024 2:11 PM CDT 07/21/2024 4:59 PM CDT Narrative [facility] (SARY) - 07/26/2024 11:34 AM CDT Draw Blood cultures before administration of Antibiotics Collection->Peripheral 1. Blood cultures are incubated for [...] performance characteristics have been verified by the [facility]biology Laboratory. For questions about this culture, contact the Microbiology Laboratory at [phone]. Interpretive data was last revised on 23. Organism Antibiotic Method Susceptibility Enterococcus faecalis Ampicillin (ALYCIA) INTERPRETATIO N Susceptible Enterococcus faecalis Vancomycin (ALYCIA) INTERPRETATIO N Susceptible Enterococcus faecalis High-Level Gentamicin (ALYCIA) INTE RPRETATION Susceptible Enterococcus faecalis Linezolid (ALYCIA) INTERPRETATIO N Susceptible Enterococcus faecalis Doxycycline (ALYCIA) INTERPRETATIO N Resistant Enterococcus faecalis Ampicillin (ALYCIA) INTERPRETATIO N Susceptible Enterococcus faecalis Vancomycin (ALYCIA) INTERPRETATIO N Susceptible Enterococcus faecalis High-Level Gentamicin (ALYCIA) INTE RPRETATION Susceptible Enterococcus faecalis Linezolid (ALYCIA) INTERPRETATIO N Susceptible Enterococcus faecalis Doxycycline (ALYCIA) INTERPRETATIO N Resistant Hermes Cruz MD LAB MICROBIOLOGY - GENERAL O RDERABLES Final Result [facility] (SCANDIA) 1 [facility] [place] [address] * Influenza A/B, RSV, and COVID-19 PCR Nasopharyngeal (07/21/2024 11:34 AM CDT) COVID-19 RNA Negative Negative Influenza A RNA Negative Negative [facility] (SCANDIA) Influenza B RNA Negative Negative [facility] ([place]) RSV RNA Negative Negative [facility] (SC[place]IA) Comment: Interpretive data: Testing performed by [facility]. This test is performed using the ElectroCoreert Xpress CoV-2/Flu/RSV plus assay. This is a multiplex, real- time reverse transcriptase PCR assay intended for the qualitative detection of nucleic acid from SARS-CoV-2, influenza A, influenza B, and respiratory syncytial virus. This assay has been cleared by the [place] Food and Drug administration. The performance characteristics have been verified by the [facility]. Results must be considered in the clinical context, and a negative result does not rule out infection. Interpretive Data last revised 2023 Nasopharyngeal 07/21/2024 11 :34 AM CDT 07/21/2024 11:37 AM CDT Narrative [facility] (SC[place]IA) - 07/21/2024 12:15 PM CDT Is the Patient experiencing symptoms consistent with COVID?->Unknown Hermes Cruz MD LAB MICROBIOLOGY - GENERAL O RDERABLES Final Result [facility] ([place]IA) 1 [facility] [place] [address] * XR Chest Pa Lateral 2 Vw (07/21/2024 11:30 AM CDT) Anatomical Region Laterality Modality Body, Chest N/A Computed Radiogr aphy 07/21/2024 11:3 5 AM CDT Narrative 07/21/2024 11:36 AM CDT EXAM DESCRIPTION: XR CHEST PA LATERAL 2 VIEWS REASON FOR STUDY: general weakness for weakness, chills, and fatigue x5days. Pt states a month ago she was admitted for sepsis and this is what it is feeling like. Pt states she was diagnosed with a UTI yesterday. TECHNIQUE: Two views COMPARISON: 06/09/2024 FINDINGS: Heart size upper limits of normal unchanged. Central vascularity have normal caliber. Aortic arch well-defined on the left. Sternotomy wires are noted. Prosthetic heart valve noted. Lungs are expanded without dense consolidation, effusion or pneumothorax. Bony hypertrophic changes 1st ribs thoracic spine and shoulder obscures the apices. IMPRESSION: No acute findings. THIS IS AN ELECTRONICALLY VERIFIED FINAL REPORT 07/21/2024 11:36 AM - Electronically signed by Norberto Barnett M.D. RB: ERIKA Report ID: [id number] Reading Location: [id number] Procedure Note Norberto Barnett MD - 07/21/2024 EXAM DESCRIPTION: XR CHEST PA LATERAL 2 VIEWS REASON FOR STUDY: general weakness for weakness, chills, and fatigue x5days. Pt states a month ago she was admitted for sepsis and this is what it is feeling like. Pt states she was diagnosed with a UTI yesterday. TECHNIQUE: Two views COMPARISON: 06/09/2024 FINDINGS: Heart size upper limits of normal unchanged. Central vascularity havenormal caliber. Aortic arch well-defined on the left. Sternotomy wires arenoted. Prosthetic heart valve noted. Lungs are expanded without dense consolidation, effusion orpneumothorax. Bony hypertrophic changes 1st ribs thoracic spine and shoulder obscuresthe apices. IMPRESSION: No acute findings. THIS IS AN ELECTRONICALLY VERIFIED FINAL REPORT 07/21/2024 11:36 AM - Electronically signed by Norberto Barnett M.D. RB: ERIKA Report ID: [id number] Reading Location: [place] [address] Hermes Cruz MD IMG XR PROCEDURES Final Resu lt * Urinalysis reflex to microscopic and culture Urine (07/21/2024 10:34 AM CDT) Color, ur Yellow Yellow Clarity, ur Clear Clear [facility] (SARY) Specific gravity, ur 1.017 1.003 - 1.030 [facility] ([facility]) pH, urine 6.5 [facility] ([facility]) Comment: Interpretive Data U rine pH is affected by diet, medications, systemic acid-base disturbances, and renal tubular function. pH may affect urinary stone formation. For example, urine pH below 6.0 may help reduce the tendency for calcium phosphate stones and pH greater than 6.0 may reduce the tendency for uric acid stone formation. Source: [employer] Current Interpretive Data was last revised on 2017 Protein, ur ql Trace Negative [facility] ([facility]) Glucose, ur ql Negative Negative [facility] ([facility]) Ketones, ur Trace Negative [facility] (S[facility]) Bilirubin, ur Negative Negative [facility] ([place]) Blood, ur Negative Negative [facility] ([place]) Urobilinogen, ur <2.0 <2.0 mg/dL [facility] ([place]) Nitrite, ur Negative Negative [facility] ([facility]) Leukocyte esterase, ur Negative Negative [facility] ([place]) UA reflex comment Reflex conditions for microscopic UA and culture not met. [facility] ([place]) Urine 07/21/2024 10:3 4 AM CDT 07/21/2024 10:36 AM CDT Claudia Schwartz MD LAB MICROBIOLOGY - GENERA L ORDERABLES Final Result [facility] (SARY) 1 [facility] [place] [address] * eGFR (07/21/2024 9:52 AM CDT) eGFR 87 >=60 mL/min/1. 73 m2 Comment: Interpretive Data [...] interpretive data was last reviewed 2020. Blood 07/21/2024 9:52 AM CDT 07/21/2024 9:57 AM CDT us Claudia Schwartz MD LAB BLOOD ORDERABLES Silvia sandy Result [facility] ([place]IA) 1 [facility] [place] [address] * (ABNORMAL) Differential, auto (07/21/2024 9:52 AM CDT) Neutrophil abs 7.63(H) 1.50 - 6.50 K/cumm Imm gran abs 0.05 0.00 - 0.10 K/cumm [facility] ([place]) Lymphocyte abs 1.65 0.80 - 3.30 K/cumm [facility] ([place]) Monocyte abs 1.18(H) 0.20 - 0.80 K/cumm [facility] ([place]) Eosinophil abs 0.10 0.00 - 0.50 K/cumm [facility] ([place]) Basophil abs 0.05 0.00 - 0.10 K/cumm [facility] ([place]) Neutrophil pct 71.5 % [facility] ([place]) Comment: Interpretive Data Percent cell count reference ranges are not reported, since discordance with absolute values may lead to misinterpretation of CBC data. Current Interpretive Data was last revised on 2017. Imm gran pct 0.5 % [facility] ([place]) Comment: Interpretive Data Percent cell count reference ranges are not reported, since discordance with absolute values may lead to misinterpretation of CBC data. Current Interpretive Data was last revised on 2017. Lymphocyte pct 15.5 % [facility] ([facility]) Comment: Interpretive Data Percent cell count reference ranges are not reported, since discordance with absolute values may lead to misinterpretation of CBC data. Current Interpretive Data was last revised on 2017. Monocyte pct 11.1 % [facility] ([place]) Comment: Interpretive Data Percent cell count reference ranges are not reported, since discordance with absolute values may lead to misinterpretation of CBC data. Current Interpretive Data was last revised on 2017. Eosinophil pct 0.9 % [facility] ([place]) Comment: Interpretive Data Percent cell count reference ranges are not reported, since discordance with absolute values may lead to misinterpretation of CBC data. Current Interpretive Data was last revised on 2017. Basophil pct 0.5 % [facility] (SARY) Comment: Interpretive Data Percent cell count reference ranges are not reported, since discordance with absolute values may lead to misinterpretation of CBC data. Current Interpretive Data was last revised on 2017. Blood 07/21/2024 9:52 AM CDT 07/21/2024 9:57 AM CDT Claudia Schwartz MD LAB BLOOD ORDERABLES Silvia l Result Performing Organization Address City/[facility]/ZIP Co de Phone Number [facility] (SCANDIA) 1 [facility] [place] [address] * Procalcitonin (07/21/2024 9:52 AM CDT) Pathologist [facility] Procalcitonin 0.14 <=0.25 ng/mL Comment:Testing performed by : [facility], [facility]5 [facility], [place]., [address] Blood 07/21/2024 9:52 AM CDT 07/21/2024 5:12 PM CDT Hermes Cruz MD LAB BLOOD ORDERABLES Final R esult Performing Organization Address City/[facility]/ZIP Co de Phone Number [facility] (SCANDIA) 1 [facility] [place] [address] * (ABNORMAL) CBC with auto differential (07/21/2024 9:52 AM CDT) WBC 10.66(H) 3.80 - 9.90 K/cumm Hgb 11.9 11.9 - 15.5 g/dL [facility] ([facility]) Hct 37.7 35.6 - 45.5 % [facility] ([place]) Plt 333 150 - 400 K/cumm [facility] ([place]) MPV 10.2 9.1 - 12.3 fL [facility] ([facility]) RBC 4.31 3.90 - 5.20 M/cumm [facility] (S[facility]) MCV 87.5 81.3 - 96.4 fL [facility] ([place]) MCH 27.6 27.1 - 33.3 pg [facility] ([facility]) MCHC 31.6(L) 32.3 - 35.7 g/dL [facility] (S[facility]) RDW CV 14.9 11.1 - 14.9 % [facility] ([facility]) RDW SD 47.8 35.7 - 48.1 fL [facility] (S[facility]) NRBC abs 0.00 0.00 - 0.01 K/cumm [facility] (SARY) Blood 07/21/2024 9:52 AM CDT 07/21/2024 9:57 AM CDT Claudia Schwartz MD LAB BLOOD ORDERABLES Silvia l Result Performing Organization Address City/[facility]/ZIP Co de Phone Number [facility] (SARY) 1 [facility] [place] [address] * (ABNORMAL) CRP (acute phase) (07/21/2024 9:52 AM CDT) Pathologist [facility] CRP 27.2(H) <=10.0 mg/L Blood 07/21/2024 9:52 AM CDT 07/21/2024 11:17 AM CDT Hermes Cruz MD LAB BLOOD ORDERABLES Final R esult Performing Organization Address City/[facility]/ZIP Co de Phone Number [facility] (SARY) 1 [facility] [place] [address] * (ABNORMAL) Comprehensive metabolic panel (07/21/2024 9:52 AM CDT) Sodium 137 135 - 145 mmol/L Potassium, pl 4.7 3.3 - 4.9 mmol/L [facility] (SARY) Comment:Moderately Hemolyzed Specimen. Results may be affected. Chloride 102 97 - 110 mmol/L [facility] ([facility]) CO2 19(L) 22 - 32 mmol/L [facility] ([facility]) Anion gap 15 2 - 15 mmol/L [facility] ([place]) BUN 18 6 - 25 mg/dL [facility] ([place]) Creatinine 0.75 0.60 - 1.10 mg/dL [facility] ([place]) Glucose 124 70 - 199 mg/dL [facility] (SARY) [...] interpretive data was last revised 2022. Calcium 9.8 8.5 - 10.3 mg/dL [facility] ([place]) Bilirubin, total 0.2 0.1 - 1.2 mg/dL [facility] ([place]) Protein, pl 7.4 6.5 - 8.5 g/dL [facility] ([place]) Albumin 3.7 3.5 - 5.0 g/dL [facility] ([place]) Alk phos 108 40 - 130 Units/L [facility] ([place]) ALT 14 7 - 45 Units/L [facility] ([place]) Comment: Hemolysis present. Results may be affected. Moderately Hemolyzed Specimen AST 26 10 - 45 Units/L [facility] (SARY) Comment: Hemolysis present. Results may be affected. Moderately Hemolyzed Specimen Blood 07/21/2024 9:52 AM CDT 07/21/2024 9:57 AM CDT us Claudia Schwartz MD LAB BLOOD ORDERABLES Silvia sandy Result [facility] ([place]IA) 1 [facility] [place] [address] * ECG 12 lead (07/21/2024 9:47 AM CDT) 07/21/2024 9:47 AM CDT Narrative [facility] - 07/22/2024 7:56 AM CDT Vent Rate: 80 bpm RR Interval: 744 msec LA Interval: 185 msec QRS Duration: 100 msec QT Interval: 377 msec QTC Interval: 413 msec P-R-T [place]: 148 - 60 - 29 degrees IMPRESSION: SINUS RHYTHM WITH FREQUENT VENTRICULAR PREMATURE COMPLEXES NONSPECIFIC T-WAVE ABNORMALITY ABNORMAL RHYTHM ECG Compared to prior EKG, heart rate has decreased Sinus rhythm replaced atrial fibrillation Electronically Signed By: Osmel Chavez MD us Claudia Schwartz MD ECG ORDERABLES Final Res ult [facility] [place] * Lipid panel (06/10/2024 6:48 AM CDT) [...] revised on 2017. Chol/HDL ratio 3 [facility] (SARY) Blood 06/10/2024 6:48 AM CDT 06/10/2024 9:59 AM CDT Narrative [facility]) - 06/10/2024 10:17 AM CDT May run on this a.m. blood if possible. If not possible, draw the blood at 6:00 a.m. tomorrow morning. us Norberto Gastelum MD LAB BLOOD ORDERABLES Final Re sult [facility]) 1 [facility] [place] [address] * CT Lung Cancer Screening (11/22/2023 11:58 [...] screening) Electronically signed by: Jones Platt M.D. us Galilea Kessler MD IMG CT PROCEDURES Final Result * Hemoglobin A1c (12/23/2022 7:55 AM SYSTEM SAFETY ENGINEER) Hgb A1C 5.6 4.0 - 5.6 % [facility] ([place]) Estimated Average Glucose 114 mg/dL [facility] ([place]) Comment: The ADA recommends reporting an estimated Average Glucose (eAG) with all Hemoglobin A1c results using the equation derived from a study of 507 normal and diabetic adults. Minority populations were underrepresented and children were not included. (Diabetes Care 31:2052-4594, 2008). The eAG is not equivalent to a fasting glucose. Blood 12/23/2022 7:55 AM SYSTEM SAFETY ENGINEER 12/23/2022 9:19 AM SYSTEM SAFETY ENGINEER Martina Carpio MD LAB BLOOD ORDERABLES Fin al Result [facility] ([place]) 1 [facility] Department [place] [address] from Last 3 Months or Most Recently Relevant to Health Maintenance Insurance [facility] ADVANT[facility] Address[address] [address] [place] [address] [facility] MEDICARE ADVANTAGE [facility] Address: [place] [id number] [place] [address] Advance Directives For more information, please contact: [phone] * Full Code (Latest Code Status on File) Date Activated Date Inactivated Comments 09/22/2024 12:41 PM 09/22/2024 6:57 PM * Full Code Date Activated Date Inactivated Comments 07/27/2024 2:12 PM 07/28/2024 5:39 PM * Full Code Date Activated Date Inactivated Comments 07/27/2024 2:10 PM 07/27/2024 2:12 PM * Full Code Date Activated Date Inactivated Comments 07/21/2024 2:01 PM 07/27/2024 2:10 PM * Full Code Date Activated Date Inactivated Comments 06/10/2024 12:53 AM 06/16/2024 4:49 PM Healthcare Agents on File Name Relationship Healthcare Agent Relationship Communication Stefani Ordonez Daughter Health Care Agent Care Teams Piling Setter Relationship Specialty Start Date End Date Radha Diane NP [address] [place] [address] PCP - General Nurse Practitioner 07/20/24 Caren Almaraz NP [address] [place] [address] PCP - Home Infusion Attending Infectious Diseases 07/28/24 Corona Crabtree MD Surgeon Cardiothoracic Surgery 01/08/23 Franky Torres MD Consulting Physician Cardiology 01/08/23 Shobha Menon MD [address] [place] [address] [place] [address] Consulting Physician Gastroenterology 06/16/24
--- OUTSIDE RECORDS SUMMARY | 2024-10-15 14:19 | XMS_ITS | Encounter Summary ---
Author Organization [facility] Address [address] [place] [address] Phone Care Team Providers Care Wheelabrator Operator Name Role Phone Corona Crabtree MD Unavailable [phone] Demond Estevez MD Unavailable [phone] Shobha Menon MD Unavailable [phone] Radha Diane ASSISTANT WOM[employer]ASKETB[employer] COACH Primary Care Provider Caren Almaraz NP Unavailable [phone] Reason for Visit * Reason Onset Date Comments Test Results 09/24/2024 Encounter Details Date Type Department Care Team (Late st Contact Info) Description 09/24/2024 Results Follow-Up [facility] Gastroenterology [address] [facility] 2nd Floor [address] [place] [address] Ancelmo Main MD [address] [place], [place] [id number] Surgical pathology Social History Tobacco Use Types Packs/Day Years Used Date Smoking Tobacco: Former Cigarettes 1 35 Q uit: 04/2018 Smokeless Tobacco: Never Alcohol Use Standard Drinks/Week Comments Yes 0 [...] materials from doctor or pharmacy Sometimes 09/04/2024 [facility] Utilities Answer Date Recorded In the past 12 months has th e [employer], [employer], oil, or water [employer] threatened to shut off services in your [...] often do you attend chur ch or oriental orthodox services? Never 07/22/2024 Do you belong to any clubs o r organizations such as quaker groups, unions, fraternal or athletic groups, or [...] place to sleep or slept in a senior care (including now)? No 12/25/2022 Housing Stability Vital Sign Answer Fran e Recorded In the last 12 months, was t here a time when you were not able to pay the mortgage or rent on time? No 07/22/2024 In the past 12 months, how m any times have you moved where you were living? 0 07/22/2024 [facility] the [facility] were you [facility] or living in a senior care (including now)? No 07/22/2024 AUDIT-C Answer Date [...] on file documented as of this encounter Visit Diagnoses Not on filedocumented in this encounter Care Teams Wheelabrator Operator Relationship Specialty Start Date End Date Radha Diane NP [address] [place] [address] PCP - General Nurse Practitioner 07/20/24 Caren Almaraz NP [address] [place] [address] PCP - Home Infusion Attending Infectious Diseases 07/28/24 Corona Crabtree MD Surgeon Cardiothoracic Surgery 01/08/23 Demond Estevez MD Consulting Physician Cardiology 01/08/23 Shobha Menon MD [address] [place] [address] Consulting Physician Gastroenterology 06/16/24 documented as of this encounter
--- OUTSIDE RECORDS SUMMARY | 2024-10-15 14:20 | XMS_ITS | Encounter Summary ---
Author Organization [facility] Address [address] [place] [address] Phone Care Team Providers Care Licensed Guide Name Role Phone Ed Robles MD Primary Care Provider Encounter Details Date Type Department Care Team (Latest Contact Info) Description 01/17/2023 Lab Requisition [facility] Laboratory Services [address] [place] [address] [place] [address] [facility] DIV SURG CT ADULT-CARDIO, [place] [address] Atherosclerotic heart disease of resighini coronary artery without angina pectoris Social History Tobacco Use Types Packs/Day Years Used Date Smoking Tobacco: Never Assessed Comments Unknown Sex and Gender Information Value Date Recorded Sex Assigned at Not on file Legal Sex Female 12:33 PM FORESTRY EXTENSION SPECIALIST Gender Identity Not on file Sexual Orientation Not on file documented as of this encounter Plan of Treatment Not on file documented as of this encounter Procedures Procedure Name Priority Date/Time Associated Diagnosis Comments CBC WITH AUTO DIFFERENTIAL Routine 01/17/2023 10:00 AM FORESTRY EXTENSION SPECIALIST Atherosclerotic heart disease of resighini coronary artery without angina pectoris CMP (COMPREHENSIVE METABOLIC PANEL) Routine 01/17/2023 10:00 AM FORESTRY EXTENSION SPECIALIST Atherosclerotic heart disease of resighini coronary artery without angina pectoris COMPLETE BLOOD COUNT (CBC) WITH DIFF Routine 01/17/2023 10:00 AM FORESTRY EXTENSION SPECIALIST Atherosclerotic heart disease of resighini coronary artery without angina pectoris documented in this encounter Results * (ABNORMAL) CBC WITH AUTO DIFFERENTIAL (01/17/2023 10:[address] [facility]) WBC 9.92 4.00 - 12.00 10(3)/mcL 01/17/2023 11:04 AM [facility] RBC 3.10(L) 3.80 - 5.30 10(6)/mcL 01/17/2023 11:04 AM [facility] HEMOGLOBIN (HGB) 9.2(L) 12.0 - 15.8 g/dL 01/17/2023 11:04 AM [facility] HEMATOCRIT (HCT) 28.7(L) 36.0 - 47.0 % 01/17/2023 11:04 AM [facility] MCV 92.6 82.0 - 96.0 fL 01/17/2023 11:04 AM [facility] MCH 29.7 26.0 - 34.0 pg 01/17/2023 11:04 AM [facility] MCHC 32.1 31.0 - 36.0 g/dL 01/17/2023 11:04 AM [facility] PLATELET COUNT 498(H) 140 - 440 10(3)/mcL 01/17/2023 11:04 AM [facility] RDW 15.9(H) 11.8 - 15.5 % 01/17/2023 11:04 AM [facility] MPV 8.5(L) 9.7 - 12.4 fL 01/17/2023 11:04 AM [facility] NEUTROPHILS 68.2 47.0 - 73.0 % 01/17/2023 11:04 AM [facility] LYMPHOCYTES 11.1(L) 18.0 - 42.0 % 01/17/2023 11:04 AM [facility] MONOCYTES 8.1 4.0 - 12.0 % 01/17/2023 11:04 AM [facility] EOSINOPHILS 12.1(H) 0.0 - 5.0 % 01/17/2023 11:04 AM [facility] BASOPHILS 0.5 0.0 - 1.0 % 01/17/2023 11:04 AM [facility] ABSOLUTE NEUTROPHILS 6.77 1.60 - 7.70 10(3)/[facility] 01/17/2023 11:04 AM [facility] ABSOLUTE LYMPHOCYTES 1.10(L) 1.30 - 3.20 10(3)/[facility] 01/17/2023 11:04 AM [facility] ABSOLUTE MONOCYTES 0.80 0.20 - 1.00 10(3)/[facility] 01/17/2023 11:04 AM [facility] ABSOLUTE EOSINOPHIL 1.20(H) 0.00 - 0.40 10(3)/[facility] 01/17/2023 11:04 AM [facility] ABSOLUTE BASOPHILS 0.05 0.00 - 0.10 10(3)/[facility] 01/17/2023 11:04 AM [facility] NRBC PER 100 WBC 0 01/18/20 11:04 AM [facility] Blood No Phlebotomy Charged / Unknown 01/17/2023 10:00 AM FORESTRY EXTENSION SPECIALIST 01/17/2023 10:[address] [facility] us Corona Crabtree MD HEMATOLOGY ORDERABLES Final Result [facility] [place] [address] * (ABNORMAL) CMP (COMPREHENSIVE METABOLIC PANEL) (01/17/2023 10:00 AM FORESTRY EXTENSION SPECIALIST) SODIUM 139 136 - 145 mmol/L 01/17/2023 11:20 AM FORESTRY EXTENSION SPECIALIST [facility] POTASSIUM 4.3 3.5 - 5.1 mmol/L 01/17/2023 11:20 AM [facility] CHLORIDE 107 98 - 107 mmol/L 01/17/2023 11:20 AM [facility] CO2, VENOUS 22 22 - 30 mmol/L 01/17/2023 11:20 AM [facility] ANION GAP 14.3 <18.0 mmol/L 01/17/2023 11:20 AM [facility] GLUCOSE 117(H) 70 - 99 mg/dL 01/17/2023 11:20 AM [facility] BUN 10 10 - 20 mg/dL 01/17/2023 11:20 AM [facility] CREATININE, BLOOD 0.68 0.60 - 1.00 mg/dL 01/17/2023 11:20 AM [facility] BUN/CREATININE RATIO 15 12 - 20 ratio 01/17/2023 11:20 AM [facility] TOTAL PROTEIN 6.9 6.3 - 8.2 g/dL 01/17/2023 11:20 AM [facility] ALBUMIN 3.5 3.5 - 5.0 g/dL 01/17/2023 11:20 AM [facility] A/G RATIO 1.0 1.0 - 2.2 01/17/2023 11:20 AM [facility] CALCIUM 9.5 8.7 - 10.5 mg/dL 01/17/2023 11:20 AM [facility] T BILI 0.2 0.2 - 1.2 mg/dL 01/17/2023 11:20 AM [facility] SGOT (AST) 30 5 - 34 U/L 01/17/2023 11:20 AM [facility] SGPT (ALT) 32 0 - 55 U/L 01/17/2023 11:20 AM [facility] ALKALINE PHOSPHATASE 99 40 - 150 U/L 01/17/2023 11:20 AM [facility] GFR, ESTIMATED >60 >=60 01/17/2023 11:20 AM [facility] Comment: Creatinine Clearance is the preferred criteria for selecting drug dose adjustments in renally impaired patients. The GFR is provided as additional pertinent clinical information. GFR is reported in mL/min/1.73 sq m. Calculation based on the Chronic Kidney Disease Epidemiology Collaboration (CKD- EPI) equation refit without adjustment for race. GFR, EST. >60 >=60 023 11:20 AM FORESTRY EXTENSION SPECIALIST [facility] GFR, EST. 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
--- OUTSIDE RECORDS SUMMARY | 2024-10-15 14:20 | XMS_ITS | Clinical Summary ---
Author Organization [facility] Address [address] [place] [address] Phone Care Team Providers Care Flight Test Supervisor Name Role Phone Ed Robles MD Primary Care Provider Allergies Active Allergy Reactions Criticality Noted Date [...] on file Legal Sex Female 12:33 PM HEMATOLOGY SUPERVISOR Gender Identity Not on file Sexual Orientation Not on file Last Filed Vital Signs Vital Sign Reading Time Taken Comments Blood Pressure 124/76 02/01/2023 11:00 AM HEMATOLOGY SUPERVISOR Pulse 90 02/01/2023 11:00 AM HEMATOLOGY SUPERVISOR Temperature 36.6 C (97.9 F) 02/01/2023 11:00 AM HEMATOLOGY SUPERVISOR Respiratory Rate 18 02/01/2023 11:00 AM HEMATOLOGY SUPERVISOR Oxygen Saturation 98% 02/01/2023 11:00 AM HEMATOLOGY SUPERVISOR Inhaled Oxygen Concentration - - Weight 70.3 kg (155 lb) 01/29/2023 11:37 AM HEMATOLOGY SUPERVISOR Height 170.2 cm (5' 7) 01/10/2023 12:45 PM HEMATOLOGY SUPERVISOR Body Mass Index 24.28 01/10/2023 12:45 PM HEMATOLOGY SUPERVISOR Plan of Treatment Health Maintenance Due Date Last Done Comments DEXA Bone Density 1955 Hepatitis C Virus (HCV) Screening 1955 Mammogram 1955 Cologuard 2001 Colonoscopy 2001 Colorectal Cancer Screening 2001 Immunochemical Fecal Occult Blood 2001 Influenza Immunization (#1) 2024 0909/2022, 12/10/2021, 11/09/2020, Additional history exists SARS-COV-2 Immunization ( season) 2024 08/24/2021, 11/18/2020, 05/05/2020, Additional history exists DTaP/Tdap/Td Immunization Discontinued 03/07/2012 TdaP Immunization Completed 03/07/2012 Zoster Immunization Completed 03/27/2019, 9 Pneumococcal Immunization (50+ years) Completed 08/24/2021, 05/28/2021, 07/18/2020 Respiratory Syncytial Virus (RSV) Immunization (Adult) Completed 11/15/2022 Hepatitis B Immunization Aged Out No longer eligible based on patient's age to complete this topic Human Papillomavirus (HPV) Immunization Aged Out No longer eligible based on patient's age to complete this topic Meningococcal Immunization (ACWY) Aged Out No longer eligible based on patient's age to complete this topic Rotavirus Immunization Aged Out No lo nger eligible based on patient's age to complete this topic Insurance [facility] Advance Directives * Full Code (Latest Code Status on File) Date Activated Date Inactivated Comments 01/24/2023 6:35 AM Care Teams Flight Test Supervisor Relationship Specialty Start Date End Date Ed Robles MD PCP - General Family Medicine 01/04/23
--- OUTSIDE RECORDS SUMMARY | 2024-10-15 14:20 | XMS_ITS | Clinical Summary ---
Author Organization [facility] Address [address] [place] [address] Care Team Providers Care Gypsum Calciner Name Role Phone Ed Robles MD Primary Care Provider [phone] Source Comments [facility],non-[facility] Affiliates and Associated Physician Practices is amultiple site organization consisting of ambulatory clinics and hospital sitesin [place], [place], [place] and [place]. This disclosure is being madepursuant to the Care Everywhere program and may not contain all information available regarding this patient. Last updated 17.[facility] Allergies Active Allergy Reactions Criticality Noted Date [...] differently: 20 mgOral2 TIMES DAILY, Reported on 10/06/2024 Cholecalciferol (Vitamin D) 50 MCG (2000 UT) [...] (Flonase Allergy Relief) 50 MCG/ACT nasal spray [place] 2 (two) sprays into each nostril once [...] 200 mcg by mouth once daily Active [place]-3 300 MG CAPS Take 1 tablet by mouth once daily Active magnesium 500 MG tablet Take 1 (one) tablet by mouth once daily Active digoxin (Lanoxin) 0.125 MG tablet Take 1 (one) tablet by mouth once daily 5 06/17/19 26 Active Eliquis 5 MG tablet TAKE 1/2 (ONE-HALF) TABLET BY MOUTH TWICE DAILY 5 Active Active Problems Problem Noted Date Diagnosed [...] Encounters Date Type Department Care Team Description 10/06/2024 11:00 AM CDT Office Visit [facility] - [facility] [address], [address] [place] [id number] Wesly Thomas MD PVD (peripheral vascular disease) (Primary Dx); Stenosis of carotid artery, unspecified laterality 10/06/2024 10:16 AM CDT - 10/06/2024 11:59 PM CDT Hospital Encounter [facility] [address], [address] [place] [address] Ned Betancourt MD Discharge Disposition: Home or Self Care 10/06/2024 Travel 08/24/2024 Travel from Last 3 Months Family History [...] drink = 0.6 oz pur e alcohol) several glasses of wine Comments No Sex and Gender Information Value Date Recorded Sex Assigned at Not on file 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 Gender Identity Not on file Sexual Orientation Not on file 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 Start Date Job End Date 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 Not on file Not on file Not [...] - - Weight 76.2 kg (168 lb) 10/06/2024 10:35 AM CDT Height 170.2 cm (5' 7) 10/06/2024 10:35 AM CDT Body Mass Index 26.31 10/06/2024 10:35 AM CDT Plan of Treatment Upcoming Encounters Date Type Department Care Team (Late st Contact Info) Description 10/12/2025 10:30 AM CDT Appointment [facility] Vascular Services [address] [place] [address], [address] [place], [place] [id number] 10/12/2025 11:00 AM CDT Office Visit [facility] - Surgery [address] [place] [address], [address] [place] [address] Wesly Thomas MD [address] [place] [address] [address] [place] [address] Health Maintenance Due Date Last Done Comments BONE DENSITY TESTING 1955 COLOGUARD (AGES 45-75) - COLON CA SCREENING 1956 CT COLONOGRAPHY - COLON CA SCREENING 1955 FIT - COLON CA SCREENING 1955 FLEX SIG - COLON CA SCREENING 1955 MAMMOGRAM 1955 HEPATITIS C SCREENING 07/28/1974 DTAP/TDAP/TD VACCINES (1 - Tdap) 08/02/1975 PNEUMOCOCCAL VACCINE 50+ (1 of 1 - PCV) 2006 ZOSTER VACCINE (1 of 2) 2006 Respiratory Syncytial Virus (RSV) Vaccine Pt: or over 60 yrs (1 - Risk 60-74 years 1-dose series) 2016 DEPRESSION SCREENING 02/12/2024 MEDICARE AWV CALENDAR YEAR 2024 COVID-19 VACCINE ( season) 2024 11/18/2020, 05/05/2020, 04/14/2020 INFLUENZA VACCINE (#1) 2024 , 11/09/2020, 11/24/2019, Additional history exists LUNG CANCER SCREENING 11/21/2024 11/22/2023, 024 SCREENING FOR DIABETES 12/23/2025 12/23/2022, 2018 COLON MONITORING 09/22/2034 09/22/2024, 07/27/2024 COLONOSCOPY - COLON CA SCREENING 09/22/2034 09/22/2024, 07/27/2024 Colorectal Cancer Screening 09/22/2034 HEPATITIS B VACCINE Aged Out No longe [...] Name Priority Date/Time Associated Diagnosis Comments VAS ARTERIAL ANKLE ARM INDEX Routine 10/06/2024 10:38 AM CDT PVD (peripheral vascular disease) Stenosis of carotid artery, unspecified laterality COMPREHENSIVE METABOLIC PANEL Routine 04/02/2018 PAD (peripheral artery disease) Bilateral carotid artery stenosis Essential hypertension Mixed hyperlipidemia from Last 3 Months or Most Recently Relevant to Health Maintenance Results * VAS Arterial Ankle Arm Index (10/06/2024 10:38 AM CDT) Anatomical Region Laterality Modality Ankle / Foot, Upper Extremity Ul trasound 10/06/2024 10:1 7 AM CDT Narrative Procedure Note Ned Betancourt MD - 10/06/2024 [facility] Vascular [facility] [address] [address], [address] [place] [address] Lower Extremity Arterial Doppler Report Pat.Name: LISA ESCAMILLA Pat.ID: [id number] .Date: 10/06/2024 Exam Time: 10:17:00 AM Study Type:GIOVANNI/PVR Age: 6 1955,69Y Sex: FEMALE Sonogrphr: Clara Merida RVT Pat. Stat.:Outpatient CPT - 4: 52318 Reason for Study: PVD History / Clinical: Hypertension, COPD, Hyperlipidemia Procedures: Ankle Arm Index Race: [facility] Visit ID: [id number] ++++++++++++++++++++++++++++++++++++ SUMMARY: ++++++++++++++++++++++++++++++++++++ There is no evidence for significant arterial insufficiency of either the right or left lower extremity based on waveform analysis. ++++++++++++++++++++++++++++++++++++ FINDINGS: ++++++++++++++++++++++++++++++++++++ Procedure: The arterial vasculature of the lower extremities was evaluated by analysis of Doppler pressures and waveforms obtained in the legs at rest. Study Quality: This study is of adequate technical quality. GIOVANNI: Rt ankle brachial index is 1.2. Left ankle brachial index is 1.1 (normal greater than 0.90). Arterial doppler waveforms of the right VP CUSTOMER DEVELOPMENT are triphasic. Arterial doppler waveforms of the right DPA are triphasic. Arterial doppler waveforms of the left VP CUSTOMER DEVELOPMENT are triphasic. Arterial doppler waveforms of the left DPA are triphasic. Right digital brachial index is 0.71. Left digital brachial brachial index 0.74 (normal greater than 0.60). ++++++++++++++++++++++++++++++++++++ MEASUREMENTS: ++++++++++++++++++++++++++++++++++++ PRESSURES Right 1st Digit GreatToe P 122 mmHg Right GIOVANNI (DP) GIOVANNI (DP) 1.1 Right GIOVANNI (PT) GIOVANNI (PT) 1.2 Right Ankle DP AnkleDP P 187 mmHg Right Ankle PT AnklePT P 199 mmHg Right Brachial Brach P 172 mmHg Right DBI DBI 0.71 Left 1st Digit GreatToe P 127 mmHg Left GIOVANNI (DP) GIOVANNI (DP) 0.99 Left GIOVANNI (PT) GIOVANNI (PT) 1.1 Left Ankle DP AnkleDP P 171 mmHg Left Ankle PT AnklePT P 183 mmHg Left DBI DBI 0.74 Signed 10/06/2024 11:48 AM Ned Betancourt MD us Wesly Thomas MD VASCULAR LAB ORDERABLES Edited * COMPREHENSIVE METABOLIC PANEL (04/02/2018) Blood BLOOD SPECIMEN / Unknown us Jose Luis Narvaez MD LAB - CHEMISTRY ORDERABLES F inal Result [facility] INSURANCE BILL [address] [place] [address] from Last 3 Months or Most Recently Relevant to Health Maintenance Insurance Care Teams Gypsum Calciner Relationship Specialty Start Date End Date Ed Robles MD [address] [place] [address] PCP - General Family Medicine 11/13/22
--- OUTSIDE RECORDS SUMMARY | 2024-10-15 14:20 | XMS_ITS | Encounter Summary ---
Author Organization [facility] Address [address] [place] [address] Phone Care Team Providers Care Mc Kay Machine Operator Name Role Phone Ed Robles MD Primary Care Provider Encounter Details Date Type Department Care Team (Latest Contact Info) Description 01/17/2023 Lab Requisition [facility] Laboratory Services [address] [place] [address] [place] [address] [facility] [address] SURG CT ADULT-CARDIO, [place] [address] Atherosclerotic heart disease of knik coronary artery without angina pectoris Social History Tobacco Use Types Packs/Day Years Used Date Smoking Tobacco: Never Assessed Comments Unknown Sex and Gender Information Value Date Recorded Sex Assigned at Not on file 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 Gender Identity Not on file Sexual Orientation Not on file documented as of this encounter Plan of Treatment Scheduled Orders Name Type Priority Associated Diagnoses Orde r Schedule CMP (COMPREHENSIVE METABOLIC PANEL) Lab Routine Atherosclerotic heart disease of knik coronary artery without angina pectoris Ordered: 01/17/2023 COMPLETE BLOOD COUNT (CBC) WITH DIFF Lab Routine Atherosclerotic heart disease of knik coronary artery without angina pectoris Ordered: 01/17/2023 documented as of this encounter Visit Diagnoses Diagnosis 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
[2024-10-15 19:01] LABS: Hematocrit 37.9 % (37.0-47.0); Hemoglobin 11.7 g/dL (12.0-15.0); Mean Corpuscular HGB Conc 30.9 g/dl (32-36); Mean Corpuscular Hemoglobin 25.6 pg (26-34); Mean Corpuscular Volume 82.9 fl (80-100); Platelet Count Result 293 k/mm3 (150-375); Red Blood Count 4.57 M/mm3 (4.2-5.4); White Blood Count 8.0 K/mm3 (4.5-10.0)
[2024-10-15 19:02] LABS: Alanine Aminotransferase 24 U/L (6-35); Albumin Level 4.3 g/dL (3.5-5.1); Alkaline Phosphatase 107 U/L (38-126); Anion Gap 8 mmol/L (4-12); Aspartate Amino Transferase 49 U/L (14-36); Bilirubin,Total 0.5 mg/dL (0.2-1.3); Blood Urea Nitrogen 20 mg/dL (7-17); Calcium 10.0 mg/dL (8.4-10.2); Carbon Dioxide 25 mmol/L (22-30); Chloride 103 mmol/L (98-107); Cholesterol 158 mg/dL (0-200); Estimated Glomerular Filt Rate > 60; Glucose 99 mg/dL (65-110); HDL Direct 58 mg/dL; Potassium 4.7 mmol/L (3.4-5.0); Sodium 136 mmol/L (137-145); Total Protein 7.6 g/dL (6.3-8.2); Triglycerides 201 mg/dL (<150)
[2024-10-15 19:53] LABS: Hemoglobin A1C 6.3 % (<5.7)
[2024-10-15 19:56] LABS: Vitamin B12 318.0 pg/mL (239-931)
== END 2024-10-15 14:07 | disposition home or self-care (01) ==
PROVIDERS: PCP Nurse Practitioner Adult Health; Visit Provider Nurse Practitioner Adult Health
DX: R79.89 Other specified abnormal findings of blood chemistry (principal); I10 Essential (primary) hypertension; R73.03 Prediabetes; E53.8 Deficiency of other specified B group vitamins; Z79.899 Other long term (current) drug therapy
CPT/HCPCS: 36415; 80053; 80061; 82306; 82607; 83036; 85027